=== PATIENT | female | born 1935 | race Caucasian/White ===

== ENCOUNTER 2018-04-13 14:41 | Emergency (ER) | payer OTHER ==
--- NOTE | 2018-04-13 17:15 | RAD REPORT ---
EXAM DESCRIPTION: CT - Pelvis Wo Cont - 04/13/2018 4:44 pm CLINICAL HISTORY: Right hip pain COMPARISON: March 2018 cat scan TECHNIQUE: Computed axial tomography of the pelvis was obtained with coronal and sagittal reconstruc tion All CT scans are performed using dose optimization technique as appropriate and may include automated exposure control or mA/KV adjustment according to patient size. FINDINGS: No fracture or dislocation seen Muscles do not demonstrate a significant abnormality A significant joint effusion is not seen. 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 If patient continues have symptoms to suggest an occult fracture MR I recommended Mild osteoarthritis involves the hips
[2018-04-13] MEDS ORDERED: HYDROCODONE/APAP 5/325 MG TAB ONE (18:26)
--- NOTE | 2018-04-13 20:03 | RAD REPORT ---
EXAM DESCRIPTION: MRI - Hip Right Wo Cont - 04/13/2018 7:52 pm CLINICAL HISTORY: pain wt bear problem History of fall, right hip pain COMPARISON: Pelvis Wo Cont dated 04/13/2018; Hip Right 2 View dated 04/10/2018 FINDINGS: The marrow signal of the visualized pelvis and proximal femur is normal. There is no fracture or dislocation seen. No MR evidence of avascular necrosis. No iliopsoas bursitis. No muscle strain or tear pattern. No significant joint effusion. IMPRESSION: No acute abnormality is detected.
--- NOTE | 2018-04-13 20:16 | EDPHYS ---
Physician Documentation [facility] Name: Kemi Coulter Age: 82 yrs Sex: Female : 1935 Arrival Date: 04/13/2018 Time: 14:44 Bed 25 Private MD: Karson Herndon C; Elijah Herrera ED Physician Elijah Herrera HPI: 04/13 19:50 This 82 yrs old Female presents to ER via Wheelchair with complaints of Leg gs Pain. 19:50 The patient presents with an injury, pain. The complaints affect the right hip. gs Context: The problem was sustained at home. Onset: The symptoms/episode began/occurred 3 week(s) ago. Modifying factors: the symptoms are aggravated by weight bearing. Associated signs and symptoms: Pertinent negatives calf tenderness, numbness. Severity of symptoms: At their worst the symptoms were severe, in the emergency department the symptoms are unchanged. The patient has not experienced similar symptoms in the past. Historical: - Allergies: 14:49 Levaquin; ss - Immunization history:: Adult Immunizations up to date. - Social history:: Smoking status: Patient/guardian denies using tobacco. - Ebola Screening: : Patient denies exposure to infectious person Patient denies travel to an Ebola-affected area in the 21 days before illness onset. ROS: 19:50 All other systems are negative. gs Exam: 19:50 Head/Face: Normocephalic, atraumatic. Neck: Trachea midline, no thyromegaly or masses gs palpated, and no cervical lymphadenopathy. Supple, full range of motion without nuchal rigidity, or vertebral point tenderness. No Meningismus. Cardiovascular: Regular rate and rhythm with a normal S1 and S2. No gallops, murmurs, or rubs. Normal PMI, no JVD. No pulse deficits. Respiratory: Lungs have equal breath sounds bilaterally, clear to auscultation and percussion. No rales, rhonchi or wheezes noted. No increased work of breathing, no retractions or nasal flaring. Abdomen/GI: Soft, non-tender, with normal bowel sounds. No distension or tympany. No guarding or rebound. No evidence of tenderness throughout. Back: No spinal tenderness. No costovertebral tenderness. Full range of motion. Skin: Warm, dry with normal turgor. Normal color with no rashes, no lesions, and no evidence of cellulitis. Neuro: Awake and alert, GCS 15, oriented to person, place, time, and situation. Cranial nerves II-XII grossly intact. Motor strength 5/5 in all extremities. Sensory grossly intact. Cerebellar exam normal. Normal gait. 19:50 Constitutional: The patient appears alert, awake, uncomfortable. 19:50 Musculoskeletal/extremity: Pulses: are normal with no appreciated deficits, Joints: the right hip displays painful range of motion, tenderness. Vital Signs: 14:49 BP 150 / 99; Pulse 85; Resp 16; Temp 97.6(TE); Pulse Ox 96% on R/A; Weight 77.56 kg; ss Height 5 ft. 4 in. (162.56 cm); Pain 9/10; 18:06 BP 149 / 91; Pulse 89; Resp 19; Pulse Ox 99% on R/A; aj 20:49 BP 135 / 78; Pulse 85; Resp 18; Pulse Ox 100% on R/A; Pain 0/10; mg2 14:49 Body Mass Index 29.35 (77.56 kg, 162.56 cm) ss MDM: 16:09 Patient medically screened. gs 19:50 Differential diagnosis: closed fracture, contusion, tendonitis, osteoarthritis. Data gs reviewed: vital signs, nurses notes. 04/13 16:17 Order name: CT Pelvis wo Cont; Complete Time: 17:41 gs 04/13 18:15 Order name: Hip Right Wo Cont; Complete Time: 20:14 EDMS Administered Medications: 18:20 Drug: [place] 5 mg-325 mg 1 tabs Route: PO; kr2 19:28 Follow up: Response: No adverse reaction; Marked relief of symptoms mg2 Disposition: 04/13/18 20:15 Discharged to Home. Impression: Osteoarthritis of hip. - Condition is Stable. - Discharge Instructions: Arthritis, [id number]. - Prescriptions for Tylenol- Codeine #4 300-60 mg Oral Tablet - take 1 tablet by ORAL route every 6 hours As needed; 6 tablet. - Medication Reconciliation Form, Thank You Letter, Antibiotic Education, Prescription Opioid Use form. - Follow up: Private Physician; When: 2 - 3 days; Reason: Re-evaluation by your physician. Follow up: Wood Vega MD; When: 2 - 3 days; Reason: Re-evaluation by your physician. Signatures: Dispatcher [employer] [facility] Cady Swain RN RN ss Elijah Herrera MD MD gs Alexandra Blanchard RN RN kr2 Antonio Joy RN RN mg2 Corrections: (The following items were deleted from the chart) 18:20 17:55 Hip Right Wo Con ordered. [facility] EDTX 20:50 20:15 04/13/2018 20:15 Discharged to Home. Impression: Osteoarthritis of hip. Condition mg2 is Stable. Forms are Medication Reconciliation Form, Thank You Letter, Antibiotic Education, Prescription Opioid Use. Follow up: Private Physician; When: 2 - 3 days; Reason: Re-evaluation by your physician. Follow up: Wood Vega; When: 2 - 3 days; Reason: Re-evaluation by your physician. geno
--- NOTE | 2018-04-13 20:16 | ER ---
Nurse's Notes [facility] Name: Kemi Coulter Age: 82 yrs Sex: Female : 1935 Arrival Date: 04/13/2018 Time: 14:44 Bed 25 Private MD: Karson Herndon C; Elijah Herrera Diagnosis: Osteoarthritis of hip Presentation: 04/13 14:47 Presenting complaint: Patient states: R hip pain x 1.5 months ago after falling from a ss standing position. Pt reports she had an XRAY obtained recently that was ordered by Dr. Herndon last week, but is hurting too bad and has yet to get a report. Transition of care: patient was not received from another setting of care. Onset of symptoms was February 2018. Risk Assessment: Do you want to hurt yourself or someone else? Patient reports no desire to harm self or others. Initial Sepsis Screen: Does the patient meet any 2 criteria? No. Patient's initial sepsis screen is negative. Does the patient have a suspected source of infection? No. Patient's initial sepsis screen is negative. Care prior to arrival: None. 14:47 Method Of Arrival: Wheelchair ss 14:47 Acuity: CORDELL 3 ss Historical: - Allergies: 14:49 Levaquin; ss - Immunization history:: Adult Immunizations up to date. - Social history:: Smoking status: Patient/guardian denies using tobacco. - Ebola Screening: : Patient denies exposure to infectious person Patient denies travel to an Ebola-affected area in the 21 days before illness onset. Screenin:45 Abuse screen: Denies threats or abuse. Denies injuries from another. Nutritional aj screening: No deficits noted. Tuberculosis screening: No symptoms or risk factors identified. Fall Risk None identified. Assessment: 16:45 General: Appears in no apparent distress. comfortable, Behavior is calm, cooperative, aj appropriate for age. Pain: Complains of pain in lateral aspect of right thigh. Neuro: Level of Consciousness is awake, alert, obeys commands, Oriented to person, place, time, situation, Appropriate for age. Respiratory: Airway is patent Respiratory effort is even, unlabored, Respiratory pattern is regular, symmetrical. Derm: Skin is intact, is healthy with good turgor, Skin is pink, warm \T\ dry. normal. Musculoskeletal: Circulation, motion, and sensation intact. Range of motion: intact in all extremities. 20:49 Reassessment: Patient appears in no apparent distress at this time. Patient and/or mg2 family updated on plan of care and expected duration. Pain level reassessed. Patient is alert, oriented x 3, equal unlabored respirations, skin warm/dry/pink. Vital Signs: 14:49 BP 150 / 99; Pulse 85; Resp 16; Temp 97.6(TE); Pulse Ox 96% on R/A; Weight 77.56 kg; ss Height 5 ft. 4 in. (162.56 cm); Pain 9/10; 18:06 BP 149 / 91; Pulse 89; Resp 19; Pulse Ox 99% on R/A; aj 20:49 BP 135 / 78; Pulse 85; Resp 18; Pulse Ox 100% on R/A; Pain 0/10; mg2 14:49 Body Mass Index 29.35 (77.56 kg, 162.56 cm) ED Course: 14:44 Patient arrived in ED. mr 14:45 Karson Herndon MD is Private Physician. mr 14:49 Triage completed. ss 14:49 Arm band placed on right wrist. ss 15:24 Madison Ontiveros, HAL is Primary Nurse. aj 15:24 Elijah Herrera MD is Private Physician. aj 15:37 Elijah Herrera MD is Attending Physician. gs 16:44 CT Pelvis wo Cont In Process Unspecified. EDMS 16:45 Patient has correct armband on for positive identification. aj 16:45 No provider procedures requiring assistance completed. aj 19:10 Patient moved to MRI via wheelchair. ka 19:43 Hip Right Wo Cont In Process Unspecified. EDMS 20:15 Wood Vega MD is Referral Physician. gs 20:17 MRI completed. Patient tolerated well. Patient moved back from [facility]. ka 20:50 Patient did not have IV access during this emergency room visit. mg2 Administered Medications: 18:20 Drug: [place] 5 mg-325 mg 1 tabs Route: PO; kr2 19:28 Follow up: Response: No adverse reaction; Marked relief of symptoms mg2 Outcome: 20:15 Discharge ordered by . gs 20:50 Discharged to home via wheelchair. mg2 20:50 Condition: stable 20:50 Discharge instructions given to patient, family, Instructed on discharge instructions, follow up and referral plans. medication usage, Demonstrated understanding of instructions, follow-up care, medications, Prescriptions given X 1. 20:50 Patient left the ED. mg2 Signatures: Dispatcher [employer] EDMS Madison Ontiveros RN RN aj Rivera, Mary mr Smirch, Shelby, RN RN ss Latha Chavez Gregory, MD MD gs Reaves, Karey, RN RN kr2 Antonio Joy RN RN mg2
[2018-04-13 21:22] VITALS: TEMP 97.6
[2018-04-13 21:26] VITALS: BP 135/78; O2SAT 100
== END 2018-04-13 20:50 | disposition home or self-care (01) ==
LOC: ER 14:41
DX: M16.11 Unilateral primary osteoarthritis, right hip (principal); Z88.1 Allergy status to other antibiotic agents
CPT/HCPCS: 72192; 99284

== ENCOUNTER 2018-08-29 14:25 | Emergency (ER) | payer OTHER ==
--- OUTSIDE RECORDS SUMMARY | 2018-08-29 14:27 | XMS REPORT ---
:1935 [facility] Address [address] [place] [address] Care Team Providers Name Role Phone Unavailable Unavailable Unavailable Problems This patient has no known problems. Allergies, Adverse Reactions, Alerts This patient has no known allergies or adverse reactions. Medications This patient has no known medications.
[2018-08-29] MEDS ORDERED: HYDROCODONE/APAP 5/325 MG TAB ONE (16:00)
--- NOTE | 2018-08-29 16:44 | RAD REPORT ---
EXAM DESCRIPTION: Shoulder Right 2 View - 08/29/2018 4:03 pm CLINICAL HISTORY: Right shoulder pain COMPARISON: None. TECHNIQUE: Internal and external rotation views of the right shoulder were obtained. FINDINGS: No acute fracture is present and no dislocation. Degenerative changes are present with bon y spurring and hypertrophy along the inferior margin of the glenohumeral joint space. Glenohumeral colton int space is narrowed. Acromial humeral joint space is normal. No acute AC joint finding. No spurrin g. No suspicious soft tissue calcification. No acute or suspicious findings. IMPRESSION: Degenerative changes involving the glenohumeral joint space as detailed. No fracture or dislocation identifiable.
--- NOTE | 2018-08-29 16:45 | RAD REPORT ---
EXAM DESCRIPTION: RAD - Elbow Right 3 View - 08/29/2018 4:03 pm CLINICAL HISTORY: Nontraumatic right elbow pain COMPARISON: October 2014 FINDINGS: No fracture is identified and no elevated posterior fat pad. There is no dislocation or pe riosteal reaction noted. No foreign body or other soft tissue abnormality. Elbow joint degenerative c hanges are present not substantially different from comparison. IMPRESSION: No fracture or acute finding. Degenerative change at the right elbow mass significantly different from comparison.
--- NOTE | 2018-08-29 17:07 | EDPHYS ---
Physician Documentation [facility] Name: Kemi Coulter Age: 82 yrs Sex: Female : 1935 Arrival Date: 08/29/2018 Time: 14:28 Bed 18 Private MD: Karson Herndon C ED Physician Kaleb Sanchez HPI: 08/29 17:02 This 82 yrs old Female presents to ER via Ambulatory with complaints of pm1 Shoulder Pain. 17:02 The patient or guardian complains of decreased range of motion, pain. right shoulder pm1 and right elbow. Context: The problem was sustained at home, resulted from an unknown reason, The patient reports no obvious deformity. decreased ROM due to pain. 17:02 Onset: The symptoms/episode began/occurred last night. Modifying factors: the symptoms pm1 are alleviated by remaining still, The symptoms are aggravated by rotation of arm, lifting arm and bending elbow. Associated signs and symptoms: Pertinent negatives: abdominal pain, chest pain, neck pain, Numbness in right arm shortness of breath, tingling, Weakness in right arm. Severity of symptoms: in the emergency department the symptoms are actually worse. Treatment prior to arrival includes: prescription medications, Ultram or Ultracet. The patient has not experienced similar symptoms in the past. The patient has not recently seen a physician. Historical: - Allergies: 15:05 Levaquin; aj1 - PMHx: 15:05 Arthritis; Hypertension; Depression; aj1 - Immunization history:: Flu vaccine is up to date. - Social history:: Smoking status: Patient/guardian denies using tobacco. - Ebola Screening: : Patient denies travel to an Ebola-affected area in the 21 days before illness onset. ROS: 17:02 Constitutional: Negative for fever, chills, and weight loss, Eyes: Negative for injury, pm1 pain, redness, and discharge, ENT: Negative for injury, pain, and discharge, Neck: Negative for injury, pain, and swelling, Cardiovascular: Negative for chest pain, palpitations, and edema, Respiratory: Negative for shortness of breath, cough, wheezing, and pleuritic chest pain, Abdomen/GI: Negative for abdominal pain, nausea, vomiting, diarrhea, and constipation, Back: Negative for injury and pain, : Negative for injury, bleeding, discharge, and swelling. 17:02 Skin: Negative for injury, rash, and discoloration, Neuro: Negative for headache, weakness, numbness, tingling, and seizure. 17:02 MS/extremity: Positive for decreased range of motion, pain, of the right shoulder and right elbow, Negative for deformity. Exam: 17:02 Constitutional: This is a well developed, well nourished patient who is awake, alert, pm1 and in no acute distress. Head/Face: Normocephalic, atraumatic. Eyes: Pupils equal round and reactive to light, extra-ocular motions intact. Lids and lashes normal. Conjunctiva and sclera are non-icteric and not injected. Cornea within normal limits. Periorbital areas with no swelling, redness, or edema. ENT: Nares patent. No nasal discharge, no septal abnormalities noted. Tympanic membranes are normal and external auditory canals are clear. Oropharynx with no redness, swelling, or masses, exudates, or evidence of obstruction, uvula midline. Mucous membranes moist. Neck: Trachea midline, no thyromegaly or masses palpated, and no cervical lymphadenopathy. Supple, full range of motion without nuchal rigidity, or vertebral point tenderness. No Meningismus. Chest/axilla: Normal chest wall appearance and motion. Nontender with no deformity. No lesions are appreciated. Cardiovascular: Regular rate and rhythm with a normal S1 and S2. No gallops, murmurs, or rubs. Normal PMI, no JVD. No pulse deficits. Respiratory: Lungs have equal breath sounds bilaterally, clear to auscultation and percussion. No rales, rhonchi or wheezes noted. No increased work of breathing, no retractions or nasal flaring. Abdomen/GI: Soft, non-tender, with normal bowel sounds. No distension or tympany. No guarding or rebound. No evidence of tenderness throughout. Back: No spinal tenderness. No costovertebral tenderness. Full range of motion. Skin: Warm, dry with normal turgor. Normal color with no rashes, no lesions, and no evidence of cellulitis. 17:02 Musculoskeletal/extremity: Extremities: grossly normal except: noted in the right shoulder: pain, tenderness, decreased ROM due to pain, noted in the right elbow: tenderness, decreased ROM due to pain, Circulation is intact in all extremities. the right arm Sensation intact. 17:02 Neuro: Orientation: is normal, Motor: is normal, moves all fours, Sensation: is normal, no obvious gross deficits, Gait: is steady, at a normal pace, without difficulty. Vital Signs: 15:05 BP 156 / 80; Pulse 95; Resp 18; Temp 98.2; Pulse Ox 98% on R/A; Weight 74.84 kg (R); aj1 Height 5 ft. 4 in. (162.56 cm) (R); Pain 8/10; 17:05 BP 175 / 84; Pulse 85; Resp 16; Pulse Ox 100% ; rb1 15:05 Body Mass Index 28.32 (74.84 kg, 162.56 cm) aj1 17:05 Pt. did not take her Blood pressure medications today rb1 MDM: 15:28 Patient medically screened. pm1 17:02 Data reviewed: vital signs. Data interpreted: Pulse oximetry: on room air is 98 %. pm1 Interpretation: normal. Counseling: I had a detailed discussion with the patient and/or guardian regarding: the historical points, exam findings, and any diagnostic results supporting the discharge/admit diagnosis, radiology results, the need for outpatient follow up, a orthopedic surgeon, to return to the emergency department if symptoms worsen or persist or if there are any questions or concerns that arise at home. 08/29 15:36 Order name: Shoulder Right (2 View) XRAY; Complete Time: 16:51 pm1 08/29 15:36 Order name: Elbow Right 3 View XRAY; Complete Time: 16:51 pm1 08/29 17:02 Order name: Sling; Complete Time: 17:15 pm1 Administered Medications: 15:50 Drug: HYDROcodone-acetaminophen 5 mg-325 mg 1 tabs Route: PO; rv 16:20 Follow up: Response: No adverse reaction; Pain is decreased rb1 Disposition: 17:35 Co-signature as Attending Physician, Kaleb Sanchez MD I agree with the assessment and kdr plan of care. Disposition: 08/29/18 17:06 Discharged to Home. Impression: Pain in right shoulder, Pain in right elbow. - Condition is Stable. - Discharge Instructions: Joint Pain, Arthritis, Musculoskeletal Pain, Shoulder Pain, Shoulder Range of Motion Exercises, How to Use a Sling. - Medication Reconciliation Form, Thank You Letter, Antibiotic Education, Prescription Opioid Use form. - Follow up: Emergency Department; When: As needed; Reason: Worsening of condition. Follow up: Wood Vega MD; When: 2 - 3 days; Reason: Recheck today's complaints, Continuance of care, Re-evaluation by your physician. - Problem is new. - Symptoms have improved. Signatures: Dispatcher [employer] EDMS Luz Elena Ordonez RN RN aj1 Kaleb Sanchez MD MD kdr Barber, Rebecca RN RN rb1 Derek Acevedo NP INVENTORY MANAGER pm1 Rito Mccord RN RN rv Corrections: (The following items were deleted from the chart) 17:16 17:06 08/29/2018 17:06 Discharged to Home. Impression: Pain in right shoulderPain in rb1 right elbow. Condition is Stable. Forms are Medication Reconciliation Form, Thank You Letter, Antibiotic Education, Prescription Opioid Use. Follow up: Emergency Department; When: As needed; Reason: Worsening of condition. Follow up: Wood Vega; When: 2 - 3 days; Reason: Recheck today's complaints, Continuance of care, Re-evaluation by your physician. Problem is new. Symptoms have improved. pm1
--- NOTE | 2018-08-29 17:07 | ER ---
Nurse's Notes [facility] Name: Kemi Coulter Age: 82 yrs Sex: Female : 1935 Arrival Date: 08/29/2018 Time: 14:28 Bed 18 Private MD: Karson Herndon C Diagnosis: Pain in right elbow;Pain in right shoulder Presentation: 08/29 15:03 Presenting complaint: Patient states: Right shoulder pain that started last night, aj1 reports that now she can't lift anything with her right arm. Denies injury to right shoulder. States that she took tramadol last night to try to ease the pain but she still was not able to sleep. Transition of care: patient was not received from another setting of care. Onset of symptoms was August 29, 2018. Risk Assessment: Do you want to hurt yourself or someone else? Patient reports no desire to harm self or others. Initial Sepsis Screen: Does the patient meet any 2 criteria? No. Patient's initial sepsis screen is negative. Does the patient have a suspected source of infection? No. Patient's initial sepsis screen is negative. Care prior to arrival: None. 15:03 Method Of Arrival: Ambulatory aj1 15:03 Acuity: COREDLL 4 aj1 Triage Assessment: 15:05 General: Appears in no apparent distress. uncomfortable, Behavior is calm, cooperative, aj1 appropriate for age. Pain: Complains of pain in anterior aspect of right shoulder and posterior aspect of right shoulder Pain radiates to right arm Pain currently is 8 out of 10 on a pain scale. Aggravated by repositioning. Neuro: Level of Consciousness is awake, alert, obeys commands, Oriented to person, place, time, situation. Cardiovascular: Patient's skin is warm and dry. Respiratory: Airway is patent Respiratory effort is even, unlabored, Respiratory pattern is regular, symmetrical. Historical: - Allergies: 15:05 Levaquin; aj1 - PMHx: 15:05 Arthritis; Hypertension; Depression; aj1 - Immunization history:: Flu vaccine is up to date. - Social history:: Smoking status: Patient/guardian denies using tobacco. - Ebola Screening: : Patient denies travel to an Ebola-affected area in the 21 days before illness onset. Screenin:59 Abuse screen: Denies threats or abuse. Denies injuries from another. Nutritional rv screening: No deficits noted. Tuberculosis screening: No symptoms or risk factors identified. Fall Risk None identified. Assessment: 15:58 General: Appears in no apparent distress. comfortable, Behavior is calm, cooperative. rv Pain: Complains of pain in right shoulder. Neuro: Level of Consciousness is awake, alert, obeys commands, Oriented to person, place, time, situation. Cardiovascular: Capillary refill < 3 seconds. Respiratory: Airway is patent. GI: No signs and/or symptoms were reported involving the gastrointestinal system. : No signs and/or symptoms were reported regarding the genitourinary system. EENT: No signs and/or symptoms were reported regarding the EENT system. Derm: Skin is intact. Musculoskeletal: Reports pain in right shoulder. 17:05 Reassessment: Patient appears in no apparent distress at this time. Patient and/or rb1 family updated on plan of care and expected duration. Pain level reassessed. Patient is alert, oriented x 3, equal unlabored respirations, skin warm/dry/pink. Patient states feeling better. Vital Signs: 15:05 BP 156 / 80; Pulse 95; Resp 18; Temp 98.2; Pulse Ox 98% on R/A; Weight 74.84 kg (R); aj1 Height 5 ft. 4 in. (162.56 cm) (R); Pain 8/10; 17:05 BP 175 / 84; Pulse 85; Resp 16; Pulse Ox 100% ; rb1 15:05 Body Mass Index 28.32 (74.84 kg, 162.56 cm) aj1 17:05 Pt. did not take her Blood pressure medications today rb1 ED Course: 14:28 Patient arrived in ED. mr 14:28 Karson Herndon MD is Private Physician. mr 15:04 Triage completed. aj1 15:05 Arm band placed on Patient placed in an exam room. aj1 15:25 Derek Acevedo NP is PHCP. pm1 15:25 Kaleb Sanchez MD is Attending Physician. pm1 15:46 Rito Mccord, HAL is Primary Nurse. rv 15:59 Patient has correct armband on for positive identification. Bed in low position. Call rv light in reach. Side rails up X 1. Pulse ox on. NIBP on. 16:03 Shoulder Right (2 View) XRAY In Process Unspecified. EDMS 16:03 Elbow Right 3 View XRAY In Process Unspecified. EDMS 17:05 Wood Vega MD is Referral Physician. pm1 17:15 No provider procedures requiring assistance completed. Patient did not have IV access rb1 during this emergency room visit. Administered Medications: 15:50 Drug: HYDROcodone-acetaminophen 5 mg-325 mg 1 tabs Route: PO; rv 16:20 Follow up: Response: No adverse reaction; Pain is decreased rb1 Outcome: 17:06 Discharge ordered by MD. pm1 17:15 Discharged to home via wheelchair, with family. rb1 17:15 Condition: stable 17:15 Discharge instructions given to patient, Instructed on discharge instructions, follow up and referral plans. Demonstrated understanding of instructions, follow-up care, Prescriptions given X none 17:16 Patient left the ED. rb1 Signatures: Dispatcher [employer] EDMS Luz Elena Ordonez, RN RN aj1 Margot Caballero mr VishnuSharon RN RN rb1 Derek Acevedo, NICU RN NICU RN pm1 Rito Mccord RN RN rv
[2018-08-29 17:21] VITALS: TEMP 98.2
[2018-08-29 17:22] VITALS: BP 175/84; O2SAT 100
== END 2018-08-29 17:16 | disposition home or self-care (01) ==
LOC: ER 14:25
DX: M25.511 Pain in right shoulder (principal); M25.521 Pain in right elbow; I10 Essential (primary) hypertension; F32.9 Major depressive disorder, single episode, unspecified
CPT/HCPCS: 99284

== ENCOUNTER 2019-07-10 08:20 | Emergency (ER) | payer OTHER ==
--- OUTSIDE RECORDS SUMMARY | 2019-07-10 08:22 | XMS REPORT ---
:1935 [facility] [address] [place] [address] Care Team Providers Name Role Phone Unavailable Unavailable Unavailable Problems This patient has no known problems. Allergies, Adverse Reactions, Alerts This patient has no known allergies or adverse reactions. Medications This patient has no known medications.
[2019-07-10] MEDS ORDERED: KETOROLAC 30 MG/ML INJ ONE (09:25)
[2019-07-10] MEDS ORDERED: ONDANSETRON 4 MG/2 ML VIAL ONE (09:25)
[2019-07-10] MEDS ORDERED: MORPHINE 2 MG/ML SYR ONE (09:25)
[2019-07-10] MEDS ORDERED: dexAMETHasone 4 MG/ML VIAL ONE (09:25)
[2019-07-10] MEDS ORDERED: NA CHLORIDE 0.9% 500 ML ONE (09:25)
[2019-07-10 10:05] LABS: Absolute Lymphocytes (CBC) 0.6 K/uL (0.7-4.9); Basophils % 0.2 % (0-1.3); Hematocrit 35.6 % (36.0-45.0); Lymphocytes % 9.5 % (15.3-44.8); MPV 8.6 fL (7.6-11.3); RBC Red Blood Cell Count 3.86 M/uL (3.86-4.86)
[2019-07-10 10:15] LABS: Albumin 3.7 g/dL (3.4-5.0); Bilirubin Total 0.5 mg/dL (0.2-1.0); Potassium 3.2 mmol/L (3.5-5.1); Protein, Total 7.3 g/dL (6.4-8.2); Uric Acid 1.2 mg/dL (2.6-6.0)
--- NOTE | 2019-07-10 10:28 | EDPHYS ---
Physician Documentation [facility] Name: Kemi Coulter Age: 83 yrs Sex: Female : 1935 Arrival Date: 07/10/2019 Time: 08:24 Bed 2 Private MD: Karson Herndon C ED Physician Kevyn Miranda HPI: 09:11 This 83 yrs old Female presents to ER via Ambulatory with complaints of Arm ean Pain. 09:11 The patient or guardian complains of decreased range of motion. The complaints affect ean the anterior aspect of right shoulder and posterior aspect of right shoulder. Context: The problem was sustained at home. Onset: The symptoms/episode began/occurred 1 day(s) ago. Treatment prior to arrival includes: no previous treatment. Modifying factors: The symptoms are alleviated by remaining still, the symptoms are aggravated by nothing. Associated signs and symptoms: The patient has no apparent associated signs or symptoms. The patient has not experienced similar symptoms in the past. Historical: - Allergies: 08:45 Levaquin; iw - Home Meds: 08:45 aspirin 81 mg Oral TbEC 1 tab once daily [Active]; citalopram 20 mg tab 1 tab once iw daily [Active]; Dilantin 100 mg Oral cap nightly [Active]; hydrochlorothiazide 25 mg Oral tab 1 tab once daily [Active]; Dexilant 60 mg oral CpDB 1 cap once daily [Active]; levothyroxine 88 mcg tab 1 tab once daily [Active]; losartan 50 mg oral tab 1 tab 2 times per day [Active]; Seroquel 300 mg Oral tab 1 tab once daily [Active]; trazodone 150 mg Oral tab 1 tab 2 times per day [Active]; temazepam 30 mg Oral cap 1 cap once daily [Active]; simvastatin 20 mg Oral tab 1 tab once daily [Active]; carvedilol 25 mg oral tab 2 times per day [Active]; tramadol 50 mg Oral tab [Active]; - PMHx: 08:45 Arthritis; Depression; Hypertension; IBS; CVA; iw - PSHx: 08:45 Hysterectomy; Hernia repair; colon resection; Cholecystectomy; hemorrhoids; iw - Immunization history:: Adult Immunizations not up to date. - Social history:: Smoking status: Patient denies any tobacco usage or history of. - Family history:: not pertinent. ROS: 09:11 Constitutional: Negative for fever, chills, and weight loss, Eyes: Negative for injury, ean pain, redness, and discharge, ENT: Negative for injury, pain, and discharge, Neck: Negative for injury, pain, and swelling, Cardiovascular: Negative for chest pain, palpitations, and edema, Respiratory: Negative for shortness of breath, cough, wheezing, and pleuritic chest pain, Abdomen/GI: Negative for abdominal pain, nausea, vomiting, diarrhea, and constipation, Back: Negative for injury and pain, : Negative for injury, bleeding, discharge, and swelling, Skin: Negative for injury, rash, and discoloration, Neuro: Negative for headache, weakness, numbness, tingling, and seizure, Psych: Negative for depression, anxiety, suicide ideation, homicidal ideation, and hallucinations, Allergy/Immunology: Negative for hives, rash, and allergies, Endocrine: Negative for neck swelling, polydipsia, polyuria, polyphagia, and marked weight changes. 09:11 MS/extremity: Positive for decreased range of motion, pain, swelling, of the anterior aspect of right shoulder and posterior aspect of right shoulder. Exam: 09:11 Head/Face: Normocephalic, atraumatic. Eyes: Pupils equal round and reactive to light, ean extra-ocular motions intact. Lids and lashes normal. Conjunctiva and sclera are non-icteric and not injected. Cornea within normal limits. Periorbital areas with no swelling, redness, or edema. ENT: Nares patent. No nasal discharge, no septal abnormalities noted. Tympanic membranes are normal and external auditory canals are clear. Oropharynx with no redness, swelling, or masses, exudates, or evidence of obstruction, uvula midline. Mucous membranes moist. Neck: Trachea midline, no thyromegaly or masses palpated, and no cervical lymphadenopathy. Supple, full range of motion without nuchal rigidity, or vertebral point tenderness. No Meningismus. Chest/axilla: Normal chest wall appearance and motion. Nontender with no deformity. No lesions are appreciated. Cardiovascular: Regular rate and rhythm with a normal S1 and S2. No gallops, murmurs, or rubs. Normal PMI, no JVD. No pulse deficits. Respiratory: Lungs have equal breath sounds bilaterally, clear to auscultation and percussion. No rales, rhonchi or wheezes noted. No increased work of breathing, no retractions or nasal flaring. Abdomen/GI: Soft, non-tender, with normal bowel sounds. No distension or tympany. No guarding or rebound. No evidence of tenderness throughout. Back: No spinal tenderness. No costovertebral tenderness. Full range of motion. Skin: Warm, dry with normal turgor. Normal color with no rashes, no lesions, and no evidence of cellulitis. Neuro: Awake and alert, GCS 15, oriented to person, place, time, and situation. Cranial nerves II-XII grossly intact. Motor strength 5/5 in all extremities. Sensory grossly intact. Cerebellar exam normal. Normal gait. Psych: Awake, alert, with orientation to person, place and time. Behavior, mood, and affect are within normal limits. 09:11 Constitutional: The patient appears alert, in obvious distress, mildly distressed. Vital Signs: 08:38 BP 155 / 85; Pulse 80; Resp 16; Temp 97.4; Pulse Ox 98% on R/A; Weight 68.04 kg; Height iw 5 ft. 4 in. (162.56 cm); Pain 10/10; 10:00 BP 183 / 85; Pulse 79; Resp 16; Pulse Ox 97% ; Pain 9/10; jl7 11:00 BP 180 / 80; Pulse 75; Resp 16 S; Pulse Ox 97% on R/A; jl7 08:38 Body Mass Index 25.75 (68.04 kg, 162.56 cm) iw MDM: 08:47 Patient medically screened. [facility] 09:11 Data reviewed: vital signs, nurses notes, lab test result(s), radiologic studies, plain ean films. 09:11 Order name: CBC with Diff [facility] 09:11 Order name: Comprehensive Metabolic Panel; Complete Time: 10:21 [facility] 09:11 Order name: Shoulder Right (2 View) XRAY [facility] 09:11 Order name: Uric Acid; Complete Time: 10:21 [facility] 10:42 Order name: Manual Differential EDMS 09:18 Order name: Sling; Complete Time: 11:10 [facility] 10:26 Order name: PO challenge: JUICE; Complete Time: 11:10 [facility] Administered Medications: 09:40 Drug: NS 0.9% 500 ml Route: IV; Rate: bolus; Site: left antecubital; jl7 10:30 Follow up: Response: No adverse reaction; IV Status: Completed infusion; IV Intake: jl7 500ml 09:40 Drug: Zofran (Ondansetron) 4 mg Route: IVP; Site: left antecubital; jl7 11:13 Follow up: Response: No adverse reaction jl7 09:42 Drug: morphine 2 mg Route: IVP; Site: left antecubital; jl7 10:00 Follow up: Response: No adverse reaction; Pain is decreased jl7 09:45 Drug: Decadron - Dexamethasone 10 mg Route: IVP; Site: left antecubital; jl7 10:00 Follow up: Response: No adverse reaction; Pain is decreased jl7 09:47 Drug: TORadol 30 mg Route: IVP; Site: left antecubital; jl7 10:00 Follow up: Response: No adverse reaction; Pain is decreased jl7 11:10 Drug: Encinal (7.5 mg-325 mg) 1 tabs Route: PO; jl7 11:14 Follow up: Response: No adverse reaction jl7 Disposition: 07/10/19 10:27 Discharged to Home. Impression: Effusion, right shoulder, Pain in right shoulder, Hypokalemia. - Condition is Stable. - Discharge Instructions: Joint Pain, Arthritis, Potassium Content of Foods, Musculoskeletal Pain, Shoulder Pain, Cryotherapy, Dvmk-qn-Aobv, Shoulder Pain, Nivz-oe-Pifw, Arthritis, Lcqa-oc-Vvfe, Cryotherapy, Joint Pain, Btcp-gk-Uaqi, Hypokalemia. - Prescriptions for Tylenol- Codeine #3 300-30 mg Oral Tablet - take 2 tablets by ORAL route every 6 hours As needed; 28 tablet. Medrol (Cristian) 4 mg Oral Tablets, Dose Pack - take 1 tablet by ORAL route as directed - follow package instructions; 1 packet. Motrin IB 200 mg Oral Tablet - take 2 tablet by ORAL route every 6 hours As needed as needed with food; 30 tablet. Valium 2 mg Oral Tablet - take 1 tablet by ORAL route every 8 hours As needed; 20 tablet. - Medication Reconciliation Form, Thank You Letter, Antibiotic Education, Prescription Opioid Use form. - Follow up: Karson Herndon; When: 2 - 3 days; Reason: Recheck today's complaints, Continuance of care, Re-evaluation by your physician. Follow up: Wood Vega; When: 2 - 3 days; Reason: Recheck today's complaints, Continuance of care, Re-evaluation by your physician. - Problem is new. - Symptoms have improved. Signatures: Dispatcher [employer] EDKevyn Amaral MD MD cha Williams, Irene, RN RN iw Leal, Jahala, RN RN jl7 Corrections: (The following items were deleted from the chart) 10:00 09:11 Ice pack ordered. ean jl7 10:29 10:27 07/10/2019 10:27 Discharged to Home. Impression: Effusion, right shoulder; Pain ean in right shoulder. Condition is Stable. Discharge Instructions: Joint Pain, Arthritis, Musculoskeletal Pain, Shoulder Pain, Cryotherapy, Qrip-de-Fkdc, Shoulder Pain, Wzyv-zs-Ckvo, Arthritis, Obhi-ta-Lrqd, Joint Pain, Jzyx-qt-Bfgn, Cryotherapy. Prescriptions for Tylenol-Codeine #3 300-30 mg Oral Tablet - take 2 tablets by ORAL route every 6 hours As needed; 28 tablet, Medrol (Cristian) 4 mg Oral Tablets, Dose Pack - take 1 tablet by ORAL route as directed - follow package instructions; 1 packet, Motrin IB 200 mg Oral Tablet - take 2 tablet by ORAL route every 6 hours As needed as needed with food; 30 tablet, Valium 2 mg Oral Tablet - take 1 tablet by ORAL route every 8 hours As needed; 20 tablet. and Forms are Medication Reconciliation Form, Thank You Letter, Antibiotic Education, Prescription Opioid Use. Follow up: Karson Herndon; When: 2 - 3 days; Reason: Recheck today's complaints, Continuance of care, Re-evaluation by your physician. Follow up: Wood Vega; When: 2 - 3 days; Reason: Recheck today's complaints, Continuance of care, Re-evaluation by your physician. Problem is new. Symptoms have improved. ean 11:34 10:29 07/10/2019 10:27 Discharged to Home. Impression: Effusion, right shoulder; Pain jl7 in right shoulder; Hypokalemia. Condition is Stable. Discharge Instructions: Joint Pain, Arthritis, Musculoskeletal Pain, Shoulder Pain, Cryotherapy, Xfmi-ws-Fhqi, Shoulder Pain, Tesf-aa-Ysrx, Arthritis, Mfkg-lr-Lxbx, Joint Pain, Ktlo-rk-Rfve, Cryotherapy. Prescriptions for Tylenol-Codeine #3 300-30 mg Oral Tablet - take 2 tablets by ORAL route every 6 hours As needed; 28 tablet, Medrol (Cristian) 4 mg Oral Tablets, Dose Pack - take 1 tablet by ORAL route as directed - follow package instructions; 1 packet, Motrin IB 200 mg Oral Tablet - take 2 tablet by ORAL route every 6 hours As needed as needed with food; 30 tablet, Valium 2 mg Oral Tablet - take 1 tablet by ORAL route every 8 hours As needed; 20 tablet. and Forms are Medication Reconciliation Form, Thank You Letter, Antibiotic Education, Prescription Opioid Use. Follow up: Karson Herndon; When: 2 - 3 days; Reason: Recheck today's complaints, Continuance of care, Re-evaluation by your physician. Follow up: Wood Vega; When: 2 - 3 days; Reason: Recheck today's complaints, Continuance of care, Re-evaluation by your physician. Problem is new. Symptoms have improved. ean
--- NOTE | 2019-07-10 10:28 | ER ---
Nurse's Notes [facility] Name: Kemi Coulter Age: 83 yrs Sex: Female : 1935 Arrival Date: 07/10/2019 Time: 08:24 Bed 2 Private MD: Karson Herndon C Diagnosis: Effusion, right shoulder;Pain in right shoulder;Hypokalemia Presentation: 08:38 Chief complaint: Patient states: woke up this morning with pain to left upper arm, pain iw radiates up into left shoulder, has hx of osteoarthritis but this feels a bit different, pt took a tylenol with codeine this morning. Coronavirus screen: The patient has NOT traveled to [place] in the past 14 days. Proceed with normal triage procedures. Ebola Screen: Patient negative for fever greater than or equal to 101.5 degrees Fahrenheit, and additional compatible Ebola Virus Disease symptoms Patient denies exposure to infectious person. Patient denies travel to an Ebola-affected area in the 21 days before illness onset. No symptoms or risks identified at this time. Initial Sepsis Screen: Does the patient meet any 2 criteria? No. Patient's initial sepsis screen is negative. Does the patient have a suspected source of infection? No. Patient's initial sepsis screen is negative. Risk Assessment: Do you want to hurt yourself or someone else? Patient reports no desire to harm self or others. 08:38 Method Of Arrival: Ambulatory iw 08:38 Acuity: CORDELL 4 iw 09:07 Acuity: CORDELL 3 iw Historical: - Allergies: 08:45 Levaquin; iw - Home Meds: 08:45 aspirin 81 mg Oral TbEC 1 tab once daily [Active]; citalopram 20 mg tab 1 tab once iw daily [Active]; Dilantin 100 mg Oral cap nightly [Active]; hydrochlorothiazide 25 mg Oral tab 1 tab once daily [Active]; Dexilant 60 mg oral CpDB 1 cap once daily [Active]; levothyroxine 88 mcg tab 1 tab once daily [Active]; losartan 50 mg oral tab 1 tab 2 times per day [Active]; Seroquel 300 mg Oral tab 1 tab once daily [Active]; trazodone 150 mg Oral tab 1 tab 2 times per day [Active]; temazepam 30 mg Oral cap 1 cap once daily [Active]; simvastatin 20 mg Oral tab 1 tab once daily [Active]; carvedilol 25 mg oral tab 2 times per day [Active]; tramadol 50 mg Oral tab [Active]; - PMHx: 08:45 Arthritis; Depression; Hypertension; IBS; CVA; iw - PSHx: 08:45 Hysterectomy; Hernia repair; colon resection; Cholecystectomy; hemorrhoids; iw - Immunization history:: Adult Immunizations not up to date. - Social history:: Smoking status: Patient denies any tobacco usage or history of. - Family history:: not pertinent. Screenin:00 Abuse screen: Denies threats or abuse. Denies injuries from another. Nutritional jl7 screening: No deficits noted. Tuberculosis screening: No symptoms or risk factors identified. Fall Risk IV access (20 points). Total Ramachandran Fall Scale indicates No Risk (0-24 pts). Assessment: 09:30 General: Appears in no apparent distress. uncomfortable, Behavior is cooperative. Pain: jl7 Complains of pain in anterior aspect of right shoulder and right bicep Pain currently is 10 out of 10 on a pain scale. Pain began years ago. Neuro: Level of Consciousness is awake, alert, obeys commands. Cardiovascular: Patient's skin is warm and dry. Respiratory: Airway is patent Respiratory effort is even, unlabored, Respiratory pattern is regular, symmetrical. Derm: Skin is pink, warm \T\ dry. 10:00 Reassessment: Pt reports decrease in pain, rated 9/10. Pt has her own sling, placed jl7 sling on pt and pt reports slight improvement in comfort at this time. 11:15 Reassessment: Dr. Miranda at bedside discussing results and POC. jl7 Vital Signs: 08:38 BP 155 / 85; Pulse 80; Resp 16; Temp 97.4; Pulse Ox 98% on R/A; Weight 68.04 kg; Height iw 5 ft. 4 in. (162.56 cm); Pain 10/10; 10:00 BP 183 / 85; Pulse 79; Resp 16; Pulse Ox 97% ; Pain 9/10; jl7 11:00 BP 180 / 80; Pulse 75; Resp 16 S; Pulse Ox 97% on R/A; jl7 08:38 Body Mass Index 25.75 (68.04 kg, 162.56 cm) ED Course: 08:24 Patient arrived in ED. mr 08:24 Karson Herndon MD is Private Physician. mr 08:40 Triage completed. iw 08:45 Arm band placed on. iw 08:47 Kevyn Miranda MD is Attending Physician. ean 08:48 Juan Rogers, HAL is Primary Nurse. jl7 09:35 Initial lab(s) drawn, by me, sent to lab. Inserted saline lock: 20 gauge in left jl7 antecubital area, using aseptic technique. Blood collected. 09:42 Shoulder Right (2 View) XRAY In Process Unspecified. EDMS 10:00 Patient has correct armband on for positive identification. Placed in gown. Bed in low jl7 position. Call light in reach. Side rails up X 1. Pulse ox on. NIBP on. Warm blanket given. 10:27 Karson Herndon MD is Referral Physician. ean 10:27 Wood Vega MD is Referral Physician. ean 10:55 No provider procedures requiring assistance completed. IV discontinued, intact, jl7 bleeding controlled, No redness/swelling at site. Pressure dressing applied. Administered Medications: 09:40 Drug: NS 0.9% 500 ml Route: IV; Rate: bolus; Site: left antecubital; jl7 10:30 Follow up: Response: No adverse reaction; IV Status: Completed infusion; IV Intake: jl7 500ml 09:40 Drug: Zofran (Ondansetron) 4 mg Route: IVP; Site: left antecubital; jl7 11:13 Follow up: Response: No adverse reaction jl7 09:42 Drug: morphine 2 mg Route: IVP; Site: left antecubital; jl7 10:00 Follow up: Response: No adverse reaction; Pain is decreased jl7 09:45 Drug: Decadron - Dexamethasone 10 mg Route: IVP; Site: left antecubital; jl7 10:00 Follow up: Response: No adverse reaction; Pain is decreased jl7 09:47 Drug: TORadol 30 mg Route: IVP; Site: left antecubital; jl7 10:00 Follow up: Response: No adverse reaction; Pain is decreased jl7 11:10 Drug: [place] (7.5 mg-325 mg) 1 tabs Route: PO; jl7 11:14 Follow up: Response: No adverse reaction jl7 Intake: 10:30 IV: 500ml; Total: 500ml. jl7 Outcome: 10:27 Discharge ordered by . ean 11:33 Discharged to home via wheelchair, with family. gabo 11:33 Condition: stable 11:33 Discharge instructions given to patient, family, Instructed on discharge instructions, follow up and referral plans. medication usage, Demonstrated understanding of instructions, follow-up care, medications, Prescriptions given X 4. 11:34 Patient left the ED. jl7 Signatures: Dispatcher [employer] EDKevyn Amaral MD MD cha Rivera, Mary mr Williams, Irene, RN RN Juan Boswell RN RN jlJustice
--- NOTE | 2019-07-10 10:34 | RAD REPORT ---
EXAM DESCRIPTION: RAD - Shoulder Right 2 View - 07/10/2019 9:42 am CLINICAL HISTORY: PAIN COMPARISON: Shoulder Right 2 View dated 08/29/2018 FINDINGS: Prominent osteoarthritic changes involve the glenohumeral joint. No fracture or dislocatio n is seen.
[2019-07-10 10:41] LABS: Blood Morphology Comment NOT SEEN (NOT SEEN); Platelet Estimate DECR
[2019-07-10] MEDS ORDERED: HYDROCODONE/APAP 7.5/325 MG TAB ONE (11:04)
[2019-07-10 11:41] VITALS: TEMP 97.4
[2019-07-10 11:43] VITALS: O2SAT 97
[2019-07-10 11:44] VITALS: BP 180/80
== END 2019-07-10 11:34 | disposition home or self-care (01) ==
LOC: ER 08:20
DX: M25.411 Effusion, right shoulder (principal); E87.6 Hypokalemia; Z88.1 Allergy status to other antibiotic agents; I10 Essential (primary) hypertension; Z86.73 Personal history of transient ischemic attack (TIA), and cerebral infarction without residual deficits
CPT/HCPCS: 96361; 85025; 36415; 84550; 80053; 73030; 96375; 96374; 99284; J2270; J7040; J2405

== ENCOUNTER 2019-07-20 09:53 | Observation (INO) | payer OTHER ==
--- OUTSIDE RECORDS SUMMARY | 2019-07-20 09:56 | XMS REPORT ---
:1935 [facility] [address] [place] [address] Care Team Providers Name Role Phone Unavailable Unavailable Unavailable Problems This patient has no known problems. Allergies, Adverse Reactions, Alerts This patient has no known allergies or adverse reactions. Medications This patient has no known medications.
[2019-07-20] MEDS ORDERED: METHYLPREDNISOLONE 125 MG INJ ONE (11:32)
[2019-07-20] MEDS ORDERED: NA CHLORIDE 0.9% 250 ML ONE (11:33)
[2019-07-20] MEDS ORDERED: LEVALBUTEROL 1.25 MG/3 ML NEB ONE (11:33)
[2019-07-20] MEDS ORDERED: NA CHLORIDE 0.9% 1,000 ML ONE (11:33)
[2019-07-20] MEDS ORDERED: CEFTRIAXONE/SWI 1gm 1 GM/10 ML SYR ONE (11:33)
[2019-07-20] MEDS ORDERED: AZITHROMYCIN 500 MG INJ IVPB ONE (11:33)
[2019-07-20] MEDS ORDERED: IPRATROPIUM BROM 0.5MG/2.5ML ONE (11:34)
[2019-07-20 11:44] LABS: Absolute Lymphocytes (CBC) 0.8 K/uL (0.7-4.9); Basophils % 0.3 % (0-1.3); Hematocrit 33.8 % (36.0-45.0); Lymphocytes % 14.5 % (15.3-44.8); MPV 7.2 fL (7.6-11.3); RBC Red Blood Cell Count 3.67 M/uL (3.86-4.86)
--- NOTE | 2019-07-20 11:50 | RAD REPORT ---
EXAM DESCRIPTION: Teresa Single View07/20/2019 11:27 am CLINICAL HISTORY: Cough COMPARISON: 2017 FINDINGS: Calcified lung granulomas are present. The lungs appear clear of acute infiltrate. The heart is normal size IMPRESSION: No acute abnormalities displayed
[2019-07-20 12:04] LABS: ALT/SGPT 19 U/L (12-78); AST/SGOT 19 U/L (15-37); Albumin 3.1 g/dL (3.4-5.0); Alkaline Phosphatase 63 U/L (45-117); BUN Blood Urea Nitrogen 6 mg/dL (7-18); Bicarbonate 26 mmol/L (21-32); Bilirubin Direct 0.2 mg/dL (0-0.2); Bilirubin Total 0.5 mg/dL (0.2-1.0); Glucose Level 82 mg/dL (74-106); NT PRO-BNP 551 pg/mL (<450); Phenytoin (Dilantin) Level 6.3 ug/mL (10.0-20.0); Protein, Total 7.1 g/dL (6.4-8.2); Sodium Level 140 mmol/L (136-145); Troponin (Emerg Dept Use Only) < 0.02 ng/mL (0.0-0.045)
--- NOTE | 2019-07-20 12:16 | EDPHYS ---
Physician Documentation [facility] Name: Kemi Coulter Age: 83 yrs Sex: Female : 1935 Arrival Date: 07/20/2019 Time: 09:55 Bed 18 Private MD: Karson Herndon C ED Physician Kevyn Miranda HPI: 07/19 11:09 This 83 yrs old Female presents to ER via Ambulatory with complaints of ean Cough, Congestion. 11:09 The patient or guardian reports airway noise, cough. Onset: The symptoms/episode ean began/occurred 3 day(s) ago. Severity of symptoms: At their worst the symptoms were mild, in the emergency department the symptoms are unchanged. Modifying factors: The symptoms are alleviated by nothing, the symptoms are aggravated by nothing. Associated signs and symptoms: The patient has no apparent associated signs or symptoms. The patient has experienced similar episodes in the past, a few times. Historical: - Allergies: 10:15 Levaquin; ss - Home Meds: 10:15 aspirin 81 mg Oral TbEC 1 tab once daily [Active]; carvedilol 25 mg Oral tab 2 times ss per day [Active]; citalopram 20 mg tab 1 tab once daily [Active]; Dexilant 60 mg Oral CpDB 1 cap once daily [Active]; Dilantin 100 mg Oral cap nightly [Active]; hydrochlorothiazide 25 mg Oral tab 1 tab once daily [Active]; levothyroxine 88 mcg tab 1 tab once daily [Active]; losartan 50 mg Oral tab 1 tab 2 times per day [Active]; Seroquel 300 mg Oral tab 1 tab once daily [Active]; simvastatin 20 mg Oral tab 1 tab once daily [Active]; temazepam 30 mg Oral cap 1 cap once daily [Active]; tramadol 50 mg Oral tab [Active]; trazodone 150 mg Oral tab 1 tab 2 times per day [Active]; - PMHx: 10:15 Arthritis; CVA; Depression; Hypertension; ibs; ss - PSHx: 10:15 Hysterectomy; Hernia repair; colon resection; Cholecystectomy; hemorrhoids; ss - Immunization history:: Adult Immunizations up to date. - Social history:: Smoking status: Patient denies any tobacco usage or history of. - Family history:: not pertinent. ROS: 11:09 Constitutional: Negative for fever, chills, and weight loss, Eyes: Negative for injury, ean pain, redness, and discharge, ENT: Negative for injury, pain, and discharge, Neck: Negative for injury, pain, and swelling, Cardiovascular: Negative for chest pain, palpitations, and edema, Abdomen/GI: Negative for abdominal pain, nausea, vomiting, diarrhea, and constipation, Back: Negative for injury and pain, : Negative for injury, bleeding, discharge, and swelling, MS/Extremity: Negative for injury and deformity, Skin: Negative for injury, rash, and discoloration, Neuro: Negative for headache, weakness, numbness, tingling, and seizure, Psych: Negative for depression, anxiety, suicide ideation, homicidal ideation, and hallucinations, Allergy/Immunology: Negative for hives, rash, and allergies, Endocrine: Negative for neck swelling, polydipsia, polyuria, polyphagia, and marked weight changes, Hematologic/Lymphatic: Negative for swollen nodes, abnormal bleeding, and unusual bruising. 11:09 Respiratory: Positive for cough, wheezing, expiratory. Exam: 11:09 Constitutional: This is a well developed, well nourished patient who is awake, alert, ean and in no acute distress. Head/Face: Normocephalic, atraumatic. Eyes: Pupils equal round and reactive to light, extra-ocular motions intact. Lids and lashes normal. Conjunctiva and sclera are non-icteric and not injected. Cornea within normal limits. Periorbital areas with no swelling, redness, or edema. ENT: Nares patent. No nasal discharge, no septal abnormalities noted. Tympanic membranes are normal and external auditory canals are clear. Oropharynx with no redness, swelling, or masses, exudates, or evidence of obstruction, uvula midline. Mucous membranes moist. Neck: Trachea midline, no thyromegaly or masses palpated, and no cervical lymphadenopathy. Supple, full range of motion without nuchal rigidity, or vertebral point tenderness. No Meningismus. Chest/axilla: Normal chest wall appearance and motion. Nontender with no deformity. No lesions are appreciated. Cardiovascular: Regular rate and rhythm with a normal S1 and S2. No gallops, murmurs, or rubs. Normal PMI, no JVD. No pulse deficits. Abdomen/GI: Soft, non-tender, with normal bowel sounds. No distension or tympany. No guarding or rebound. No evidence of tenderness throughout. Back: No spinal tenderness. No costovertebral tenderness. Full range of motion. Female : Normal external genitalia. Skin: Warm, dry with normal turgor. Normal color with no rashes, no lesions, and no evidence of cellulitis. MS/ Extremity: Pulses equal, no cyanosis. Neurovascular intact. Full, normal range of motion. Neuro: Awake and alert, GCS 15, oriented to person, place, time, and situation. Cranial nerves II-XII grossly intact. Motor strength 5/5 in all extremities. Sensory grossly intact. Cerebellar exam normal. Normal gait. Psych: Awake, alert, with orientation to person, place and time. Behavior, mood, and affect are within normal limits. 11:09 Respiratory: the patient does not display signs of respiratory distress, Respirations: labored breathing, that is mild, Breath sounds: bronchial sounds, that are mild, decreased breath sounds, that are mild, rhonchi, that are mild, + upper airway congestion. wheezing: expiratory Vital Signs: 10:12 BP 112 / 84; Pulse 88; Resp 18; Temp 97.8(TE); Pulse Ox 96% on R/A; Weight 68.04 kg; ss Height 5 ft. 4 in. (162.56 cm); Pain 0/10; 11:00 BP 136 / 77; Pulse 71; Resp 18; Pulse Ox 98% on R/A; wh 12:00 BP 142 / 61; Pulse 70; Resp 18; Pulse Ox 98% on R/A; wh 13:00 BP 136 / 99; Pulse 85; Resp 18; Pulse Ox 98% ; wh 14:00 BP 145 / 65; Pulse 75; Resp 18; Pulse Ox 97% on R/A; wh 15:00 BP 157 / 73; Pulse 82; Resp 18; Pulse Ox 97% on R/A; wh 10:12 Body Mass Index 25.75 (68.04 kg, 162.56 cm) MDM: 10:18 Patient medically screened. [facility] 11:11 Data reviewed: vital signs, nurses notes, lab test result(s), EKG, radiologic studies, ean plain films. 07/19 11:09 Order name: Basic Metabolic Panel; Complete Time: 12:12 [facility] 07/19 11:09 Order name: CBC with Diff [facility] 07/19 11:09 Order name: LFT's; Complete Time: 12:12 [facility] 07/19 11:09 Order name: Magnesium; Complete Time: 12:12 [facility] 07/19 11:09 Order name: NT PRO-BNP; Complete Time: 12:12 [facility] 07/19 11:09 Order name: Troponin (emerg Dept Use Only); Complete Time: 12:12 [facility] 07/19 11:09 Order name: XRAY Chest (1 view); Complete Time: 11:57 [facility] 07/19 11:09 Order name: Influenza Screen (a \T\ B); Complete Time: 12:34 [facility] 07/19 11:09 Order name: Blood Culture Adult (2) 07/19 11:09 Order name: Dilantin; Complete Time: 12:12 [facility] 07/19 12:25 Order name: CT Chest Wo Con 07/19 13:17 Order name: Manual Differential EDMS 07/19 11:09 Order name: EKG; Complete Time: 11:11 [facility] 07/19 11:09 Order name: Cardiac monitoring; Complete Time: 11:33 [facility] 07/19 11:09 Order name: EKG - Nurse/Tech; Complete Time: 11:33 [facility] 07/19 11:09 Order name: IV Saline Lock; Complete Time: 11:34 [facility] 07/19 11:09 Order name: Labs collected and sent; Complete Time: 11:33 [facility] 07/19 11:09 Order name: O2 Per Protocol; Complete Time: 11:34 [facility] 07/19 11:09 Order name: O2 Sat Monitoring; Complete Time: 11:34 [facility] Administered Medications: 11:39 Drug: Xopenex 2.5 mg Route: Inhalation; wh 14:28 Follow up: Response: No adverse reaction; Wheezing diminished wh 11:39 Drug: AtroVENT Aerosol 0.5 mg Route: Inhalation; wh 14:28 Follow up: Response: No adverse reaction; Wheezing diminished wh 11:41 Drug: SOLU-Medrol 125 mg Route: IVP; Site: left antecubital; wh 14:27 Follow up: Response: No adverse reaction wh 11:43 Drug: NS 0.9% 500 ml Route: IV; Rate: bolus; Site: left antecubital; wh 14:27 Follow up: Response: No adverse reaction; IV Status: Completed infusion wh 11:45 Drug: Rocephin 1 grams Route: IV; Rate: per protocol; Site: left antecubital; 14:28 Follow up: Response: No adverse reaction; IV Status: Completed infusion 11:47 Drug: Zithromax 500 mg Route: IVPB; Infused Over: 1 hrs; Site: left antecubital; 14:28 Follow up: Response: No adverse reaction; IV Status: Completed infusion 12:19 Drug: NS 0.9% 1000 ml Route: IV; Rate: 125 ml/hr; Site: left antecubital; 14:27 Follow up: Response: No adverse reaction; IV Status: Completed infusion Disposition: 07/20/19 12:15 Hospitalization ordered by Karson Herndon for Inpatient Admission. Preliminary diagnosis are Acute upper respiratory infection, unspecified, Dyspnea, Fever, unspecified, Weakness. - Bed requested for Telemetry/MedSurg (Inpatient). - Status is Inpatient Admission. - Condition is Stable. - Problem is new. - Symptoms have improved. Signatures: Dispatcher [employer] Lawanda Gerard RN RN dw Anderson, Corey, MD MD cha Smirch, Shelby, RN RN Ana Nair Corrections: (The following items were deleted from the chart) 15:02 12:15 Hospitalization Ordered by A Katrina RICO for Inpatient Admission. Preliminary diagnosis is Acute upper respiratory infection, unspecified; Dyspnea; Fever, unspecified; Weakness. Bed requested for Telemetry/MedSurg (Inpatient). Status is Inpatient Admission. Condition is Stable. Problem is new. Symptoms have improved. [facility] 15:32 15:02 07/20/2019 12:15 Hospitalization Ordered by A Katrina RICO for Inpatient Admission. Preliminary diagnosis is Acute upper respiratory infection, unspecified; Dyspnea; Fever, unspecified; Weakness. Bed requested for Telemetry/MedSurg (Inpatient). Status is Inpatient Admission. Condition is Stable. Problem is new. Symptoms have improved.
--- NOTE | 2019-07-20 12:16 | ER ---
Nurse's Notes [facility] Name: Kemi Coulter Age: 83 yrs Sex: Female : 1935 Arrival Date: 07/20/2019 Time: 09:55 Bed 18 Private MD: Karson Herndon C Diagnosis: Acute upper respiratory infection, unspecified;Dyspnea;Fever, unspecified;Weakness Presentation: 07/19 10:12 Chief complaint: Patient states: cough and congestion x 3 days. Fever that began last ss night. TMAX (100.5). Coronavirus screen: The patient has NOT traveled to a country currently being monitored by the [facility] within the last 14 days. Proceed with normal triage procedures. Ebola Screen: Patient denies exposure to infectious person. Patient denies travel to an Ebola-affected area in the 21 days before illness onset. Resp Distress? No respiratory distress is noted at this time. Initial Sepsis Screen: Does the patient meet any 2 criteria? No. Patient's initial sepsis screen is negative. Does the patient have a suspected source of infection? No. Patient's initial sepsis screen is negative. Risk Assessment: Do you want to hurt yourself or someone else? Patient reports no desire to harm self or others. 10:12 Method Of Arrival: Ambulatory ss 10:12 Acuity: CORDELL 3 ss 10:30 Onset of symptoms is unknown. wh Historical: - Allergies: 10:15 Levaquin; ss - Home Meds: 10:15 aspirin 81 mg Oral TbEC 1 tab once daily [Active]; carvedilol 25 mg Oral tab 2 times ss per day [Active]; citalopram 20 mg tab 1 tab once daily [Active]; Dexilant 60 mg Oral CpDB 1 cap once daily [Active]; Dilantin 100 mg Oral cap nightly [Active]; hydrochlorothiazide 25 mg Oral tab 1 tab once daily [Active]; levothyroxine 88 mcg tab 1 tab once daily [Active]; losartan 50 mg Oral tab 1 tab 2 times per day [Active]; Seroquel 300 mg Oral tab 1 tab once daily [Active]; simvastatin 20 mg Oral tab 1 tab once daily [Active]; temazepam 30 mg Oral cap 1 cap once daily [Active]; tramadol 50 mg Oral tab [Active]; trazodone 150 mg Oral tab 1 tab 2 times per day [Active]; - PMHx: 10:15 Arthritis; CVA; Depression; Hypertension; ibs; ss - PSHx: 10:15 Hysterectomy; Hernia repair; colon resection; Cholecystectomy; hemorrhoids; ss - Immunization history:: Adult Immunizations up to date. - Social history:: Smoking status: Patient denies any tobacco usage or history of. - Family history:: not pertinent. Screenin:30 Abuse screen: Denies threats or abuse. Denies injuries from another. Nutritional wh screening: No deficits noted. Tuberculosis screening: No symptoms or risk factors identified. Fall Risk None identified. Assessment: 10:30 General: Appears in no apparent distress. Behavior is calm, cooperative, appropriate wh for age. Pain: Denies pain. Neuro: Level of Consciousness is awake, alert, obeys commands, Oriented to person, place, time, situation, Appropriate for age. Cardiovascular: Heart tones S1 S2 Capillary refill < 3 seconds. Respiratory: Reports shortness of breath cough that is Airway is patent Respiratory effort is even, unlabored, Respiratory pattern is regular, symmetrical, Breath sounds with wheezes bilaterally. GI: Abdomen is flat, non-distended. : No signs and/or symptoms were reported regarding the genitourinary system. EENT: Throat is pink. Derm: Skin is intact, is healthy with good turgor, Skin is pink, warm \T\ dry. normal. Musculoskeletal: Circulation, motion, and sensation intact. 12:00 Reassessment: Patient appears in no apparent distress at this time. No changes from previously documented assessment. Patient and/or family updated on plan of care and expected duration. Pain level reassessed. Patient is alert, oriented x 3, equal unlabored respirations, skin warm/dry/pink. 13:05 Reassessment: Patient appears in no apparent distress at this time. No changes from previously documented assessment. Patient and/or family updated on plan of care and expected duration. Pain level reassessed. Patient is alert, oriented x 3, equal unlabored respirations, skin warm/dry/pink. Explained POC need for admit. 14:22 Reassessment: Patient appears in no apparent distress at this time. No changes from previously documented assessment. Patient and/or family updated on plan of care and expected duration. Pain level reassessed. Patient is alert, oriented x 3, equal unlabored respirations, skin warm/dry/pink. notified we are only waiting for assignment and that we will be transferring Pt upstairs as soon as we get a room. 15:13 Reassessment: Patient appears in no apparent distress at this time. No changes from previously documented assessment. Patient and/or family updated on plan of care and expected duration. Pain level reassessed. Patient is alert, oriented x 3, equal unlabored respirations, skin warm/dry/pink. Vital Signs: 10:12 BP 112 / 84; Pulse 88; Resp 18; Temp 97.8(TE); Pulse Ox 96% on R/A; Weight 68.04 kg; ss Height 5 ft. 4 in. (162.56 cm); Pain 0/10; 11:00 BP 136 / 77; Pulse 71; Resp 18; Pulse Ox 98% on R/A; wh 12:00 BP 142 / 61; Pulse 70; Resp 18; Pulse Ox 98% on R/A; 13:00 BP 136 / 99; Pulse 85; Resp 18; Pulse Ox 98% ; 14:00 BP 145 / 65; Pulse 75; Resp 18; Pulse Ox 97% on R/A; wh 15:00 BP 157 / 73; Pulse 82; Resp 18; Pulse Ox 97% on R/A; wh 10:12 Body Mass Index 25.75 (68.04 kg, 162.56 cm) ED Course: 09:55 Patient arrived in ED. rg4 09:56 Karson Herndon MD is Private Physician. rg4 10:14 Triage completed. 10:15 Arm band placed on right wrist. 10:18 Kevyn Miranda MD is Attending Physician. [facility] 10:38 Ana Nair is Primary Nurse. 11:15 Inserted saline lock: 20 gauge in left antecubital area, using aseptic technique. Blood wh collected. By Basilio Blevins. 11:29 XRAY Chest (1 view) In Process Unspecified. EDMS 11:45 Placed in gown. Bed in low position. Call light in reach. Warm blanket given. Pillow jp3 given. Verbal reassurance given. planishing hammer operator on. Pulse ox on. NIBP on. 11:45 EKG done, by ED staff, reviewed by Kevyn Miranda MD. Patient maintains SpO2 saturation jp3 greater than 95% on room air. 12:14 Karson Herndon MD is Hospitalizing Provider. [facility] 12:40 CT Chest Wo Con In Process Unspecified. EDCO 15:12 No provider procedures requiring assistance completed. Patient admitted, IV remains in place. Administered Medications: 11:39 Drug: Xopenex 2.5 mg Route: Inhalation; 14:28 Follow up: Response: No adverse reaction; Wheezing diminished 11:39 Drug: AtroVENT Aerosol 0.5 mg Route: Inhalation; 14:28 Follow up: Response: No adverse reaction; Wheezing diminished 11:41 Drug: SOLU-Medrol 125 mg Route: IVP; Site: left antecubital; 14:27 Follow up: Response: No adverse reaction 11:43 Drug: NS 0.9% 500 ml Route: IV; Rate: bolus; Site: left antecubital; 14:27 Follow up: Response: No adverse reaction; IV Status: Completed infusion 11:45 Drug: Rocephin 1 grams Route: IV; Rate: per protocol; Site: left antecubital; 14:28 Follow up: Response: No adverse reaction; IV Status: Completed infusion 11:47 Drug: Zithromax 500 mg Route: IVPB; Infused Over: 1 hrs; Site: left antecubital; 14:28 Follow up: Response: No adverse reaction; IV Status: Completed infusion 12:19 Drug: NS 0.9% 1000 ml Route: IV; Rate: 125 ml/hr; Site: left antecubital; 14:27 Follow up: Response: No adverse reaction; IV Status: Completed infusion Outcome: 12:15 Decision to Hospitalize by Provider. [facility] 15:14 Admitted to Med/surg accompanied by tech, family with patient, via wheelchair, room wh 205, with chart, Report called to Lisa HONG 15:14 Condition: stable 15:14 Instructed on the need for admit. 15:32 Patient left the ED. Signatures: Dispatcher [employer] Kevyn Maradiaga MD MD cha Smirch, Shelby, RN RN Gabrielle Peralta rg4 Ana Nair Steven Chase jp3
--- NOTE | 2019-07-20 12:54 | RAD REPORT ---
EXAM DESCRIPTION: CT - Thorax Wo Con CLINICAL HISTORY: Chest pain pna;Pain COMPARISON: Thorax Wo Con dated 08/28/2016 FINDINGS: Mild diffuse COPD is seen. Calcified granulomata are present bilaterally compatible prior granulomatous infection. Small focal seen typical of pneumonia. No pleural thickening or pleural effu leslie. No pneumothorax. No axillary, mediastinal or hilar adenopathy. No concerning bony finding. Pneumobilia. All CT scans are performed using dose optimization technique as appropriate and may include automated exposure control or mA/KV adjustment according to patient size. IMPRESSION: No acute intrathoracic abnormality detected.
[2019-07-20 13:16] LABS: Platelet Estimate ADEQ
[2019-07-20 13:17] LABS: Blood Morphology Comment NOT SEEN (NOT SEEN)
[2019-07-20] MEDS ORDERED: ONDANSETRON 4 MG/2 ML VIAL IV PRN (15:20)
[2019-07-20] MEDS ORDERED: ACETAMINOPHEN 500 MG TAB PO PRN (15:20)
--- NOTE | 2019-07-20 15:30 | EKG ---
Test Date: 2019-07-20 Test Time: 11:32:01 Executive Receptionist: BENNY MEASUREMENT RESULTS: Intervals: Rate: 76 NE: 196 QRSD: 108 QT: 398 QTc: 447 Walker: P: 45 NE: 196 QRS: -34 T: 3 INTERPRETIVE STATEMENTS: Normal sinus rhythm with sinus arrhythmia Left axis deviation Voltage criteria for left ventricular hypertrophy Nonspecific ST abnormality Abnormal ECG Compared to ECG 10/07/2012 17:47:47 ST (T wave) deviation now present Prolonged QT interval no longer present Electronically Signed On 07-20-19 15:28:54 CDT by Vinny Lagunas
[2019-07-20 15:57] VITALS: BMI 25.7
[2019-07-20] MEDS: NA CHLORIDE 0.9% 1,000 ML IV SCH (16:19)
[2019-07-20] MEDS: IPRATROPIUM BROM 0.5MG/2.5ML NEB PRN ×2 (16:20→22:00)
[2019-07-20] MEDS: ALBUTEROL 2.5 MG/3 ML NEB SOL NEB PRN ×2 (16:20→22:00)
[2019-07-20] MEDS: CEFTRIAXONE/SWI 1gm 1 GM/10 ML SYR IVP SCH (20:39)
[2019-07-20] MEDS ORDERED: HOME MED 1 EA UNK (Quetiapine Fumarate [Seroquel] 600 MG) PO SCH (21:00)
[2019-07-20] MEDS ORDERED: LOSARTAN POTASSIUM 50 MG PO SCH (21:00)
[2019-07-20] MEDS ORDERED: HOME MED 1 EA UNK (Citalopram Hydrobromide [Citalopram Hbr] 20 MG) PO SCH (21:00)
[2019-07-20] MEDS: carvediloL 25 MG TAB PO SCH (21:00)
[2019-07-20] MEDS ORDERED: PHENYTOIN ER 100 MG CAP PO SCH (21:00)
[2019-07-20] MEDS ORDERED: TRAMADOL HCL 50 MG PO SCH (21:00)
[2019-07-20] MEDS ORDERED: TRAZODONE 150 MG TAB PO SCH (21:00)
[2019-07-20] MEDS: METHYLPREDNISOLONE 40 MG INJ IV SCH (22:24)
--- NOTE | 2019-07-21 01:38 | HP ---
Date of Admission: 07/20/2019 Chief Complaint: Cough, congestion, shortness of breath. History Of Present Illness: This is an 83-year-old female patient with history of asthma, was doing fine in her usual state of health until about 4 days ago. She started to get sick with cough, chest congestion, not able to cough up any mucus and has some pain in her chest on the right posterior thor acic cavity with coughing and breathing. She also has some sore throat. No vomiting. No diarrhea. She noted some shortness of breath and wheezing with this and she was advised to come to emergency r oom today for further evaluation and management of this problem and after she was evaluated she was a dmitted to the hospital. Her chest x-ray has not shown any pneumonia, but clinically, I am concerned about possibility of pneumonia along with acute exacerbation of asthma. When I saw her this evening , she was feeling better compared to earlier today. Allergies: TO LEVAQUIN. Medications: List reviewed. Review of Systems: Respiratory: As mentioned above. All other systems reviewed and negative. Social History: Negative for smoking or alcohol use. Family History: Mother had Alzheimer disease. Father had stroke and heart disease. Sister had myoc ardial infarction. Past Surgical History: Arthroscopic knee surgery, hernia repair, cholecystectomy, appendectomy. Past Medical History: Hypertension, hyperlipidemia, osteoporosis, asthma, diverticulosis, allergic r hinitis, gastroesophageal reflux disease, depression, hypothyroidism, pancytopenia, and fatigue and o steoarthritis at multiple sites. Physical Examination: Vital Signs: Temperature 97.8, pulse 88, respiratory rate 18, blood pressure 112/84, oxygen saturati on 96% when she first came into emergency room. Last blood pressure 158/87. General: Awake, alert, oriented, not in distress. HEENT: Head atraumatic, normocephalic. Conjunctivae nonerythematous. Sclerae white. Mouth, no thr ush or edema noted. Ears/Nose, no mass, lesion, discharge noted. Neck: Supple. No JVD, lymph nodes, bruit, thyromegaly noted. Lungs: Bilateral scattered wheezing present, more so on right side with presence of rales, rhonchi. No wheezing. Patient not using any accessory muscles of respiration. Heart: Normal heart sounds, no murmur or gallop. Abdomen: Soft, bowel sounds normal. No guarding, rigidity, tenderness, mass, hepatosplenomegaly, dis tention, or bruit noted. Extremities: No leg edema. No calf tenderness. Skin: No rash, ulcer, cellulitis. Lymphatics: No lymph node enlargement in neck, supraclavicular, infraclavicular region. Neuro: No focal neurological deficit. Chest: Unremarkable. External Genitalia: Deferred. Rectal: Deferred. Laboratory Data: White count 5.2, hemoglobin 11.4, platelets 146. Sodium 140, potassium 5, chloride 104, bicarb 26, BUN 6, creatinine 0.76, glucose 82. Liver function tests unremarkable. Troponin le ss than 0.02 x 3. Dilantin level 6.3. Influenza A and B test negative. Chest x-ray, no acute cardi opulmonary chest. CAT scan of chest was reported as no acute intrathoracic changes. Impression: 1.Rule out pneumonia. 2.Acute exacerbation of mild intermittent asthma. 3.Hypertension. 4.Hyperlipidemia. 5.Hypothyroidism. 6.Diverticulosis. 7.Allergic rhinitis. 8.Gastroesophageal reflux disease. 9.Anemia, unspecified. Plan: Admit the patient to hospital for further evaluation and management of this problem. Patient is appropriate for inpatient and is expected to spend 2 midnights in hospital. Home medications will be continued per order. We will go ahead and give nebulizer treatment, IV antibiotics per order. Rober mota will also start her on IV steroid and ambulation was encouraged using her walker starting tomorrow. I will see her tomorrow for followup. Details and plan of treatment discussed with her. ANNA/CORA Voice ID: [id number]
[2019-07-21] MEDS: NA CHLORIDE 0.9% 1,000 ML IV SCH (02:49)
[2019-07-21 05:53] LABS: Absolute Lymphocytes (CBC) 0.7 K/uL (0.7-4.9); Basophils % 0.2 % (0-1.3); Hematocrit 30.2 % (36.0-45.0); Lymphocytes % 19.6 % (15.3-44.8); MPV 7.2 fL (7.6-11.3); RBC Red Blood Cell Count 3.32 M/uL (3.86-4.86)
[2019-07-21 06:06] LABS: Potassium 3.9 mmol/L (3.5-5.1)
[2019-07-21 07:32] LABS: Blood Morphology Comment NOT SEEN (NOT SEEN); Platelet Estimate DECR
[2019-07-21] MEDS: IPRATROPIUM BROM 0.5MG/2.5ML NEB PRN (07:41)
[2019-07-21] MEDS: ALBUTEROL 2.5 MG/3 ML NEB SOL NEB PRN (07:41)
--- NOTE | 2019-07-21 08:33 | RAD REPORT ---
EXAM DESCRIPTION: RAD - Chest Single View - 07/21/2019 7:04 am CLINICAL HISTORY: Chest Pain Chest pain. COMPARISON: Chest Single View dated 07/20/2019; Chest Pa And Lat (2 Views) dated 07/11/2016; CHEST SING LE VIEW dated 10/18/2012; CHEST SINGLE VIEW dated 10/13/2012; Thorax Wo Con dated 07/20/2019 FINDINGS: Portable technique limits examination quality. The lungs are grossly clear. The heart is upper limit normal in size. No displaced fractures. IMPRESSION: No acute intrathoracic process suspected.
[2019-07-21] MEDS ORDERED: LEVOTHYROXINE SOD 0.088 MG TAB PO SCH (09:00)
[2019-07-21] MEDS: carvediloL 25 MG TAB PO SCH (09:00)
[2019-07-21] MEDS ORDERED: AZITHROMYCIN IV 500 MG in NA CHLORIDE 0.9% 250 ML IVPB SCH (09:00)
[2019-07-21] MEDS ORDERED: TRAMADOL HCL 50 MG TAB PO SCH (09:00)
[2019-07-21] MEDS ORDERED: LOSARTAN POTASSIUM 50 MG TABLET PO SCH (09:00)
[2019-07-21] MEDS ORDERED: hydroCHLOROthiazide 25 MG TAB PO SCH (09:00)
[2019-07-21] MEDS ORDERED: ASPIRIN EC 81 MG TAB PO SCH (09:00)
[2019-07-21] MEDS: METHYLPREDNISOLONE 40 MG INJ IV SCH (09:00)
[2019-07-21] MEDS: CEFTRIAXONE/SWI 1gm 1 GM/10 ML SYR IVP SCH (09:00)
[2019-07-21 09:22] VITALS: O2SAT 95
[2019-07-21 09:33] VITALS: BP 138/81; TEMP 97.4
[2019-07-21] MEDS ORDERED: CITALOPRAM 10 MG TABLET PO SCH (21:00)
[2019-07-21] MEDS ORDERED: QUETIAPINE 100MG TAB PO SCH (21:00)
[2019-07-21] MEDS ORDERED: ATORVASTATIN 10 MG TAB PO SCH (21:00)
--- NOTE | 2019-07-22 04:33 | DS ---
Date of Discharge: 07/21/2019 Patient was seen this morning for followup, she was feeling much better compared to yesterday Physical Examination: Vital Signs: Reviewed. HEENT: Unremarkable. Lungs: Clear to auscultation. Heart: Heart sounds normal. Abdomen: Soft, bowel sounds normal. No guarding, rigidity, tenderness, or distention. Extremities: No leg edema. Final Diagnoses: 1.Acute exacerbation of mild intermittent asthma. 2.Acute bronchitis. 3.Hypertension. 4.Hyperlipidemia. 5.Hypothyroidism. 6.Diverticulosis. 7.Allergic rhinitis. 8.Gastroesophageal reflux disease. 9.Pancytopenia. Hospital Course: 83-year-old female patient admitted to the hospital with cough, congestion, shortne ss of breath. Please see dictated H and P for more information. After patient was evaluated in the ER, she was admitted to the hospital and she was treated for acute exacerbation of mild intermittent asthma. She was started on IV antibiotic. IV steroid was started last night. Nebulizer treatment w as given. Overall, her condition improved significantly. This morning when I saw her, she was much better. Her lungs were clear to auscultation. She was not in respiratory distress and she was disch arged to go home in stable and improved condition. Laboratory Data: White count today 3.7, hemoglobin 10.2, platelets 125. Sodium 143, potassium 3.9, chloride 112, bicarb 26, BUN 7, creatinine 0.66, glucose 115. Discharge Medications And Instructions: 1.Continue all prior home medications. 2.Take new medication as prescribed. a.Cefuroxime 250 mg p.o. 2 times a day for 1 week. b.Prednisone 10 mg, patient to take 2 tab by mouth daily for 4 days, then 1 tablet by mouth daily fo r 4 days, then 1/2 tablet by mouth daily for 4 days, then stop. c.Albuterol 2 puffs by mouth 4 times a day as needed for shortness of breath. 3.Follow up at my office next week. ANNA/MODL Voice ID: [id number] Report ID: [id number]
[2019-07-22] MEDS ORDERED: PANTOPRAZOLE 40MG TABLET PO SCH (06:30)
== END 2019-07-21 09:53 | disposition home or self-care (01) ==
LOC: ER 09:53 → ERHOLD 12:28 → INTOOBSV 12:28 → 2ND 15:15
PROVIDERS: ADMIT Internal Medicine; ATTEND Internal Medicine
DX: J45.21 Mild intermittent asthma with (acute) exacerbation (principal); J20.9 Acute bronchitis, unspecified; I10 Essential (primary) hypertension; E78.5 Hyperlipidemia, unspecified; E03.9 Hypothyroidism, unspecified; K57.30 Diverticulosis of large intestine without perforation or abscess without bleeding; K21.9 Gastro-esophageal reflux disease without esophagitis; D61.818 Other pancytopenia; F32.9 Major depressive disorder, single episode, unspecified; M81.0 Age-related osteoporosis without current pathological fracture; M89.49 Other hypertrophic osteoarthropathy, multiple sites; Z79.82 Long term (current) use of aspirin; Z79.899 Other long term (current) drug therapy; R94.31 Abnormal electrocardiogram [ECG] [EKG]
CPT/HCPCS: 96365; 93005; 87040 ×2; 85025 ×2; 80048 ×2; 36415; 83735; 80076; 80185; 84484 ×3; 83880 ×2; 87804 ×2; 71250; 71045 ×2; 94640; 94760 ×3; 96375; 99285; 96366; J0456; J0696 ×2; J7030 ×4; J2930; J2920; G0378 ×3

== ENCOUNTER 2019-08-08 14:20 | Emergency (ER) | payer OTHER ==
--- OUTSIDE RECORDS SUMMARY | 2019-08-08 14:21 | XMS REPORT ---
:1935 [facility] Address [address] [place] [address] Care Team Providers Name Role Phone Unavailable Unavailable Unavailable Problems This patient has no known problems. Allergies, Adverse Reactions, Alerts This patient has no known allergies or adverse reactions. Medications This patient has no known medications.
[2019-08-08] MEDS ORDERED: ACETAMINOPHEN 325 MG TABLET ONE (15:18)
[2019-08-08] MEDS ORDERED: LEVALBUTEROL 1.25 MG/3 ML NEB ONE (15:18)
[2019-08-08] MEDS ORDERED: IPRATROPIUM BROM 0.5MG/2.5ML ONE (15:18)
[2019-08-08] MEDS ORDERED: NA CHLORIDE 0.9% 250 ML ONE (15:19)
[2019-08-08] MEDS ORDERED: AZITHROMYCIN 500 MG INJ IVPB ONE (15:19)
[2019-08-08] MEDS ORDERED: NA CHLORIDE 0.9% 1,000 ML ONE (15:19)
[2019-08-08] MEDS ORDERED: PIPER/TAZO/NS 3.375gm 3.375 GM/100 ML BAG ONE (15:19)
[2019-08-08 16:07] LABS: Absolute Lymphocytes (CBC) 0.6 K/uL (0.7-4.9); Basophils % 0.3 % (0-1.3); Lymphocytes % 10.8 % (15.3-44.8); MPV 8.6 fL (7.6-11.3); RBC Red Blood Cell Count 3.82 M/uL (3.86-4.86)
[2019-08-08 16:22] LABS: Protime INR 1.33
[2019-08-08 16:27] LABS: ALT/SGPT 14 U/L (12-78); AST/SGOT 18 U/L (15-37); Albumin 3.3 g/dL (3.4-5.0); Alkaline Phosphatase 73 U/L (45-117); BUN Blood Urea Nitrogen 10 mg/dL (7-18); Bicarbonate 25 mmol/L (21-32); Bilirubin Direct 0.2 mg/dL (0-0.2); Bilirubin Total 0.5 mg/dL (0.2-1.0); Glucose Level 105 mg/dL (74-106); Magnesium 1.8 mg/dL (1.8-2.4); NT PRO-BNP 1118 pg/mL (<450); Potassium 3.4 mmol/L (3.5-5.1); Protein, Total 7.5 g/dL (6.4-8.2); Sodium Level 136 mmol/L (136-145); Troponin (Emerg Dept Use Only) < 0.02 ng/mL (0.0-0.045)
[2019-08-08 16:47] LABS: Blood Morphology Comment NOT SEEN (NOT SEEN); Platelet Estimate DECR
--- NOTE | 2019-08-08 17:23 | RAD REPORT ---
EXAM DESCRIPTION: CT - Chest Abdomen Pelvis W Cont - 08/08/2019 5:01 pm CLINICAL HISTORY: Cough/abdominal pain COMPARISON: CT chest July 20, 2019 and 2017 TECHNIQUE: Computed axial tomography of the chest, abdomen and pelvis was obtained. 100 cc Isovue-30 0 was administered intravenously. Oral contrast was not requested. This limits evaluation of bowel. All CT scans are performed using dose optimization technique as appropriate and may include automated exposure control or mA/KV adjustment according to patient size. FINDINGS: Mild ground-glass opacities within the right upper lobe present on the prior exam have res olved. Mild chronic appearing lung opacities are present. Small bilateral pulmonary nodules some of which ar e calcified are unchanged likely benign. Calcified mediastinal and calcified hilar lymph nodes are present. No pleural effusion. No pericardial effusion Cholecystectomy. Chronic pneumobilia. The spleen, pancreas and adrenals unremarkable. Renal cysts unchanged There is no evidence of diverticulitis. Sigmoidectomy. Hysterectomy Duodenal diverticulum . Ventral hernia repair Spondylosis involves the lumbar spine resulting in spinal stenosis IMPRESSION: No acute abnormality involving the chest/abdomen/pelvis noted
--- NOTE | 2019-08-08 17:24 | RAD REPORT ---
EXAM DESCRIPTION: Teresa Single View08/08/2019 3:47 pm CLINICAL HISTORY: Cough COMPARISON: July 20, 2019 FINDINGS: The lungs appear clear of acute infiltrate. Small calcified granulomas are present. Calcified hilar and calcified mediastinal lymph nodes are noted. The heart is normal size IMPRESSION: No acute abnormalities displayed
[2019-08-08 17:47] LABS: Urine Blood 2+ (NEG); Urine Glucose NEGATIVE (NEG); Urine Protein TRACE (NEG)
[2019-08-08] MEDS ORDERED: NS KCL 20MEQ 1,000 ML IV ONE (17:47)
--- NOTE | 2019-08-08 17:55 | EDPHYS ---
Physician Documentation [facility] Name: Kemi Coulter Age: 83 yrs Sex: Female : 1935 Arrival Date: 08/08/2019 Time: 14:23 Bed 19 Private MD: Karson Herndon C ED Physician Kevyn Miranda HPI: 08/07 15:09 This 83 yrs old Female presents to ER via Ambulatory with complaints of Back ean Pain, Fever. 15:09 The patient presents with pain that is acute. The symptoms are located in the right mid ean back. Onset: The symptoms/episode began/occurred 3 day(s) ago. The pain does not radiate. Historical: - Allergies: 14:31 Levaquin; ss - PMHx: 14:31 Arthritis; CVA; Depression; Hypertension; ibs; ss - PSHx: 14:31 hemorrhoids; Hysterectomy; Hernia repair; colon resection; Cholecystectomy; ss - Immunization history:: Flu vaccine is not up to date. - Social history:: Patient/guardian denies using alcohol, street drugs, tobacco products, Smoking status: Patient denies any tobacco usage or history of. ROS: 15:10 Constitutional: Negative for fever, chills, and weight loss, Eyes: Negative for injury, ean pain, redness, and discharge, ENT: Negative for injury, pain, and discharge, Neck: Negative for injury, pain, and swelling, Cardiovascular: Negative for chest pain, palpitations, and edema, Abdomen/GI: Negative for abdominal pain, nausea, vomiting, diarrhea, and constipation, : Negative for injury, bleeding, discharge, and swelling, MS/Extremity: Negative for injury and deformity, Skin: Negative for injury, rash, and discoloration, Neuro: Negative for headache, weakness, numbness, tingling, and seizure, Psych: Negative for depression, anxiety, suicide ideation, homicidal ideation, and hallucinations, Allergy/Immunology: Negative for hives, rash, and allergies, Endocrine: Negative for neck swelling, polydipsia, polyuria, polyphagia, and marked weight changes, Hematologic/Lymphatic: Negative for swollen nodes, abnormal bleeding, and unusual bruising. 15:10 Respiratory: Positive for cough, with no reported sputum. 15:10 Back: Positive for decreased range of motion, pain at rest, flank pain, on the right. Exam: 15:11 Head/Face: Normocephalic, atraumatic. Eyes: Pupils equal round and reactive to light, ean extra-ocular motions intact. Lids and lashes normal. Conjunctiva and sclera are non-icteric and not injected. Cornea within normal limits. Periorbital areas with no swelling, redness, or edema. ENT: Nares patent. No nasal discharge, no septal abnormalities noted. Tympanic membranes are normal and external auditory canals are clear. Oropharynx with no redness, swelling, or masses, exudates, or evidence of obstruction, uvula midline. Mucous membranes moist. Neck: Trachea midline, no thyromegaly or masses palpated, and no cervical lymphadenopathy. Supple, full range of motion without nuchal rigidity, or vertebral point tenderness. No Meningismus. Chest/axilla: Normal chest wall appearance and motion. Nontender with no deformity. No lesions are appreciated. Cardiovascular: Regular rate and rhythm with a normal S1 and S2. No gallops, murmurs, or rubs. Normal PMI, no JVD. No pulse deficits. Abdomen/GI: Soft, non-tender, with normal bowel sounds. No distension or tympany. No guarding or rebound. No evidence of tenderness throughout. Female : Normal external genitalia. Skin: Warm, dry with normal turgor. Normal color with no rashes, no lesions, and no evidence of cellulitis. MS/ Extremity: Pulses equal, no cyanosis. Neurovascular intact. Full, normal range of motion. Neuro: Awake and alert, GCS 15, oriented to person, place, time, and situation. Cranial nerves II-XII grossly intact. Motor strength 5/5 in all extremities. Sensory grossly intact. Cerebellar exam normal. Normal gait. Psych: Awake, alert, with orientation to person, place and time. Behavior, mood, and affect are within normal limits. 15:11 Constitutional: The patient appears febrile. 15:11 Respiratory: the patient does not display signs of respiratory distress, Respirations: normal. 15:11 Abdomen/GI: Inspection: abdomen appears normal, Bowel sounds: normal, Palpation: abdomen is soft and non-tender, in the right upper quadrant. 17:47 Musculoskeletal/extremity: DVT Exam: No signs of deep vein thrombosis. no pain, no ean swelling, no tenderness, negative Homans' sign noted on exam, no appreciated bluish discoloration, no erythema, no increased warmth. Vital Signs: 14:28 BP 140 / 83; Pulse 88; Resp 20; Temp 99.2; Pulse Ox 97% ; Weight 67.59 kg; Height 5 ft. ss 4 in. (162.56 cm); Pain 7/10; 16:00 BP 142 / 82; Pulse 88; Resp 19; Pulse Ox 98% on R/A; hb 17:30 BP 148 / 78; Pulse 82; Resp 17; Temp 98.4; Pulse Ox 95% ; hb 18:00 BP 134 / 84; Pulse 80; Resp 18; Pulse Ox 96% on R/A; hb 14:28 Body Mass Index 25.58 (67.59 kg, 162.56 cm) ss MDM: 14:45 Patient medically screened. [facility] 15:11 Data reviewed: vital signs, nurses notes, lab test result(s), EKG, radiologic studies, ean plain films. 08/07 15:09 Order name: Basic Metabolic Panel; Complete Time: 17:18 [facility] 08/07 15:09 Order name: CBC with Diff; Complete Time: 17:18 [facility] 08/07 15:09 Order name: LFT's; Complete Time: 17:18 [facility] 08/07 15:09 Order name: Magnesium; Complete Time: 17:18 [facility] 08/07 15:09 Order name: NT PRO-BNP; Complete Time: 17:18 [facility] 08/07 15:09 Order name: PT-INR; Complete Time: 17:18 [facility] 08/07 15:09 Order name: Troponin (emerg Dept Use Only); Complete Time: 17:18 [facility] 08/07 15:09 Order name: Lactate; Complete Time: 17:18 [facility] 08/07 15:09 Order name: Blood Culture Adult (2) [facility] 08/07 15:09 Order name: Influenza Screen (a \T\ B); Complete Time: 17:18 [facility] 08/07 15:23 Order name: Misc. Lab Test [facility] 08/07 16:47 Order name: Manual Differential; Complete Time: 17:18 EDMS 08/07 17:41 Order name: Urine Dipstick--Ancillary (enter results); Complete Time: 17:48 ms 08/07 15:09 Order name: XRAY Chest (1 view); Complete Time: 17:42 [facility] 08/07 15:09 Order name: EKG; Complete Time: 15:17 [facility] 08/07 15:09 Order name: Cardiac monitoring; Complete Time: 16:15 [facility] 08/07 15:09 Order name: EKG - Nurse/Tech; Complete Time: 16:15 [facility] 08/07 15:13 Order name: CT Chest, Abdomen, Pelvis - W/Contrast; Complete Time: 17:42 [facility] 08/07 15:09 Order name: IV Saline Lock; Complete Time: 16:15 [facility] 08/07 15:09 Order name: Labs collected and sent; Complete Time: 16:15 [facility] 08/07 15:09 Order name: O2 Per Protocol; Complete Time: 16:15 [facility] 08/07 15:09 Order name: O2 Sat Monitoring; Complete Time: 16:15 [facility] 08/07 15:23 Order name: consult Order-[facility] Administered Medications: Discontinued: NS 0.9% 1000 ml IV at 125 ml/hr continuous 15:50 Drug: Tylenol 650 mg Route: PO; hb 16:30 Follow up: Response: No adverse reaction hb 15:55 Drug: Zosyn 3.375 grams Route: IVPB; Infused Over: 60 mins; Site: right forearm; hb 16:33 Follow up: Response: No adverse reaction; IV Status: Completed infusion; IV Intake: hb 100ml 15:55 Drug: Zithromax 500 mg Route: IVPB; Infused Over: 1 hrs; Site: right forearm; hb 17:15 Follow up: Response: No adverse reaction; IV Status: Completed infusion; IV Intake: hb 250ml 15:55 Drug: NS 0.9% 500 ml Route: IV; Rate: bolus; Site: right forearm; hb 16:25 Follow up: Response: No adverse reaction; IV Status: Completed infusion; IV Intake: hb 500ml 15:55 Drug: NS 0.9% 1000 ml Route: IV; Rate: 125 ml/hr; Site: right forearm; hb 18:06 Follow up: Response: No adverse reaction; IV Status: Order to discontinue infusion; IV hb Intake: 225ml 18:03 Drug: NS 0.9% with KCl 20 mEq/L 1000 ml Route: IV; Rate: 125 ml/hr; Site: right hb antecubital; 19:38 Not Given (Physician Discretion): Xopenex 1.25 mg Inhalation once mg2 19:38 Not Given (Physician Discretion): AtroVENT Aerosol 0.5 mg Inhalation once mg2 19:57 Drug: Albuterol HFA Inhaler 2 puffs Route: Inhalation; mg2 19:58 Drug: Rocephin 1 grams Route: IV; Rate: per protocol; Site: right antecubital; mg2 20:00 Drug: predniSONE 20 mg Route: PO; mg2 Disposition: 08/08/19 17:54 Discharged to Home. Impression: Pneumonia due to other specified bacteria, Urinary tract infection, site not specified, Fever, unspecified. - Condition is Stable. - Discharge Instructions: Fever, Adult, Community-Acquired Pneumonia, Adult, Urinary Tract Infection, Adult, Urinary Tract Infection, Adult, [id number], Community-Acquired Pneumonia, Adult, Rdze-es-[id number], Fever, Adult, Bmia-zm-[id number]. - Prescriptions for Ceftin 500 mg Oral Tablet - take 1 tablet by ORAL route every 12 hours for 7 days; 14 tablet. Prednisone 20 mg Oral Tablet - take 1 tablet by ORAL route once daily for 4 days; 4 tablet. Albuterol Sulfate 90 mcg/actuation - inhale 1-2 puff by INHALATION route every 4-6 hours; 1 Inhaler. Zithromax 500 mg Oral Tablet - take 1 tablet by ORAL route once daily for 4 days; 4 tablet. - Medication Reconciliation Form, Thank You Letter, Antibiotic Education, Prescription Opioid Use form. - Follow up: Karson Herndon MD; When: 2 - 3 days; Reason: Recheck today's complaints, Continuance of care, Re-evaluation by your physician. - Problem is new. - Symptoms have improved. Signatures: Dispatcher [employer] [facility] Kevyn Miranda MD MD cha Smirch, Shelby, RN RN Yoly Pineda RN RN Antonio Joy RN RN mg2 Corrections: (The following items were deleted from the chart) 16:47 16:44 CBC Smear Scan ordered. [facility] 17:57 17:54 08/08/2019 17:54 Discharged to Home. Impression: Pneumonia due to other specified ean bacteria; Urinary tract infection, site not specified. Condition is Stable. Forms are Medication Reconciliation Form, Thank You Letter, Antibiotic Education, Prescription Opioid Use. Follow up: Karson Herndon; When: 2 - 3 days; Reason: Recheck today's complaints, Continuance of care, Re-evaluation by your physician. Problem is new. Symptoms have improved. ean 20:01 17:57 08/08/2019 17:54 Discharged to Home. Impression: Pneumonia due to other specified mg2 bacteria; Urinary tract infection, site not specified; Fever, unspecified. Condition is Stable. Discharge Instructions: Fever, Adult, Community-Acquired Pneumonia, Adult, Urinary Tract Infection, Adult, Urinary Tract Infection, Adult, Bard-zj-[id number], Community-Acquired Pneumonia, Adult, Mqqi-au-Cqde, Fever, Adult, Poda-az-Lcox. Prescriptions for Ceftin 500 mg Oral Tablet - take 1 tablet by ORAL route every 12 hours for 7 days; 14 tablet, Prednisone 20 mg Oral Tablet - take 1 tablet by ORAL route once daily for 4 days; 4 tablet, Albuterol Sulfate 90 mcg/actuation - inhale 1-2 puff by INHALATION route every 4-6 hours; 1 Inhaler, Zithromax 500 mg Oral Tablet - take 1 tablet by ORAL route once daily for 4 days; 4 tablet. and Forms are Medication Reconciliation Form, Thank You Letter, Antibiotic Education, Prescription Opioid Use. Follow up: Karson Herndon; When: 2 - 3 days; Reason: Recheck today's complaints, Continuance of care, Re-evaluation by your physician. Problem is new. Symptoms have improved. [facility]
--- NOTE | 2019-08-08 17:55 | ER ---
Nurse's Notes [facility] Name: Kemi Coulter Age: 83 yrs Sex: Female : 1935 Arrival Date: 08/08/2019 Time: 14:23 Bed 19 Private MD: Karson Herndon C Diagnosis: Pneumonia due to other specified bacteria;Urinary tract infection, site not specified;Fever, unspecified Presentation: 08/07 14:28 Chief complaint: Patient states: Right sided trunk pain and fever for 2 days. + cough. ss 3rd visit in one month for bronchitis. 2 round of antibiotics and two rounds of steroids. Fever 101.6 at home. Coronavirus screen: Patient reports a cough. Patient reports shortness of breath or difficulty breathing. Patient reports a measured and/or subjective temperature greater than 100.4F. Patient denies travel on a cruise ship or to a country the [facility] currently lists as an affected area. Patient denies contact with known and/or suspected case of COVID-19. Ebola Screen: Patient denies travel to an Ebola-affected area in the 21 days before illness onset. Initial Sepsis Screen: Does the patient meet any 2 criteria? Does the patient have a suspected source of infection? Yes: Productive cough/pneumonia. Risk Assessment: Do you want to hurt yourself or someone else? Patient reports no desire to harm self or others. 14:28 Method Of Arrival: Ambulatory 14:28 Acuity: CORDELL 3 ss Historical: - Allergies: 14:31 Levaquin; ss - PMHx: 14:31 Arthritis; CVA; Depression; Hypertension; ibs; ss - PSHx: 14:31 hemorrhoids; Hysterectomy; Hernia repair; colon resection; Cholecystectomy; ss - Immunization history:: Flu vaccine is not up to date. - Social history:: Patient/guardian denies using alcohol, street drugs, tobacco products, Smoking status: Patient denies any tobacco usage or history of. Screenin:30 Abuse screen: Denies threats or abuse. Denies injuries from another. Nutritional hb screening: No deficits noted. Tuberculosis screening: No symptoms or risk factors identified. Fall Risk None identified. Assessment: 14:45 Reassessment: Pt placed on droplet isolation per protocol, Dr. Miranda aware. hb 15:00 General: Appears in no apparent distress. Pain: Pain currently is 7 out of 10 on a pain hb scale. Neuro: Level of Consciousness is awake, alert, obeys commands, Oriented to person, place, time, situation. Cardiovascular: Capillary refill < 3 seconds Patient's skin is warm and dry. Respiratory: Reports shortness of breath at rest on exertion cough that is productive, persistent pain with cough Airway is patent Respiratory effort is even, labored, Respiratory pattern is regular, symmetrical. GI: No signs and/or symptoms were reported involving the gastrointestinal system. : No signs and/or symptoms were reported regarding the genitourinary system. EENT: No signs and/or symptoms were reported regarding the EENT system. Derm: Skin is pink, warm \T\ dry. Musculoskeletal: No signs and/or symptoms reported regarding the musculoskeletal system. 16:00 Reassessment: Patient appears in no apparent distress at this time. No changes from hb previously documented assessment. Patient and/or family updated on plan of care and expected duration. Pain level reassessed. 17:00 Reassessment: Patient appears in no apparent distress at this time. No changes from hb previously documented assessment. Patient and/or family updated on plan of care and expected duration. Pain level reassessed. 18:30 Reassessment: Patient appears in no apparent distress at this time. No changes from hb previously documented assessment. Patient and/or family updated on plan of care and expected duration. Pain level reassessed. Vital Signs: 14:28 BP 140 / 83; Pulse 88; Resp 20; Temp 99.2; Pulse Ox 97% ; Weight 67.59 kg; Height 5 ft. ss 4 in. (162.56 cm); Pain 7/10; 16:00 BP 142 / 82; Pulse 88; Resp 19; Pulse Ox 98% on R/A; hb 17:30 BP 148 / 78; Pulse 82; Resp 17; Temp 98.4; Pulse Ox 95% ; hb 18:00 BP 134 / 84; Pulse 80; Resp 18; Pulse Ox 96% on R/A; hb 14:28 Body Mass Index 25.58 (67.59 kg, 162.56 cm) ED Course: 14:23 Patient arrived in ED. mr 14:23 Karson Herndon MD is Private Physician. mr 14:30 Triage completed. ss 14:32 Arm band placed on. ss 14:45 Kevyn Miranda MD is Attending Physician. ean 14:59 Patient has correct armband on for positive identification. Placed in gown. Bed in low hb position. Call light in reach. Side rails up X 1. 15:26 Radiology exam delayed due to lab results not completed at this time. (BUN/Creatinine). bq 15:35 Inserted saline lock: 22 gauge in right forearm, using aseptic technique. Blood hb collected. 15:35 Initial lab(s) drawn, by me, sent to lab. First set of blood cultures drawn by me. hb 15:49 XRAY Chest (1 view) In Process Unspecified. EDMS 15:50 Second set of blood cultures drawn. hb 16:08 Yoly Pineda, RN is Primary Nurse. hb 17:02 CT Chest, Abdomen, Pelvis - W/Contrast In Process Unspecified. EDMS 17:02 CT completed. Patient tolerated procedure well. Patient moved back from CT. mw3 17:52 Karson Herndon MD is Referral Physician. ean 19:07 Patient [address] back from [address]. bq 20:01 No provider procedures requiring assistance completed. IV discontinued, intact, mg2 bleeding controlled, No redness/swelling at site. Pressure dressing applied. Administered Medications: Discontinued: NS 0.9% 1000 ml IV at 125 ml/hr continuous 15:50 Drug: Tylenol 650 mg Route: PO; hb 16:30 Follow up: Response: No adverse reaction hb 15:55 Drug: Zosyn 3.375 grams Route: IVPB; Infused Over: 60 mins; Site: right forearm; hb 16:33 Follow up: Response: No adverse reaction; IV Status: Completed infusion; IV Intake: hb 100ml 15:55 Drug: Zithromax 500 mg Route: IVPB; Infused Over: 1 hrs; Site: right forearm; hb 17:15 Follow up: Response: No adverse reaction; IV Status: Completed infusion; IV Intake: hb 250ml 15:55 Drug: NS 0.9% 500 ml Route: IV; Rate: bolus; Site: right forearm; hb 16:25 Follow up: Response: No adverse reaction; IV Status: Completed infusion; IV Intake: hb 500ml 15:55 Drug: NS 0.9% 1000 ml Route: IV; Rate: 125 ml/hr; Site: right forearm; hb 18:06 Follow up: Response: No adverse reaction; IV Status: Order to discontinue infusion; IV hb Intake: 225ml 18:03 Drug: NS 0.9% with KCl 20 mEq/L 1000 ml Route: IV; Rate: 125 ml/hr; Site: right hb antecubital; 19:38 Not Given (Physician Discretion): Xopenex 1.25 mg Inhalation once mg2 19:38 Not Given (Physician Discretion): AtroVENT Aerosol 0.5 mg Inhalation once mg2 19:57 Drug: Albuterol HFA Inhaler 2 puffs Route: Inhalation; mg2 19:58 Drug: Rocephin 1 grams Route: IV; Rate: per protocol; Site: right antecubital; mg2 20:00 Drug: predniSONE 20 mg Route: PO; mg2 Intake: 16:25 IV: 500ml; Total: 500ml. hb 16:33 IV: 100ml; Total: 600ml. hb 17:15 IV: 250ml; Total: 850ml. hb 18:06 IV: 225ml; Total: 1075ml. hb Outcome: 17:54 Discharge ordered by . ean 20:01 Discharged to home ambulatory. mg2 20:01 Condition: stable 20:01 Discharge instructions given to patient, Instructed on discharge instructions, follow up and referral plans. medication usage, Demonstrated understanding of instructions, follow-up care, medications, Prescriptions given X 4. 20:01 Patient left the ED. mg2 Addendum: 08/11/2019 09:31 Addendum: Other pt notified of negative COVID-19 swab results. Pt advised to continue d m5 to monitor symptoms and to return to the ER if they worsen. Pt advised to remain in isolation until fever free for 72 hours. Signatures: Dispatcher [employer] Mireya Lewis, RN RN [id number] Kevyn Miranda MD MD cha Rivera, Mary mr MaravelinaCollette Cady Swain RN RN Yoly Pineda RN RN Antonio Joy RN RN [facility] Keisha Oro mw3 Corrections: (The following items were deleted from the chart) 08/07 16:12 15:20 Reassessment: Pt placed on droplet isolation per protocol, Dr. Miranda aware. hb hb
[2019-08-08] MEDS ORDERED: predniSONE 20 MG TAB ONE (19:16)
[2019-08-08] MEDS ORDERED: CEFTRIAXONE/SWI 1gm 1 GM/10 ML SYR ONE (19:17)
[2019-08-08] MEDS ORDERED: ALBUTEROL INHALER 60 PUFF/8 GM IH ONE (19:41)
[2019-08-08 20:26] VITALS: TEMP 98.4
[2019-08-08 20:28] VITALS: BP 134/84; O2SAT 96
--- NOTE | 2019-08-10 05:28 | EKG ---
Test Date: 2019-08-08 Test Time: 15:49:35 [employer]: GODWIN MEASUREMENT RESULTS: Intervals: Rate: 91 LA: 196 QRSD: 106 QT: 372 QTc: 457 [place]: P: 30 LA: 196 QRS: -24 T: 64 INTERPRETIVE STATEMENTS: Normal sinus rhythm Incomplete left bundle branch block Voltage criteria for left ventricular hypertrophy Abnormal ECG Compared to ECG 07/20/2019 11:32:01 Left bundle-branch block now present Sinus arrhythmia no longer present Left-axis deviation no longer present ST (T wave) deviation no longer present Electronically Signed On 08-10-19 05:25:33 CDT by Vinny Lagunas
== END 2019-08-08 20:01 | disposition home or self-care (01) ==
LOC: ER 14:20
DX: N39.0 Urinary tract infection, site not specified (principal); J15.8 Pneumonia due to other specified bacteria; R50.9 Fever, unspecified; I10 Essential (primary) hypertension; Z03.818 Encounter for observation for suspected exposure to other biological agents ruled out; Z88.1 Allergy status to other antibiotic agents
CPT/HCPCS: 96365; 96361; 96368; 93005; 87040 ×2; 85025; 80048; 36415; 83735; 85610; 80076; 83605; 81003; 84484; 83880; 87804 ×2; 71260; 74177; 71045; 96375; 99285; U0001; Q9967; J0456; J2543; J0696; J7030 ×2; J7512

== ENCOUNTER 2019-09-19 12:04 | Inpatient (IN) | payer OTHER ==
--- OUTSIDE RECORDS SUMMARY | 2019-09-19 12:07 | XMS REPORT ---
:1935 Author Organization [facility] t Address [address] [place] [id number] Care Team Providers Name Role Phone Unavailable Unavailable Unavailable Problems This patient has no known problems. Allergies, Adverse Reactions, Alerts This patient has no known allergies or adverse reactions. Medications This patient has no known medications.
[2019-09-19 12:44] LABS: Absolute Lymphocytes (CBC) 1.2 K/uL (0.7-4.9); Basophils % 0.3 % (0-1.3); Lymphocytes % 21.1 % (15.3-44.8); RBC Red Blood Cell Count 4.07 M/uL (3.86-4.86)
[2019-09-19 12:45] LABS: Protime INR 1.21
[2019-09-19] MEDS ORDERED: MORPHINE 2 MG/ML SYR ONE (12:50)
[2019-09-19] MEDS ORDERED: CEFTRIAXONE/SWI 1gm 1 GM/10 ML SYR ONE (12:50)
[2019-09-19] MEDS ORDERED: ONDANSETRON 4 MG/2 ML VIAL ONE (12:50)
[2019-09-19] MEDS ORDERED: METRONIDAZOLE 500mg IVPB 500 MG/100 ML BAG IV ONE (12:50)
[2019-09-19] MEDS ORDERED: NA CHLORIDE 0.9% 1,000 ML ONE (12:51)
[2019-09-19 13:03] LABS: ALT/SGPT 16 U/L (12-78); AST/SGOT 21 U/L (15-37); Albumin 3.4 g/dL (3.4-5.0); Alkaline Phosphatase 76 U/L (45-117); BUN Blood Urea Nitrogen 15 mg/dL (7-18); Bicarbonate 27 mmol/L (21-32); Bilirubin Direct 0.2 mg/dL (0-0.2); Bilirubin Total 0.5 mg/dL (0.2-1.0); Glucose Level 108 mg/dL (74-106); Lipase 144 U/L (73-393); Magnesium 1.9 mg/dL (1.8-2.4); NT PRO-BNP 654 pg/mL (<450); Potassium 3.3 mmol/L (3.5-5.1); Protein, Total 7.1 g/dL (6.4-8.2); Sodium Level 135 mmol/L (136-145); Troponin (Emerg Dept Use Only) < 0.02 ng/mL (0.0-0.045)
[2019-09-19 13:21] LABS: Blood Morphology Comment NOT SEEN (NOT SEEN); Platelet Estimate ADEQ
--- NOTE | 2019-09-19 13:30 | RAD REPORT ---
EXAM DESCRIPTION: RAD - Chest Single View - 09/19/2019 12:41 pm CLINICAL HISTORY: ABDOMINAL DISTENTION Chest pain. COMPARISON: Chest Single View dated 08/08/2019; Chest Single View dated 07/21/2019; Chest Single View dated 07/20/2019; Chest Pa And Lat (2 Views) dated 07/11/2016 FINDINGS: Portable technique limits examination quality. The lungs are grossly clear. The heart is normal in size. No displaced fractures. IMPRESSION: No acute intrathoracic process suspected.
--- NOTE | 2019-09-19 13:46 | RAD REPORT ---
EXAM DESCRIPTION: CTAbdomen Pelvis W Contrast - 09/19/2019 1:34 pm CLINICAL HISTORY: Abdominal pain. ABD PAIN COMPARISON: Abdomen Pelvis W Contrast dated 07/11/2016; CT ABD PELVIS W CONTRAST dated 05/17/2014 TECHNIQUE: Biphasic CT imaging of the abdomen and pelvis was performed with 100 ml non-ionic IV cont rast. All CT scans are performed using dose optimization technique as appropriate and may include automated exposure control or mA/KV adjustment according to patient size. FINDINGS: The lung bases are clear.Cholecystectomy with moderate pneumobilia. No liver masses seen. Liver size is within normal limits. The spleen, right adrenal gland are normal. Left adrenal nodule is present measuring 11 mm. Bilateral renal cysts are present. No bowel obstruction, free air, free fluid or abscess. Several small bowel diverticula noted. Postsur gical changes are present about the sigmoid colon. Small bowel loops appear mildly dilated in the lef t aspect of the abdomen. No evidence of significant lymphadenopathy. The appendix is not identified a s a discrete structure, however, no secondary findings of appendicitis are identified. Moderate lumbar degenerative changes. IMPRESSION: Fluid-filled and upper limit of normal small bowel loops are present in the left abdomen . A mild partial mechanical obstruction is a possibility.
--- NOTE | 2019-09-19 14:04 | EDPHYS ---
Physician Documentation [facility] Name: Kemi Coulter Age: 83 yrs Sex: Female : 1935 Arrival Date: 09/19/2019 Time: 12:08 Bed 17 Private MD: Karson Johnson C ED Physician Kevyn Miranda HPI: 09/18 12:28 This 83 yrs old Female presents to ER via Ambulatory with complaints of ean Abdominal Pain, Vomiting. 12:28 The patient presents to the emergency department with nausea, abdominal pain, of the ean right upper quadrant, left upper quadrant and left lower quadrant. Onset: The symptoms/episode began/occurred 1 day(s) ago. Possible causes: unknown. The symptoms are aggravated by nothing. The symptoms are alleviated by nothing. Associated signs and symptoms: Pertinent positives: nausea, vomiting. Severity of symptoms: At their worst the symptoms were moderate in the emergency department the symptoms are unchanged. The patient has experienced similar episodes in the past, a few times. Historical: - Allergies: 12:20 Levaquin; ll1 - PMHx: 12:20 Hypertension; Depression; CVA; Arthritis; ibs; ll1 - PSHx: 12:20 hemorrhoids; Hysterectomy; Hernia repair; colon resection; Cholecystectomy; ll1 - Social history:: Patient/guardian denies using alcohol, street drugs, tobacco products, Smoking status: Patient denies any tobacco usage or history of. ROS: 12:30 Constitutional: Negative for fever, chills, and weight loss, Eyes: Negative for injury, ean pain, redness, and discharge, ENT: Negative for injury, pain, and discharge, Neck: Negative for injury, pain, and swelling, Cardiovascular: Negative for chest pain, palpitations, and edema, Respiratory: Negative for shortness of breath, cough, wheezing, and pleuritic chest pain, Back: Negative for injury and pain, : Negative for injury, bleeding, discharge, and swelling, MS/Extremity: Negative for injury and deformity, Skin: Negative for injury, rash, and discoloration, Neuro: Negative for headache, weakness, numbness, tingling, and seizure, Psych: Negative for depression, anxiety, suicide ideation, homicidal ideation, and hallucinations, Allergy/Immunology: Negative for hives, rash, and allergies, Endocrine: Negative for neck swelling, polydipsia, polyuria, polyphagia, and marked weight changes, Hematologic/Lymphatic: Negative for swollen nodes, abnormal bleeding, and unusual bruising. 12:30 Abdomen/GI: Positive for abdominal pain, of the right upper quadrant, left upper quadrant and left lower quadrant. Exam: 12:30 Constitutional: This is a well developed, well nourished patient who is awake, alert, ean and in no acute distress. Head/Face: Normocephalic, atraumatic. Eyes: Pupils equal round and reactive to light, extra-ocular motions intact. Lids and lashes normal. Conjunctiva and sclera are non-icteric and not injected. Cornea within normal limits. Periorbital areas with no swelling, redness, or edema. ENT: Nares patent. No nasal discharge, no septal abnormalities noted. Tympanic membranes are normal and external auditory canals are clear. Oropharynx with no redness, swelling, or masses, exudates, or evidence of obstruction, uvula midline. Mucous membranes moist. Neck: Trachea midline, no thyromegaly or masses palpated, and no cervical lymphadenopathy. Supple, full range of motion without nuchal rigidity, or vertebral point tenderness. No Meningismus. Chest/axilla: Normal chest wall appearance and motion. Nontender with no deformity. No lesions are appreciated. Cardiovascular: Regular rate and rhythm with a normal S1 and S2. No gallops, murmurs, or rubs. Normal PMI, no JVD. No pulse deficits. Respiratory: Lungs have equal breath sounds bilaterally, clear to auscultation and percussion. No rales, rhonchi or wheezes noted. No increased work of breathing, no retractions or nasal flaring. Back: No spinal tenderness. No costovertebral tenderness. Full range of motion. Female : Normal external genitalia. Skin: Warm, dry with normal turgor. Normal color with no rashes, no lesions, and no evidence of cellulitis. MS/ Extremity: Pulses equal, no cyanosis. Neurovascular intact. Full, normal range of motion. Neuro: Awake and alert, GCS 15, oriented to person, place, time, and situation. Cranial nerves II-XII grossly intact. Motor strength 5/5 in all extremities. Sensory grossly intact. Cerebellar exam normal. Normal gait. Psych: Awake, alert, with orientation to person, place and time. Behavior, mood, and affect are within normal limits. 12:30 Abdomen/GI: Inspection: abdomen appears normal, Bowel sounds: normal, Palpation: moderate abdominal tenderness, in the right upper quadrant, left upper quadrant and left lower quadrant, Liver: no appreciated palpable abnormalities, Hernia: not appreciated. 13:37 ECG was reviewed by the Attending Physician. [facility] Vital Signs: 12:15 BP 164 / 90; Pulse 88; Resp 16; Pulse Ox 100% ; ah 12:17 BP 172 / 89; Pulse 81; Resp 18; Temp 98.2; Pulse Ox 100% ; Pain 9/10; ll1 13:15 BP 160 / 92; Pulse 78; Resp 17; Pulse Ox 100% ; ah 14:15 BP 155 / 97; Pulse 77; Resp 16; Pulse Ox 100% ; ah 15:30 BP 145 / 94; Pulse 78; Resp 11; Pulse Ox 100% ; ah MDM: 12:10 Patient medically screened. [facility] 12:31 Data reviewed: vital signs, nurses notes, lab test result(s), EKG, radiologic studies, ean CT scan, plain films. 12:31 Differential diagnosis: Nonspecific abd pain, gastritis, diverticulitis, viral ean gastroenteritis, gastroenteritis. Data interpreted: electronic device monitor: rhythm is normal sinus rhythm, regular, Pulse oximetry: on room air is 100 %. Test interpretation: by ED physician or midlevel provider: ECG, plain radiologic studies. Counseling: I had a detailed discussion with the patient and/or guardian regarding: the historical points, exam findings, and any diagnostic results supporting the discharge/admit diagnosis, lab results, radiology results, the need for further work-up and treatment in the hospital. 14:29 Medication response: Zofran markedly relieved the patient's nausea. Physician [facility] consultation: Marc Spann MD and will see patient in the hospital. agrees with the plan. ED course: labs, ct scan explained to the patient, dr johnson and tiara involved and agree with the plan. 09/18 12:28 Order name: Basic Metabolic Panel; Complete Time: 13:07 [facility] 09/18 12:28 Order name: CBC with Diff; Complete Time: 13:33 [facility] 09/18 12:28 Order name: LFT's; Complete Time: 13: [facility] 09/18 12:28 Order name: Magnesium; Complete Time: 13: [facility] 09/18 12:28 Order name: NT PRO-BNP; Complete Time: 13:07 [facility] 09/18 12:28 Order name: PT-INR; Complete Time: 13:07 [facility] 09/18 12:28 Order name: Troponin (emerg Dept Use Only); Complete Time: 13:07 [facility] 09/18 12:28 Order name: Lipase; Complete Time: 13:07 [facility] 09/18 12:48 Order name: Manual Differential; Complete Time: 13:33 [facility] 09/18 14:03 Order name: Urine Dipstick--Ancillary (enter results) tt3 09/18 14:17 Order name: Basic Metabolic Panel [facility] 09/18 14:17 Order name: Basic Metabolic Panel [facility] 09/18 14:17 Order name: CBC with Automated Diff [facility] 09/18 14:17 Order name: CBC with Automated Diff [facility] 09/18 12:28 Order name: XRAY Chest (1 view); Complete Time: 13:33 [facility] 09/18 12:28 Order name: EKG; Complete Time: 12:30 [facility] 09/18 12:28 Order name: CT Abd/Pelvis - IV Contrast Only; Complete Time: 13:59 [facility] 09/18 14:11 Order name: CONS Physician Consult [facility] 09/18 14:17 Order name: NPO [facility] 09/18 14:17 Order name: Lipase [facility] 09/18 14:17 Order name: Lipase [facility] 09/18 14:17 Order name: Liver (Hepatic) Function [facility] 09/18 14:17 Order name: Liver (Hepatic) Function [facility] 09/18 14:17 Order name: Abdomen W Oblique [facility] 09/18 12:28 Order name: Cardiac monitoring; Complete Time: 13:03 [facility] 09/18 12:28 Order name: EKG - Nurse/Tech; Complete Time: 13:24 [facility] 09/18 12:28 Order name: IV Saline Lock; Complete Time: 13:03 [facility] 09/18 12:28 Order name: Labs collected and sent; Complete Time: 13:03 [facility] 09/18 12:28 Order name: O2 Per Protocol; Complete Time: 13:00 [facility] 09/18 12:28 Order name: O2 Sat Monitoring; Complete Time: 13:24 [facility] 09/18 12:28 Order name: Urine Dipstick-Ancillary (obtain specimen); Complete Time: 15:55 [facility] EC:37 Rate is 80 beats/min. Rhythm is regular. [place] interval is normal. QRS interval is normal. ean QT interval is normal. No Q waves. T waves are Normal. No ST changes noted. Clinical impression: NSR w/ Non-specific ST/T Changes, 1st degree heart block, and No evidence of ischemia. Interpreted by me. Reviewed by me. Administered Medications: Discontinued: NS 0.9% 1000 ml IV at 125 ml/hr continuous 12:45 Drug: NS 0.9% 1000 ml Route: IV; Rate: 125 ml/hr; Site: left antecubital; 12:45 Drug: Rocephin - (cefTRIAXone) 1 grams Route: IVPB; Infused Over: 30 mins; Site: left antecubital; 12:45 Drug: Flagyl 500 mg Volume: 100 ml; Route: IVPB; Rate: 200 ml/hr; Infused Over: 30 ah mins; Site: left antecubital; 12:45 Drug: morphine 2 mg Route: IVP; Site: left antecubital; 17:10 Follow up: Response: No adverse reaction 12:45 Drug: Zofran (Ondansetron) 4 mg Route: IVP; Site: left antecubital; 17:10 Follow up: Response: No adverse reaction 14:36 Drug: NS 0.9% with KCl 20 mEq/L 1000 ml Route: IV; Rate: 125 ml/hr; Site: left antecubital; 17:10 Follow up: Response: No adverse reaction Disposition: 09/19/19 14:04 Hospitalization ordered by Karson Johnson for Inpatient Admission. Preliminary diagnosis are Abdominal tenderness, Other intestinal obstruction - MILD PARTIAL MECHANICAL OBSTRUCTION, Hypokalemia. - Bed requested for Telemetry/MedSurg (Inpatient). - Status is Inpatient Admission. vc - Condition is Stable. - Problem is new. - Symptoms have improved. Signatures: Dispatcher [employer] EDMS Kevyn Miranda MD MD cha Botello, Elizabeth eb Calcote, Vanessa, RN RN Anitha Clinton RN RN ah Lewis, Lynsay, RN RN ll1 Corrections: (The following items were deleted from the chart) 15:26 14:04 Hospitalization Ordered by A Katrina RICO for Inpatient Admission. Preliminary eb diagnosis is Abdominal tenderness; Other intestinal obstruction - MILD PARTIAL MECHANICAL OBSTRUCTION; Hypokalemia. Bed requested for Telemetry/MedSurg (Inpatient). Status is Inpatient Admission. Condition is Stable. Problem is new. Symptoms have improved. ean 17:04 15:26 09/19/2019 14:04 Hospitalization Ordered by A Katrina RICO for Inpatient Admission. vc Preliminary diagnosis is Abdominal tenderness; Other intestinal obstruction - MILD PARTIAL MECHANICAL OBSTRUCTION; Hypokalemia. Bed requested for Telemetry/MedSurg (Inpatient). Status is Inpatient Admission. Condition is Stable. Problem is new. Symptoms have improved. eb
--- NOTE | 2019-09-19 14:04 | ER ---
Nurse's Notes [facility] Name: Kemi Coulter Age: 83 yrs Sex: Female : 1935 Arrival Date: 09/19/2019 Time: 12:08 Bed 17 Private MD: Karson Herndon C Diagnosis: Abdominal tenderness;Other intestinal obstruction-MILD PARTIAL MECHANICAL OBSTRUCTION;Hypokalemia Presentation: 09/18 12:17 Chief complaint: Patient states: Lower abd pain with N/V for 2 days. No fever. ll1 Coronavirus screen: Proceed with normal triage. Patient denies a cough. Patient denies shortness of breath or difficulty breathing. Patient denies measured and/or subjective temperature greater than 100.4F prior to today's visit. Patient denies travel on a cruise ship or to a country the [facility] currently lists as an affected area. Patient denies contact with known and/or suspected case of COVID-19. Ebola Screen: Patient denies travel to an Ebola-affected area in the 21 days before illness onset. Initial Sepsis Screen: Does the patient meet any 2 criteria? No. Patient's initial sepsis screen is negative. Does the patient have a suspected source of infection? No. Patient's initial sepsis screen is negative. Risk Assessment: Do you want to hurt yourself or someone else? Patient reports no desire to harm self or others. Onset of symptoms was September 18, 2019. 12:17 Method Of Arrival: Ambulatory [facility] 12:17 Acuity: CORDELL 3 ll1 Historical: - Allergies: 12:20 Levaquin; ll1 - PMHx: 12:20 Hypertension; Depression; CVA; Arthritis; ibs; ll1 - PSHx: 12:20 hemorrhoids; Hysterectomy; Hernia repair; colon resection; Cholecystectomy; ll1 - Social history:: Patient/guardian denies using alcohol, street drugs, tobacco products, Smoking status: Patient denies any tobacco usage or history of. Screenin:24 Abuse screen: Denies threats or abuse. Nutritional screening: No deficits noted. Tuberculosis screening: No symptoms or risk factors identified. Fall Risk None identified. Assessment: 12:45 General: Appears uncomfortable, Behavior is calm, cooperative, appropriate for age. Pain: Complains of pain in right lower quadrant and left lower quadrant Pain began 1 day ago. Neuro: Level of Consciousness is awake, alert, Oriented to person, place, time. Cardiovascular: Heart tones S1 S2 present. Respiratory: Airway is patent Respiratory effort is even, unlabored, Respiratory pattern is regular, symmetrical. GI: Abdomen is distended, Bowel sounds present X 4 quads. Abdomen is tender to palpation in right lower quadrant and left lower quadrant Reports vomiting, since last night. : No signs and/or symptoms were reported regarding the genitourinary system. EENT: No signs and/or symptoms were reported regarding the EENT system. Derm: No signs and/or symptoms reported regarding the dermatologic system. Musculoskeletal: No signs and/or symptoms reported regarding the musculoskeletal system. 13:23 Reassessment: Pt going to CT scan via stretcher at this time. 14:30 Reassessment: Patient and/or family updated on plan of care and expected duration. Pain ah level reassessed. No needs voiced at this time. 16:08 Reassessment: Pt up to BSC with assist x1. 16:11 Reassessment: Report called to HAL Rodney on second floor. 16:35 Reassessment: Per Dr. Miranda, Pt is NPO except for medications. Pt to continue home ah meds. Called HAL Rodney on 2nd floor and informed. Vital Signs: 12:15 BP 164 / 90; Pulse 88; Resp 16; Pulse Ox 100% ; ah 12:17 BP 172 / 89; Pulse 81; Resp 18; Temp 98.2; Pulse Ox 100% ; Pain 9/10; ll1 13:15 BP 160 / 92; Pulse 78; Resp 17; Pulse Ox 100% ; ah 14:15 BP 155 / 97; Pulse 77; Resp 16; Pulse Ox 100% ; ah 15:30 BP 145 / 94; Pulse 78; Resp 11; Pulse Ox 100% ; ah ED Course: 12:08 Patient arrived in ED. mr 12:08 Karson Herndon MD is Private Physician. mr 12:09 Kevyn Miranda MD is Attending Physician. [facility] 12:18 Triage completed. ll1 12:20 Arm band placed on Patient placed in an exam room, on a stretcher. ll1 12:41 XRAY Chest (1 view) In Process Unspecified. EDMS 12:41 Anitha Mason, RN is Primary Nurse. ah 12:47 Radiology exam delayed due to lab results not completed at this time. (BUN/Creatinine). bq 13:24 Patient has correct armband on for positive identification. Placed in gown. Bed in low ah position. Call light in reach. Side rails up X2. 13:24 EKG done, by ED staff, reviewed by Kevyn Miranda MD. jp3 13:34 CT Abd/Pelvis - IV Contrast Only In Process Unspecified. EDMS 13:34 CT completed. Patient tolerated procedure well. Patient moved back from CT. mw3 14:02 Karson Herndon MD is Hospitalizing Provider. [facility] 16:45 No provider procedures requiring assistance completed. IV discontinued, intact, ah bleeding controlled, No redness/swelling at site. Pressure dressing applied. Administered Medications: Discontinued: NS 0.9% 1000 ml IV at 125 ml/hr continuous 12:45 Drug: NS 0.9% 1000 ml Route: IV; Rate: 125 ml/hr; Site: left antecubital; 12:45 Drug: Rocephin - (cefTRIAXone) 1 grams Route: IVPB; Infused Over: 30 mins; Site: left ah antecubital; 12:45 Drug: Flagyl 500 mg Volume: 100 ml; Route: IVPB; Rate: 200 ml/hr; Infused Over: 30 ah mins; Site: left antecubital; 12:45 Drug: morphine 2 mg Route: IVP; Site: left antecubital; 17:10 Follow up: Response: No adverse reaction 12:45 Drug: Zofran (Ondansetron) 4 mg Route: IVP; Site: left antecubital; 17:10 Follow up: Response: No adverse reaction 14:36 Drug: NS 0.9% with KCl 20 mEq/L 1000 ml Route: IV; Rate: 125 ml/hr; Site: left ah antecubital; 17:10 Follow up: Response: No adverse reaction Outcome: 14:04 Decision to Hospitalize by Provider. ean 16:12 Admitted to Tele accompanied by tech, via wheelchair, room 224, with chart, Report ah called to Ronel 16:12 Condition: stable 16:12 Instructed on the need for admit, Demonstrated understanding of instructions. 17:04 Patient left the ED. vc Signatures: Dispatcher [employer] Kevyn Maradiaga MD MD cha Rivera, Collette Tamez Michelle mw3 Steven Chase jp3 Maggie Winters, RN RN vc Anitha Mason RN RN Susie Winter RN RN ll1
[2019-09-19 14:11] LABS: Urine Blood TRACE (NEG); Urine Glucose NEGATIVE (NEG); Urine Protein NEGATIVE (NEG); Urine Specific Gravity 1.015 (1.005-1.030)
[2019-09-19] MEDS ORDERED: MORPHINE 4 MG/ML SYR IV PRN (14:11)
[2019-09-19] MEDS ORDERED: ONDANSETRON 4 MG/2 ML VIAL IV PRN (14:11)
[2019-09-19] MEDS ORDERED: ACETAMINOPHEN 325 MG TABLET PO PRN ×2 (14:52→17:26)
[2019-09-19] MEDS ORDERED: NS KCL 20MEQ 20 MEQ/1,000 ML BAG IV SCH (15:00)
[2019-09-19] MEDS: METRONIDAZOLE 500mg IVPB 500 MG/100 ML BAG IV SCH (17:51)
[2019-09-19] MEDS: NS KCL 20MEQ 20 MEQ/1,000 ML BAG IV SCH (17:51)
[2019-09-19] MEDS ORDERED: METRONIDAZOLE 500mg IVPB 500 MG/100 ML BAG IV SCH (18:00)
[2019-09-19 18:20] VITALS: BMI 25.5
[2019-09-19] MEDS ORDERED: TRAMADOL HCL 50 MG PO PRN (19:49)
[2019-09-19] MEDS: MORPHINE 2 MG/ML SYR IV PRN (20:24)
[2019-09-19] MEDS: FAMOTIDINE 20 MG/2 ML VIAL IV SCH (20:26)
[2019-09-19] MEDS: ONDANSETRON 4 MG/2 ML VIAL IV PRN (20:33)
[2019-09-19] MEDS: QUETIAPINE FUMARATE 300 MG PO SCH (21:00)
[2019-09-19] MEDS: PHENYTOIN SODIUM 200 MG PO SCH (21:00)
[2019-09-19] MEDS ORDERED: FAMOTIDINE 20 MG/2 ML VIAL IV SCH (21:00)
[2019-09-19] MEDS: HOME MED 1 EA UNK (Trazodone [Desyrel*] 150 MG) PO SCH (21:00)
--- NOTE | 2019-09-19 21:38 | CON ---
Date of Consultation: 09/19/2019 Brief History Of Present Illness: Patient is an 83-year-old female who presents to the [facility] with approximately 1-day history of epigastric and left lower quadrant abdominal pain associate d with persistent nausea, vomiting. She had her last bowel movement yesterday and has not passed gas since then, but she had 2 normal bowel movements yesterday per her description. She states that she felt bloated, nauseous, and had some significant emesis associated with this radiating left lower qu adrant abdominal pain. She has had similar episodes before in the past when she has had a bowel obst ruction many years ago which resolved with nonoperative management, but this type of pain she felt wa s more significant than on previous episodes and as such she [facility]. She was seen in the emergency room, managed, given pain medication. Now her pa in is significantly improved. She has not had resolution of her pain completely at this point, but h er nausea has resolved. She had pneumonia approximately a month ago and was tested for COVID by her report, which was negative by her report. She has had no sick contacts. No recent travel. No new f ood exposures. Past Medical History: Significant for hypertension, depression, CVA, arthritis, irritable bowel synd jesus, diverticulitis. Past Surgical History: Includes hemorrhoidectomy; total abdominal hysterectomy; 3 hernia repairs; bi lateral inguinal and right lower abdominal hernia repair; partial colectomy, she is unsure what side; appendectomy; cholecystectomy. Social History: She denies smoking, alcohol, or recreational drug use. Allergies: SHE IS ALLERGIC TO LEVAQUIN. Review of Systems: 10-point review of systems other than HPI, she currently denies. Physical Examination: Vital Signs: At the time of my examination, her vital signs were a temperature of 98.2, heart rate w as 78, blood pressure 145/94, respiratory rate 11. General: She is awake, alert, and oriented. Psychiatric: She is appropriate and conversive. HEENT: She is normocephalic. Sclerae are anicteric. Mucous membranes are moist. Oropharynx clear. Neck: Supple. No JVD. Chest: Normal expansion excursion. Cardiovascular: Regular rate and rhythm. Pulmonary: Clear to auscultation bilaterally. Abdomen: Soft with positive left lower quadrant tenderness to palpation. No rebound. No guarding. No focal peritonitis. She has some slight tympany over the left lower quadrant. She has a well-hea led surgical scar in the midline with palpable abdominal wall. Extremities: No clubbing, cyanosis, or edema. Skin: Warm and dry. Laboratory Data: Reveals a white blood cell count of 5.6, hemoglobin 12.2, hematocrit of 37.0, plate let count is 130, neutrophils are 52% which is normal. PT is 14.2, INR 1.21. Sodium 135, potassium 2.3, chloride 102, carbon dioxide 27, BUN 15, creatinine 0.8, glucose is 108, calcium 9.4, magnesium 1.9, total bilirubin 0.5, direct bilirubin 0.2, AST 20, ALT 16, alkaline phosphatase 76. ProBNP is 6 54, lipase is 144. UA showed trace blood, otherwise negative. Home Medications: Include aspirin, Coreg, citalopram, Dexilant, Synthroid, Cozaar, Dilantin, Seroque l, simvastatin, Restoril, tramadol, trazodone, and hydrochlorothiazide. Diagnostic Studies: She had imaging performed which included a CT scan performed of the abdomen and pelvis officially read as fluid-filled and upper limit of normal caliber. Small loops were present i n the left abdomen. A mild partial mechanical obstruction is a possibility. Assessment And Plan: This is an 83-year-old female who comes in with signs and symptoms of a partial small-bowel obstruction. 1.IV fluid hydration. 2.N.p.o. status. 3.Serial abdominal exams. 4.Will await bowel function. Patient does not currently require an NG tube for decompression as she is currently has no nausea or emesis. However, she develops emesis. I recommend NG tube placement with low intermittent wall suction and continue serial abdominal exams. I have explained the risks, benefits, and alternatives of the above stated plan. Patient agrees to proceed as indicated. JERRY/CORA Voice ID: [id number] Report ID: [id number]
[2019-09-19] MEDS: KCL 20 MEQ/100 mL IVPB 20 MEQ/100 ML BAG IV SCH (21:51)
[2019-09-20] MEDS: METRONIDAZOLE 500mg IVPB 500 MG/100 ML BAG IV SCH ×4 (00:38→17:33)
[2019-09-20] MEDS: KCL 20 MEQ/100 mL IVPB 20 MEQ/100 ML BAG IV SCH (00:42)
[2019-09-20] MEDS: NS KCL 20MEQ 20 MEQ/1,000 ML BAG IV SCH ×4 (05:36→17:41)
[2019-09-20 05:46] LABS: Absolute Lymphocytes (CBC) 0.9 K/uL (0.7-4.9); Basophils % 0.3 % (0-1.3); Hematocrit 35.2 % (36.0-45.0); MPV 8.1 fL (7.6-11.3); RBC Red Blood Cell Count 3.85 M/uL (3.86-4.86)
[2019-09-20 05:57] LABS: ALT/SGPT 15 U/L (12-78); AST/SGOT 20 U/L (15-37); Alkaline Phosphatase 62 U/L (45-117); BUN Blood Urea Nitrogen 12 mg/dL (7-18); Bicarbonate 24 mmol/L (21-32); Bilirubin Direct 0.2 mg/dL (0-0.2); Bilirubin Total 0.6 mg/dL (0.2-1.0); Glucose Level 94 mg/dL (74-106); Lipase 173 U/L (73-393); Magnesium 1.9 mg/dL (1.8-2.4); Potassium 4.5 mmol/L (3.5-5.1); Protein, Total 6.6 g/dL (6.4-8.2); Sodium Level 138 mmol/L (136-145)
[2019-09-20] MEDS ORDERED: LEVOTHYROXINE 88 MCG PO SCH (06:00)
[2019-09-20] MEDS: ONDANSETRON 4 MG/2 ML VIAL IV PRN (06:41)
[2019-09-20] MEDS: MORPHINE 2 MG/ML SYR IV PRN (08:18)
[2019-09-20] MEDS: CEFTRIAXONE/SWI 1gm 1 GM/10 ML SYR IVP SCH (08:18)
[2019-09-20] MEDS: FAMOTIDINE 20 MG/2 ML VIAL IV SCH ×2 (08:19→22:10)
--- NOTE | 2019-09-20 08:40 | RAD REPORT ---
EXAM DESCRIPTION: RAD - Abdomen Single View - 09/20/2019 8:35 am CLINICAL HISTORY: sbo Pain COMPARISON: Abdomen Pelvis W Contrast dated 09/19/2019 FINDINGS: Dilated small bowel loops in the left abdomen inferiorly show moderate worsening since com parative CT study. No pneumoperitoneum seen. Cholecystectomy clips present. Extensive postsurgical changes are present lower abdomen. IMPRESSION: Moderate worsening in small bowel obstruction pattern since comparative CT.
[2019-09-20] MEDS ORDERED: CEFTRIAXONE/SWI 1gm 1 GM/10 ML SYR IVP SCH (09:00)
[2019-09-20] MEDS: HOME MED 1 EA UNK (Citalopram Hydrobromide [Citalopram Hbr] 20 MG) PO SCH ×2 (09:00→11:15)
[2019-09-20] MEDS: CARVEDILOL 25 MG PO SCH ×2 (11:16→16:01)
--- NOTE | 2019-09-20 12:09 | P.PN ---
Subjective Date of Service: 09/20/19 Patient has less pain today but no BM, no gas, no emesis, intemittent nausea but she states less often compared with yesterday Physical Examination - Vital Signs Temperature: 97.2 F Blood Pressure: 142/75 Pulse: 80 Respirations: 19 Pulse Ox (%): 94 - Physical Exam General: Alert, In no apparent distress, Cooperative Neck: Supple Respiratory: Clear to auscultation bilaterally Cardiovascular: Regular rate/rhythm Gastrointestinal: Other (soft, mild LLQ TTP, mild distention, no peritoneal signs, similar to prior exam. ) - Studies Laboratory Data (last 24 hrs) 09/19/19 12:25: PT 14.2 H, INR 1.21 09/19/19 12:25: WBC 5.6, Hgb 12.2, Hct 37.0, Plt Count 130 L 09/19/19 12:25: Sodium 135 L, Potassium 3.3 L, BUN 15, Creatinine 0.87, Glucose 108 H, Magnesium 1.9, Total Bilirubin 0.5, AST 21, ALT 16, Alkaline Phosphatase 76, Lipase 144 Assessment And Plan - Current Problems (Diagnosis) (1) Small bowel obstruction due to adhesions Current Visit: Yes Status: Acute Plan: - will place NG tube to LIWS today - repeat KUB in AM - serial exams - continue NPO and medical management - if patient does not show some improvement will consider operative intervention, patient does not want surgery at this time, I have explained the risks, benefits, and alteranatives to surgery vs non-op management
--- NOTE | 2019-09-20 14:33 | RAD REPORT ---
EXAM DESCRIPTION: RAD - Chest Single View - 09/20/2019 2:18 pm CLINICAL HISTORY: Abdominal pain FINDINGS: A nasogastric tube is coiled within the gastric fundus. The tip lies 3.6 centimeters from the GE junction Dilated small bowel probably indicates an obstruction
--- NOTE | 2019-09-20 18:47 | EKG ---
Test Date: 2019-09-19 Test Time: 13:14:14 [employer]: BENNY MEASUREMENT RESULTS: Intervals: Rate: 80 [place]: 218 QRSD: 104 QT: 388 QTc: 447 [place]: P: 75 [place]: 218 QRS: -31 T: -1 INTERPRETIVE STATEMENTS: Sinus rhythm with 1st degree AV block Left axis deviation Left ventricular hypertrophy with repolarization abnormality Abnormal ECG Compared to ECG 08/08/2019 15:49:35 First degree AV block now present Left-axis deviation now present Early repolarization now present Left bundle-branch block no longer present Electronically Signed On 09-20-19 18:44:35 CDT by Vinny Lagunas
[2019-09-20] MEDS: HOME MED 1 EA UNK (Trazodone [Desyrel*] 150 MG) PO SCH (21:00)
[2019-09-20] MEDS: PHENYTOIN SODIUM 200 MG PO SCH (21:00)
[2019-09-20] MEDS ORDERED: TEMAZEPAM 30 MG PO SCH (21:00)
[2019-09-20] MEDS: QUETIAPINE FUMARATE 300 MG PO SCH (21:00)
[2019-09-20] MEDS ORDERED: WATER FOR INJ,STERILE 10 ML IM PRN (21:25)
[2019-09-20] MEDS ORDERED: LORazepam 2 MG/ML VIAL IV PRN (21:26)
[2019-09-20] MEDS ORDERED: ONDANSETRON 4 MG/2 ML VIAL IV PRN (21:32)
[2019-09-20] MEDS ORDERED: ACETAMINOPHEN 650MG/RECT SUPP PR PRN (21:33)
[2019-09-20] MEDS ORDERED: ZIPRASIDONE MESYLA 20 MG/VIAL IM SCH (22:00)
[2019-09-20] MEDS: D5 0.9 NS 1,000 ML IV SCH (22:06)
[2019-09-20] MEDS: METOPROLOL TARTRATE 5 MG/5 ML INJ IV PRN (22:10)
[2019-09-20] MEDS: PHENYTOIN NA 100 MG/2 ML IV SCH (22:46)
[2019-09-20] MEDS: NITROGLYCERIN 1 GM PKT TD SCH (22:46)
[2019-09-21] MEDS: METRONIDAZOLE 500mg IVPB 500 MG/100 ML BAG IV SCH ×4 (00:11→18:25)
--- NOTE | 2019-09-21 03:40 | HP ---
Date of Admission: 09/19/2019 Chief Complaint: Abdominal pain, nausea, vomiting. History Of Present Illness: This is an 83-year-old female patient who started to have abdominal pain on Friday associated with nausea, vomiting, feels little bloated. Her last bowel movement was on Friday. She came into the emergency room yesterday and after she was evaluated she was diagnosed a s having small bowel obstruction and was admitted to the hospital. This morning when I saw her, she reported that her pain was slightly better. No bowel movement or any vomiting since her admission to the hospital. Denies any fever, chills. Allergies: TO LEVOFLOXACIN. Medications: List reviewed. Review of Systems: GI: As mentioned above. All other systems reviewed and negative. Social History: Negative for smoking, alcohol use. Family History: Mother had Alzheimer's. Father had stroke and heart disease. Sister had myocardial infraction. Past Surgical History: Arthroscopic knee surgery, hernia repair, cholecystectomy, appendectomy. Past Medical History: Hypertension, hyperlipidemia, osteoporosis, asthma, diverticulosis, allergic r hinitis, gastroesophageal reflux disease, depression, hypothyroidism, pancytopenia, fatigue, and oste oarthritis at multiple sites. Physical Examination: Vital Signs: This morning when I saw her last, temperature 97.2, pulse 80, respiratory rate 16, bloo d pressure 142/75, oxygen saturation 95%, height 5 feet 4 inches, weight 149 pounds. General: Awake, alert, oriented, not in distress. HEENT: Head atraumatic, normocephalic. Conjunctivae nonerythematous. Sclerae white. Mouth, no thr ush or edema noted. Ears/Nose, no mass, lesion, discharge noted. Neck: Supple. No JVD, lymph nodes, bruit, thyromegaly noted. Lungs: Bilateral good equal air entry. Clear to auscultation. No rhonchi. No rales. Heart: Normal heart sounds, no murmur or gallop. Abdomen: Soft, minimally distended. Bowel sounds normoactive. Presence of tenderness in left side of her abdomen. No rebound tenderness. No hepatosplenomegaly. No bruit. Extremities: No leg edema. No calf tenderness. Skin: No rash, ulcer, cellulitis. Lymphatics: No lymph node enlargement in neck, supraclavicular, infraclavicular region. Neuro: No focal neurological deficit. Chest: Unremarkable. External Genitalia: Deferred. Rectal: Deferred. Laboratory Data: Yesterday, white count 5.6, hemoglobin 12.2, platelets 130. Today, white count 4.8 , hemoglobin 11.7, platelets . Yesterday, sodium 135, potassium 3.5, chloride 102, bicarb 27, BUN 15, creatinine 0.87, glucose 108. Liver function tests unremarkable. Lipase 144. Today, li pase 173. BUN 12, creatinine 0.63. Sodium 138, potassium 4.5, chloride 108, bicarb 24. Liver funct ion tests unremarkable. Magnesium 1.9. Urinalysis trace blood, otherwise negative. CAT scan of abd omen and pelvis with contrast done yesterday in the emergency room shows fluid filled and upper limit of normal small bowel are present. In left abdomen, there is presence of left adrenal adenoma of 11 mm in size and this has remained unchanged since prior CAT scan and it was reported also same size i n 2012, on CAT scan report that I have reviewed. Chest x-ray, no acute cardiopulmonary changes. Impression: 1.Small bowel obstruction. 2.Pancytopenia. 3.Hypertension. 4.Hyperlipidemia. 5.Depression. 6.Mild intermittent asthma. 7.Gastroesophageal reflux disease. 8.Depression. 9.Hypothyroidism. Plan: Admit the patient to hospital for further evaluation and management of this problem. Patient is appropriate for inpatient and is expected to spend 2 midnights in the hospital. We will go ahead and continue home medications per order. Dr. Spann was consulted from [facility]. We will ke ep her n.p.o. except medications. IV fluid, IV antibiotics will be given. SCD was ordered for DVT p rophylaxis. Consult Physical therapy to help ambulate the patient and details and plan of treatment discussed with her. ANNA/MODL Voice ID: [id number]
[2019-09-21 04:17] LABS: Absolute Lymphocytes (CBC) 1.2 K/uL (0.7-4.9); Basophils % 0.5 % (0-1.3); Hematocrit 34.3 % (36.0-45.0); Lymphocytes % 19.9 % (15.3-44.8); MPV 8.1 fL (7.6-11.3); RBC Red Blood Cell Count 3.78 M/uL (3.86-4.86)
[2019-09-21 04:32] LABS: Magnesium 1.7 mg/dL (1.8-2.4); Phenytoin (Dilantin) Level 7.6 ug/mL (10.0-20.0); Potassium 3.3 mmol/L (3.5-5.1)
[2019-09-21] MEDS: NITROGLYCERIN 1 GM PKT TD SCH ×4 (05:19→18:25)
[2019-09-21] MEDS ORDERED: MAGNESIUM SULFATE 1 gm IVPB 1 GM/100 ML BAG IV ONE (07:00)
[2019-09-21] MEDS: D5 0.9 NS 1,000 ML IV SCH ×3 (08:00→18:00)
[2019-09-21] MEDS: CEFTRIAXONE/SWI 1gm 1 GM/10 ML SYR IVP SCH (09:00)
[2019-09-21] MEDS: KCL 20 MEQ/100 mL IVPB 20 MEQ/100 ML BAG IV SCH ×2 (09:11→10:42)
[2019-09-21] MEDS: FAMOTIDINE 20 MG/2 ML VIAL IV SCH ×2 (09:12→20:34)
[2019-09-21] MEDS: PHENYTOIN NA 100 MG/2 ML IV SCH (09:13)
--- NOTE | 2019-09-21 10:35 | RAD REPORT ---
EXAM DESCRIPTION: RAD - Abdomen 1 View (KUB) - 09/21/2019 5:26 am CLINICAL HISTORY: sbo Pain COMPARISON: Abdomen Single View dated 09/20/2019 FINDINGS: The bowel gas pattern is non-obstructive. No evidence of free air or pneumatosis. Enteric tube is coiled in the stomach.
[2019-09-21] MEDS: METOPROLOL TARTRATE 5 MG/5 ML INJ IV PRN (11:29)
[2019-09-21] MEDS: ENOXAPARIN 30 MG/0.3 ML SQ SCH (17:00)
[2019-09-21] MEDS: TEMAZEPAM 15 MG CAP PO SCH (20:33)
[2019-09-21] MEDS: PHENYTOIN ER 100 MG CAP PO SCH (20:33)
[2019-09-21] MEDS: carvediloL 25 MG TAB PO SCH (20:33)
[2019-09-21] MEDS: QUETIAPINE 100MG TAB PO SCH (20:33)
[2019-09-21] MEDS: TRAZODONE 150 MG TAB PO SCH (20:37)
[2019-09-21] MEDS ORDERED: ZIPRASIDONE MESYLA 20 MG/VIAL IM SCH (21:00)
--- NOTE | 2019-09-21 23:25 | PN ---
Date of Progress Note: 09/21/2019 Subjective: Patient was seen this morning for followup. No new complaints or problems reported by yoni santos. Her abdominal pain was better today than yesterday. NG tube in place draining green colored liquid. No other new complaints or problems reported. Objective: Vital Signs: Reviewed. HEENT: Unremarkable. Lungs: Clear to auscultation. Heart: Sounds normal. Abdomen: Soft. Bowel sounds normal. No guarding, rigidity, distention. Tenderness from left side of her abdomen is better today than yesterday. Extremities: No leg edema. Laboratory Data: White count 5.8, hemoglobin 11.6, platelets . Sodium 138, potassium 3.3, chloride 109, bicarb 24, BUN 7, creatinine 0.69, glucose 111, magnesium 1.7. Impression: 1.Small bowel obstruction. 2.Hypokalemia. 3.Hypomagnesemia. 4.Pancytopenia. Plan: Yesterday evening, her oral medications were discontinued as patient was kept n.p.o. and had N G tube to suction and Dr. Spann did not want her to take any oral medications. Her oral medication s were stopped and nitroglycerin paste, IV metoprolol, IV Dilantin, and Geodon intramuscular injectio n was ordered and IV Ativan was ordered. This morning those medications did help her to stay comfort able, and as of this afternoon, nurse contacted and informed me that patient started to have a bowel movement and overall her condition had improved and patient accidentally pulled her NG tube out while Dr. Spann was there in the room and he has suggested no need for any further NG tube at this time. So, her oral medications will be restarted and I will see her tomorrow for followup. Replace electrolyte per protocol. ANNA/MODL Voice ID: [id number] Report ID: [id number]
[2019-09-22] MEDS: NITROGLYCERIN 1 GM PKT TD SCH ×2 (00:34→05:39)
[2019-09-22] MEDS: METRONIDAZOLE 500mg IVPB 500 MG/100 ML BAG IV SCH ×4 (00:37→17:07)
[2019-09-22 05:29] LABS: Absolute Lymphocytes (CBC) 1.2 K/uL (0.7-4.9); Basophils % 0.2 % (0-1.3); Hematocrit 33.2 % (36.0-45.0); Lymphocytes % 16.5 % (15.3-44.8); MPV 7.9 fL (7.6-11.3); RBC Red Blood Cell Count 3.62 M/uL (3.86-4.86)
[2019-09-22] MEDS: TRAMADOL HCL 50 MG TAB PO PRN ×2 (05:35→15:40)
[2019-09-22] MEDS: LEVOTHYROXINE SOD 0.088 MG TAB PO SCH (05:39)
[2019-09-22] MEDS: D5 0.9 NS 1,000 ML IV SCH ×2 (05:40→06:01)
[2019-09-22 05:46] LABS: Magnesium 1.9 mg/dL (1.8-2.4); Potassium 3.4 mmol/L (3.5-5.1)
[2019-09-22] MEDS: MORPHINE 2 MG/ML SYR IV PRN ×2 (06:39→11:24)
--- NOTE | 2019-09-22 07:47 | RAD REPORT ---
EXAM DESCRIPTION: RAD - Abdomen 1 View (KUB) - 09/22/2019 5:36 am CLINICAL HISTORY: Abdomen pain. FINDINGS: Mild dilatation of a loop of small bowel within the left upper quadrant. The remainder of the small bowel caliber appears normal. The air within the colon is diminished. Postsurgical changes involve the abdomen
[2019-09-22] MEDS ORDERED: POTASSIUM CL SA 10 MEQ TAB PO ONE (09:00)
[2019-09-22] MEDS: CEFTRIAXONE/SWI 1gm 1 GM/10 ML SYR IVP SCH (09:44)
[2019-09-22] MEDS: carvediloL 25 MG TAB PO SCH ×2 (09:44→17:07)
[2019-09-22] MEDS: FAMOTIDINE 20 MG/2 ML VIAL IV SCH ×2 (09:45→20:45)
[2019-09-22] MEDS: CITALOPRAM 10 MG TABLET PO SCH (09:45)
--- NOTE | 2019-09-22 13:09 | P.PN ---
Subjective Date of Service: 09/22/19 Patient was confused yesterday, but is lucid during my exam, and she is oriented, and appropriate - she had several large bowel movements yesterday, and is now pain free, she has no more belching, she is passing gas and removed her NG, but has tolerated clears well. Physical Examination - Vital Signs Temperature: 97.3 F Blood Pressure: 163/90 Pulse: 89 Respirations: 19 Pulse Ox (%): 99 - Physical Exam General: Alert, In no apparent distress, Oriented x3, Cooperative Gastrointestinal: Soft and benign, Non-distended, No tenderness, No masses, No rebound, No guarding Assessment And Plan - Current Problems (Diagnosis) (1) Small bowel obstruction due to adhesions Current Visit: Yes Status: Acute Plan: - advance diet to soft, if tolerated will likely recommend DC home in AM on Low residue diet - serial exams - continue medical management per Dr. Herndon - kristin to transition to PO meds - ambulate with assist - incentive spirometry
[2019-09-22] MEDS: ENOXAPARIN 30 MG/0.3 ML SQ SCH (16:56)
[2019-09-22] MEDS: PHENYTOIN ER 100 MG CAP PO SCH (20:45)
[2019-09-22] MEDS: QUETIAPINE 100MG TAB PO SCH (20:46)
[2019-09-22] MEDS: TEMAZEPAM 15 MG CAP PO SCH (20:46)
[2019-09-22] MEDS: TRAZODONE 150 MG TAB PO SCH (20:49)
[2019-09-22 23:47] VITALS: O2SAT 98
[2019-09-23] MEDS: METRONIDAZOLE 500mg IVPB 500 MG/100 ML BAG IV SCH ×2 (00:30→05:42)
--- NOTE | 2019-09-23 02:00 | PN ---
Date of Progress Note: 09/22/2019 Subjective: Patient was seen this morning for followup. No new complaints or problems were reported by her. She had a good bowel movement yesterday. After that, her abdominal pain and bloating sensa tion had subsided. She is tolerating clear liquid diet very well. No nausea, no vomiting. This mor kinjal when I saw her, she denied any complaints. She slept well last night. Objective: Vital Signs: Reviewed. HEENT: Unremarkable. Lungs: Clear to auscultation. Heart: Sounds normal. Abdomen: Soft. Bowel sounds normal. No guarding, rigidity, tenderness, or distention. Extremities: No leg edema. Impression: 1.Small bowel obstruction. 2.Hypertension. 3.Pancytopenia. Plan: We will go ahead and continue current medications. Continue her oral medication and antibioti c. Ambulation was encouraged. I will see her tomorrow for followup. We will advance diet as tolera onelia. Her white count this morning was 7.3, hemoglobin 11.2, platelets 98. Sodium 134, potassium 3.4 , chloride 114, bicarb 22, BUN 6, creatinine 0.71, glucose 103, magnesium 1.9. Potassium will be rep laced for hypokalemia per protocol. I will see her tomorrow for followup, possible discharge to [facility] tomorrow. ANNA/MODL Voice ID: [id number] Report ID: [id number]
[2019-09-23] MEDS: D5 0.9 NS 1,000 ML IV SCH (02:01)
[2019-09-23] MEDS: LEVOTHYROXINE SOD 0.088 MG TAB PO SCH (05:42)
[2019-09-23] MEDS: MORPHINE 2 MG/ML SYR IV PRN (05:48)
[2019-09-23 05:59] LABS: BUN Blood Urea Nitrogen 5 mg/dL (7-18); Bicarbonate 22 mmol/L (21-32); Glucose Level 119 mg/dL (74-106); Potassium 3.5 mmol/L (3.5-5.1); Sodium Level 136 mmol/L (136-145)
[2019-09-23] MEDS: CEFTRIAXONE/SWI 1gm 1 GM/10 ML SYR IVP SCH (07:39)
[2019-09-23] MEDS: FAMOTIDINE 20 MG/2 ML VIAL IV SCH (07:39)
[2019-09-23] MEDS: CITALOPRAM 10 MG TABLET PO SCH (07:39)
[2019-09-23] MEDS: carvediloL 25 MG TAB PO SCH (07:39)
[2019-09-23] MEDS ORDERED: POTASSIUM CL SA 10 MEQ TAB PO ONE (07:40)
[2019-09-23 10:44] VITALS: BP 160/96; TEMP 98.2
--- NOTE | 2019-09-24 03:30 | DS ---
Date of Discharge: 09/23/2019 Disposition: Discharged to go home. Physical Examination: HEENT: Unremarkable. Lungs: Clear to auscultation. Heart: Sounds normal. Abdomen: Soft. Bowel sounds normal. No guarding, rigidity, tenderness, distention. Extremities: No leg edema. Laboratory Data: Initial white count when she was admitted to the hospital on 09/19/2019, white coun t 5.6, hemoglobin 12.2, platelets 130. Yesterday, white count 7.3, hemoglobin 11.2, platelets 98. L ast chemistry today, sodium 136, potassium 3.5, chloride 107, bicarb 22, BUN 5, creatinine 0.61, gluc ose 111. Her potassium was low when she first came into the hospital 3.3. Magnesium was low on 09/09, which was 1.7. Both electrolytes were corrected. Lipase was normal. Hospital Course: 83-year-old female patient admitted to the hospital with abdominal pain, nausea, vo miting. Please see dictated H and P for more information. Patient was evaluated in emergency room, admitted to the hospital with small bowel obstruction. Dr[facility] Patient actually was kept n.p.o. IV fluid, IV antibiotics started. Her condition did not improve . NG tube was placed. Home medications were continued. Patient was also given pain medication per order. After she had a bowel movement, her condition started improving significantly. Abdominal melissa n resolved and her abdominal bloating and distention problem resolved. She was started on clear liqu id diet which was advanced as she tolerated and she is doing much better. Physical Therapy consulted to help with ambulation. Dr. Spann has cleared her to go home. Her condition was stable for [facility] today. Final Diagnoses: 1.Small bowel obstruction. 2.Pancytopenia. 3.Hypertension. 4.Hyperlipidemia. 5.Hypokalemia. 6.Hypomagnesemia. 7.Depression. 8.Mild intermittent asthma. 9.Gastroesophageal reflux disease. 10.Depression. 11.Hypothyroidism. Discharge Medications And Instructions: 1.Continue all prior home medication. 2.Take [id number] Senokot-S 2 tablets by mouth 2 times a day for constipation. 3.Follow up at my office in 1 week and the patient to follow up with her orthopedic surgeon, Dr. Jus xavier for her right shoulder and right arm pain. ANNA/MODL Voice ID: [id number] Report ID: [id number]
== END 2019-09-23 10:42 | disposition home or self-care (01) | DRG 389 ==
LOC: ER 12:04 → ERHOLD 14:06 → 2ND 16:14
PROVIDERS: ADMIT Internal Medicine; ATTEND Internal Medicine
DX: K56.51 Intestinal adhesions [bands], with partial obstruction (principal); D61.818 Other pancytopenia; I10 Essential (primary) hypertension; E83.42 Hypomagnesemia; E87.6 Hypokalemia; E78.5 Hyperlipidemia, unspecified; K21.9 Gastro-esophageal reflux disease without esophagitis; F32.9 Major depressive disorder, single episode, unspecified; J45.20 Mild intermittent asthma, uncomplicated; E03.9 Hypothyroidism, unspecified; Z86.73 Personal history of transient ischemic attack (TIA), and cerebral infarction without residual deficits; Z90.710 Acquired absence of both cervix and uterus; Z90.49 Acquired absence of other specified parts of digestive tract; Z88.1 Allergy status to other antibiotic agents
CPT/HCPCS: 36415; 71045; 74018; 74177; 80048; 80076; 80185; 81003; 83690; 83735; 83880; 84132; 84484; 85025; 85610; 93005; 96374; 96375; 97116; 97161; 97530; 99285; J0696; J1165; J1650; J2270; J2405; J3475; J3486; J7030; J7042; Q9967

== ENCOUNTER 2020-04-26 10:22 | Inpatient (IN) | payer OTHER, SELFPAY ==
--- OUTSIDE RECORDS SUMMARY | 2020-04-26 10:29 | XMS REPORT | Continuity of Care Document ---
:1935 Author Organization [facility] t Address [address] [place] [address] Care Team Providers Name Role Phone Logan HONG Attending Clinician Unavailable Yaw RICO Attending Clinician Marin RICO Attending Clinician Mirtha RICO Admitting Clinician Problems This patient has no known problems. Allergies, Adverse Reactions, Alerts This patient has no known allergies or adverse reactions. Medications This patient has no known medications. Procedures This patient has no known procedures. Encounters Start End Encounter Admission Attending Care Care Encounter Source Date/Time Date/Time Type Type Clinicians Facility Department ID 2020-04-24 2020-04-24 Transition Claudia Ford [id number] 00:00:00 00:00:00 of Care Nadia Hernandez [id number] [place] [id number] 2020-04-19 2020-04-21 [facility] Tomy Tidwell [id number] 21:41:00 18:47:00 Encounter Collin Funes [id number] [facility] [id number] Results This patient has no known results.
--- OUTSIDE RECORDS SUMMARY | 2020-04-26 10:30 | XMS REPORT | Summary of Care ---
:1935 Author Organization [facility] Address [address] [place] [id number] Care Team Providers Name Role Phone Iván Mukherjee Primary Care Provider Reason for Referral (Routine) Status Reason Specialty Diagnoses / Referred By Referred To Procedures Contact Contact New Request IM-CLINICAL CARDIAC Diagnoses PSVT (paroxysmal supraventricular tachycardia) Ahmad, ELECTROPHYSIOLOGY Procedures Discharge Follow-Up: Specialty Service IM-CLINICAL CARDIAC ELECTROPHYSIOLOGY; 1 Month Discharge Follow-Up: Specialty Service IM-CLINICAL CARDIAC ELECTROPHYSIOLOGY; 4- 6 Weeks MD Collin [address] [facility] [id number] [place] [id number] Other (Routine) Status Reason Specialty Diagnoses / Procedures Referred By Leann castellanos To Contact Contact New Request Diagnoses PSVT (paroxysmal supraventricular tachycardia) Collin Funes Prasad, Sendil Procedures Discharge Follow-up: Specialty Provider HILARIO CALL K.HRoslyn; 4-6 Weeks MD Lai MD [address] [facility] [id number] [place], [place], [place] [phone] Phone: Fax: (Routine) Status Reason Specialty Diagnoses / Procedures Referred By Leann castellanos To Contact Contact New Request Diagnoses PSVT (paroxysmal supraventricular tachycardia) Collin Funes Amin, A lkesh C Procedures Discharge Follow-up: PCP IVÁN MUKHERJEE; 3-5 Days MD Jag Mayfield [address] [facility] [id number] [place] [phone] Phone: Fax: MRI/CAT Scan (STAT) Status Reason Specialty Diagnoses / Referred By Referred To Procedures Contact Contact New Request Diagnostic Diagnoses Weakness Collin Funes, Radiology Procedures CT ABDOMEN PELVIS W CONTRAST [address] [facility] [id number] [place] [phone] (Routine) Status Reason Specialty Diagnoses / Referred By Referred To Procedures Contact Contact New Request Cardiology Diagnoses Weakness Collin Funes MD Procedures ECHO ROUTINE W/DOPPLER COLOR [address] [place] [address] Radiology Services (MELISSA) Status Reason Specialty Diagnoses / Referred By Referred To Procedures Contact Contact New Request Diagnostic Diagnoses Liana Shannon, Radiology Procedures US ABDOMEN LIMITED MD Jyoti [address] [place] [address] Radiology Services (STAT) Status Reason Specialty Diagnoses / Referred By Referred To Procedures Contact Contact New Request Diagnostic Diagnoses Tomy Willson, Radiology Procedures XR CHEST [address] [place] [address] [place] [address] Reason for Visit Reason Comments Fall Auth/Cert Status Reason Specialty Diagnoses / Referred By Referred To Procedures Contact Contact Emergency Medicine [facility]ency Dept [address] [place] [address] Fax: Encounter Details Date Type Department Care Team Description 04/19/2020 - Hospital Encounter CT/ Vascular (Bud Antony MD [address] [place] [address] [place] [phone] A-fib 04/21/2020 9A) Collin Funes MD [address] [facility] [id number] [place], [place] [id number] [facility] Jyoti Shannon MD [address] [place], [place] [address] [place], [place] [phone] Allergies Active Allergy Reactions Severity Noted Date Comments Levofloxacin Rash 04/19/2020 documented as of this encounter (statuses as of 04/21/2020) Medications Medication Sig Dispensed Refills Start End Date Status Date aspirin 81 mg chewable Take 81 mg 0 Active tablet by mouth daily. citalopram 20 mg tablet Take 20 mg 0 Active by mouth daily. phenytoin Extended Take 200 mg 0 Active (DILANTIN EXTENDED) 100 by mouth 3 mg capsule (three) times daily. levothyroxine 100 mcg Take 88 mcg 0 Active tablet by mouth. QUEtiapine (SEROQUEL) Take 600 mg 0 Active 300 mg tablet by mouth at bedtime. temazepam 30 mg capsule Take 30 mg 0 Active by mouth at bedtime as needed. simvastatin 10 mg tablet Take 20 mg 0 Active by mouth at bedtime. metoprolol tartrate 25 Take 1 180 tablet 3 Active mg tabletIndications: tablet by 0 21 PSVT (paroxysmal mouth every supraventricular 12 (twelve) tachycardia) hours for 360 days. Polyethylene Glycol 3350 Take 1 90 Packet 3 04/16 Active 17 gram Packet by 0 21 powderIndications: PSVT mouth daily (paroxysmal for 360 supraventricular days. tachycardia) hydroCHLOROthiazide 12.5 Take 25 mg 0 04/11 05/31 Discontinued mg capsule by mouth 20 daily. losartan 50 mg tablet Take 100 mg 0 Discontinued by mouth 20 daily. traZODone 150 mg tablet Take 300 mg 0 04/11 05/31 Discontinued by mouth at 20 bedtime. carvediloL 25 mg tablet Take 25 mg 0 04/21 Discontinued by mouth 2 20 (two) times daily with meals. traMADoL 50 mg tablet Take 50 mg 0 0 Discontinued by mouth 2 20 (two) times daily as needed. documented as of this encounter (statuses as of 04/21/2020) Active Problems Problem Noted Date A-fib 04/20/2020 Paroxysmal SVT (supraventricular tachycardia) 04/20/20 20 PSVT (paroxysmal supraventricular tachycardia) 020 documented as of this encounter (statuses as of 04/21/2020) Social History Tobacco Use Types Packs/Day Years Used Date Never Assessed Sex Assigned at Date Recorded Not on file COVID-19 Exposure Response Date Recorded In the last month, have you been in contact with No / Unsure 04/19/2020 9:42 PM ON SITE PROPERTY MANAGER someone who was confirmed or suspected to have Coronavirus / COVID-19? documented as of this encounter Last Filed Vital Signs Vital Sign Reading Time Taken Comments Blood Pressure 133/86 04/21/2020 3:36 standing Simult aneous PM ON SITE PROPERTY MANAGER filing. User may not have seen previo us data. Pulse 99 04/21/2020 3:36 PM ON SITE PROPERTY MANAGER Temperature 35.8 C (96.4 F) 04/21/2020 10:57 AM ON SITE PROPERTY MANAGER Respiratory Rate 16 04/21/2020 10:57 AM ON SITE PROPERTY MANAGER Oxygen Saturation 98% 04/21/2020 10:57 AM ON SITE PROPERTY MANAGER Inhaled Oxygen - - Concentration Weight 67.6 kg (149 lb) 04/20/2020 7:58 PM ON SITE PROPERTY MANAGER Height 162.6 cm (5' 4") 04/20/2020 3:05 AM ON SITE PROPERTY MANAGER Body Mass Index 25.58 04/20/2020 3:05 AM ON SITE PROPERTY MANAGER documented in this encounter Discharge Summaries Marcela Bal MD - 04/21/2020 12:17 PM CST [facility] Team Discharge Summary Date of Service: 04/21/20 ADMIT DATE: 04/19/2020 DISCHARGE DATE: 04/21/20 ATTENDING MD: Collin Funes RESIDENT MD: Marcela Bal PCP: Iván Mukherjee REASON FOR ADMISSION Chest pain, dizziness FINAL DIAGNOSIS: (the reason, after study, for admitting the patient to the hospital) pSVT and orthostatic hypotension SECONDARY DIAGNOSIS: (any diagnosis that, on this admission, required clinical evaluation, therapeutic treatment, diagnostic procedures, extended hospital stay, or additional nursing care/monitoring) Atypical Chest Pain Hypothyroidism HTN Pneumobilia seen on CT, stable and chronic Active Problems: A-fib (04/20/2020) POA: Yes Paroxysmal SVT (supraventricular tachycardia) (04/20/2020) POA: Yes PSVT (paroxysmal supraventricular tachycardia) (04/20/2020) POA: Yes Resolved Problems: * No resolved hospital problems. * Orders Placed This Encounter Consult Cardiac Electrophysiology CONSULT GENERAL SURGERY Consult Adult Physical Therapy Consult Adult Occupational Therapy CONSULT GASTROENTEROLOGY Discharge Follow-up: PCP IVÁN MUKHERJEE; 3-5 Days No orders of the defined types were placed in this encounter. SIGNIFICANT LAB/X-RAYS: Lab results: CBC BMP PT/INR WBC (10*3/L) Date Value 04/21/2020 4.30 NA (mmol/L) Date Value 04/21/2020 136 No results found for: PT RBC (10*6/L) Date Value 04/21/2020 3.48 (L) K (mmol/L) Date Value 04/21/2020 4.3 INR (no units) Date Value 04/19/2020 1.3 PLT (10*3/L) Date Value 04/21/2020 87 (L) CALCIUM (mg/dL) Date Value 04/21/2020 8.3 (L) HGB (g/dL) Date Value 04/21/2020 10.7 (L) CL (mmol/L) Date Value 04/21/2020 108 aPTT HCT (%) Date Value 04/21/2020 32.4 (L) BUN (mg/dL) Date Value 04/21/2020 10 APTT Patient (Seconds) Date Value 04/19/2020 31 CREATININE (mg/dL) Date Value 04/21/2020 0.66 GLUCOSE (mg/dL) Date Value 04/21/2020 84 CO2 TOTAL (mmol/L) Date Value 04/21/2020 23 Other lab results: X-ray results: Xr Chest 1 Vw Result Date: 04/20/2020 No acute cardiopulmonary abnormality. Preliminary Report Dictated by Resident: Charito Garcia MD., have reviewed this study and agree with the above report. Ct Abdomen Pelvis W Contrast Result Date: 04/20/2020 1. A large amount of stool and gas in the colon suggest constipation. 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 2. Pneumobilia, may be due to prior instrumentation/surgery. This could be chronicif there is no recent instrumentation or surgery. Cholecystectomy. Levoscoliosis. Demarco Castro MD., have reviewed this study and agree with the above report. Us Abdomen Limited Result Date: 04/20/2020 Hyperechoic branches extending from the hepatic hilum to the right hepatic lobe may represent air in the biliary system. This may also represent surgical material. Correlate clinically and consider further evaluation with CT. Coarsened hepatic echotexture suggestive of chronic hepatocellular disease.Right renal cyst. Preliminary Report Dictated by Resident: Demarco Weathers MD., have reviewed this study and agree with the above report. Radiology study indicated for follow-up? No HOSPITAL COURSE: Kemi Coulter is a 84 year old female with PMHHTN,OA, diverticulitis s/p colectomy, CVA,manic depression, venous insufficiency who presented to [facility] for dizziness, weakness, and recent fall. Patient orthostatic positive and given a fluid bolus. Patient also with pSVT and EP consulted; amiodarone gtt was stopped after termination of pSVT. ECHO was also completed showing EF 40-45%, DD, moderateglobal hypokinesis of LV. Orthostatic vitals continue to be positive after 2 fluid boluses but patient is stable and symptomatically improved. Suspect autonomic dysfunction; she should follow up outpatient for blood pressure medication titration and further evaluation. Patient also had RUQ pain, RUQUSwhich showed possible air in biliary system; further evaluation with CTAP confirmed air in the biliary system which may have been due to prior instrumentation or chronic process. Duodenal diverticulum was also seen near the ampulla which could be causing findings. Surgery consulted, they recommended no emergent operation and treatment with IV fluids, antiemetics, PPI, and GI consult. GI recommended no acute intervention and follow up as an outpatient with GI in [place]. Patient is deemed stablefor discharge with close follow up and orthostatic hypotension precautions like safe and slow transfers. ITEMS FOR FOLLOW UP PROVIDER: (including pending labs/cultures/studies, anticipated problems, etc.) Follow up changes to blood pressure medications, patient was taken off many home meds due to continued orthostatic hypotension and dizziness. Patient reports good PO intake at home, she responded well to fluids during this admission. Compression stockings were also recommended to the patient. Recommended that patient increase dose of miralax up to three times daily in order to achieve daily bowel movement. Please ensure follow up with EP in 4 weeks. Please ensure follow up with cardiology in 4 weeks. FUNCTIONAL STATUS: fully ambulatory DISCHARGE CONDITION: good COGNITIVE STATUS: cognitively intact DIET: cardiac ACTIVITY: as tolerated DISCHARGE MEDICATIONS: Current Discharge Medication List START taking these medications Details metoprolol tartrate (LOPRESSOR) 25 mg Take 25 mg by mouth every 12 (twelve) hours. Qty: 180 tablet, Refills: 3 Start date: 04/21/2020, End date: 04/16/2021 Associated Diagnoses: PSVT (paroxysmal supraventricular tachycardia) Polyethylene Glycol 3350 (MIRALAX) 17 g Take 17 g by mouth daily. Qty: 90 Packet, Refills: 3 Start date: 04/21/2020, End date: 04/16/2021 Associated Diagnoses: PSVT (paroxysmal supraventricular tachycardia) CONTINUE these medications which have NOT CHANGED Details aspirin 81 mg Take 81 mg by mouth daily. citalopram (CELEXA) 20 mg Take 20 mg by mouth daily. levothyroxine (SYNTHROID) 88 mcg Take 88 mcg by mouth. phenytoin Extended (DILANTIN KAPSEAL) 200 mg Take 200 mg by mouth 3 (three) times daily. QUEtiapine (SEROQUEL) 600 mg Take 600 mg by mouth at bedtime. simvastatin (ZOCOR) 20 mg Take 20 mg by mouth at bedtime. temazepam (RESTORIL) 30 mg Take 30 mg by mouth at bedtime as needed. STOP taking these medications carvediloL (COREG) 25 mg Comments: Reason for Stopping: hydroCHLOROthiazide (ESIDRIX) 25 mg Comments: Reason for Stopping: losartan (COZAAR) 100 mg Comments: Reason for Stopping: traMADoL (ULTRAM) 50 mg Comments: Reason for Stopping: traZODone (DESYREL) 300 mg Comments: Reason for Stopping: WOUND CARE: none CODE STATUS: full code DISCHARGE: home self care FOLLOW-UP APPOINTMENT: Discharge Orders Discharge Follow-up: PCP IVÁN MUKHERJEE; 3-5 Days To PCP: IVÁN MUKHERJEE [[id number]] Patient's Preferred Location: [place] Discharge Disposition: Home, (AHR) When (Patients with risk for unplanned readmission score over 16 or those noted as Hospital Dependent should follow up within 7 days with PCP or primary DX specialist): 3-5 Days Risk of Unplanned Readmission:( Score greater than 16 indicates high risk) 16 Cardiac (2 gm Sodium, Low Fat, Low Cholesterol) Diet; Texture: Regular. Texture Regular. Diabetic: No Discharge Condition - Discharge Condition: FAIR Discharge Activity Discharge Activity: As Tolerated VTE Propylaxis- Was ordered during hospitalization Discharge Follow-up: Specialty Provider HILARIO CALL; 4-6 Weeks To Provider: HILARIO CALL [[id number]] Patient's Preferred Location: [place] Discharge Disposition: Home, (AHR) When (Patients with risk for unplanned readmission score over 16 or those noted as Hospital Dependent should follow up within 7 days with PCP or primary DX specialist): 4-6 Weeks Risk of Unplanned Readmission:( Score greater than 16 indicates high risk) 16 Discharge Follow-Up: Specialty Service IM-CLINICAL CARDIAC ELECTROPHYSIOLOGY; 1 Month Specialty: IM-CLINICAL CARDIAC ELECTROPHYSIOLOGY [133] Patient's Preferred Location: Unknown Discharge Disposition: Home, (AHR) When (Patients with risk for unplanned readmission score over 16 or those noted as Hospital Dependent should follow up within 7 days with PCP or primary DX specialist): 1 Month Risk of Unplanned Readmission:( Score greater than 16 indicates high risk) 16 Discharge Instructions Order Comments: YOUR MEDICATIONS HAVE CHANGED, PLEASE TAKE THE MEDICATIONS PRESCRIBED UNTIL OTHERWISE INSTRUCTED BY YOUR DOCTORS. -Please ensure good intake of fluids, your blood pressure can sometimes become low upon standing. -Please remember to transfer positions from laying down/sitting/standing slowly so that you do not get dizzy. -You can take miralax up to three times daily as needed in order to have a daily bowel movement. -Please follow up with PCP in 3-5 days. Please have labs done by this time, if needed. -Ask your doctor about taking trazodone and temazepam as these medications can affect your heart andmake you dizzy. -Please follow up with electrophysiology in 4 weeks. -Please return to clinic or ED for no improvement or worsening of symptoms. -If you experience severe chest pain, lightheadedness, dizziness, or shortness of breath please cometo the ED immediately. PLAN FOR READMISSION: No Please call paging services at [phone] to contact Marcela Bal MD with any questions. SITE PROPERTY MANAGER Associated attestation - Collin Funes MD - 04/21/2020 4:50 PM CSTI personally examined the patient on 04/21/[address] Bal's resident note as written . I actively participated in the decision-making process. Please see the resident's note for additional details. documented in this encounter Progress Notes Ronel Mena MD - 04/21/2020 11:27 AM CST [facility] Surgery - Progress Note Date of Service: 04/21/2020 Hospital Day: 3 Events overnight: Acute events overnight: no Nausea/vomiting: no Pain control: adequate MEDICATIONS - Reviewed 04/20 0700 - 04/21 0659 In: 820 [Oral:250; I.V.:570] Out: 1225 [Urine:1225] PHYSICAL EXAM BP: (89-156)/(62-86) Temp: [35.8 C (96.4 F)-36.4 C (97.5 F)] Temp source: Oral (04/21 1057) Pulse: [77-87] Resp: [16-20] SpO2: [94 %-98 %] Height: -- Weight: [67.6 kg (149 lb)] BMI (calculated): [25.58] General: No acute distress, AOx3 Cardio: Regular rate and rhythm, extremities well perfused Respiratory: Equal chest rise bilaterally Abdomen: soft, NT, ND AZUL: No appreciable extremity edema Neuro: No focal deficits LABORATORY Hemogram Recent Labs 04/19/20215804/21/20 0524 WBC 7.56 4.30 HGB 11.1* 10.7* HCT 32.6* 32.4* PLT 90* 87* Chemistry Recent Labs 04/19/20215804/20/20 0505 04/21/20 0524 NA 136 -- 136 K 3.5 -- 4.3 CL 104 -- 108 TCO2 23 -- 23 BUN 11 -- 10 CREAT 0.78 -- 0.66 GLU 107 -- 84 MG -- 1.9 2.4 CA 9.2 -- 8.3* RADIOLOGY Xr Chest 1 Vw Result Date: 04/20/2020 No acute cardiopulmonary abnormality. Preliminary Report Dictated by Resident: Charito Garcia MD., have reviewed this study and agree with the above report. Ct Abdomen Pelvis W Contrast Result Date: 04/20/2020 1. A large amount of stool and gas in the colon suggest constipation. 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 2. Pneumobilia, may be due to prior instrumentation/surgery. This could be chronicif there is no recent instrumentation or surgery. Cholecystectomy. Levoscoliosis. IDemarco MD., have reviewed this study and agree with the above report. Us Abdomen Limited Result Date: 04/20/2020 Hyperechoic branches extending from the hepatic hilum to the right hepatic lobe may represent air in the biliary system. This may also represent surgical material. Correlate clinically and consider further evaluation with CT. Coarsened hepatic echotexture suggestive of chronic hepatocellular disease.Right renal cyst. Preliminary Report Dictated by Resident: Demarco Weathers MD., have reviewed this study and agree with the above report. ASSESSMENT/PLAN Kemi Coulter is a 84 year old female on which we were consulted on for evaluation of pneumobilia. Patient is doing well, no abdominal pain or nausea or vomiting. She has the same right lower chest pain that believes is the same from when she had pneumonia back in July. She has a remote history of cholecystectomy but without any ostomy or tube placement. Plan: -No intervention needed -We recommend consulting GI/Hepatobiliary service -Surgery will only follow up in the future if needed, please contact us with any changes Thank you for the consult Ronel Mena MD PGY1 - General Surgery SITE PROPERTY MANAGER Associated attestation - Marshall Amin MD - 04/21/2020 12:12 PM CSTI reviewed the patient's chart on 04/21/[address] Mena's note as written. I actively participated in the decision-making process. Please see the resident's note for additional details. No surgical intervention. Incidentally found asymptomatic pneumobilia. Consider GI consult Aggressive bowel regimen for constipation MD Mally Zavala Preethi, MD - 04/21/2020 6:12 AM CST [facility] White Team Progress Note Patient Name: Keim Coulter : 1935 Admit Date: 04/19/2020 Primary Care Physician: Iván MARTINEZ Chest Pain, Dizziness 24 HOUR EVENTS NAEO SUBJECTIVE Is doing better today, denies CP, dizziness, light headedness. PHYSICAL EXAM Vitals Temp: [36.1 C (97 F)-36.4 C (97.5 F)] Heart Rate (monitor): [75-77] Pulse: [72-87] Resp: [16-20] BP: (89-169)/(62-106) MAP (mmHg): [72-119] Vitals: 04/21/20 0412 04/21/20 0704 04/21/20 0706 04/21/20 0710 BP: 122/78 137/80 134/85 (!) 89/62 BP Location: Left arm Left arm Patient Position: Supine Supine Pulse: 84 87 87 84 Resp: 18 20 Temp: 36.1 C (97 F) 36.1 C (97 F) TempSrc: Skin Skin SpO2: 94% 96% Weight: Height: Intake/Output Summary (Last 24 hours) at 04/21/2020 0825 Last data filed at 04/21/2020 0704 Gross per 24 hour Intake 820 ml Output 1350 ml Net -530 ml Constitutional: Laying in bed comfortably, in NAD Cardiovascular: RRR Respiratory: CTAB, good inspiratory effort Gastrointestinal: +BS, nontender to palpation Musculoskeletal/Integumentary/Ext: No lower extremity edema Neurological: Coherent to Conversation LABS Reviewed ASSESSMENT/PLAN Kemi Coulter is a 84 year old female who presented with: pSVT Hyperechoic branches extending from hepatic hilum to the right hepatic lobe possibly representing air in biliary system Orthostatic Hypotension + Atypical Chest Pain Hypothyroidism HTN Amiodarone gtt terminated pSVT, will now stop gtt per EP recommendation. Patient also with right sided pain from RUQ to right chest. US RUQ showed possible air in biliary system, further evaluation with CTAP confirmed air in the biliary system which may have been due to prior instrumentation or chronic process. Surgery consulted, they recommended no emergent operation and treatment with IV fluids, antiemetics, and PPI. Zosyn was discontinued. ECHO completed showing EF 40-45%, DD, moderate global hypokinesis of LV. Plan - Repeat orthostatic vitals were positive, will give more fluids and hold losartan. - Consult PT/OT - ASA 81mg PO daily - Discontinue Losartan 25mg PO daily - Lopressor 25mg PO Q12H - Simvastatin 20mg PO daily - Protonix 40mg IV Q24H - Citalopram 20mg PO daily - Synthroid 88mcg PO QAM - Dilantin 200mg PO QHS - Quetiapine 600mg PO QHS F: As above E: Replete prn Prophylaxis: heparin Code: DNR/DNI Marcela Bal MD Dept of Anesthesiology PGY-1, [facility] Team [facility] Pager: [phone] END OF DAILY PROGRESS NOTE HOSPITAL COURSE Kemi Coulter is a 84 year old female with PMH HTN, OA, diverticulitis s/p colectomy, CVA, manic depression, venous insufficiency who presented to [facility] for dizziness, weakness, and recent fall. Patient orthostatic positive and given a fluid bolus. Patient also with pSVT and EP consulted; amiodarone gtt was stopped after termination of pSVT. RUQ pain prompted US RUQ which showed possible air in biliary system, further evaluation with CTAP confirmed air in the biliary system which may have been due to prior instrumentation or chronic process. Surgery consulted, they recommended no emergent operation and treatment with IV fluids, antiemetics, and PPI. Zosyn was discontinued. ECHO completed showing EF 40-45%, DD, moderate global hypokinesis of LV. Orthostatic vitals continue to be positive, will give fluids and titrate blood pressure medications accordingly. Will have patient use compression stockings. SITE PROPERTY MANAGER Associated attestation - Collin Funes MD - 04/21/2020 1:40 PM CSTI personally examined the patient on 04/21/[address] Bal's resident note as written . I actively participated in the decision-making process. Please see the resident's note for additional details. Jessica Boyce [facility] [place] 04/20/2020 11:07 AM CSTCare Management Social Functional Assessment Patient Name: Kemi Coulter Age: [age] year old Sex: female Previous admit date: N/A Current diagnosis and co-morbidities: afib and chest pain Readmission Questions: Was patient discharged from any acute care hospital within the last 30 days: No Social Functional Assessment: Primary language spoken/preferred: Italian Mental Status: Alert & Oriented to Person,Place & Time Information given by: Self Patient's support system: Child Name and number of support system: Susan Coulter, daughter and Basilio Coulter, son Primary Program Director Scouting: Self MPOA: No Living Arrangement: Apartment: Downstairs Address of living arrangement : [facility] [employer] [address], [place] [address] Persons living in home: Same as support system Barriers to returning home: Declining function Baseline functional status- ambulation: Requires minimal to moderate assistance Functional status-baseline personal care: Independent Baseline functional status- driving: Dependent Baseline functional status- grocery shopping: Requires minimal to moderate assistance Functional status-baseline housekeeping: Requires minimal to moderate assistance Functional status-baseline meal prep: Independent Current functional status same as prior: Yes Do you have a PCP?: Yes Name of PCP: Dr. Katrina Smith Home [facility] Care Agency: No Provider Services: No DME Company: No Equipment: Walker Hemodialysis: No Community resources utilized: SSA/SSI/Medicaid Funding Resources: Medicare Replacement Medicare Replacement name and information: [employer] Prescription coverage plan: Medicare Part D Anticipated services prior to disharge: Continue Medical Eval Expected mode of discharge transportation: Same as support system Additional info required for discharge planning: Pending medical evaluation Recommended discharge plan: Home Any issues or concerns with obtaining/affording your medications at home: no. Patient uses [facility] in [place] Are you or your support system able to pharmacy picking technician medications at discharge: yes. Describe: Patient's son, at bedside, able to assist with picking up medications. Patient resides with her daughter and family who are supportive of her and able to assist with care needs at home. Patient is independent with IADL's/ADL's. No barriers to discharge identified. SFA Complete: Social Functional Assessment complete: Yes Alcohol Use Screening (AUDIT-C) How often do you have a drink containing alcohol?: Never SCORE: 0 Role of Care Management explained. Jessica Boyce LMSW Care Management - Powerhouse Attendant Office: [email or web address] Navarro MD - 04/20/2020 6:40 AM CST [facility] White Team Progress Note Patient Name: Kemi Coulter : 1935 Admit Date: 04/19/2020 Primary Care Physician: Iván MARTINEZ Chest Pain, Dizziness 24 HOUR EVENTS Admitted to [facility] SUBJECTIVE Patient reports right sided pain from the right upper quadrant to the right upper chest. PHYSICAL EXAM Vitals Temp: [36.2 C (97.2 F)-37 C (98.6 F)] Heart Rate (monitor): [74-155] Pulse: [75-146] Resp: [15-43] BP: (109-160)/(71-102) MAP (mmHg): [81-111] Vitals: 04/20/20 0102 04/20/20 0120 04/20/20 0305 04/20/20 0625 BP: (!) 131/94 109/71 133/76 Pulse: 75 75 82 75 Resp: 18 18 Temp: 36.4 C (97.5 F) 36.2 C (97.2 F) TempSrc: Oral Oral SpO2: 95% 97% 99% 95% Weight: 68.5 kg (151 lb) Height: 1.626 m (5' 4") Intake/Output Summary (Last 24 hours) at 04/20/2020 0641 Last data filed at 04/20/2020 0630 Gross per 24 hour Intake 203.5 ml Output Net 203.5 ml Constitutional: Appears in no acute distress Cardiovascular: RRR Respiratory: CTA b/l Gastrointestinal: +BS, nontender to palpation Musculoskeletal/Integumentary/Ext: No lower extremity edema Neurological: Coherent to Conversation LABS Reviewed ASSESSMENT/PLAN Kemi Coulter is a 84 year old female who presented with: pSVT Hyperechoic branches extending from hepatic hilum to the right hepatic lobe possibly representing air in biliary system Orthostatic Hypotension + Atypical Chest Pain Hypothyroidism HTN Consulted EP for evaluation of pSVT, currently on amiodarone gtt from OSH. Patient also with right sided pain from RUQ to right chest. US RUQ showed possible air in biliary system, discussed with radiology, given no recent surgery or endoscopic procedure will obtain CT AP for further evaluation. ECHO c ompleted showing EF 40-45%, DD, moderate global hypokinesis of LV. Plan - CT AP - Zosyn until CT AP read - F/u Lactic Acid - Follow up EP recs - Patient orthostatic positive, dry on exam, plan for 500 cc NS at 75 cc/hr F: As above E: Replete prn Prophylaxis: Hold heparin sq at this time, until CT AP read is complete Code: DNR/DNI The care, plan, and management of this patient was discussed with Dr. Funes, a Faculty Attending Jason Navarro MD [facility] Internal Medicine Resident END OF DAILY PROGRESS NOTE HOSPITAL COURSE Kemi Coulter is a 84 year old female with PMH HTN, OA, diverticulitis s/p colectomy, CVA, manic depression, venous insufficiency who presented to [facility] for dizziness, weakness, and recent fall. Patient orthostatic positive and started on fluids. Patient also with pSVT and EP consulted for further rec ommendations. US RUQ showing possible air in biliary system, discussed with radiology, plan for CT AP for further evaluation. SITE PROPERTY MANAGER Associated attestation - Collin Funes MD - 04/20/2020 11:43 AM CSTI personally examined the patient on 04/20/[address] Navarro's resident note as written . I actively participated in the decision-making process. Please see the resident's note for additional details. documented in this encounter H&P Notes Jonathon Enriquez MD - 04/20/2020 3:29 AM CST [employer] H&P PCP: Iván Mukherjee Date of Service: 04/20/2020 CHIEF COMPLAINT: Chest pain; dizziness HISTORY OF PRESENT ILLNESS Kemi Coulter is a 84 year old female with PMH HTN, OA, diverticulitis s/p colectomy, CVA, manic depression, venous insufficiency who presented to [facility] for dizziness, weakness, and recent fall. Patient was at home when she stood up from her recliner with subsequent dizziness, light-headedness then fell on her buttocks so was brought in for further evaluation. Describes orthostatic dizziness persistently for the past year. Didn't lose consciousness during this episode. Also c/o intermittent chest pain since PNA back in 07/2019 which has worsened the past 2 days. Pain is sharp, R sided, worse with deep inspiration and position changes, and radiates from her R upper back to her chest. Usually will last ~1 hour and is improved with rest. Has some associated SOB as well during these episodes. Has no known previous PR, CAD, HF, valvular disease, arrhythmia; also denies any f/c, SOB at rest, DOSHI, n/v, abdominal pain, h/o liver dysfunction. Had unknown "colon infection" for which she took abx for 2 month which she recently finished. [facility] [place] Is on dilantin chronically but denies any h/o seizures; says when she doesn't take it she "can't turn her keys" or move her R arm well. Per nursing notes, patient with EKG showing ST rate 151 with repeat EKG showing rate of 73 however no EKGs sent over in chart to review. Was given metoprolol 5 mg x 2 and then started on amiodarone drip. Spoke with Dr. Tidwell and nursing at [facility] for clarification. Per them, she was frequently havingruns of sinus tach and SVT every few minutes which didn't improve with metoprolol so was load with amio. Initial trop was negative and CXR was unremarkable. Was also given seroquel and dilantin and then transferred to [facility] for further care. PMH: OA, diverticulitis, CVA, manic depression , venous insufficiency PSH: cholecystectomy, colectomy, hemorrhoidectomy, hysterectomy, toe surgery, SocHx: Never smoker, no alcohol, no illicit drug use FMH: Father- PR in 70's; mother- alzheimer's, sister- PR at unknown age ALLERGIES Allergies Allergen Reactions Levaquin [Levofloxacin] Rash MEDICATIONS Current Facility-Administered Medications Medication Dose Route Frequency Last Rate Last Admin amiodarone (CORDARONE) 900 mg in D5W 500 mL infusion 0.5 mg/min IV Infusion CONTINUOUS 16.67 mL/hr at 04/20/20 0052 0.5 mg/min at 04/20/20 0052 traZODone (DESYREL) tablet 300 mg 300 mg Oral QHS 300 mg at 04/20/20 0040 sodium chloride (NS) injection 5 mL 5 mL Intravenous PRN REVIEW OF SYSTEMS General: (-) fever, (-) chills, (-) weight loss Skin: (-) rash, (-) lesion HEENT: (-) headache, (-) change in hearing, (-) change in vision Neck: (-) pain, (-) difficulty swallowing Heme: (-) bleeding disorder Resp: (+) dyspnea on exertion, (-) cough, (-) shortness of breath Cardio: (+) chest pain, (-) palpitations, (-) syncope GI: (-) abdominal pain, (-) nausea, (-) vomiting : (-) dysuria, (-) hematuria, (-) increased frequency Endo: (-) heat intolerance, (-) diabetes, (-) cold intolerance Neuro: (-) numbness, (-) tingling Back: (+) pain, (-)spasms MS: (-) muscle pain, (-) joint pain Psych: (+) psychiatric disorder PHYSICAL EXAMINATION Vitals: 04/20/20 0001 04/20/20 0102 04/20/20 0120 04/20/20 0305 BP: (!) 124/102 (!) 131/94 109/71 Pulse: 95 75 75 82 Resp: 16 18 Temp: 36.4 C (97.5 F) TempSrc: Oral SpO2: 95% 95% 97% 99% Weight: 68.5 kg (151 lb) Height: 1.626 m (5' 4") Constitutional: Patient alert & oriented x 3 (person, place, time) and in no acute distress HEENT EMOI, PERRL, anicteric sclera, oropharynx clear, MMM Resp: Clear to auscultation bilaterally, no wheezes or crackles. Not in respiratory distress CV: Regular rate and rhythm, normal S1 S2, no murmurs, rubs or gallops; R side of chest is tender topalpation GI: Abdomen is soft, non-tender, non-distended, with normoactive bowel sounds : Deferred Skin: No rash, lesions, or erythema MSK: 5/5 strength in all extremities. TTP in R upper back; Full ROM in extremities Extremities: No clubbing, cyanosis; trace nonpitting edema Neuro: Cranial Nerves II-XII grossly intact, sensory exam normal Vascular: 2+ peripheral pulses, cap refill 2 seconds Endocrine/Lymph: No cervical LAD Psych: normal affect LABS/IMAGING - reviewed Hgb 11.1 PLT 90 Band increased [place] 2.75 K 3.5 Cr 0.78 INR 1.3 ALK 65/ALT 17/AST 27 UA: 9 RBC, few bacteremia Bcx Ucx in process CXR no acute abnormality EKG: Pending CHART REVIEW: pertinent information as below: As above ASSESSMENT/PLAN Kemi Coulter is a 84 year old female who presents to the hospital with the following medical problems: pSVT? Orthostatic dizziness; c/b fall Atypical chest pain Hypothyroidism HTN Patient presenting with possible pSVT and atypical chest pain; don't have EKGs done at [facility] currentlyhowever tele strip in chart with normal sinus rhythm. Was having frequent runs of tachycardia up to 150's with associated dizziness per nursing notes. Was given 10 mg IV metoprolol there as loaded withamio with drip after. Will repeat EKG and place on tele. Chest pain is atypical in nature and likelymusculoskeletal. Will repeat trop and get echo given reported arrhythmias. Describes orthostatic hypotension possibly related to polypharmacy with losartan, HCTZ, coreg use for BP control. Will check orthostatics and hold coreg as on amiodarone for now. TSH/free t4 was normal. -Admit to white team -CBC, BMP, LFTs, trend trops, EKG, Lipid panel, A1c, TTE -Tele -F/u on EKGs from [facility] -K >4, Mg > 2 -C/w levothyroxine -C/w asa -C/w HCTZ, losartan for now pending orthostatics -Hold coreg as now on amiodarone drip Elevated INR Thrombocytopenia Patient with no know h/o liver dysfunction however with slightly elevated INR/thrombocytopenia whichis chronic. Liver enzymes/ablumin normal however. -RUQ US H/o CVA Manic depression Is on multiple QTc prolonging medications chronically. Will stop trazodone for now given arrhythmia but c/w seroquel QHS and celexa if QTc normal. On dilantin chronically however denies any h/o seizure; would consider obtaining records from PCP if need and f/u with her family in AM. -F/u QTC on EKG; c/w seroquel/celexa if normal -Hold trazodone for now -C/w phenytoin; already received a dose at [facility] before arriving. Hospital Care Issues Pain: Tramadol Prophylaxis: DVT- enoxaparin Code Status: DNI/DNR Jonathon Enriquez PGY-3 Internal Medicine SITE PROPERTY MANAGER Associated attestation - Collin Funes MD - 04/20/2020 11:44 AM CSTI personally examined the patient on 04/20/[address] Enriquez's resident note as written . I actively participated in the decision-making process. Please see the resident's note for additional details. documented in this encounter Consult Notes Micaela Huerta MD - 04/21/2020 12:30 PM CSTAssociated Order(s): CONSULT GASTROENTEROLOGY Department of Gastroenterology & Hepatology Consult Note Requesting Physician: Jyoti Shannon,* Service: Cardiology Reason for Consultation: Kemi Coulter is a 84 year old female with PMH HTN, OA, diverticulitis s/p colectomy, CVA, manic depression, venous insufficiency who presented to [facility] for dizziness, weakness, and recent fall. Patient orthostatic positive and given a fluid bolus. Patient also with pSVT and EP consulted; amiodarone gtt was stopped after termination of pSVT. 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 Surgery consulted, they recommended no emergent operation and treatment with IV fluids, antiemetics, PPI and GI consult. Zosyn was discontinued. Please give recommendation on management of pneumobilia/duodenal diverticulum. Date of Service: 04/21/2020 CHIEF COMPLAINT: Abnormal imaging History of Present Illness Kemi Coulter is a 84 year old /White female with PMH of diverticulitis s/p colectomy, depression, OA, depression, HTN, HLD and venous insufficiency, presented with dizziness and right sided chest wall pain which she reports has been having since her PNA back in july. Patient was found to be orthostatic and tachycardic which was thought to be SVT and was previously on amiodarone. Patient had US done which showed some air in the biliary tree and CT was eventually obtain which showed pneumobilia. We have been consulted for further evaluation. Patient denies any nausea, vomiting, abdominal pian, fever, chills but reports chronic constipation along with overflow diarrhea but since she has beenhere she had a normal bowel movement yesterday. She is tolerating PO intake and has no complaints. Reported she has chronic GI issues like GERD, Constipation and bloating that she see a director enterprise systems for in [place] and would like to continues to follow up with him. PAST MEDICAL HISTORY OA, Diverticulitis, manic depression, venous insufficiency PAST SURGICAL HISTORY Cholecystectomy, colectomy, hemorrhoidectomy, hysterectomy. FAMILY HISTORY Non-contributory ALLERGIES Allergies Allergen Reactions Levaquin [Levofloxacin] Rash MEDICATIONS Reviewed SOCIAL HISTORY Social History Socioeconomic History Marital status: Spouse name: Not on file Number of children: Not on file Years of education: Not on file Highest education level: Not on file Occupational History Not on file Social Needs Financial resource strain: Not on file Food insecurity Worry: Not on file Inability: Not on file Transportation needs Medical: Not on file Non-medical: Not on file Tobacco Use Smoking status: Not on file Substance and Sexual Activity Alcohol use: Not on file Drug use: Not on file Sexual activity: Not on file Lifestyle Physical activity Days per week: Not on file Minutes per session: Not on file Stress: Not on file Relationships Social connections Talks on phone: Not on file Gets together: Not on file Attends hindu service: Not on file Active member of club or organization: Not on file Attends meetings of clubs or organizations: Not on file Relationship status: Not on file Intimate partner violence Fear of current or ex partner: Not on file Emotionally abused: Not on file Physically abused: Not on file Forced sexual activity: Not on file Other Topics Concern Not on file Social History Narrative Not on file ROS: Constitutional: (-) fever, (-) chills, (-) weight change EENT: (-) headache, (-) vision changes (-) sore throat Resp: (-) cough, (-) shortness of breath Cardio: (-) chest pain, (-) palpitations GI: per HPI : (-) dysuria, (-) increased urinary frequency Neuro: (-) numbness, (-) weakness AZUL: (-) muscle pain, (-) joint pain Skin: (-) rash, (-) lesion Heme: (-) bleeding disorder Psych: (-) anxiety , (-) depression PHYSICAL EXAM: BP (!) 156/86 | Pulse 86 | Temp 35.8 C (96.4 F) (Oral) | Resp 16 | Ht 5' 4" (1.626 m) | Wt 149 lb (67.6 kg) | SpO2 98% | BMI 25.58 kg/m Constitutional: comfortable and in no acute distress EENT: no scleral icterus, no conjunctival pallor Cardiovascular: RRR Respiratory: non-labored Gastrointestinal: Soft, non-tender, non-distended, no organomegaly. MSK: MAEW Skin: no rash Neurologic: grossly non-focal Psychiatric: normal affect LABORATORY HGB (g/dL) Date Value 04/21/2020 10.7 (L) 04/19/2020 11.1 (L) 07/23/2018 12.2 PLT (10*3/L) Date Value 04/21/2020 87 (L) 04/19/2020 90 (L) 07/23/2018 119 (L) INR (no units) Date Value 04/19/2020 1.3 06/02/2018 1.1 Hepatic Function Panel ALBUMIN (g/dL) Date Value 04/19/2020 3.9 T PROTEIN (g/dL) Date Value 04/19/2020 7.1 TOTAL BILI (mg/dL) Date Value 04/19/2020 0.6 No results found for: BILIUNCON No results found for: BILICONJ ALTv (U/L) Date Value 04/19/2020 16 AST(SGOT) (U/L) Date Value 04/19/2020 27 ALK PHOS (U/L) Date Value 04/19/2020 65 BMP NA (mmol/L) Date Value 04/21/2020 136 K (mmol/L) Date Value 04/21/2020 4.3 CALCIUM (mg/dL) Date Value 04/21/2020 8.3 (L) CL (mmol/L) Date Value 04/21/2020 108 BUN (mg/dL) Date Value 04/21/2020 10 CREATININE (mg/dL) Date Value 04/21/2020 0.66 GLUCOSE (mg/dL) Date Value 04/21/2020 84 CO2 TOTAL (mmol/L) Date Value 04/21/2020 23 RADIOLOGY: Ct Abdomen Pelvis W Contrast 04/20/2020 1. A large amount of stool and gas in the colon suggest constipation. 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 2. Pneumobilia, may be due to prior instrumentation/surgery. This could be chronicif there is no recent instrumentation or surgery. Cholecystectomy. Levoscoliosis. Us Abdomen Limited 04/20/2020 Hyperechoic branches extending from the hepatic hilum to the right hepatic lobe may represent air in the biliary system. This may also represent surgical material. Correlate clinically and consider further evaluation with CT. Coarsened hepatic echotexture suggestive of chronic hepatocellular disease.Right renal cyst. PREVIOUS ENDOSCOPY: None on file ASSESSMENT and PLAN Kemi Coulter is a 84 year old female with PMH as listed above, GI consulted for: Pneumobilia Recommendations: - No indication for any intervention at this time, it is likely chronic and patient has no recent instrumentation and has no signs of infection, ding well and tolerating PO intake with no pain, nausea,fever or vomiting. Etiology is unclear but this could be related to biliary enteric fistula that is not evident on imaging. Recommend follow up in clinic but she prefer to follow up with her own director enterprise systems as an outpatient. Constipation Comment: chronic and resulting in intermittent overflow diarrhea. Recommendations: - Miralax which can be titrated up to TID to achieve daily bowel movement. Patient was seen and discussed with Dr. Felix. GI will sign off at this time. Please call with any questions. Micaela Huerta MD PGY-5 Gastroenterology and hepatology Contact information available through [facility] SITE PROPERTY MANAGER Associated attestation - Tiago Felix MD - 04/21/2020 4:52 PM CSTI have examined the patient and discussed the findings and management plan with Dr Renetta Florentino. I agreewith the GI Consult note as above.Josefina Soriano, PT - 04/21/2020 11:32 AM CSTAssociated Order(s): CONSULT ADULT PHYSICAL THERAPY Patient agreeable to working with physical therapy. Patient met Semi reclined in bed. PHYSICAL THERAPY EVALUATION Consult received, chart reviewed and evaluation complete this date. Patient is referred to PT for evaluation and treatment. Patient is a 84 year old female who presents to hospital for afib and chest pain. Discharge Recommendations: Therapy Needs and Potential: Patient would benefit from continued physical therapy services to address: decline in bed mobility decline in transfers decline in gait and/or balance decreased strength decreased endurance Patient demonstrates good potential to improve and meet therapy goals with further physical therapy services. Patient appears motivated to improve their functional mobility and return to their previous levelof function. Patient demonstrates ability to tolerate atleast 30-60 minutes of physical therapy with active participation. Challenges to Home Transition: increased risk of falls Equipment recommendations: No new device. Pt with 4WW at home. Current Functional Status and/or Treatment:Functional mobility training, Transfer training and Patient/Family/Caregiver education. Patient met semi reclined in bed and education was provided on purposeof PT consult and importance of mobilization while in the hospital. No complaint of dizziness throughout session. Educated pt on the importance of time out of chair and mobilizing with assistance to prevent further decline in function and fatigue. Discussed impact of any sort of illness on previous neurological impairments. Patient was educated to perform the following exercises while lying in bed or sitting in reclining chair to maintain strength and increase blood circulation: seated marches, SLR,heel slides, ankle pumps, ankle circles, LAQ. Discussed with patient to not get up on her own without nursing assistance for patient safety and to reduce risk of falls. Discussed continuation of PT treatment during remainder of hospital stay to improve mobilization for safe discharge home. Patient verbalized understanding. Bed Mobility: Supine to sit: Modified independent. HOB elevated and patient utilized bed rail to sit EOB. Patient required verbal cuing to square hips to EOB for foot placement on floor. Transfers: Sit to stand: CGA using Rolling Walker Stand to sit: CGA using Rolling Walker Patient able to perform sit > stand transfer as she would with her rollator walker at home without difficulty. CGA was used due to patient complaining of dizziness upon admission, and reporting weakness in her R LE due to chronic sciatic nerve impingement. Patient performed stand > sit transfer with verbal and tactile cuing given for UE and LE placement to sit into reclining chair. Ambulation: Assisted patient with ambulation as follows: 80 feet using Rolling Walker and CGA. CGA used for patient safety and to reduce risk of falls. Patient presenting with step-through gait pattern and reduced gait speed. Patient able to walk into hallway and was observed to walk with her R great and second toes extended/contorted due to breaking toes "years ago". Pt reports SOB after ambulating short distance. Therapeutic exercise: patient educated in Fall prevention, General strengthening and Safety awareness. After session, patient Up in chair. Call button provided, food tray placed in front of her, and nurse informed. PLAN OF CARE: At least 2 times per week, once or twice a day (while in hospital) per patient's tolerance and medical needs. See below for complete details. Admit Date: 04/19/2020 Hospital Diagnosis:afib and chest pain PT Diagnosis: Difficulty walking, Weakness and Dyspnea Weight Bearing Precaution: NA General Precautions: PPE used:Gloves and Surgical mask, General, Fall,PIV Bracing/Cast present or required:N/A PMH: No past medical history on file. PSH: No past surgical history on file. Prior Living Situation: Lives in a single story apartment with no steps to get into home. Patient states her daughter has moved in with her and is available to assist DME: Four wheeled walker with seat Prior level of Mobility: ambulates with Four wheeled walker with seat Subjective: Patient reported having 2 strokes 20+ years ago, and has chronic sciatic nerve pain causing weakness in her R LE. Patient/Family Goals: Return home Patient/Family verbalizes understanding of condition: Yes PAIN: denies pain COMMUNICATION Primary Language: Italian Able to Verbalize needs: Yes Vision:good; no issues reported Hearing:good; no issues reported ORIENTATION/COGNITION: Oriented to: person, place, date/time and situation Awake: Yes Alert: Yes Dizzy: No Follows Commands: Yes 1-Step Yes Multi-Step Yes Inconsistent: No NEUROLOGICAL Light Touch: within functional limits bilateral LE Heel to [place]: NT Tone: NT BALANCE: Sitting: Static: Good Dynamic: Good Standing: Static: Fair+ Dynamic: Fair RANGE OF MOTION: within functional limits bilateral LE STRENGTH: L LE 4/5, R LE 4-/5 ENDURANCE: Fair+, Room air SKIN INTEGRITY: Refer to nurses notes PROBLEM LIST: Decline in bed mobility, Decline in gait, Decline in transfers, Decreased strength andDecreased endurance ASSESSMENT: Patient is a 84 year old female seen secondary to the above listed diagnosis. Patient would benefit from continued PT to address the above listed deficits to maximize independence and safety with functional mobility. Rehabilitation Potential: good Goals: The following goals are to maximize independence and safety with functional mobility to eventually return to prior living situation and prior functional status. Upon discharge, patient and/or family will demonstrate the followin. Sit to stand: Modified independent using Rolling Walker Stand to sit: Modified independent using Rolling Walker 2. Modified independent with ambulation, Feet: 150 using least assistive device. Treatment Plan: Gait training, Therapeutic exercise, Transfer training and Safety education, patient/caregiver education PATIENT EDUCATION: Patient provided with preferred teaching of verbal information on role of PT, plan of care, and information provided in treatment section. Shows readiness to learn. Verbal instruction teaching provided. Individual is able to read and verbalizes understanding of teaching provided. Total Time Tx Codes in Minutes: 15 min Total Treatment Time in Minutes: 25 min Navya East SPT Supervising PT, Josefina Soriano PT, DPT I was present and participated throughout 100% of the session and agree with the documentation as written by the student therapist on the encounter dated 04/21/20. Josefina Soriano PT, DPT SITE PROPERTY MANAGER Ronel Mena MD - 04/20/2020 2:54 PM CSTAssociated Order(s): CONSULT GENERAL SURGERY Surgery Consultation / History & Physical Note 04/20/2020 Consult ordered by: Marin Polanco MD Reason for Consult / Chief complaint: Pneumobilia seen on imaging History of presenting illness: Kemi Coulter is a 84 year old female with PMH of 2 strokes, HTN, OA, diverticulitis s/p colectomy and cholecystectomy who presented to [facility] 2 days ago for dizziness and weakness. She was transferred here for cardiac evaluation. In her history she had 2 months historyof colitis treated with antibiotis and she had a severe pneumonia back in July with right lower chest pain that got worse the last 2 days. Pain is sharp, worse with deep inspiration and position changes, and radiates from her R upper shoulder. She has no nausea, no vomiting, last bowel movement was yesterday and she is passing gas, no philip abdominal pain, no chills, no fever. She is hemodynamically stable, normal WBC and LFT within normal limits.Surgery was consulted to evaluate a pneumobilia found on CT scan. On exam, hes abdomen is soft, non distended, point tenderness in right upper quadrant on deep palpation. Patient did not have any recent biliary procedure. Past medical history: HTN Stroke OA Past surgical history: Cholecystectomy Hysterectomy Colectomy 3hernia repairs Family history: Non-contributory to this encounter. Social history: Social History Socioeconomic History Marital status: Spouse name: Not on file Number of children: Not on file Years of education: Not on file Highest education level: Not on file Occupational History Not on file Social Needs Financial resource strain: Not on file Food insecurity Worry: Not on file Inability: Not on file Transportation needs Medical: Not on file Non-medical: Not on file Tobacco Use Smoking status: Not on file Substance and Sexual Activity Alcohol use: Not on file Drug use: Not on file Sexual activity: Not on file Lifestyle Physical activity Days per week: Not on file Minutes per session: Not on file Stress: Not on file Relationships Social connections Talks on phone: Not on file Gets together: Not on file Attends hindu service: Not on file Active member of club or organization: Not on file Attends meetings of clubs or organizations: Not on file Relationship status: Not on file Intimate partner violence Fear of current or ex partner: Not on file Emotionally abused: Not on file Physically abused: Not on file Forced sexual activity: Not on file Other Topics Concern Not on file Social History Narrative Not on file Allergies: Allergies Allergen Reactions Levaquin [Levofloxacin] Rash Medications: Current Facility-Administered Medications Medication Dose Route Frequency Last Rate Last Admin aspirin chewable tablet 81 mg 81 mg Oral DAILY 81 mg at 04/20/20 1135 citalopram (CELEXA) tablet 20 mg 20 mg Oral DAILY 20 mg at 04/20/20 1135 levothyroxine (SYNTHROID) tablet 88 mcg 88 mcg Oral QAM-0600 88 mcg at 04/20/20 0625 [START ON 04/21/2020] losartan (COZAAR) tablet 25 mg 25 mg Oral DAILY magnesium sulfate in water 2 gram/50 mL (4 %) infusion 2 g 2 g IV Piggyback ONCE metoprolol tartrate (LOPRESSOR) tablet 25 mg 25 mg Oral Q12H ABX phenytoin Extended (DILANTIN KAPSEAL) capsule 200 mg 200 mg Oral QHS piperacillin-tazobactam (ZOSYN) 3.375 g in NaCl 0.9% (NS) 100 mL MINI-BAG 3.375 g IV Piggyback Q6H ABX 3.375 g at 04/20/20 1301 QUEtiapine (SEROQUEL) tablet 600 mg 600 mg Oral QHS simvastatin (ZOCOR) tablet 20 mg 20 mg Oral QHS temazepam (RESTORIL) capsule 30 mg 30 mg Oral QHSPRN traMADoL (ULTRAM) tablet 50 mg 50 mg Oral BIDPRN sodium chloride (NS) injection 5 mL 5 mL Intravenous PRN Review of Systems: (BOLD if +ve) General / Constitutional: None Skin / Breast: Rash, itching, pigmented lesions; no breast lumps, tenderness, swelling, nipple discharge HEENT: Headaches, changes in vision or hearing, nose bleeding or drainage, neck stiffness or swelling, dysphagia, neck pain, sore throat CV: Chest pain, palpitations, syncope, claudication Respiratory: Cough, wheezing, shortness of breath GI: Changes in appetite, abdominal pain, nausea, vomiting, distention, diarrhea, constipation, hematemesis, hematochezia, melena, jaundice, indigestion/reflux : Urinary urgency, frequency, dysuria, pneumaturia, hematuria Musculoskeletal: Muscle pain, swelling, weakness, limitation of motion Neurologic: Weakness, sensory changes, syncope, seizures, headache, numbness, tingling Hematologic: Bleeding tendency, easy bruising, history of blood clots Endocrine: Polyuria, polydipsia, heat or cold intolerance Physical Exam: BP 123/81 | Pulse 72 | Temp 36.3 C (97.3 F) (Oral) | Resp 18 | Ht 1.626 m (5' 4") | Wt 68.5kg (151 lb) | SpO2 97% | BMI 25.92 kg/m Constitutional: Lying in bed, no acute distress Eyes: Symmetric, no gross deformities Cardiovascular: Normal S1/S2 Respiratory: Breath sounds equal bilaterally GI: Non-distended, normoactive bowel sounds, tender in RUQ mildly Skin: Grossly normal Musculoskeletal: No deformities Vascular: Radial and dorsalis pedis pulses palpable bilaterally Neurologic: Grossly intact Psychiatric: Appropriate mood and affect, no obvious deficits of insight or judgment Hematologic/lymphatic: No gross lymphadenopathy Labs: Hemogram Recent Labs 04/19/202158 WBC 7.56 HGB 11.1* HCT 32.6* PLT 90* Chemistry Recent Labs 04/19/20215804/20/20 0505 NA 136 -- K 3.5 -- CL 104 -- TCO2 23 -- BUN 11 -- CREAT 0.78 -- GLU 107 -- MG -- 1.9 CA 9.2 -- Intake/Output Summary (Last 24 hours) at 04/20/2020 1454 Last data filed at 04/20/2020 0630 Gross per 24 hour Intake 203.5 ml Output Net 203.5 ml Radiology: Xr Chest 1 Vw Result Date: 04/20/2020 No acute cardiopulmonary abnormality. Preliminary Report Dictated by Resident: Charito Garcia MD., have reviewed this study and agree with the above report. Ct Abdomen Pelvis W Contrast Result Date: 04/20/2020 1. A large amount of stool and gas in the colon suggest constipation. 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 2. Pneumobilia, may be due to prior instrumentation/surgery. This could be chronicif there is no recent instrumentation or surgery. Cholecystectomy. Levoscoliosis. Demarco Castro MD., have reviewed this study and agree with the above report. Us Abdomen Limited Result Date: 04/20/2020 Hyperechoic branches extending from the hepatic hilum to the right hepatic lobe may represent air in the biliary system. This may also represent surgical material. Correlate clinically and consider further evaluation with CT. Coarsened hepatic echotexture suggestive of chronic hepatocellular disease.Right renal cyst. Preliminary Report Dictated by Resident: Demarco Weathers MD., have reviewed this study and agree with the above report. Xr Chest 1 Vw Result Date: 04/20/2020 EXAM: XR CHEST 1 VW HISTORY: chest pain COMPARISON: None. TECHNIQUE: Single PA view radiograph of the chest. FINDINGS: The lungs are clear without evidence of focal consolidation, pleural effusion orpneumothorax. The heart size is mildly enlarged. The aorta is slightly tortuous. Bilateral glenohumeral joint osteoarthrosis. No acute osseous abnormality is identified. Calcified right paratracheal lymph nodes noted. No acute cardiopulmonary abnormality. Preliminary Report Dictated by Resident: Charito Garcia MD., have reviewed this study and agree with the above report. Ct Abdomen Pelvis W Contrast Result Date: 04/20/2020 EXAM: CT ABDOMEN/PELVIS WITH CONTRAST HISTORY: 84 years-old Female presenting with Abdominal Pain around RUQ, US completed with possible air in biliary system, please evaluate for intraabdominal infection US RUQ: Hyperechoic branches extending from the hepatic hilum to the right hepatic lobe may repr esent air in the biliary system. This may also represent surgical material. Correlate clinically andconsider further evaluation with CT.no recent surgery or endoscopic procedure. COMPARISON: US abdomen, 04/20/2020. TECHNIQUE AND FINDINGS: Contiguous axial imaging from the level of the lung bases through the proximal thighs was performed after the administration of 100 cc of intravenous Omnipaque contrast. Coronal and sagittal reconstructions were obtained. Auto mA and/or iterative reconstruction were used to reduce radiation dose. FINDINGS: LOWER THORAX: The lungs bases are clear. No cardiomegaly. Mild calcification of the aortic valve. Right coronary artery calcification. Prominent left atrium, measuring 4.8 cm in AP diameter LIVER: No focal hepatic lesions. Normal contour. GALLBLADDER AND BILIARY TREE: No biliary ductal dilation. Cholecystectomy. Pneumobilia. No surrounding fat stranding. Noportal vein gas. SPLEEN: No splenomegaly. PANCREAS: No ductal dilation or masses. ADRENAL GLANDS: Noadrenal nodules. KIDNEYS: No hydronephrosis, stones. Multiple homogeneous thin-walled nonenhancing fluid attenuation lesions in right upper pole, left upper and lower poles, measuring up to 3.4 cm consistent with a simple cyst (Bosniak 1). Scattered subcentimeter hypoattenuating foci in bilateral kidneys, too small to characterize. PERITONEUM AND RETROPERITONEUM: No free air or fluid. LYMPH NODES: Nolymphadenopathy. GI TRACT: No bowel dilation or abnormal wall thickening. Surgical clips are seen along the transverse and descending colon and sigmoid. Appendix is not visualized. PELVIS/BLADDER: Distended bladder. Uterus is not visualized. VESSELS: Mild calcification of the aorta and its branches. BONES AND SOFT TISSUES: No suspicious lytic or sclerotic bony lesions. Levoscoliosis. Lumbar spine facet arthropathy. 1. A large amount of stool and gas in the colon suggest constipation. 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 2. Pneumobilia, may be due to prior instrumentation/surgery. This could be chronicif there is no recent instrumentation or surgery. Cholecystectomy. Levoscoliosis. IDemarco MD., have reviewed this study and agree with the above report. Us Abdomen Limited Result Date: 04/20/2020 RIGHT UPPER QUADRANT ULTRASOUND HISTORY: Elevated INR/thrombocytopenia; r/o cirrhosis TECHNIQUE: Survey ultrasound imaging of the abdomen was performed focused on the liver, biliary system, and spleenincluding color Doppler evaluation of the main portal vein with service center representative images obtained. CHERYL RISON: None. FINDINGS: LIVER: The liver measures 13.7 cm craniocaudally. Coarsened hepatic echotexture. No focal lesions are identified. Normal hepatopetal flow in the main portal vein. Branching hyperechoic regions extending from the hepatic hilum to the right hepatic lobe with areas of shadowing noted. GALLBLADDER: Changes of a cholecystectomy. The common bile duct measures 5 mm in diameter. RIGHT KIDNEY: A right renal cyst is noted measuring 2.5 x 2.9 x 2.5 cm. The remainder of the right kidneyis unremarkable. PANCREAS: The partially visualized pancreas is unremarkable. A majority of the pancreas is obscured by overlying bowel gas. SPLEEN: The spleen is normal in size at 12.0 cm. Hyperechoic branches extending from the hepatic hilum to the right hepatic lobe may represent air in the biliary system. This may also represent surgical material. Correlate clinically and consider further evaluation with CT. Coarsened hepatic echotexture suggestive of chronic hepatocellular disease.Right renal cyst. Preliminary Report Dictated by Resident: Demarco Weathers MD., have reviewed this study and agree with the above report. Patient Active Problem List Diagnosis A-fib Paroxysmal SVT (supraventricular tachycardia) PSVT (paroxysmal supraventricular tachycardia) Assessment and Plan: Kemi Coulter is a 84 year old female on which we were consulted o evaluate pneumobilia found on imaging. The patient complains of RUQ an Right lower chest pain that radiates to her right shoulder but it has been there since she had pneumonia in July, it got worse the last 2 days when she got dizzy. On examination, her abdomen is soft, non distended, mild point tenderness in RUQ on deep palpation. On her CT there is a duodenal diverticulum near the ampulla that might be causing the pneumobilia. No recent history of biliary procedure. Plan/Recs: -No emergent surgical intervention -Can have regular diet -IV Fluids, IV antiemetics, IV PPI, IV pain meds, SCD, DVT prophylaxis -Routine labs/Scans -Serial exams and evaluation Patient was discussed with and seen by faculty, Dr. Perez on 04/20/2020 Ronel Mena MD PGY1 - General Surgery SITE PROPERTY MANAGER Associated attestation - Lawanda Perez MD - 04/20/2020 4:08 PM CSTI reviewed the patient's chart and examined the patient on 04/20/[address] Mena's note as written. I actively participated in the decision- making process. Please see the resident's note for additional details. Pneumobilia of unknown significance: Abdomen nontender, tender to palpation of right 12th rib Labs WNL, incidental finding of pneumobilia on CT Serial exams. Will obtain OSH records. Lawanda Perez MD Trauma and Acute Care Surgerydocumented in this encounter Nursing Notes Altagracia Smith RN - 04/20/2020 4:28 AM CSTReceived [facility] by EMS [facility] - which was information not given viaphone report received at 0042. PAMELA Lulu was contacted regarding bed placement resolution. Patient to be transferred to [facility]. Awaiting clearance to transfer patient. documented in this encounter ED Notes Madison Hannah RN - 04/19/2020 10:49 PM CSTPt's daughter updated on POC with patient permission. Admission or transfer planned per provider. SITE PROPERTY MANAGER Madison Hannah RN - 04/19/2020 9:42 PM CSTCC: Pt has general weakness today and fell CASE MANAGEMENT MANAGER, no loss of consciousness. Pt denies hitting her head. Pt denies sick contacts. Pt reports right sided chest pain when she coughed last night. PMHx: HTN and manic depression, CVA, OA with pain management MEDS:see list on chart Awake, alert, oriented, resp reg unlabored, skin warm, color appropriate for race, moves all ext without difficulty, amb with walker at home Appears in no distress SITE PROPERTY MANAGER documented in this encounter Miscellaneous Notes Nursing Note - Hi Torres RN - 04/21/2020 3:38 PM CSTOrthostatics: 04/21/2020 1530 Lyin/72(98) HR 92 Sittin/98(114) HR 90 Standin/86(101) HR 99 are Plan - Hi Torres RN - 04/20/2020 11:24 AM ON SITE PROPERTY MANAGER Problem: Cardiac Output - Decreased Goal: Cardiac output within specified parameters Outcome: Progressing as expected Goal: Absence of signs and symptoms of decreased cardiac output Outcome: Progressing as expected Problem: Procedure Routine Goal: Absence of post-procedure complications Outcome: Progressing as expected Goal: Knowledge of procedure Outcome: Progressing as expected Problem: Pain Goal: Control of pain at or below patient's documented comfort goal Outcome: Progressing as expected Goal: Reduction in pain sensation Outcome: Progressing as expected Problem: Discharge Planning Goal: Absence of venous thromboembolism Outcome: Progressing as expected Goal: Adequate for discharge Outcome: Progressing as expected Goal: Effective communication Outcome: Progressing as expected Problem: Bleeding, Risk of Goal: Absence of impaired coagulation signs and symptoms Outcome: Progressing as expected Goal: Absence of active bleeding Outcome: Progressing as expected ursing Note - Hi Torres RN - 04/20/2020 10:53 AM CSTPt orthostatic vitals: Lyin/87(111) HR 76 Sittin/106(119) HR 79 Standin/81(95) HR 72 are Wood Quiros RN - 04/20/2020 7:29 AM ON SITE PROPERTY MANAGER Problem: Cardiac Output - Decreased Goal: Cardiac output within specified parameters Outcome: Progressing as expected Goal: Absence of signs and symptoms of decreased cardiac output Outcome: Progressing as expected Problem: Procedure Routine Goal: Absence of post-procedure complications Outcome: Progressing as expected Goal: Knowledge of procedure Outcome: Progressing as expected Problem: Pain Goal: Control of pain at or below patient's documented comfort goal Outcome: Progressing as expected Goal: Reduction in pain sensation Outcome: Progressing as expected Problem: Falls, Risk of Goal: Absence of falls Outcome: Progressing as expected Problem: Discharge Planning Goal: Absence of venous thromboembolism Outcome: Progressing as expected Goal: Adequate for discharge Outcome: Progressing as expected Goal: Effective communication Outcome: Progressing as expected Problem: Bleeding, Risk of Goal: Absence of impaired coagulation signs and symptoms Outcome: Progressing as expected Goal: Absence of active bleeding Outcome: Progressing as expected are Altagracia Acosta RN - 04/20/2020 4:37 AM ON SITE PROPERTY MANAGER Problem: Cardiac Output - Decreased Goal: Cardiac output within specified parameters Outcome: Progressing as expected Goal: Absence of signs and symptoms of decreased cardiac output Outcome: Progressing as expected Problem: Procedure Routine Goal: Absence of post-procedure complications Outcome: Progressing as expected Goal: Knowledge of procedure Outcome: Progressing as expected Problem: Pain Goal: Control of pain at or below patient's documented comfort goal Outcome: Progressing as expected Goal: Reduction in pain sensation Outcome: Progressing as expected Problem: Falls, Risk of Goal: Absence of falls Outcome: Progressing as expected Problem: Discharge Planning Goal: Absence of venous thromboembolism Outcome: Progressing as expected Goal: Adequate for discharge Outcome: Progressing as expected Goal: Effective communication Outcome: Progressing as expected Problem: Bleeding, Risk of Goal: Absence of impaired coagulation signs and symptoms Outcome: Progressing as expected Goal: Absence of active bleeding Outcome: Progressing as expected D Nurse Note - Stormy Olmedo RN - 04/20/2020 1:28 AM CSTCity ambulance at bedside to transport patient to [facility]. D Nurse Note - Ming Bird RN - 04/20/2020 1:27 AM CSTPatient [facility] of [facility]dizziness Patient agrees to transfer/admit plan and verbalized understanding of plan of care, family aware of plan Patient awake alert, oriented, resp reg unlabored, skin w/d PIVs patent, no s/s infiltration noted, No adverse reaction to medications given while in ED. Report given to [facility] personnel D Nurse Note - Stormy Olmedo RN - 04/20/2020 12:46 AM CSTReport called to Altagracia HONG at [facility]. D Nurse Note - Madison Hannah RN - 04/20/2020 12:41 AM CSTProvider witnessed patient stating she is a DNR, has paperwork at home. Pt's daughter notified of [facility] assignment[facility] 20 [facility] D Nurse Note - Stormy Olmedo RN - 04/20/2020 12:40 AM CSTCity ambulance called for transport to [facility] ETA 15-20 minutes. D Nurse Note - Madison Hannah RN - 04/19/2020 11:00 PM CSTProvider informed that every few minutes the patient's heart rate spikes to 150 for approximately 20seconds. Pt reports dizziness during these episodes. D Nurse Note - Madison Hannah RN - 04/19/2020 10:15 PM CSTPt's first EKG read ST rate 151, Dr. Tidwell notified, EKG repeated rate 73. documented in this encounter Plan of Treatment Name Type Priority Associated Diagnoses Date/Ti me LAB ONLY COVID LAB Routine Weakness 04/19/2020 9 :59 PM INTERPRETATION ON SITE PROPERTY MANAGER BLOOD CULTURE SCREEN LAB STAT Weakness 11:21 PM ON SITE PROPERTY MANAGER BLOOD CULTURE SCREEN LAB STAT Weakness 11:04 PM ON SITE PROPERTY MANAGER Name Type Priority Associated Order Schedule Diagnoses LAB ONLY COVID LAB Routine Weakness ONCE for 1 INTERPRETATION Occurrences s tarting 04/19/2020 unti l 04/19/2020 EKG-12 LEAD ROUTINE HEART STATION STAT Dizziness ONCE fo r 1 ONCE Occurrences sta rting 04/20/2020 unti l 04/20/2020 BASIC METABOLIC PANEL LAB Routine EVERY MORNING AT (NA, K, CL, CO2, 0400 for 12 Days GLUCOSE, BUN, starting 04/21 CREATININE, CA) until 2019, 1 completed MAGNESIUM LAB Routine EVERY MORNING A T 0400 for 12 Day s starting 2019 until 0, 1 completed CBC WITH DIFF LAB Routine EVERY MORNING AT 0400 for 12 Day s starting 2019 until 0, 1 completed Health Maintenance Due Date Last Done Comments Depression Screening 1947 DTaP,Tdap,and Td Vaccines (1 - Tdap) 1953 Zoster Recombinant Vaccine (SHINGRIX) (1 of 2) 1984 Medicare Wellness Visit 10/01/1999 Osteoporosis Screening 10/01/1999 PNEUMOCOCCAL VACCINES 65+ (1 of 1 - PPSV23) 10/01/1999 INFLUENZA VACCINE (#1) 2020 documented as of this encounter Procedures Procedure Name Priority Date/Time Associated Diagnosis Comme nts CBC WITH DIFF Routine 04/21/2020 5:24 Results fo r AM ON SITE PROPERTY MANAGER this procedure are in the results section. BASIC METABOLIC PANEL Routine 04/21/2020 5:24 Re sults for (NA, K, CL, CO2, AM ON SITE PROPERTY MANAGER this proced ure GLUCOSE, BUN, are in the CREATININE, CA) results section. MAGNESIUM Routine 04/21/2020 5:24 Results for AM ON SITE PROPERTY MANAGER this procedure are in the results section. LACTIC ACID WHOLE STAT 04/20/2020 1:04 Result s for BLOOD PM ON SITE PROPERTY MANAGER this procedure are in the results section. CT ABDOMEN PELVIS W STAT 04/20/2020 9:47 Weakness Resu lts for CONTRAST AM ON SITE PROPERTY MANAGER this procedure are in the results section. ECHO ROUTINE Routine 04/20/2020 8:48 Weakness W/DOPPLER COLOR AM ON SITE PROPERTY MANAGER US ABDOMEN LIMITED MELISSA 04/20/2020 6:00 Thrombocytopenia R esults for AM ON SITE PROPERTY MANAGER this procedure are in the results section. TROPONIN I STAT 04/20/2020 5:05 Results for AM ON SITE PROPERTY MANAGER this procedure are in the results section. FOLATE Routine 04/20/2020 5:05 Results for AM ON SITE PROPERTY MANAGER this procedure are in the results section. VITAMIN B12, LEVEL Routine 04/20/2020 5:05 Resul ts for AM ON SITE PROPERTY MANAGER this procedure are in the results section. MAGNESIUM Add-on 04/20/2020 5:05 Results for AM ON SITE PROPERTY MANAGER this procedure are in the results section. BLOOD CULTURE SCREEN STAT 04/19/2020 11:21 Weakness PM ON SITE PROPERTY MANAGER BLOOD CULTURE SCREEN STAT 04/19/2020 11:04 Weakness PM ON SITE PROPERTY MANAGER URINE CULTURE STAT 04/19/2020 10:29 Weakness Results fo r PM ON SITE PROPERTY MANAGER this procedure are in the results section. URINALYSIS STAT 04/19/2020 10:29 Weakness Results for PM ON SITE PROPERTY MANAGER this procedure are in the results section. IRON PANEL Add-on 04/19/2020 10:29 Results for PM ON SITE PROPERTY MANAGER this procedure are in the results section. FREE T4 STAT 04/19/2020 10:29 Weakness Results for PM ON SITE PROPERTY MANAGER this procedure are in the results section. XR CHEST 1 VW STAT 04/19/2020 10:28 Weakness Results fo r PM ON SITE PROPERTY MANAGER this procedure are in the results section. EKG-12 LEAD Routine 04/19/2020 10:03 PM ON SITE PROPERTY MANAGER EKG-12 LEAD Routine 04/19/2020 10:03 PM ON SITE PROPERTY MANAGER COVID-19 (ID NOW STAT 04/19/2020 9:59 Weakness Results for RAPID TESTING) PM ON SITE PROPERTY MANAGER this procedur e are in the results section. RETICULOCYTES Add-on 04/19/2020 9:59 Results fo r AUTOMATED PM ON SITE PROPERTY MANAGER this procedure are in the results section. ACTIVATED PARTIAL STAT 04/19/2020 9:59 Weakness Result s for THRMPLAS THERESA PM ON SITE PROPERTY MANAGER this procedure are in the results section. PROTHROMBIN TIME / STAT 04/19/2020 9:59 Weakness Resul ts for INR PM ON SITE PROPERTY MANAGER this procedure are in the results section. GLYCOSYLATED Add-on 04/19/2020 9:59 Results for HEMOGLOBIN (A1C) PM ON SITE PROPERTY MANAGER this proced ure are in the results section. CBC WITH DIFF STAT 04/19/2020 9:59 Weakness Results fo r PM ON SITE PROPERTY MANAGER this procedure are in the results section. LIPID PANEL Add-on 04/19/2020 9:59 Results for (90071)(TOTAL PM ON SITE PROPERTY MANAGER this procedure CHOLESTEROL, are in the TRIGLYCERIDES, HDL) results section. COMP. METABOLIC PANEL STAT 04/19/2020 9:59 Weakness Re sults for (47865) PM ON SITE PROPERTY MANAGER this procedure are in the results section. THYROID STIMULATING STAT Add-On 04/19/2020 9:59 Weakness Resu lts for HORMONE PM ON SITE PROPERTY MANAGER this procedure are in the results section. TROPONIN I STAT 04/19/2020 9:59 Weakness Results for PM ON SITE PROPERTY MANAGER this procedure are in the results section. FERRITIN SERUM Add-on 04/19/2020 9:59 Results f or PM ON SITE PROPERTY MANAGER this procedure are in the results section. LIPASE STAT 04/19/2020 9:59 Weakness Results for PM ON SITE PROPERTY MANAGER this procedure are in the results section. HB ECG ROUTINE & STAT 04/19/2020 9:58 Weakness RHYTHM STRIP PM ON SITE PROPERTY MANAGER EMERGENCY SERVICES Routine 04/19/2020 12:01 AGREEMENTS AND AM ON SITE PROPERTY MANAGER AUTHORIZATIONS EMERGENCY DEPARTMENT Routine 04/19/2020 12:01 DOCUMENTS AM ON SITE PROPERTY MANAGER documented in this encounter Results CBC WITH DIFF (04/21/2020 5:24 AM ON SITE PROPERTY MANAGER) WBC 4.30 4.30 - 11.10 [facility] 10*3/L SERVICES RBC 3.48 (L) 3.93 - 5.25 [facility] 10*6/L SERVICES HGB 10.7 (L) 11.6 - 15.0 [facility] g/dL SERVICES HCT 32.4 (L) 35.7 - 45.2 % [facility] SERVICES MCV 93.1 80.6 - 95.5 [facility] fL SERVICES MCH 30.7 25.9 - 32.8 [facility] pg SERVICES MCHC 33.0 31.6 - 35.1 [facility] g/dL SERVICES RDW-SD 42.7 39.0 - 49.9 [facility] fL SERVICES RDW-CV 12.6 12.0 - 15.5 % [facility] SERVICES PLT 87 (L) 166 - 358 [facility] 10*3/L SERVICES MPV 9.8 9.5 - 12.9 fL [facility] SERVICES IPF % 1.9Comment: Platelet 1.3 - 7.7 % [facility] count measured by SERVICES fluorescence method. NRBC/100 WBC 0.0 0.0 - 10.0 [facility] /100 WBCs SERVICES NRBC x10^3 <0.01 10*3/L [facility] SERVICES GRAN MAT (NEUT) % 35.6 % [facility] IMM GRAN % 0.90 % [facility] LYMPH % 32.6 % [facility] MONO % 28.8 % [facility] EOS % 1.6 % [facility] BASO % 0.5 % [facility] GRAN MAT 1.53 (L) 1.88 - 7.09 [facility] x10^3(ANC) 10*3/uL SERVICES IMM GRAN x10^3 0.04 0.00 - 0.06 [facility] 10*3/uL SERVICES LYMPH x10^3 1.40 1.32 - 3.29 [facility] 10*3/uL SERVICES MONO x10^3 1.24 (H) 0.33 - 0.92 [facility] 10*3/uL SERVICES EOS x10^3 0.07 0.03 - 0.39 [facility] 10*3/uL SERVICES BASO x10^3 <0.03 0.01 - 0.07 [facility] 10*3/uL SERVICES Specimen Blood - ARM, LEFT Performing Organization Address City/State/Zipcode Phone Number [facility] CLIA: [id number] [place] [address] [place] [address] MAGNESIUM (04/21/2020 5:24 AM ON SITE PROPERTY MANAGER) Pathologist Sig nature MAGNESIUM 2.4 1.7 - 2.4 mg/dL [facility] Specimen Blood - ARM, LEFT Performing Organization Address City/State/Zipcode Phone Number [facility] CLIA: [id number] [place] [address] [place] [address] BASIC METABOLIC PANEL (NA, K, CL, CO2, GLUCOSE, BUN, CREATININE, CA) (04/21/2020 5:24 AM ON SITE PROPERTY MANAGER) Pathologist Sig nature NA 136 135 - 145 [facility] mmol/L SERVICES K 4.3 3.5 - 5.0 [facility] mmol/L SERVICES CL 108 98 - 108 mmol/L [facility] SERVICES CO2 TOTAL 23 23 - 31 mmol/L [facility] AGAP 5 2 - 16 [facility] BUN 10 7 - 23 mg/dL [facility] SERVICES GLUCOSE 84 70 - 110 mg/dL [facility] SERVICES CREATININE 0.66 0.50 - 1.04 [facility] mg/dL SERVICES CALCIUM 8.3 (L) 8.6 - 10.6 [facility] mg/dL SERVICES eGFR Calculation 85.1 mL/min/1.73m2 [facility] (Non- SERVICES [place]) eGFR Calculation 103.2 mL/min/1.73m2 [facility] () SERVICES Specimen Blood - ARM, LEFT Narrative Performed At Association of Glomerular Filtration Rate (GFR) and St aging [facility] of Kidney Disease* + + +------- ------ + | GFR (mL/min/1.73 m2) | With Kidney Damage | Wi feroz Kidney Damage + + +------- ------ + | >90 | Stage one | Normal + + +------- ------ + | 60-89 | Stage two | Decreased GFR + + +------- ------ + | 30-59 | Stage three | Stage three + + +------- ------ + | 15-29 | Stage four | Stage four + + +------- ------ + | <15 (or dialysis) | Stage five | Stage five + + +------- ------ + *Each stage assumes the associated GFR level has been in effect for at least three months. Stages 1 to 5, wit h or without kidney disease, indicate chronic kidney disease. Notes: Determination of stages one and two (with eGFR >59mL/min/1.73 m2) requires estimation of kidney damag e for at least three months as defined by structural or func tional abnormalities of the kidney, manifested by either: Pathological abnormalities or Markers of kidney damage (including abnormalities in the composition of the blo od or urine or abnormalities in imaging tests) . Performing Organization Address City/State/Zipcode Phone Number [facility] CLIA: [id number] [place] [address] [place] [address] Lactic Acid Whole Blood (04/20/2020 1:04 PM ON SITE PROPERTY MANAGER) Pathologist Sig nature LACTIC ACID 0.73 mmol/L [facility] Specimen Blood - ARM, LEFT Performing Organization Address [facility]/State/Zipcode Phone Number [facility] CLIA: [id number] [place] [address] [place] [address] CT ABDOMEN PELVIS W CONTRAST (04/20/2020 9:47 AM ON SITE PROPERTY MANAGER) Specimen Impressions Performed At PACS/VR/DOSE 1. A large amount of stool and gas in the colon suggest constipation. 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 2. Pneumobilia, may be due to prior instrumentation/ surgery. This could be chronic if there is no recent instrumentation or surge ry. Cholecystectomy. Levoscoliosis. I, Demarco Page MD., have reviewe d this study and agree with the above report. Narrative Performed At This result has an attachment that is no t available. EXAM: CT ABDOMEN/PELVIS WITH CONTRAST PACS/VR/DOSE HISTORY: 84 years-old Female presenting with Abdomi nal Pain around RUQ, US completed with possible air in biliary system, plea se evaluate for intraabdominal infection US RUQ: Hyperechoic branches extending from the hepatic hilum to the right hepatic lobe may represent air in the biliary system. This may also represent surgical material. Cor relate clinically and consider further evaluation with CT.no recent surgery or endoscopic procedure. COMPARISON: US abdomen, 04/20/2020. TECHNIQUE AND FINDINGS: Contiguous axial imaging from the level of the lung bases through the proximal thighs was performed after the administration of 100 cc of intravenous Omnipaque contrast. Coronal and sagittal reconstructions were obtained. Auto mA and/or iterat rodolfo reconstruction were used to reduce radiation dose. FINDINGS: LOWER THORAX: The lungs bases are clear. No cardiomega ly. Mild calcification of the aortic valve. Right coronary jeremy ry calcification. Prominent left atrium, measuring 4.8 cm in AP diameter LIVER: No focal hepatic lesions. Normal contour. GALLBLADDER AND BILIARY TREE: No biliary ductal dilati on. Cholecystectomy. Pneumobilia. No surrounding fat stranding. No portal v ein gas. SPLEEN: No splenomegaly. PANCREAS: No ductal dilation or masses. ADRENAL GLANDS: No adrenal nodules. KIDNEYS: No hydronephrosis, stones. Multiple homogeneo us thin-walled nonenhancing fluid attenuation lesions in right upper pole, left upper and lower poles, measuring up to 3.4 cm consistent with a simple cyst (Bosniak 1). Scattered subcentimeter hypoattenuating foci in bi lateral kidneys, too small to characterize. PERITONEUM AND RETROPERITONEUM: No free air or fluid. LYMPH NODES: No lymphadenopathy. GI TRACT: No bowel dilation or abnormal wall thickenin g. Surgical clips are seen along the transverse and descending colon and sig moid. Appendix is not visualized. PELVIS/BLADDER: Distended bladder. Uterus is not visua lized. VESSELS: Mild calcification of the aorta and its branc hes. BONES AND SOFT TISSUES: No suspicious lytic or sclero tic bony lesions. Levoscoliosis. Lumbar spine facet arthropathy. Procedure Note [facility], Radiant Results Inft User - 2019 12:09 PM ON SITE PROPERTY MANAGER EXAM: CT ABDOMEN/PELVIS WITH CONTRAST HISTORY: 84 years-old Female presentin g with Abdominal Pain around RUQ, US completed with possible air in biliar y system, please evaluate for intraabdominal infection US RUQ: Hyperec hoic branches extending from the hepatic hilum to the right hepatic lobe may represent air in the biliary system. This may also represent surgical material. Correlate clinically and consider further evaluation with CT.no r ecent surgery or endoscopic procedure. COMPARISON: US abdomen, 04/20/2020. TECHNIQUE AND FINDINGS: Contiguous axial imaging from the level of the lung bases through the proximal thighs was pe rformed after the administration of 100 cc of intravenous Omnipaque contrast . Coronal and sagittal reconstructions were obtained. Auto mA and/or iterative reconstruction were used to reduce radiation dose. FINDINGS: LOWER THORAX: The lungs bases are clear. No cardiomegaly. Mild calcification of the aortic valve. Right coronary artery calcification. Prominent left atrium, measuring 4.8 cm in AP diameter LIVER: No focal hepatic lesions. Normal contour. GALLBLADDER AND BILIARY TREE: No biliary ductal dilation. Cholecystectomy. Pneumobilia. No surrounding fat strandin g. No portal vein gas. SPLEEN: No splenomegaly. PANCREAS: No ductal dilation or masses. ADRENAL GLANDS: No adrenal nodules. KIDNEYS: No hydronephrosis, stones. Mult iple homogeneous thin-walled nonenhancing fluid attenuation lesions i n right upper pole, left upper and lower poles, measuring up to 3.4 cm cons istent with a simple cyst (Bosniak 1). Scattered subcentimeter hypoattenuat ing foci in bilateral kidneys, too small to characterize. PERITONEUM AND RETROPERITONEUM: No free air or fluid. LYMPH NODES: No lymphadenopathy. GI TRACT: No bowel dilation or abnormal wall thickening. Surgical clips are seen along the transverse and descending colon and sigmoid. Appendix is not visualized. PELVIS/BLADDER: Distended bladder. Uteru s is not visualized. VESSELS: Mild calcification of the aorta and its branches. BONES AND SOFT TISSUES: No suspicious l ytic or sclerotic bony lesions. Levoscoliosis. Lumbar spine facet arthro lisa. IMPRESSION 1. A large amount of stool and gas in t he colon suggest constipation. 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 2. Pneumobilia, may be due to prior ins trumentation/surgery. This could be chronic if there is no recent instrument ation or surgery. Cholecystectomy. Levoscoliosis. Demarco Castro MD., have reviewed this study and agree with the above report. Performing Organization Address City/State/Zipcode Phone Number PACS/VR/DOSE US ABDOMEN LIMITED (04/20/2020 6:00 AM ON SITE PROPERTY MANAGER) Specimen Impressions Performed At PACS/VR/DOSE Hyperechoic branches extending from the hepatic hilum to the right hepatic lobe may represent air in the biliary sy stem. This may also represent surgical material. Correlate clinically and consider further evaluation with CT. Coarsened hepatic echotexture suggestive of chronic he patocellular disease. Right renal cyst. Preliminary Report Dictated by Resident: Demarco Weathers MD., have reviewe d this study and agree with the above report. Narrative Performed At This result has an attachment that is no t available. RIGHT UPPER QUADRANT ULTRASOUND PACS/VR/DOSE HISTORY: Elevated INR/thrombocytopenia; r/o cirrhosis TECHNIQUE: Survey ultrasound imaging of the abdomen wa s performed focused on the liver, biliary system, and spleen including col or Doppler evaluation of the main portal vein with service center representative images obt ained. COMPARISON: None. FINDINGS: LIVER: The liver measures 13.7 cm craniocaudally. Coar sened hepatic echotexture. No focal lesions are identified. Normal h epatopetal flow in the main portal vein. Branching hyperechoic regions ex tending from the hepatic hilum to the right hepatic lobe with areas of shadowing noted. GALLBLADDER: Changes of a cholecystectomy. The common bile duct measures 5 mm in diameter. RIGHT KIDNEY: A right renal cyst is noted measuring 2. 5 x 2.9 x 2.5 cm. The remainder of the right kidney is unremarkable. PANCREAS: The partially visualized pancreas is unremar kable. A majority of the pancreas is obscured by overlying bowel gas. SPLEEN: The spleen is normal in size at 12.0 cm. Procedure Note [facility], Radiant Results Inft User - 2019 8:25 AM ON SITE PROPERTY MANAGER RIGHT UPPER QUADRANT ULTRASOUND HISTORY: Elevated INR/thrombocytopenia; r/o cirrhosis TECHNIQUE: Survey ultrasound imaging of the abdomen was performed focused on the liver, biliary system, and spleen including color Doppler evaluation of the main portal vein with representat rodolfo images obtained. COMPARISON: None. FINDINGS: LIVER: The liver measures 13.7 cm cranio caudally. Coarsened hepatic echotexture. No focal lesions are identi fied. Normal hepatopetal flow in the main portal vein. Branching hyperech oic regions extending from the hepatic hilum to the right hepatic lobe with areas of shadowing noted. GALLBLADDER: Changes of a cholecystectom y. The common bile duct measures 5 mm in diameter. RIGHT KIDNEY: A right renal cyst is note d measuring 2.5 x 2.9 x 2.5 cm. The remainder of the right kidney is unremar kable. PANCREAS: The partially visualized pancr eas is unremarkable. A majority of the pancreas is obscured by overlying mely wel gas. SPLEEN: The spleen is normal in size at 12.0 cm. IMPRESSION Hyperechoic branches extending from the hepatic hilum to the right hepatic lobe may represent air in the biliary sy stem. This may also represent surgical material. Correlate clinically and consider further evaluation with CT. Coarsened hepatic echotexture suggestive of chronic hepatocellular disease. Right renal cyst. Preliminary Report Dictated by Resident: Deuce Funes I, Demarco Page MD., have reviewed this study and agree with the above report. Performing Organization Address City/State/Zipcode Phone Number PACS/VR/DOSE FOLATE (04/20/2020 5:05 AM ON SITE PROPERTY MANAGER) Pathologist Sig [facility] FOLATE SER >20.0 (H) 3.0 - 20.0 ng/mL [facility] Specimen Blood - VENOUS Performing Organization Address City/State/Zipcode Phone Number [facility] CLIA: [id number] [place] [address] [place] [address] VITAMIN B12, LEVEL (04/20/2020 5:05 AM ON SITE PROPERTY MANAGER) Pathologist Sig [facility] VIT B12 910 240 - 930 pg/mL [facility] Specimen Blood - VENOUS Narrative Performed At Biotin has been reported to cause a positive bias, int erpret [facility] results relative to patient's use of biotin. Performing Organization Address City/State/Zipcode Phone Number [facility] CLIA: [id number] [place] [address] [place] [address] TROPONIN I (04/20/2020 5:05 AM ON SITE PROPERTY MANAGER) Pathologist Sig [facility] TROPONIN I 0.002 <=0.034 ng/mL [facility] Specimen Blood - VENOUS Narrative Performed At Equal or Less than 0.034 ng/ml---Normal [facility] Note: Cardiac troponin begins to rise 3-4 hours after the onset of ischemia. Repeat in 4-6 hours if the sample w as drawn within 3-4 hours of the onset of the symptom and found normal. Between 0.035 and 0.120 ng/mL--- Borderline. Questiona ble myocardial injury or necrosis Note: Serial measurement may be necessary to confirm o r exclude the diagnosis of myocardial injury or necrosis ; Clinical correlation (symptoms, EKGs, imaging studies, and others) required; Repeat in 4-6 hours if clinically indicated. Equal or Higher than 0.121 ng/mL---Abnormal. Myocardia l Injury or Necrosis Likely Biotin has been reported to cause a negative bias, int erpret results relative to patient's use of biotin. Performing Organization Address [facility] Phone Number [facility] CLIA: [id number] [place] [address] [phone] [address] [facility] MAGNESIUM (04/20/2020 5:05 AM ON SITE PROPERTY MANAGER) Pathologist Sig [facility] MAGNESIUM 1.9 1.7 - 2.4 mg/dL [facility] Specimen Blood - VENOUS Performing Organization Address [facility] Phone Number [facility] CLIA: [id number] [place] [address] [place] [address] IRON PANEL (04/19/2020 10:29 PM ON SITE PROPERTY MANAGER) [facility] IRON 32 (L) 50 - 160 ug/dL [facility] TIBC 243 (L) 250 - 410 ug/dL [facility] % FE SAT 13 (L) 20 - 50 % [facility] Specimen Blood - VENOUS Performing Organization Address [facility] Number [facility] CLIA: [id number] [place] [address] FREE T4 (04/19/2020 10:29 PM ON SITE PROPERTY MANAGER) [facility] FREE T4 1.10 0.78 - 2.20 ng/dL: [facility] Specimen Blood - VENOUS Performing Organization Address [facility] Number [facility] CLIA: [id number] [place] [address] URINE CULTURE (04/19/2020 10:29 PM ON SITE PROPERTY MANAGER) [facility] Signature URINE CULTURE < 10,000 CFU/mL mixed [facility] aerobic organisms - SERVICES suggests endogenous microbial contamination Specimen Urine - URINE, CLEAN CATCH Performing Organization Address [facility] Phone Number [facility] CLIA: [id number] [place] [address] [place] [address] URINALYSIS (04/19/2020 10:29 PM ON SITE PROPERTY MANAGER) Pathologist Sig nature APPEARANCE Hazy (A) Clear [facility] COLOR Yellow Yellow [facility] PH 7.0 4.8 - 8.0 [facility] SP GRAVITY 1.004 1.003 - 1.030 [facility] GLU U QUAL Normal Normal [facility] BLOOD 1+ (A) Negative [facility] KETONES Negative Negative [facility] PROTEIN Negative Negative [facility] UROBILIN Normal Normal [facility] BILIRUBIN Negative Negative [facility] NITRITE Negative Negative [facility] LEUK BENJAMIN Negative Negative [facility] RBC/HPF 9 (H) 0 - 3 HPF [facility] WBC/HPF <1 0 - 5 HPF [facility] BACTERIA Few (A) Negative [facility] SQ EPITH <1 HPF [facility] Specimen Urine - URINE, CLEAN CATCH Performing Organization Address City/State/Zipcode Phone Number [facility] CLIA: [id number] [place] [address] XR CHEST 1 VW (04/19/2020 10:28 PM ON SITE PROPERTY MANAGER) Specimen Impressions Performed At PACS/VR/DOSE No acute cardiopulmonary abnormality. Preliminary Report Dictated by Resident: Charito Garcia MD., have reviewed this stud y and agree with the above report. Narrative Performed At This result has an attachment that is no t available. EXAM: XR CHEST 1 VW PACS/VR/DOSE HISTORY: chest pain COMPARISON: None. TECHNIQUE: Single PA view radiograph of the chest. FINDINGS: The lungs are clear without evidence of focal consolid ation, pleural effusion or pneumothorax. The heart size is mildly enlarged. The aorta is slight ly tortuous. Bilateral glenohumeral joint osteoarthrosis. No acute osseous abnormality is identified. Calcified right paratracheal lymph node s noted. Procedure Note [facility], Radiant Results Inft User - 2019 8:02 AM ON SITE PROPERTY MANAGER EXAM: XR CHEST 1 VW HISTORY: chest pain COMPARISON: None. TECHNIQUE: Single PA view radiograph o f the chest. FINDINGS: The lungs are clear without evidence of focal consolidation, pleural effusion or pneumothorax. The heart size is mildly enlarged. The a felix is slightly tortuous. Bilateral glenohumeral joint osteoarthro sis. No acute osseous abnormality is identified. Calcified right paratrach eal lymph nodes noted. IMPRESSION No acute cardiopulmonary abnormality. Preliminary Report Dictated by Resident: Charito Garcia MD., have revie wed this study and agree with the above report. Performing Organization Address [facility] Phone Number PACS/VR/DOSE GLYCOSYLATED HEMOGLOBIN (A1C) (04/19/2020 9:59 PM ON SITE PROPERTY MANAGER) Pathologist [facility] HGB A1C 4.4 4.0 - 6.0 % [facility] Specimen Blood - VENOUS Narrative Performed At %A1C (NGSP) Interpretation (ADA) [facility] 4.8-5.6 Normal or (Non-Diabetic Ra nge) 5.7-6.4 Increased Risk (Pre-Diabet ic) >6.5 Diabetes Indicated Performing Organization Address [facility] [facility] Phone Number [facility] CLIA: [id number] [place] [address] LIPID PANEL ([id number])(TOTAL CHOLESTEROL, TRIGLYCERIDES, HDL) (04/19/2020 9:59 PM ON SITE PROPERTY MANAGER) [facility] CHOL 186 120 - 200 mg/dL [facility] LABORATORY HDL 49 (L) >50 mg/dL [facility] LAB[facility] HDLC RATIO 3.8 <=4.5 [facility] LABOR[facility] TRIG 62 30 - 170 mg/dL [facility] LDL CHOL 125 <=160 mg/dL [facility] VLDL 12 5 - 60 mg/dL [facility] LABORATORY Specimen Blood - VENOUS Performing Organization Address [facility] Phone Number [facility] CLIA: [id number] [place] [address] RETICULOCYTES AUTOMATED (04/19/2020 9:59 PM ON SITE PROPERTY MANAGER) [facility] RETIC Count 1.20 0.51 - 1.90 % [facility] Automated HOSPITAL LABORATORY RETIC Absolute Count 0.0440 0.0230 - 0.0950 [facility] 10*6/L HOSPITAL LABORATORY IRF % 9.30 2.10 - 12.60 % [facility] LABORATORY RETIC-HE 37.7 (H) 28.1 - 35.8 pg [facility] LABORATORY Specimen Blood - VENOUS Performing Organization Address City/[facility]/Zipcode Phone Number [facility] CLIA: [id number] [place] [address] [place] [address] FERRITIN SERUM (04/19/2020 9:59 PM ON SITE PROPERTY MANAGER) Pathologist Sig nature FERRITIN 121.0 11.0 - 264.0 ng/mL [facility] LABORATORY Specimen Blood - VENOUS Narrative Performed At Biotin has been reported to cause a negative [facility] LABORATORY bias, interpret results relative to patient's use of biotin. Performing Organization Address City/[facility] Phone Number [facility] CLIA: [id number] [place] [address] [place] [address] THYROID STIMULATING HORMONE (04/19/2020 9:59 PM ON SITE PROPERTY MANAGER) Pathologist Sig nature TSH 2.76 0.45 - 4.70 mIU/L [facility] LABORATORY Specimen Blood - VENOUS Performing Organization Address [facility] Phone Number [facility] CLIA: [id number] [place] [address] [place] [address] COVID-19 (ID NOW RAPID TESTING) (04/19/2020 9:59 PM ON SITE PROPERTY MANAGER) SARS-CoV-2 Rapid ID Not Detected Not Detected [facility] LABORATORY Specimen Swab - NASOPHARYNGEAL SWAB Narrative Performed At ID NOW COVID-19 Assay is an isothermal nucleic [facility] LABORATORY acid amplification test intended for the qualitative detection of nucleic acid from SARS-CoV-2 viral RNA in nasopharyngeal ([employer]) specimens. It is used under Emergency Use Authorization (EUA) by FDA. The limit of detection (LOD) of the assay is 125 Genome Equivalents/mL. A positive result is indicative of the presence of SARS-CoV-2 RNA. Clinical correlation with patient history and other diagnostic information is necessary to determine patient infection status. A negative (Not Detected) result does not preclude SARS-CoV-2 infection. In patients with clinical symptoms and other tests that are consistent with SARS-CoV-2 infection, negative results should be treated as presumptive negative and a new specimen should be tested with alternative PCR molecular test. Invalid: Please collect a new specimen for repeat patient testing if clinically indicated. Performing Organization Address City/State/Zipcode Phone Number [facility] CLIA: [id number] [place] [address] CBC WITH DIFF (04/19/2020 9:59 PM ON SITE PROPERTY MANAGER) WBC 7.56 4.30 - 11.10 [facility] 10*3/L [facility] LABORATORY RBC 3.61 (L) 3.93 - 5.25 [facility] 10*6/L [facility] LABORATORY HGB 11.1 (L) 11.6 - 15.0 [facility] g/dL [facility] LABORATORY HCT 32.6 (L) 35.7 - 45.2 % [facility] LABORATORY MCV 90.3 80.6 - 95.5 [facility] LABORATORY MCH 30.7 25.9 - 32.8 [facility] pg [facility] LABORATORY MCHC 34.0 31.6 - 35.1 [facility] g/dL [facility] LABORATORY RDW-SD 39.8 39.0 - 49.9 [facility] LABORATORY RDW-CV 11.9 (L) 12.0 - 15.5 % [facility] LABORATORY PLT 90 (L) 166 - 358 [facility] 10*3/L [facility] LABORATORY MPV 9.8 9.5 - 12.9 fL [facility] LABORATORY IPF % 1.3Comment: Platelet 1.3 - 7.7 % [facility] count measured by HOSPITAL fluorescence method. LABORATORY NRBC/100 WBC 0.0 0.0 - 10.0 [facility] /100 WBCs [facility] LABORATORY NRBC x10^3 <0.01 10*3/L [facility] LABORATORY GRAN MAT (NEUT) % 44.7 % [facility] LABORATORY IMM GRAN % 0.50 % [facility] LABORATORY LYMPH % 17.9 % [facility] LABORATORY MONO % 36.4 % [facility] LABORAT[facility] EOS % 0.4 % [facility] LABORATORY BASO % 0.1 % [facility] LABORATORY GRAN MAT 3.38 1.88 - 7.09 [facility] x10^3(ANC) 10*3/uL HOSPITAL LABORATORY IMM GRAN x10^3 0.04 0.00 - 0.06 [facility] 10*3/uL HOSPITAL LABORATORY LYMPH x10^3 1.35 1.32 - 3.29 [facility] 10*3/uL HOSPITAL LABORATORY MONO x10^3 2.75 (H) 0.33 - 0.92 [facility] 10*3/uL HOSPITAL LABORATORY EOS x10^3 0.03 0.03 - 0.39 [facility] 10*3/uL HOSPITAL LABORATORY BASO x10^3 <0.03 0.01 - 0.07 [facility] 10*3/uL HOSPITAL LABORATORY BANDS Increased (A) [facility] LABORATORY Specimen Blood - VENOUS Performing Organization Address City/[facility]/Zipcode Phone Number [facility] CLIA: [id number] [place] [address] [address] LIPASE, SERUM (04/19/2020 9:59 PM ON SITE PROPERTY MANAGER) Pathologist Sig [place] LIPASE 113 0 - 220 U/L [facility] LABORATORY Specimen Blood - VENOUS Performing Organization Address City/[facility]/Zipcode Phone Number [facility] CLIA: [id number] [place] [address] LABORATORY [address] [facility] COMP. METABOLIC PANEL ([id number]) (04/19/2020 9:59 PM ON SITE PROPERTY MANAGER) Pathologist Sig [place] NA 136 135 - 145 mmol/L [facility] LABORATORY K 3.5 3.5 - 5.0 mmol/L [facility] LABORATORY CL 104 98 - 108 mmol/L [facility] LABORATORY CO2 TOTAL 23 23 - 31 mmol/L [facility] LABORATORY AGAP 9 2 - 16 [facility] LABORATORY BUN 11 7 - 23 mg/dL [facility] LABORATORY GLUCOSE 107 70 - 110 mg/dL [facility] LABORATORY CREATININE 0.78 0.50 - 1.04 [facility] mg/dL [facility] LABORATORY TOTAL BILI 0.6 0.1 - 1.1 mg/dL [facility] LABORATORY CALCIUM 9.2 8.6 - 10.6 mg/dL [facility] LABORAT[facility] T PROTEIN 7.1 6.3 - 8.2 g/dL [facility] LAB[facility] ALBUMIN 3.9 3.5 - 5.0 g/dL [facility] LABORAT[facility] ALK PHOS 65 34 - 122 U/L [facility] LAB[facility] ALTv 16 5 - 35 U/L [facility] LABOR[facility] AST(SGOT) 27 13 - 40 U/L [facility] LABORATORY eGFR Calculation 70.2 mL/min/1.73m2 [facility] (Non-[facility] LABORATOR Y eGFR Calculation 85.1 mL/min/1.73m2 [facility] ([facility] LABORATORY Specimen Blood - VENOUS Narrative Performed At [facility] of Glomerular Filtration Rate (GFR) [facility] LAB[facility]ATORY and Staging of Kidney Disease* + + +- + | GFR (mL/min/1.73 m2) | With Kidney Damage | Without Kidney Damage + + +- + | >90 | Stage one | Normal + + +- + | 60-89 | Stage two | Decreased GFR + + +- + | 30-59 | Stage three | Stage three + + +- + | 15-29 | Stage four | Stage four + + +- + | <15 (or dialysis) | Stage five | Stage five + + +- + *Each stage assumes the associated GFR level has been in effect for at least three months. Stages 1 to 5, with or without kidney disease, indicate chronic kidney disease. Notes: Determination of stages one and two (with eGFR >59mL/min/1.73 m2) requires estimation of kidney damage for at least three months as defined by structural or functional abnormalities of the kidney, manifested by either: Pathological abnormalities or Markers of kidney damage (including abnormalities in the composition of the blood or urine or abnormalities in imaging tests). Performing Organization Address City/[facility] Phone Number [facility] CLIA: [id number] [place] [address] PROTHROMBIN TIME / INR (04/19/2020 9:59 PM ON SITE PROPERTY MANAGER) PROTIME PATIENT 15.8 (H) 12.0 - 14.7 [facility] LABORATORY INR 1.3Comment: Normal [facility] INR <1.1; Warfarin [facility] Therapeutic range LABORATORY 2.0 to 3.0 or 2.5 to 3.5, depending upon the indications. Specimen Blood - VENOUS Performing Organization Address City/[facility]/Zipcode Phone Number [facility] CLIA: [id number] [place] [address] aPTT (04/19/2020 9:59 PM ON SITE PROPERTY MANAGER) Pathologist Sig nature APTT Patient 31 23 - 38 Seconds [facility] LABORATORY Specimen Blood - VENOUS Narrative Performed At The [facility] patient population mean normal value [facility] LABORATORY for aPTT is 30 seconds. Performing Organization Address [facility] Phone Number [facility] CLIA: [id number] [place] [address] TROPONIN I (04/19/2020 9:59 PM ON SITE PROPERTY MANAGER) Pathologist Sig nature TROPONIN I <0.012 <=0.034 ng/mL [facility] LABORATORY Specimen Blood - VENOUS Narrative Performed At Equal or Less than 0.034 ng/ml---Normal [facility] LAB[facility] Note: Cardiac troponin begins to rise 3-4 hours after the onset of ischemia. Repeat in 4-6 hours if the sample was drawn within 3-4 hours of the onset of the symptom and found normal. Between 0.035 and 0.120 ng/mL--- Borderline. Questionable myocardial injury or necros is Note: Serial measurement may be necessary to confirm or exclude the diagnosis of myocardial injury or necrosis; Clinical correlation (symptoms, EKGs, imaging studies, and others) required; Repeat in 4-6 hours if clinically indicated. Equal or Higher than 0.121 ng/mL---Abnormal. Myocardial Injury or Necrosis Likely Biotin has been reported to cause a negative bias, interpret results relative to patient's use of biotin. Performing Organization Address City/[facility] Phone Number [facility] CLIA: [id number] [place] [address] documented in this encounter Visit Diagnoses Diagnosis Weakness - Primary Other malaise and fatigue Dizziness Dizziness and giddiness Paroxysmal A-fib Atrial fibrillation Chest pain, unspecified type Bandemia PSVT (paroxysmal supraventricular tachyc ardia) Paroxysmal supraventricular tachycardia Thrombocytopenia Thrombocytopenia, unspecified A-fib Atrial fibrillation Paroxysmal SVT (supraventricular tachyca rdia) Paroxysmal supraventricular tachycardia documented in this encounter Administered Medications Medication Order MAR Action Action Date Dose Rate Site aspirin chewable tablet 81 mg Given 04/21/2020 9:11 AM ON SITE PROPERTY MANAGER 81 mg 81 mg, Oral, DAILY, First dose on Janey 04/20/20 at 0900, Until Discontinued, Routine Given 04/20/2020 11:35 AM ON SITE PROPERTY MANAGER 81 mg citalopram (CELEXA) tablet 20 mg Given 04/21/2020 9:11 AM ON SITE PROPERTY MANAGER 20 mg 20 mg, Oral, DAILY, First dose on Janey 04/20/20 at 0900, Until Discontinued, Routine Given 04/20/2020 11:35 AM ON SITE PROPERTY MANAGER 20 mg heparin (porcine) injection Given 04/21/2020 9:11 AM ON SITE PROPERTY MANAGER 5,000 Units Abdomen-SC 5,000 Units 5,000 Units, Subcutaneous, Q12H, First dose on Janey 04/20/20 at 2000, Until Discontinued, Routine Given 04/20/2020 8:30 PM ON SITE PROPERTY MANAGER 5,000 Units Abdo men-SC levothyroxine (SYNTHROID) tablet 88 mcg Given 04/21/2020 5:25 AM ON SITE PROPERTY MANAGER 88 mcg 88 mcg, Oral, QAM-0600, First dose on Janey 04/20/20 at 0600, Until Discontinued, Routine Given 04/20/2020 6:25 AM ON SITE PROPERTY MANAGER 88 mcg metoprolol tartrate (LOPRESSOR) tablet 2 5 mg Given 04/21/2020 3:34 PM ON SITE PROPERTY MANAGER 25 mg 25 mg, Oral, Q12H ABX, First dose on Janey 04/20/20 at 1400, Until Discontinued, Routine Given 04/21/2020 5:26 AM ON SITE PROPERTY MANAGER 25 mg Given 04/20/2020 3:30 PM ON SITE PROPERTY MANAGER 25 mg ondansetron (ZOFRAN (PF)) injection 4 mg 4 mg, Slow IV Push, Q6HPRN, Starting Janey 04/20/20 at 1 607, Until Discontinued, Routine, Nausea and Vomiting (N/V) pantoprazole (PROTONIX) EC tablet 40 mg 40 mg, Oral, QHS, First dose on 04/11 at 2100, Until Discontinued, Routine phenytoin Extended (DILANTIN KAPSEAL) Given 04/20/2020 8:30 PM ON SITE PROPERTY MANAGER 200 mg capsule 200 mg 200 mg, Oral, QHS, First dose on Janey 04/20/20 at 2100, Until Discontinued, Routine Polyethylene Glycol 3350 (MIRALAX) powde r 17 g 17 g, Oral, DAILY, First dose on 03/31 at 1230, Until Discontinued, Routine QUEtiapine (SEROQUEL) tablet 600 mg Given 04/20/2020 8:29 PM ON SITE PROPERTY MANAGER 600 mg 600 mg, Oral, QHS, First dose on Janey 04/20/20 at 2100, Until Discontinued, Routine simvastatin (ZOCOR) tablet 20 mg Given 04/20/2020 8:30 PM ON SITE PROPERTY MANAGER 20 mg 20 mg, Oral, QHS, First dose on Janey 04/20/20 at 2100, Until Discontinued, Routine sodium chloride (NS) injection 5 mL 5 mL, Intravenous, PRN, Starting 04/19/20 at 2148, Until Discontinued, Routine, IV line flushing temazepam (RESTORIL) capsule 30 mg Given 04/20/2020 8:29 PM ON SITE PROPERTY MANAGER 30 mg 30 mg, Oral, QHSPRN, Starting Janey 04/20/20 at 0414, Until Discontinued, Routine, Insomnia Medication Order MAR Action Action Date Dose Rate Site amiodarone (CORDARONE) Dose/Rate Verify 04/20/2020 6:30 0.5 mg/min 1 6.67 mL/hr 900 mg in D5W 500 mL AM ON SITE PROPERTY MANAGER infusion 0.5 mg/min (16.6667 mL/hr, rounded to 16.67 mL/hr), IV Infusion, CONTINUOUS, Starting [facility] 04/20/20 at 0130, All amiodarone infusions must be administered using a 0.22 micron in line filter. Administer via central line if available. Amiodarone infusions with concentrations > 2 mg/mL must be administered via central line., New Bag 04/20/2020 12:52 AM ON SITE PROPERTY MANAGER 0.5 mg/min 16.67 mL/hr amiodarone 150 mg/100 mL (NEXTERONE) RTU Given 04/20/2020 12:34 AM ON SITE PROPERTY MANAGER 150 mg infusion 150 mg 150 mg, IV Piggyback, ONCE, 1 dose, Janey 04/20/20 at 0130 iohexol (OMNIPAQUE 350 BULK-100 mL) Given 04/20/2020 9:42 AM CS T 100 mL injection 100 mL 100 mL, Intravenous, ONCE, 1 dose, Janey 04/20/20 at 1000, Routine KCL 20 mEq/15 mL solution 20 mEq Given 04/20/2020 11:35 AM ON SITE PROPERTY MANAGER 20 mEq 20 mEq, Oral, ONCE, 1 dose, [facility] 04/20/20 at 1200, Routine KCL 20 mEq/15 mL solution 40 mEq Given 04/20/2020 5:00 AM ON SITE PROPERTY MANAGER 40 mEq 40 mEq, Oral, ONCE, 1 dose, [facility] 04/20/20 at 0545, Routine LORazepam (ATIVAN) injection 0.25 mg Given 04/19/2020 11:49 PM ON SITE PROPERTY MANAGER 0.25 mg 0.25 mg, Slow IV Push, ONCE, 1 dose, [facility] 04/20/20 at 0045, STAT magnesium sulfate in water 2 gram/50 mL (4 %) New Bag 3:03 PM ON SITE PROPERTY MANAGER 2 g infusion 2 g 2 g, IV Piggyback, ONCE, 1 dose, [facility] 04/20/20 at 0645, Routine metoprolol (LOPRESSOR) injection 5 mg Given 04/19/2020 11:11 PM ON SITE PROPERTY MANAGER 5 mg 5 mg, Slow IV Push, ONCE, 1 dose, [facility] 04/20/20 at 0015, MELISSA metoprolol (LOPRESSOR) injection 5 mg Given 04/19/2020 11:51 PM ON SITE PROPERTY MANAGER 5 mg 5 mg, Slow IV Push, ONCE, 1 dose, [facility] 04/20/20 at 0100, MELISSA NaCl 0.9% (NS) IV infusion 500 mL New Bag 04/20/2020 1:01 PM ON SITE PROPERTY MANAGER 500 mL 75 mL/hr at 75 mL/hr, IV Infusion, ONCE, 1 dose, [facility] 04/20/20 at 0745, Routine NaCl 0.9% (NS) IV infusion 500 mL New Bag 04/21/2020 9:14 AM ON SITE PROPERTY MANAGER 500 mL 75 mL/hr at 75 mL/hr, IV Infusion, ONCE, 1 dose, [facility] 04/21/20 at 0830, Routine pantoprazole (PROTONIX) 40 mg in NaCl 0.9% Given 04/20/2020 8:2 8 PM ON SITE PROPERTY MANAGER 40 mg (NS) 100 mL MINI-BAG 40 mg, IV Piggyback, Q24H, First dose on Janey 04/20/20 at 2000, Until Discontinued, 100 mL phenytoin Extended (DILANTIN KAPSEAL) Given 04/20/2020 12:37 AM ON SITE PROPERTY MANAGER 200 mg capsule 200 mg 200 mg, Oral, ONCE, 1 dose, [facility]y 04/20/20 at 0145, Routine piperacillin-tazobactam (ZOSYN) 3.375 g in Given 04/20 1:01 PM ON SITE PROPERTY MANAGER 3.375 g NaCl 0.9% (NS) 100 mL MINI-BAG 3.375 g, IV Piggyback, Q6H ABX, First dose on Janey 04/20/20 at 0745, Until Discontinued, 100 mL, Reason for Anti-Infective: Empiric Therapy for Suspected Infection, Empiric Therapy Site: Abdominal, Duration of therapy: 72 hours QUEtiapine (SEROQUEL) tablet 600 mg Given 04/20/2020 12:37 AM ON SITE PROPERTY MANAGER 600 mg 600 mg, Oral, ONCE, 1 dose, Janey 04/20/20 at 0115, Routine traZODone (DESYREL) tablet 300 mg Given 04/20/2020 12:40 AM ON SITE PROPERTY MANAGER 300 mg 300 mg, Oral, QHS, First dose on Janey 04/20/20 at 2100, Until Discontinued, Routine documented in this encounter Additional Health Concerns Infection Onset Date Last Indicated Resolved Time COVID-19 Rule Out 04/19/2020 04/19/2020 04/19/2020 10: 42 PM ON SITE PROPERTY MANAGER documented as of this encounter Insurance Payer Benefit Plan Subscriber ID Effective Phone Address Typ e / Group Dates AETNA - AETNA [id number] 2018-Prese [address] Medic are Adv [place]NA[place]ED [place]ICARE [place] [id number] PPO MEDICARE [facility] [place] [address] documented as of this encounter
--- OUTSIDE RECORDS SUMMARY | 2020-04-26 10:30 | XMS REPORT | Summary of Care ---
:1935 [address] [facility] - [facility] Address [address] [place] [id number] Care Team Providers Name Role Phone Luis Herndon Primary Care Provider Reason for Visit Reason Comments Transition Of Care Encounter Details Date Type Department Care Team Description 04/24/2020 Transition of Care [facility] Nadia Ford RN Transition Of Care [address] [id number] Allergies Active Allergy Reactions Severity Noted Date Comments Levofloxacin Rash 04/19/2020 documented as of this encounter (statuses as of 04/24/2020) Medications Medication Sig Dispensed Refills Start Date End Date Status aspirin 81 mg chewable Take 81 mg by 0 Active tablet mouth daily. citalopram 20 mg tablet Take 20 mg by 0 Active mouth daily. phenytoin Extended Take 200 mg by 0 Active (DILANTIN EXTENDED) 100 mouth 3 mg capsule (three) times daily. levothyroxine 100 mcg Take 88 mcg by 0 Active tablet mouth. QUEtiapine (SEROQUEL) Take 600 mg by 0 Active 300 mg tablet mouth at bedtime. temazepam 30 mg capsule Take 30 mg by 0 Active mouth at bedtime as needed. simvastatin 10 mg Take 20 mg by 0 Active tablet mouth at bedtime. metoprolol tartrate 25 Take 1 tablet 180 tablet 3 04/21/2020 1 06/17/2020 Active mg tabletIndications: by mouth every PSVT (paroxysmal 12 (twelve) supraventricular hours for 360 tachycardia) days. Polyethylene Glycol Take 1 Packet 90 Packet 3 04/21/202004/16 Active 3350 17 gram by mouth daily powderIndications: PSVT for 360 days. 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 documented as of this encounter Last Filed Vital Signs Not on filedocumented in this encounter Miscellaneous Notes Telephone Encounter - Nadia Ford RN - 04/24/2020 8:55 AM CST TRANSITIONAL CARE MANAGEMENT ASSESSMENT 04/24/2020 Kemi Coulter [id number] Kemi Coulter is a 84 year old /White female was admitted on 04/19/[address] She was discharged on 04/21/20 with discharge disposition of HR- Routine Discharge. Admitting Physician: Jyoti Shannon Discharge Diagnosis: pSVT and orthostatic hypotension Linked Episodes Type: Episode: Status: Noted: Resolved: Last update: Updated by: TRANSITION OF CARE TCM Active 04/24/2020 04/24/2020 8:48 AM Nadia Ford RN Comments: TCM Izy-mnvv-rr-face outreach documentation: Discharge Assessment Chart Assessed: 04/24/20 TCM Outreach Completed: 04/24/20 Do you have a few minutes to speak with me about how you are doing at home?: Yes(Pt reports doing "pretty good".) Pt report still feeling weak and having an episode of "weakness last night". Pt reports feeling better today, BP 137/68 HR 101. Pt reports taking metoprolol as directed, will continue monitoring BP andwill call PCP today to scheduled appointment. Pt reports daughter is taking care of patient at home.Denies any questions/concerns at this time. Discharge Instructions Do you understand your at-home instructions?: Yes Medications Have you filled your prescriptions and do you have them in your home? : Yes(Pt reports having meds at home and taking as directed. Denies any questions/concerns at this time.) Do you know how to take your medications?: Yes Can you provide me with the names or descriptions of any eswu-glf-zykkqlg or supplements you are currently taking?: Patient declined Supplies Did you receive applicable home medical supplies/equipment?: N/A Follow Up Appointment Has a follow up appointment been scheduled?: No(Pt will call today and schedule.) May I assist with scheduling this appointment?: Patient has outside PCP Do you have any questions about your follow up appointments?: No Are you able to get to your appointment? Who will be taking you?: Yes(Daughter) Home Health Assistance Has the home health nurse contacted you since you've been home?: N/A Survey - Recognition Is there anything you would like to share about your recent hospitalization, or anyone you would like to recognize?: No Do you have any suggestions for improvement?: No Do you have any other questions or concerns at this time?: No JUAN PABLO Mccall, RN-BC, CCRN Transition Food Service Substitute Nurse Clinician IV Transitions of Care Management Team Office: [phone] [email or web address] documented in this encounter Plan of Treatment Health Maintenance Due Date Last Done Comments Depression Screening 1947 DTaP,Tdap,and Td Vaccines (1 - Tdap) 1953 Zoster Recombinant Vaccine (SHINGRIX) (1 of 2) 1984 Medicare Wellness Visit 10/01/1999 Osteoporosis Screening 10/01/1999 PNEUMOCOCCAL VACCINES 65+ (1 of 1 - PPSV23) 10/01/1999 INFLUENZA VACCINE (#1) 2020 documented as of this encounter Results Not on filedocumented in this encounter Insurance Payer Benefit Plan Subscriber ID Effective Phone Address Typ e / Group Dates AETNA - AETNA [id number] 2018-Ever [place] [employer] are Adv MANAGED MEDICARE ADV nt [id number] [place] [address] documented as of this encounter
--- NOTE | 2020-04-26 11:19 | RAD REPORT ---
EXAM DESCRIPTION: CT - Ct Stroke Brain Wo Cont - 04/26/2020 10:37 am CLINICAL HISTORY: DIZZINESS Headache, drowsiness, CVA symptomology COMPARISON: Head Brain Wo Cont dated 06/17/2019; HEAD BRAIN W O CONTRAST dated 10/07/2012 TECHNIQUE: All CT scans are performed using dose optimization technique as appropriate and may inclu de automated exposure control or mA/KV adjustment according to patient size. FINDINGS: No intracranial hemorrhage, hydrocephalus or extra-axial fluid collection.Mild periventric ular and deep white matter chronic microvascular ischemia.No areas of brain edema or evidence of midl ine shift. The paranasal sinuses and mastoids are clear. The calvarium is intact. IMPRESSION: No acute intracranial abnormality. The findings were discussed with Jaci choudhury in the ER on 04/26/2020 at 10:30 a.m. by telephone.
[2020-04-26 11:20] LABS: Absolute Lymphocytes (CBC) 1.2 K/uL (0.7-4.9); Basophils % 0.2 % (0-1.3); Hematocrit 34.6 % (36.0-45.0); Lymphocytes % 23.5 % (15.3-44.8); MPV 8.3 fL (7.6-11.3); RBC Red Blood Cell Count 3.76 M/uL (3.86-4.86)
[2020-04-26 11:23] LABS: Protime INR 1.19
--- NOTE | 2020-04-26 12:01 | RAD REPORT ---
EXAM DESCRIPTION: MRI - Brain W/Wo Cont - 04/26/2020 11:44 am CLINICAL HISTORY: dizziness Headache, drowsiness, CVA symptomology COMPARISON: MRA Head Wo Cont dated 04/26/2020 TECHNIQUE: Multi-sequence, multiplanar MR imaging of the brain was performed with contrast. FINDINGS: No intracranial hemorrhage, hydrocephalus, or extra-axial fluid collection.Mild periventri cular and deep white matter chronic microvascular ischemic changes. No edema or shift of midline stru ctures. No intracranial mass. DWI is negative for acute CVA. The midline structures are normally formed. Mastoid air cells and paranasal sinuses are clear. Post-contrast images show no abnormal enhancement to suggest tumor or infection. IMPRESSION: Negative for acute CVA or other acute intracranial abnormality. No pathologic post-contrast enhancement suspected.
--- NOTE | 2020-04-26 12:05 | RAD REPORT ---
EXAM DESCRIPTION: MRI - MRA Head Wo Cont - 04/26/2020 11:26 am CLINICAL HISTORY: DIZZINESS CVA COMPARISON: Ct Stroke Brain Wo Cont dated 04/26/2020 FINDINGS: 3D noncontrast [id number] MR angiography of the [place] was performed. No aneurysm, flow-limiting stenosis or vascular malformation is seen. Forward flow seen in codominant vertebral arteries. The visualized dural venous sinuses appear patent. IMPRESSION: No significant flow abnormality of the [place] is identified.
--- NOTE | 2020-04-26 12:21 | RAD REPORT ---
EXAM DESCRIPTION: MRI - MRA Neck W/Wo Cont - 04/26/2020 11:45 am CLINICAL HISTORY: dizziness Headache, drowsiness, CVA symptomology COMPARISON: No comparisons FINDINGS: Contrast enhance 2D [id number] MR angiography of the neck vessels was performed. A left aortic arch is noted. Both subclavian arteries and common carotid arteries are widely patent. Narrowing of the right carotid bulb is noted compatible with stenosis, estimated at 70-80% based on N ASCET criteria. Mild narrowing of the left carotid bulb is seen estimated at less than 50%. Antegrade flow is seen in both vertebral arteries. IMPRESSION: Moderate stenosis of the right carotid bulb is seen estimated at 70-80 %.
[2020-04-26 12:36] LABS: Blood Morphology Comment NOT SEEN (NOT SEEN); Platelet Estimate ADEQ
[2020-04-26] MEDS ORDERED: NA CHLORIDE 0.9% 250 ML ONE (12:45)
--- NOTE | 2020-04-26 12:47 | EDPHYS ---
Physician Documentation [facility] Name: Kemi Coulter Age: 84 yrs Sex: Female : 1935 Arrival Date: 04/26/2020 Time: 10:27 Bed 20 Private MD: Kevyn Manzanares HPI: 04/26 10:59 This 84 yrs old Female presents to ER via EMS with complaints of dizziness. snw 10:59 The patient presents with dizziness. Onset: The symptoms/episode began/occurred snw gradually, 2 week(s) ago, and became worse this morning, 0200 when pt was awoken by significant midline chest pain with dizziness. Context: occurred at home, occurred while the patient was at rest. Associated signs and symptoms: Pertinent positives: chest pain. Severity of symptoms: At their worst the symptoms were moderate severe in the emergency department the symptoms have improved mildly. Patient's baseline: Neuro: alert and fully oriented, Motor: no deficits, Ambulation: walks without assistance, Speech: normal, The patient has a previous history of CVA. The patient has experienced a previous episode, approximately 2 weeks ago. The patient has been recently seen by a physician: with similar presenting complaints. Historical: - Allergies: 10:58 Levaquin; zb - Home Meds: 10:58 aspirin 81 mg Oral TbEC 1 tab once daily [Active]; citalopram 20 mg tab 1 tab once zb daily [Active]; levothyroxine 88 mcg tab 1 tab once daily [Active]; Seroquel 300 mg Oral tab 1 tab once daily [Active]; Dilantin 100 mg Oral cap nightly [Active]; metoprolol tartrate 25 mg Oral tab 1 tab 2 times per day [Active]; simvastatin 10 mg oral tab 2 tabs [Active]; temazepam 30 mg Oral cap 1 cap once daily [Active]; - PMHx: 10:58 Arthritis; CVA; Depression; Hypertension; ibs; zb - PSHx: 10:58 hemorrhoids; Hysterectomy; Hernia repair; colon resection; Cholecystectomy; zb - Immunization history:: Adult Immunizations up to date. - Social history:: Smoking status: unknown. ROS: 10:57 Constitutional: Negative for fever, chills, and weight loss, Eyes: Negative for injury, snw pain, redness, and discharge, ENT: Negative for injury, pain, and discharge, Neck: Negative for injury, pain, and swelling, Cardiovascular: Negative for chest pain, palpitations, and edema, Respiratory: Negative for shortness of breath, cough, wheezing, and pleuritic chest pain, Abdomen/GI: Negative for abdominal pain, nausea, vomiting, diarrhea, and constipation, Back: Negative for injury and pain, : Negative for injury, bleeding, discharge, and swelling, MS/Extremity: Negative for injury and deformity, Skin: Negative for injury, rash, and discoloration, Psych: Negative for depression, anxiety, suicide ideation, homicidal ideation, and hallucinations. 10:57 Neuro: Positive for dizziness. Exam: 10:56 Constitutional: This is a well developed, well nourished patient who is awake, alert, snw and in no acute distress. Head/Face: Normocephalic, atraumatic. Eyes: Pupils equal round and reactive to light, extra-ocular motions intact. Lids and lashes normal. Conjunctiva and sclera are non-icteric and not injected. Cornea within normal limits. Periorbital areas with no swelling, redness, or edema. ENT: Nares patent. No nasal discharge, no septal abnormalities noted. Tympanic membranes are normal and external auditory canals are clear. Oropharynx with no redness, swelling, or masses, exudates, or evidence of obstruction, uvula midline. Mucous membranes moist. Neck: Trachea midline, no thyromegaly or masses palpated, and no cervical lymphadenopathy. Supple, full range of motion without nuchal rigidity, or vertebral point tenderness. No Meningismus. Chest/axilla: Normal chest wall appearance and motion. Nontender with no deformity. No lesions are appreciated. Cardiovascular: Regular rate and rhythm with a normal S1 and S2. No gallops, murmurs, or rubs. Normal PMI, no JVD. No pulse deficits. Respiratory: Lungs have equal breath sounds bilaterally, clear to auscultation and percussion. No rales, rhonchi or wheezes noted. No increased work of breathing, no retractions or nasal flaring. Abdomen/GI: Soft, non-tender, with normal bowel sounds. No distension or tympany. No guarding or rebound. No evidence of tenderness throughout. Back: No spinal tenderness. No costovertebral tenderness. Full range of motion. Skin: Warm, dry with normal turgor. Normal color with no rashes, no lesions, and no evidence of cellulitis. MS/ Extremity: Pulses equal, no cyanosis. Neurovascular intact. Full, normal range of motion. Neuro: Awake and alert, GCS 15, oriented to person, place, time, and situation. Cranial nerves II-XII grossly intact. Motor strength 5/5 in all extremities. Sensory grossly intact. Cerebellar exam normal. Normal gait. Vital Signs: 10:48 BP 128 / 109; Pulse 81; Resp 16; Temp 96.9; Pulse Ox 97% on R/A; Pain 0/10; zb 11:30 BP 123 / 78; Pulse 87; Resp 16; Pulse Ox 95% on R/A; zb 12:10 BP 147 / 92; Pulse 84; Resp 18; Pulse Ox 100% on R/A; zb 14:20 BP 158 / 92; Pulse 84; Resp 16; Pulse Ox 100% on R/A; zb 15:40 BP 144 / 98; Pulse 99; Resp 18; Pulse Ox 99% on R/A; zb NIH Stroke Scale Scores: 10:30 NIHSS Score: 0 zb 10:56 NIHSS Score: 0 snw MDM: 10:31 Patient medically screened. snw 10:58 Data reviewed: vital signs, nurses notes. Data interpreted: Pulse oximetry: on room air snw is 97 %. Interpretation: normal. ED course: CT negative per Dr. London.. 12:46 Physician consultation: A Katrina RICO was called at 12:46, was contacted at 12:46, snw regarding admission, to the telemetry unit. 04/26 10:31 Order name: Hepatic Function w 04/26 10:31 Order name: Ckmb snw 04/26 10:31 Order name: Lipase snw 04/26 10:31 Order name: Magnesium snw 04/26 10:31 Order name: Troponin (emerg Dept Use Only); Complete Time: 13:01 snw 04/26 10:31 Order name: Basic Metabolic Panel; Complete Time: 13:01 w 04/26 13:43 Interpretation: K 3.5. snw 04/26 10:31 Order name: CBC with Diff; Complete Time: 12:41 snw 04/26 10:31 Order name: Protime (+inr); Complete Time: 11:34 snw 04/26 10:31 Order name: Ptt, Activated; Complete Time: 11:34 snw 04/26 10:32 Order name: Liver (Hepatic) Function; Complete Time: 13:01 EDMS 04/26 10:32 Order name: CKMB Creatine Kinase MB; Complete Time: 13:01 EDMS 04/26 10:32 Order name: Lipase; Complete Time: 13:01 EDMS 04/26 10:32 Order name: Magnesium; Complete Time: 13:01 EDMS 04/26 10:57 Order name: Glucose, Ancillary Testing; Complete Time: 10:57 EDMS 04/26 10:31 Order name: CT Stroke Brain w/o Contrast; Complete Time: 11:34 snw 04/26 10:31 Order name: Stroke CXR 1 View; Complete Time: 13:43 snw 04/26 11:07 Order name: CREATININE WHOLE BLOOD; Complete Time: 11:10 EDMS 04/26 11:13 Order name: MRA Head Wo Cont; Complete Time: 12:06 EDMS 04/26 11:15 Order name: MRA Neck W/Wo Cont; Complete Time: 12:22 EDMS 04/26 12:36 Order name: Manual Differential; Complete Time: 12:41 EDMS 04/26 14:58 Order name: Basic Metabolic Panel EDMS 04/26 14:58 Order name: Basic Metabolic Panel EDMS 04/26 14:58 Order name: CBC with Automated Diff EDMS 04/26 14:58 Order name: CBC with Automated Diff EDMS 04/26 14:58 Order name: Troponin I EDNC 04/26 14:58 Order name: Troponin I EDMS 04/26 14:58 Order name: Troponin I EDMS 04/26 15:12 Order name: SARS-COV-2 RT PCR; Complete Time: 15:12 EDMS 04/26 10:31 Order name: EKG; Complete Time: 10:32 snw 04/26 10:31 Order name: Accucheck; Complete Time: 10:47 snw 04/26 10:31 Order name: Cardiac monitoring; Complete Time: 10:47 snw 04/26 10:31 Order name: EKG - Nurse/Tech; Complete Time: 10:47 snw 04/26 10:31 Order name: IV Saline Lock; Complete Time: 10:47 snw 04/26 10:31 Order name: Labs collected and sent; Complete Time: 10:47 snw 04/26 10:31 Order name: NPO; Complete Time: 10:47 snw 04/26 10:31 Order name: O2 Per Protocol; Complete Time: 10:47 snw 04/26 10:31 Order name: O2 Sat Monitoring; Complete Time: 10:47 snw 04/26 10:31 Order name: Stroke Swallow Screen; Complete Time: 10:47 snw 04/26 11:15 Order name: Brain W/Wo Cont; Complete Time: 12:05 EDMS 04/26 11:22 Order name: Labs - recollect needed: recollect c7; Complete Time: 12:15 bd 04/26 14:58 Order name: CONS Physician Consult EDMS 04/26 14:58 Order name: Regular EDMS 04/26 14:58 Order name: Echo with Doppler EDMS 04/26 14:58 Order name: EKG Electrocardiogram EDMS 04/26 14:58 Order name: EKG Electrocardiogram EDMS 04/26 14:58 Order name: EKG Electrocardiogram EDMS 04/26 14:58 Order name: EKG Electrocardiogram EDMS Administered Medications: 13:30 Drug: Metoprolol 25 mg Route: PO; zb 14:00 Follow up: Response: No adverse reaction zb 14:47 Drug: Ativan 0.5 mg Route: IVP; Site: left forearm; zb 15:40 Follow up: Response: No adverse reaction zb 14:48 Drug: Eliquis 5 mg Route: PO; zb 15:00 Follow up: Response: No adverse reaction zb Point of Care Testing: Blood Glucose: 10:30 Blood Glucose: 99 mg/dL; jd3 Ranges: Critical Glucose Levels:Adult <50 mg/dl or >400 mg/dl <40 mg/dl or >180 mg/dl Disposition: 04/27 10:07 Co-signature as Attending Physician, Kevyn Miranda MD I agree with the assessment and ean plan of care. Disposition: 04/26/20 12:46 Hospitalization ordered by Karson Herndon for Inpatient Admission. Preliminary diagnosis are Dizziness and giddiness, Right carotid stenosis, Atrial fibrillation and flutter. - Bed requested for Telemetry/MedSurg (Inpatient). - Status is Inpatient Admission. zb - Condition is Stable. - Problem is an acute exacerbation. - Symptoms have worsened. NIH Stroke Scale - NIH Stroke Score Date: 04/26/2020 Time: 10:30 Total Score = 0 1a. Level of Consciousness (LOC) - 0(Alert) 1b. Level of Consciousness (LOC) (Year \T\ Age) - 0(Both) 1c. LOC Commands (Open \T\ Closes Eyes/Gift Basket Packer) - 0(Both) 2. Best Gaze (Lateral Gaze Paresis) - 0(Normal) 3. Visual Field Loss - 0(No visual loss) 4. Facial Palsy - 0(Normal) 5a. Left Arm: Motor (10-second hold) - 0(No drift) 5b. Right Arm: Motor (10-second hold) - 0(No drift) 6a. Left Leg: Motor (5-second hold - always test supine) - 0(No drift) 6b. Right Leg: Motor (5-second hold - always test supine) - 0(No drift) 7. Limb Ataxia (finger/nose \T\ heel/mcneil - test with eyes open) - 0(Absent) 8. Sensory Loss (pinprick arms/legs/face) - 0(Normal) 9. Best Language: Aphasia (description/naming/reading) - 0(No aphasia) 10. Dysarthria (speech clarity - read or repeat words) - 0(Normal) 11. Extinction and Inattention (visual/tactile/auditory/spatial/personal) - 0(No abnormality) Initials: zb NIH Stroke Scale - NIH Stroke Score Date: 04/26/2020 Time: 10:56 Total Score = 0 1a. Level of Consciousness (LOC) - 0(Alert) 1b. Level of Consciousness (LOC) (Year \T\ Age) - 0(Both) 1c. LOC Commands (Open \T\ Closes Eyes/Gift Basket Packer) - 0(Both) 2. Best Gaze (Lateral Gaze Paresis) - 0(Normal) 3. Visual Field Loss - 0(No visual loss) 4. Facial Palsy - 0(Normal) 5a. Left Arm: Motor (10-second hold) - 0(No drift) 5b. Right Arm: Motor (10-second hold) - 0(No drift) 6a. Left Leg: Motor (5-second hold - always test supine) - 0(No drift) 6b. Right Leg: Motor (5-second hold - always test supine) - 0(No drift) 7. Limb Ataxia (finger/nose \T\ heel/mcneil - test with eyes open) - 0(Absent) 8. Sensory Loss (pinprick arms/legs/face) - 0(Normal) 9. Best Language: Aphasia (description/naming/reading) - 0(No aphasia) 10. Dysarthria (speech clarity - read or repeat words) - 0(Normal) 11. Extinction and Inattention (visual/tactile/auditory/spatial/personal) - 0(No abnormality) Initials: snw Signatures: Dispatcher [employer] [facility] Lani Lewis Kimberly, RN Kevyn Chaudhary MD MD cha Waters, Shelly, VERIFICATION REP-C VERIFICATION REP-Csnw Nan Downs RN RN zb Corrections: (The following items were deleted from the chart) 04/26 11:13 10:32 MR STROKE PROTOCOL+MRI.RAD.BRZ ordered. [facility] 14:07 12:46 Hospitalization Ordered by A Katrina RICO for Inpatient Admission. Preliminary snw diagnosis is Dizziness and giddiness; Palpitations; Right carotid stenosis. Bed requested for Telemetry/MedSurg (Inpatient). Status is Inpatient Admission. Condition is Stable. Problem is an acute exacerbation. Symptoms have worsened. [facility] 14:15 13:01 CORONAVIRUS+MR.LAB.BRZ ordered. [facility] EDNC 15:28 14:07 04/26/2020 12:46 Hospitalization Ordered by A Katrina RICO for Inpatient kl Admission. Preliminary diagnosis is Dizziness and giddiness; Right carotid stenosis; Atrial fibrillation and flutter. Bed requested for Telemetry/MedSurg (Inpatient). Status is Inpatient Admission. Condition is Stable. Problem is an acute exacerbation. Symptoms have worsened. snw 17:26 15:28 04/26/2020 12:46 Hospitalization Ordered by A Katrina RICO for Inpatient zb Admission. Preliminary diagnosis is Dizziness and giddiness; Right carotid stenosis; Atrial fibrillation and flutter. Bed requested for Telemetry/MedSurg (Inpatient). Status is Inpatient Admission. Condition is Stable. Problem is an acute exacerbation. Symptoms have worsened. kl
--- NOTE | 2020-04-26 12:47 | ER ---
Nurse's Notes [facility] Name: Kemi Coulter Age: 84 yrs Sex: Female : 1935 Arrival Date: 04/26/2020 Time: 10:27 Bed 20 Private MD: Diagnosis: Dizziness and giddiness;Right carotid stenosis;Atrial fibrillation and flutter Presentation: 04/26 10:48 Chief complaint: EMS states: pt started experiencing dizziness continuously since 2 am zb this morning. EMS states blood pressure was 92 systolic and dropped to 80's systolic when standing. hx of high blood pressure medication, takes HTN medication but was switched due to dizziness. hx of strokes. Van score negative. Coronavirus screen: At this time, the client does not indicate any symptoms associated with coronavirus-19. Ebola Screen: No symptoms or risks identified at this time. No acute neurological deficit is noted. The patients blood glucose was checked before arriving to the hospital and was found to be normal. Initial Sepsis Screen: Does the patient meet any 2 criteria? No. Patient's initial sepsis screen is negative. Does the patient have a suspected source of infection? No. Patient's initial sepsis screen is negative. Risk Assessment: Do you want to hurt yourself or someone else? Patient reports no desire to harm self or others. Onset of symptoms was April 26, 2020. 10:48 Method Of Arrival: EMS: [facility] zb 10:48 Acuity: CORDELL 3 zb Triage Assessment: 10:58 The onset of the patients symptoms was more than six hours ago. General: Appears in no zb apparent distress. comfortable, Behavior is calm, cooperative, appropriate for age. Pain: Denies pain. EENT: No signs and/or symptoms were reported regarding the EENT system. Neuro: Level of Consciousness is awake, alert, obeys commands, Oriented to person, place, time, situation, Prototype Carpenter are equal bilaterally Moves all extremities. Gait is steady, Speech is normal, Facial symmetry appears normal, Pupils are PERRLA, Intact Reports dizziness, since 2 am this morning. Cardiovascular: Patient's skin is warm and dry. Pulses. Respiratory: Airway is patent Respiratory effort is even, unlabored, Respiratory pattern is regular, symmetrical. GI: No signs and/or symptoms were reported involving the gastrointestinal system. : No signs and/or symptoms were reported regarding the genitourinary system. Derm: Skin is intact, is healthy with good turgor, Skin is dry, Skin is normal. Musculoskeletal: Circulation, motion, and sensation intact. Range of motion: intact in all extremities. 17:25 The onset of the patients symptoms was April 26, 2020 at 02:00. zb Stroke Activation: Symptom onset > 6 hours Physician: Stroke Attending; Name: ; Notified At: ; Arrived At: Physician: Chief Stroke Resident; Name: ; Notified At: ; Arrived At: Physician: Stroke Resident; Name: ; Notified At: ; Arrived At: Physician: ED Attending; Name: Dr. Miranda/ Jaci FROG SHAKER; Notified At: 10:19; Arrived At: 10:19 Physician: ED Resident; Name: ; Notified At: ; Arrived At: Historical: - Allergies: 10:58 Levaquin; zb - Home Meds: 10:58 aspirin 81 mg Oral TbEC 1 tab once daily [Active]; citalopram 20 mg tab 1 tab once zb daily [Active]; levothyroxine 88 mcg tab 1 tab once daily [Active]; Seroquel 300 mg Oral tab 1 tab once daily [Active]; Dilantin 100 mg Oral cap nightly [Active]; metoprolol tartrate 25 mg Oral tab 1 tab 2 times per day [Active]; simvastatin 10 mg oral tab 2 tabs [Active]; temazepam 30 mg Oral cap 1 cap once daily [Active]; - PMHx: 10:58 Arthritis; CVA; Depression; Hypertension; ibs; zb - PSHx: 10:58 hemorrhoids; Hysterectomy; Hernia repair; colon resection; Cholecystectomy; zb - Immunization history:: Adult Immunizations up to date. - Social history:: Smoking status: unknown. Screenin:30 Abuse screen: Denies threats or abuse. Denies injuries from another. Nutritional zb screening: No deficits noted. Tuberculosis screening: No symptoms or risk factors identified. Fall Risk Fall in past 12 months (25 points). Secondary diagnosis (15 points) CVA, IV access (20 points). Ambulatory Aid- None/Bed Rest/Nurse Assist (0 pts). Gait- Weak (10 pts.). Mental Status- Oriented to own ability (0 pts). Total Ramachandran Fall Scale indicates High Risk Score (45 or more points). Fall prevention measures have been instituted. Side Rails Up X 2 Placed Close to Nursing Station Frequent Obs/Assessments Occuring Family Present and informed to notify staff if the need to leave the bedside As available patient and family educated on Fall Prevention Program and Strategies. Assessment: 10:30 VAN Scoring: Arm Drift: Patients demonstrates NO arm weakness. Patient is VAN Negative. zb Patient has been NPO before screening. The patient is alert, and able to follow commands. The patient does not exhibit slurred or garbled speech. The patient is not exhibiting difficulty speaking. The patient does not exhibit difficulty understanding words. The patient is able to swallow own secretions with no drooling or need for suction. Patient tolerated one teaspoon of water. No drooling, immediate coughing, gurgling, or clearing of the throat was noted. The patient tolerated 90mL of water. No drooling, immediate coughing, gurgling, or clearing of the throat was noted. The patient passed the bedside swallow screening. Oral medications may be given as ordered. Contact Physician for further diet orders. 10:30 Provider notified of bedside swallow screening results: Jaci Navarro LEAD CARE MANAGER-C. jd3 10:30 T-PA (Activase) Screening: Contraindications: Patient reports onset of signs and jd3 symptoms of stroke greater than 6 hours ago:. 10:45 General: Appears in no apparent distress. uncomfortable, Behavior is calm, cooperative, zb appropriate for age. Pain: Denies pain. Neuro: Level of Consciousness is awake, alert, obeys commands, Oriented to person, place, time, situation, Prototype Carpenter are equal bilaterally Moves all extremities. Gait is unsteady, Speech is normal, Facial symmetry appears normal, Pupils are PERRLA, Intact Reports dizziness. Cardiovascular: Capillary refill < 3 seconds in bilateral fingers Patient's skin is warm and dry. Pulses are all present. Respiratory: Airway is patent Respiratory effort is even, unlabored, Respiratory pattern is regular, symmetrical. GI: Abdomen is round non-distended. : No signs and/or symptoms were reported regarding the genitourinary system. EENT: No signs and/or symptoms were reported regarding the EENT system. Derm: Skin is intact, is thin, Skin is normal. Musculoskeletal: Circulation, motion, and sensation intact. Capillary refill < 3 seconds, in bilateral Range of motion: intact in all extremities. 11:45 Reassessment: Patient appears in no apparent distress at this time. Patient and/or zb family updated on plan of care and expected duration. Pain level reassessed. Patient is alert, oriented x 3, equal unlabored respirations, skin warm/dry/pink. family at bedside. pt c/o of dizzy spells/ heart rated elevates during period of dizziness between 130-160. ECP notified. 12:45 Reassessment: Patient appears in no apparent distress at this time. Patient and/or zb family updated on plan of care and expected duration. Pain level reassessed. Patient is alert, oriented x 3, equal unlabored respirations, skin warm/dry/pink. bedside commode placed in pt room. pt assisted to restroom. family at bedside. 13:45 Reassessment: Patient appears in no apparent distress at this time. Patient and/or zb family updated on plan of care and expected duration. Pain level reassessed. Patient is alert, oriented x 3, equal unlabored respirations, skin warm/dry/pink. pt continues to experience dizzy spells provider aware. pt covid swabbed. 14:45 Reassessment: Patient appears in no apparent distress at this time. Patient and/or zb family updated on plan of care and expected duration. Pain level reassessed. Patient is alert, oriented x 3, equal unlabored respirations, skin warm/dry/pink. pt assisted to bedside commode. family remains at bedside. 15:36 Reassessment: Patient appears in no apparent distress at this time. Patient and/or zb family updated on plan of care and expected duration. Pain level reassessed. Patient is alert, oriented x 3, equal unlabored respirations, skin warm/dry/pink. pt continues to experience dizzy spells. assisted to restroom. family remains at bedside. 17:00 Reassessment: Patient appears in no apparent distress at this time. Patient and/or zb family updated on plan of care and expected duration. Pain level reassessed. Patient is alert, oriented x 3, equal unlabored respirations, skin warm/dry/pink. family at bedside. pt awaiting admission. ECP discussed need for admission. patient verbalized understand. Vital Signs: 10:48 BP 128 / 109; Pulse 81; Resp 16; Temp 96.9; Pulse Ox 97% on R/A; Pain 0/10; zb 11:30 BP 123 / 78; Pulse 87; Resp 16; Pulse Ox 95% on R/A; zb 12:10 BP 147 / 92; Pulse 84; Resp 18; Pulse Ox 100% on R/A; zb 14:20 BP 158 / 92; Pulse 84; Resp 16; Pulse Ox 100% on R/A; zb 15:40 BP 144 / 98; Pulse 99; Resp 18; Pulse Ox 99% on R/A; zb NIH Stroke Scale Scores: 10:30 NIHSS Score: 0 zb 10:56 NIHSS Score: 0 snw ED Course: 10:27 Patient arrived in ED. iw 10:30 Jaci Navarro FNP-C is PHCP. snw 10:30 Kevyn Mrianda MD is Attending Physician. snw 10:30 Maintain EMS IV. Dressing intact. Good blood return noted. Site clean \T\ dry. Gauge \T\ zb site: 20G RFA. 10:37 CT Stroke Brain w/o Contrast In Process Unspecified. EDMS 10:48 Nan Downs, RN is Primary Nurse. zb 10:54 Triage completed. zb 11:00 Arm band placed on. zb 11:25 MRA Head Wo Cont In Process Unspecified. EDMS 11:44 MRA Neck W/Wo Cont In Process Unspecified. EDMS 11:44 Brain W/Wo Cont In Process Unspecified. EDMS 12:10 EKG done, by ED staff. zb 12:44 Stroke CXR 1 View In Process Unspecified. EDMS 12:44 Karson Herndon MD is Hospitalizing Provider. snw 13:10 COVID swab sent to lab. zb 14:11 Patient has correct armband on for positive identification. Bed in low position. Call jd3 light in reach. Side rails up X2. Adult w/ patient. property assessment monitor on. Pulse ox on. NIBP on. 17:21 No provider procedures requiring assistance completed. Patient admitted, IV remains in zb place. Administered Medications: 13:30 Drug: Metoprolol 25 mg Route: PO; zb 14:00 Follow up: Response: No adverse reaction zb 14:47 Drug: Ativan 0.5 mg Route: IVP; Site: left forearm; zb 15:40 Follow up: Response: No adverse reaction zb 14:48 Drug: Eliquis 5 mg Route: PO; zb 15:00 Follow up: Response: No adverse reaction Point of Care Testing: Blood Glucose: 10:30 Blood Glucose: 99 mg/dL; jd3 Ranges: Outcome: 12:46 Decision to Hospitalize by Provider. snw 17:21 Admitted to Med/surg accompanied by tech, family with patient, via wheelchair, room zb 230, with chart, Other EKG Report called to HAL Rodney 17:21 Condition: stable 17:21 Instructed on the need for admit, Demonstrated understanding of follow-up care. 17:26 Patient left the ED. NIH Stroke Scale - NIH Stroke Score Date: 04/26/2020 Time: 10:30 Total Score = 0 1a. Level of Consciousness (LOC) - 0(Alert) 1b. Level of Consciousness (LOC) (Year \T\ Age) - 0(Both) 1c. LOC Commands (Open \T\ Closes Eyes/Design Studio Consultant) - 0(Both) 2. Best Gaze (Lateral Gaze Paresis) - 0(Normal) 3. Visual Field Loss - 0(No visual loss) 4. Facial Palsy - 0(Normal) 5a. Left Arm: Motor (10-second hold) - 0(No drift) 5b. Right Arm: Motor (10-second hold) - 0(No drift) 6a. Left Leg: Motor (5-second hold - always test supine) - 0(No drift) 6b. Right Leg: Motor (5-second hold - always test supine) - 0(No drift) 7. Limb Ataxia (finger/nose \T\ heel/mcneil - test with eyes open) - 0(Absent) 8. Sensory Loss (pinprick arms/legs/face) - 0(Normal) 9. Best Language: Aphasia (description/naming/reading) - 0(No aphasia) 10. Dysarthria (speech clarity - read or repeat words) - 0(Normal) 11. Extinction and Inattention (visual/tactile/auditory/spatial/personal) - 0(No abnormality) Initials: zb NIH Stroke Scale - NIH Stroke Score Date: 04/26/2020 Time: 10:56 Total Score = 0 1a. Level of Consciousness (LOC) - 0(Alert) 1b. Level of Consciousness (LOC) (Year \T\ Age) - 0(Both) 1c. LOC Commands (Open \T\ Closes Eyes/Design Studio Consultant) - 0(Both) 2. Best Gaze (Lateral Gaze Paresis) - 0(Normal) 3. Visual Field Loss - 0(No visual loss) 4. Facial Palsy - 0(Normal) 5a. Left Arm: Motor (10-second hold) - 0(No drift) 5b. Right Arm: Motor (10-second hold) - 0(No drift) 6a. Left Leg: Motor (5-second hold - always test supine) - 0(No drift) 6b. Right Leg: Motor (5-second hold - always test supine) - 0(No drift) 7. Limb Ataxia (finger/nose \T\ heel/mcneil - test with eyes open) - 0(Absent) 8. Sensory Loss (pinprick arms/legs/face) - 0(Normal) 9. Best Language: Aphasia (description/naming/reading) - 0(No aphasia) 10. Dysarthria (speech clarity - read or repeat words) - 0(Normal) 11. Extinction and Inattention (visual/tactile/auditory/spatial/personal) - 0(No abnormality) Initials: snw Signatures: Dispatcher [employer] EDMS Jaci Navarro, LEAD CARE MANAGER-C LEAD CARE MANAGER-Csnw Iesha Trujillo RN RN iw Davies, Jonathon, RN RN jd3 Brown, Zipporah, RN RN zb Corrections: (The following items were deleted from the chart) 15:42 11:45 Reassessment: Patient appears in no apparent distress at this time. zb Patient and/or family updated on plan of care and expected duration. Pain level reassessed. Patient is alert, oriented x 3, equal unlabored respirations, skin warm/dry/pink. family at bedside. pt c/o of dizzy spells. ECP notified. zb
[2020-04-26 12:54] LABS: ALT/SGPT 22 U/L (12-78); AST/SGOT 28 U/L (15-37); Albumin 3.2 g/dL (3.4-5.0); Alkaline Phosphatase 64 U/L (45-117); BUN Blood Urea Nitrogen 15 mg/dL (7-18); Bicarbonate 24 mmol/L (21-32); Bilirubin Direct < 0.1 mg/dL (0-0.2); Bilirubin Total 0.3 mg/dL (0.2-1.0); CKMB Creatine Kinase MB < 1.0 ng/mL (0.3-3.6); Glucose Level 91 mg/dL (74-106); Lipase 191 U/L (73-393); Potassium 3.5 mmol/L (3.5-5.1); Protein, Total 7.1 g/dL (6.4-8.2); Sodium Level 142 mmol/L (136-145); Troponin (Emerg Dept Use Only) < 0.02 ng/mL (0.0-0.045)
--- NOTE | 2020-04-26 13:11 | RAD REPORT ---
EXAM DESCRIPTION: Teresa Single View04/26/2020 12:43 pm CLINICAL HISTORY: Chest pain COMPARISON: September 2019 FINDINGS: The lungs appear clear of acute infiltrate. The heart is normal size IMPRESSION: No acute abnormalities displayed
[2020-04-26] MEDS ORDERED: METOPROLOL TAR 25 MG TAB ONE (13:34)
[2020-04-26] MEDS ORDERED: LORazepam 2 MG/ML VIAL ONE (14:46)
[2020-04-26] MEDS ORDERED: APIXABAN 5 MG TABLET ONE (14:46)
[2020-04-26] MEDS ORDERED: ACETAMINOPHEN 500 MG TAB PO PRN (14:52)
[2020-04-26] MEDS: APIXABAN 5 MG TABLET PO SCH ×2 (17:35→20:28)
[2020-04-26 18:42] VITALS: BMI 25.4
[2020-04-26] MEDS ORDERED: SOTALOL HCL 80 MG TAB PO ONE (20:07)
[2020-04-26] MEDS ORDERED: TEMAZEPAM 30 MG PO SCH (22:00)
[2020-04-26] MEDS ORDERED: SIMVASTATIN 20 MG PO SCH (22:00)
[2020-04-26] MEDS ORDERED: TEMAZEPAM 15 MG CAP PO SCH (22:00)
[2020-04-26] MEDS ORDERED: PHENYTOIN ER 100 MG CAP PO SCH (22:00)
[2020-04-26] MEDS ORDERED: QUETIAPINE FUMARATE 300 MG PO SCH (22:00)
[2020-04-26] MEDS ORDERED: ATORVASTATIN 10 MG TAB PO SCH (22:00)
[2020-04-26] MEDS ORDERED: QUETIAPINE 100MG TAB PO SCH (22:00)
[2020-04-27 04:28] LABS: Absolute Lymphocytes (CBC) 2.2 K/uL (0.7-4.9); Basophils % 0.3 % (0-1.3); Lymphocytes % 39.5 % (15.3-44.8); MPV 8.2 fL (7.6-11.3); RBC Red Blood Cell Count 3.72 M/uL (3.86-4.86)
[2020-04-27 04:55] LABS: Potassium 3.5 mmol/L (3.5-5.1)
[2020-04-27] MEDS: SOTALOL HCL 80 MG TAB PO SCH ×2 (05:04→17:14)
[2020-04-27] MEDS ORDERED: LEVOTHYROXINE SOD 0.1 MG TAB PO SCH (06:00)
--- NOTE | 2020-04-27 08:02 | HP ---
Date of Admission: 04/26/2020 Chief Complaint: Chest pain and headache and dizziness. History Of Present Illness: This is an 84-year-old pleasant female patient, who woke up from her sle ep because of complaints of chest pain in the lower center of her chest and then she felt like she wa s having some headache and felt dizzy at that time. She came into emergency room and she was found t o have atrial fibrillation. This is a new-onset atrial fibrillation. Patient had intermittent atria l fibrillation. While she was in the emergency room, she had episode of atrial fibrillation. She martinez d similar symptoms. After she was evaluated, she was admitted to the hospital, Eliquis was started a nd metoprolol was given. When I saw her, she was in her room. Denied any other complaints. She was asymptomatic when I saw her and was in sinus rhythm at that time. Allergies: LEVAQUIN, CAUSING RASH. Medications: List reviewed. Review of Systems: Cardiovascular: As mentioned above, all other systems reviewed and negative. Past Medical History: Significant for seizure disorder, macular degeneration, hypothyroidism, hypert ension, hyperlipidemia, gastroesophageal reflux disease, diverticulosis, osteoarthritis at multiple s ites, pancytopenia, depression, osteoporosis. Past Surgical History: Significant for appendectomy, cholecystectomy, hemorrhoid surgery, hernia rep air, hysterectomy, and foot surgery. Family History: Father had heart disease and stroke. Mother had Alzheimer disease. Sister had [place] a nd heart disease. Social History: Negative for smoking and alcohol use. Physical Examination: VITAL SIGNS: Temperature 97.2, pulse 91, respiratory rate 19, blood pressure 140/86, height 5 feet 4 inches, weight 148 pounds. General: Awake, alert, oriented, not in distress. HEENT: Head atraumatic, normocephalic. Conjunctivae nonerythematous. Sclerae white. Mouth, no thr ush or edema noted. Ears/Nose, no mass, lesion, discharge noted. Neck: Supple. No JVD, lymph nodes, bruit, thyromegaly noted. Lungs: Bilateral good equal air entry. Clear to auscultation. No rhonchi. No rales. Heart: Normal heart sounds, no murmur or gallop. Abdomen: Soft, bowel sounds normal. No guarding, rigidity, tenderness, mass, hepatosplenomegaly, dis tention, or bruit noted. Extremities: No leg edema. No calf tenderness. Skin: No rash, ulcer, cellulitis. Lymphatics: No lymph node enlargement in neck, supraclavicular, infraclavicular region. Neuro: No focal neurological deficit. Chest: Unremarkable. External Genitalia: Deferred. Rectal: Deferred. Laboratory Data: White count 5.1, hemoglobin 11.8, platelets 148. INR 1.19. Sodium 142, potassium 3.5, chloride 110, bicarb 24, BUN 15, creatinine 0.82, glucose 91. Liver function tests unremarkable . Troponin less than 0.02. TSH 2.130. COVID-19 test negative. Chest x-ray, no acute cardiopulmona ry changes. CAT scan of the head and MRI of the brain was negative for any acute intracranial change s. EKG showing atrial fibrillation. Impression: 1.Atrial fibrillation. 2.Hypokalemia. 3.Hypertension. 4.Hyperlipidemia. 5.Hypothyroidism. 6.Gastroesophageal reflux disease. 7.Diverticulosis. 8.Pancytopenia. 9.Depression. 10.Insomnia. Plan: Admit patient to hospital for further evaluation and management of this problem. Patient is a ppropriate for inpatient and is expected to spend 2 midnights in hospital. We will keep her on telem etry monitor. We will consult Cardiology. We will get echo with Doppler done and details were discu ssed with civil litigation attorney. Eliquis will be continued as anticoagulation therapy, which is 5 mg 2 times a day started and Dr. Lagunas has started her on sotalol 80 mg twice a day and metoprolol was discont inued. We will repeat blood work tomorrow and I will see her tomorrow for followup. Details and kimberly n of treatment discussed with the patient. ANNA/MODL Voice ID: [id number]
[2020-04-27] MEDS: APIXABAN 5 MG TABLET PO SCH ×2 (08:13→20:14)
[2020-04-27] MEDS ORDERED: ASPIRIN EC 81 MG TAB PO SCH (09:00)
[2020-04-27] MEDS ORDERED: CITALOPRAM 40 MG PO SCH (09:00)
[2020-04-27] MEDS: Citalopram 20 MG Tablet PO SCH (14:07)
--- NOTE | 2020-04-27 14:59 | CON ---
Date of Consultation: 04/27/2020 Reason For Consultation: Atrial fibrillation. History Of Present Illness: An 84-year-old female presented to the hospital after she woke up from h er sleep with chest discomfort and being very dizzy. She has been having multiple falls due to signi ficant dizzy attacks and every time that happens, it makes her anxious and feels her heart racing and she gets sweaty and clammy. Denies having any chest pain at the present time. She apparently is on Eliquis and metoprolol. Past Medical History: Hypertension, dyslipidemia, atrial fibrillation. Medications: Refer to reconciliation sheet for detailed list. Allergies: LEVAQUIN. Family History: No premature coronary artery disease or cancer. Social History: Does not smoke or drink. Does not use any drugs. Review of Systems: All systems were reviewed and they were negative except what mentioned in the HPI. Physical Examination: Vital Signs: Temperature is 97.4, pulse 76, breathing 18, blood pressure 132/75, saturating 98%. General: Pleasant elderly female, no apparent distress. Head and neck: Pupils are equal and reactive to light. Intact eye movements. No JVD. No cervical lymphadenopathy. Neck: Supple. Thyroid is not enlarged. Lungs: Clear to auscultation bilaterally. No rhonchi, rales, or crackles. No accessory muscle use. Heart: Regular rate and rhythm. No extra sounds. Abdomen: Soft, nontender. Bowel sounds positive. No organomegaly. No masses or hernia. No rigidi ty or rebound. Extremities: No edema, clubbing, or cyanosis. Intact pulses. Skin: No rash noted. Neurologic: Alert, awake, oriented x3. No acute focal deficits appreciated. Laboratory Data: Troponins are negative. Creatinine 0.87. White blood cell count 5.6, hemoglobin 1 1.6, platelet count is 160. Assessment And Plan: 1.Atrial fibrillation. Now, she is back in sinus rhythm, on sotalol, continue that. Monitor EKG lainey singh for QT interval and the patient is at high risk for stroke due to atrial fibrillation; however, w ith a history of multiple falls, recommend left atrial appendage closure. Meanwhile, she is to be co ntinued on Eliquis until that is set up for the patient. 2.Chest pain. Cardiac enzymes are negative. EKG without acute abnormalities. The patient will nee d an evaluation with stress test, which can be done as an outpatient. I appreciate the courtesy of this consultation. /CORA Voice ID: [id number] Report ID: [id number]
[2020-04-27] MEDS ORDERED: TEMAZEPAM 30 MG PO SCH (21:00)
[2020-04-27] MEDS ORDERED: QUETIAPINE FUMARATE 300 MG PO SCH (21:00)
[2020-04-27] MEDS ORDERED: PHENYTOIN 100 MG PO SCH (21:00)
[2020-04-27] MEDS ORDERED: Simvastatin 20 MG Tablet PO SCH (21:00)
[2020-04-28 00:26] VITALS: O2SAT 99
[2020-04-28] MEDS: SOTALOL HCL 80 MG TAB PO SCH (05:34)
[2020-04-28] MEDS ORDERED: LEVOTHYROXINE 88 MCG PO SCH (06:30)
--- NOTE | 2020-04-28 08:01 | PN ---
Date of Progress Note: 04/27/2020 Subjective: The patient was seen this morning for followup. No new complaints or problems reported by her. She was lying in bed. No chest pain. No palpitation. No shortness of breath, headache, or dizziness. Objective: VITAL SIGNS: Reviewed. HEENT: Examination unremarkable. LUNGS: Clear to auscultation. HEART: Sounds normal. ABDOMEN: Soft. Bowel sounds normal. No guarding, rigidity, tenderness, or distention. EXTREMITIES: No leg edema. Laboratory Data: Reviewed. Impression: 1.Atrial fibrillation. 2.Hypertension. 3.Osteoarthritis, multiple sites. 4.Hypokalemia. Plan: We will go ahead and continue current medications. Continue sotalol. We will follow up with flight operation coordinator. Echo will be done today. We will follow up on results. Continue other current home m edications and we will continue Eliquis. Possible discharge to go home tomorrow. Details were discu ssed with the patient. ANNA/MODL Voice ID: [id number] Report ID: [id number]
[2020-04-28] MEDS: Citalopram 20 MG Tablet PO SCH (08:02)
[2020-04-28] MEDS: APIXABAN 5 MG TABLET PO SCH (08:02)
--- NOTE | 2020-04-28 08:28 | ECHO ---
HEIGHT: 5 ft 4 in WEIGHT: 148 lb 0 oz DATE OF STUDY: 04/27/[address]: Jaci Gabriel RN NEW GRAD-BC 2-DIMENSIONAL: YES M.MODE: YES DOPPLER: YES COLOR FLOW: YES TDS: PORTABLE: DEFINITY: BUBBLE STUDY: DIAGNOSIS: PAROXYSMAL ATRIAL FIBRILLATION, STENOTIC RIGHT CAROTID CARDIAC HISTORY: CATHERIZATION: YES SURGERY: NO PROSTHETIC VALVE: NO PACEMAKER: NO MEASUREMENTS (cm) DIASTOLIC (NORMALS) SYSTOLIC (NORMALS) IVSd 0.9 (0.6-1.2) LA Diam 2.9 (1.9-4.0) LVEF 40% LVIDd 4.7 (3.5-5.7) LVIDs 3.8 (2.0-3.5) %FS 19% LVPWd 1.1 (0.6-1.2) Ao Diam 3.2 (2.0-3.7) 2 DIMENSIONAL ASSESSMENT: RIGHT ATRIUM: NORMAL LEFT ATRIUM: NORMAL RIGHT VENTRICLE: NORMAL LEFT VENTRICLE: DEPRESSED EJECTION FRACTION TRICUSPID VALVE: NORMAL MITRAL VALVE: MILD MITRAL REGURGITATION PULMONIC VALVE: NORMAL AORTIC VALVE: NORMAL PERICARDIAL EFFUSION: NONE AORTIC ROOT: NORMAL LEFT VENTRICULAR WALL MOTION: JOHANN-SEPTAL HYPOKINESIS DOPPLER/COLOR FLOW: SEE BELOW COMMENTS: MILDLY DEPRESSED LEFT VENTRICULAR EJECTION FRACTION OF 40-45%. JOHANN-SEPTAL HYPOKINESIS. MILD MITRAL REGURGITATION. TECHNOLOGIST: SOFIE CARPENTER
[2020-04-28 10:05] VITALS: BP 152/72; TEMP 97.1
--- NOTE | 2020-04-28 11:51 | DS ---
Date of Discharge: 04/28/2020 Disposition: Discharged to go home. Physical Examination: HEENT: Unremarkable. Lungs: Clear to auscultation. Heart: Sounds normal. Abdomen: Soft. Bowel sounds normal. No guarding, rigidity, tenderness, distention. Extremities: No leg edema. Laboratory Data: On 04/26/2020; white count 5.1, hemoglobin 11.8, platelets 148. Yesterday, white c ount 5.6, hemoglobin 11.6, platelets 160. Yesterday, sodium 141, potassium 3.5, chloride 109, bicarb 26, BUN 15, creatinine 0.86, glucose 78. TSH was 2.130. Liver function tests unremarkable. Tropon in less than 0.02. Magnesium level was 2 on 04/26/2020. Discharge Medications And Instructions: 1.Continue all prior home medications except stop metoprolol. 2.Start sotalol 80 mg p.o. 2 times a day and Eliquis 5 mg p.o. 2 times a day. 3.Patient was advised not to take any aspirin, Aleve, or Motrin type of medication while taking Eliq uis. 4.Follow up at my office week after next and follow up with operations research analyst in 1 month per instruction. 5.Patient was given appropriate instruction today when I saw her to avoid any fall especially head i njury and in case of such event of head injury, she should report back to the emergency room for eval uation. Risk and benefit of anticoagulation were explained to her. Risk explained to patient includ ing but not limited to, intracranial hemorrhage, GI bleeding, nosebleed, any hematuria, or any bleedi ng from skin laceration, etc., discussed with her. Patient was advised to take appropriate precautio ns to avoid falls and injuries. Hospital Course: 84-year-old female patient admitted to the hospital with complaints of chest pain, headache and dizziness. Please see dictated H and P for more information. Patient had atrial fibril lation as noted and she was started on sotalol. She did convert to sinus rhythm and remained in sinu s rhythm with this sotalol. Her metoprolol was discontinued. Patient was also started on anticoagul ation therapy with Eliquis 5 mg 2 times a day. She has tolerated that very well. Cardiology consult ation was requested. Echocardiogram was ordered, result is not available today at the time of discha rge and we will follow up on it. The patient overall has felt fine and she was discharged to go home in stable condition with above-mentioned medications and instructions. Final Diagnoses: 1.Atrial fibrillation, paroxysmal. 2.Hypokalemia. 3.Hypertension. 4.Hyperlipidemia. 5.Hypothyroidism. 6.Gastroesophageal reflux disease. 7.Diverticulosis. 8.Pancytopenia. 9.Depression. 10.Insomnia. ANNA/MODL Voice ID: [id number] Report ID: [id number]
--- NOTE | 2020-04-29 14:00 | EKG ---
Test Date: 2020-04-28 Test Time: 08:39:57 Metal Polisher And Buffer Apprentice: LEYLA MEASUREMENT RESULTS: Intervals: Rate: 72 WA: 208 QRSD: 112 QT: 444 QTc: 486 [place]: P: 6 WA: 208 QRS: -34 T: -51 INTERPRETIVE STATEMENTS: Normal sinus rhythm Left axis deviation Incomplete left bundle branch block Voltage criteria for left ventricular hypertrophy Nonspecific T wave abnormality Prolonged QT Abnormal ECG Compared to ECG 04/26/2020 20:12:05 Left bundle-branch block now present T-wave abnormality now present Prolonged QT interval now present Atrial fibrillation no longer present ST (T wave) deviation no longer present Electronically Signed On 04-29-20 13:58:34 QUALITY SYSTEMS SPECIALIST by Vinny Lagunas
--- NOTE | 2020-04-29 14:05 | EKG ---
Test Date: 2020-04-26 Test Time: 20:10:04 Taxicab Starter: RT Ortiz MEASUREMENT RESULTS: Intervals: Rate: 118 [place]: QRSD: 108 QT: 340 QTc: 476 [place]: P: AK: QRS: -34 T: 162 INTERPRETIVE STATEMENTS: Atrial fibrillation with rapid ventricular response Left axis deviation Incomplete left bundle branch block Voltage criteria for left ventricular hypertrophy Nonspecific ST and T wave abnormality, probably digitalis effect Abnormal ECG Compared to ECG 04/26/2020 12:52:04 Left bundle-branch block now present Incomplete right bundle-branch block no longer present Possible ischemia no longer present ST (T wave) deviation still present Electronically Signed On 04-29-20 13:59:20 RECOVERY RN by Vinny Lagunas
== END 2020-04-28 10:30 | disposition home or self-care (01) | DRG 309 ==
LOC: ER 10:22 → ERHOLD 14:50 → 2ND 16:56
PROVIDERS: ADMIT Internal Medicine; ATTEND Internal Medicine
DX: I48.0 Paroxysmal atrial fibrillation (principal); D61.818 Other pancytopenia; I10 Essential (primary) hypertension; E03.9 Hypothyroidism, unspecified; E78.5 Hyperlipidemia, unspecified; E87.6 Hypokalemia; K21.9 Gastro-esophageal reflux disease without esophagitis; K57.90 Diverticulosis of intestine, part unspecified, without perforation or abscess without bleeding; G47.00 Insomnia, unspecified; F32.9 Major depressive disorder, single episode, unspecified; M19.90 Unspecified osteoarthritis, unspecified site; Z86.73 Personal history of transient ischemic attack (TIA), and cerebral infarction without residual deficits; Z79.82 Long term (current) use of aspirin; Z90.49 Acquired absence of other specified parts of digestive tract; Z79.890 Hormone replacement therapy; Z90.710 Acquired absence of both cervix and uterus; Z88.1 Allergy status to other antibiotic agents; Z20.828 Contact with and (suspected) exposure to other viral communicable diseases
CPT/HCPCS: 36415; 70450; 70544; 70549; 70553; 71045; 80048; 80076; 82553; 82565; 82947; 83690; 83735; 84443; 84484; 85025; 85610; 85730; 93005; 93306; 96374; 99285; A9577; J7050; U0003

== ENCOUNTER 2020-06-12 05:04 | Inpatient (IN) | payer OTHER ==
--- OUTSIDE RECORDS SUMMARY | 2020-06-12 05:06 | XMS REPORT | Continuity of Care Document ---
:1935 Author Organization [facility] t Address [address] [place] [address] Care Team Providers Name Role Phone Doctor Unassigned, Name Attending Clinician Unavailable Logan HONG Attending Clinician Unavailable Yaw RICO Attending Clinician Marin RICO Attending Clinician Mirtha RICO Admitting Clinician Payers Payer Name Policy Type Policy Number Effective Date Expiration Date S ource Problems This patient has no known problems. Allergies, Adverse Reactions, Alerts Allergy Allergy Status Severity Reaction(s) Onset Inactive Treating Comm ents Source Name Type Date Date Clinician levoflox DA Active [facility] acin 1- Clear 00:00: [facility] levoflox DA Active [facility] acin - Clear 00:: [facility] No Known DA Active [facility] Drug - Clear Intolera 00:00: Fox nces [facility] No Known DA Active [facility] Contrast 01-25 Clear Allergie 00:00: Ofx s [facility] No Known DA Active [facility] Drug 01-25 Clear Allergie 00:00: Fox s [facility] No Known DA Active [facility] Food 01-25 Clear Allergie 00:00: [facility] No Known DA Active [facility] Other 01-25 Clear Allergie 00:00: [facility] Medications This patient has no known medications. Procedures This patient has no known procedures. Encounters Start End Encounter Admission Attending Care Care Encounter Source Date/Time Date/Time Type Type Clinicians Facility Department ID 2020-05-15 2020-05-15 Orders Doctor DEDRA [id number] 00:00:00 00:00:00 Only Unassigned, NIKOLAS [id number] [place] [facility] [id number] 2020-04-24 2020-04-24 Transition Claudia Ford [id number] 00:00:00 00:00:00 of Care Nadia Hernandez [id number] [place] [id number] 2020-04-19 2020-04-21 [facility] Tomy Tidwell [id number] 21:41:00 18:47:00 Encounter Collin Funes [id number] [place] [id number] Results Test Description Test Time Test Comments Results Result Comments Source CBC W/AUTO DIFF 2020-06-09 09:58:00 Test Item Value Reference Range Interpretation Comme nts WHITE BLOOD CELL (test code = WBC) 3.2 x10 3/uL 4.5-11.0 L RED BLOOD CELL (test code = RBC) 2.91 x10 6/uL 3.54-5.02 L HEMOGLOBIN (test code = HGB) 8.8 g/dL 11.0-15.0 L HEMATOCRIT (test code = HCT) 28.4 % 33.0-45.0 L MEAN CELL VOLUME (test code = MCV) 97.6 fL 81.0-99.0 N MEAN CELL HGB (test code = MCH) 30.2 pg 27.0-33.0 N MEAN CELL HGB CONCETRATION (test code = MCHC) 31.0 g/dL 33.0-37. 0 L RED CELL DISTRIBUTION WIDTH CV (test code = RDW) 12.6 % 11.5- 14.5 N RED CELL DISTRIBUTION WIDTH SD (test code = RDW-SD) 45.1 fL 37 .0-54.0 N PLATELET COUNT (test code = PLT) 67 x10 3/uL 150-400 L MEAN PLATELET VOLUME (test code = MPV) 10.6 fL 7.0-9.0 H MANUAL DIFF REQUIRED (test code = MDIFF) YES WBC [id number] 09:58:00 Test Item Value Reference Range Interpretation Comments SEGMENTED NEUTROPHILS (test 41.8 % 37-69 N code = SEG) BAND NEUTROPHIL (test code = 0.0 % 0.0-10.0 N BAND) LYMPHOCYTE (test code = 33.7 % 23-55 N LYMPH) MONOCYTE (test code = MON) 23.6 % 0-10 H MYELOCYTE (test code = MYELO) 0.9 % 0.0-0.0 H ANISOCYTOSIS (test code = NORMAL ANISO) PLATELET ESTIMATE (test code 56-70 THOUSAND ADEQUATE = PLTEST) PLATELET MORPHOLOGY (test LARGE PLATELETS code = PLTMORPH) CBC W/AUTO [id number] 09:55:00 Test Item Value Reference Range Interpretation Comments WHITE BLOOD CELL (test code = 3.2 x10 3/uL 4.5-11.0 L WBC) RED BLOOD CELL (test code = 2.91 x10 6/uL 3.54-5.02 L RBC) HEMOGLOBIN (test code = HGB) 8.8 g/dL 11.0-15.0 L HEMATOCRIT (test code = HCT) 28.4 % 33.0-45.0 L MEAN CELL VOLUME (test code = 97.6 fL 81.0-99.0 N MCV) MEAN CELL HGB (test code = MCH) 30.2 pg 27.0-33.0 N MEAN CELL HGB CONCETRATION 31.0 g/dL 33.0-37.0 L (test code = MCHC) RED CELL DISTRIBUTION WIDTH CV 12.6 % 11.5-14.5 N (test code = RDW) RED CELL DISTRIBUTION WIDTH SD 45.1 fL 37.0-54.0 N (test code = RDW-SD) PLATELET COUNT (test code = 67 x10 3/uL 150-400 L PLT) MEAN PLATELET VOLUME (test code 10.6 fL 7.0-9.0 H = MPV) MANUAL DIFF REQUIRED (test code YES = MDIFF) WBC [id number] 09:55:00 Test Item Value Reference Range Interpretation Comments BAND NEUTROPHIL (test code = BAND) % 0.0-10.0 ANISOCYTOSIS (test code = ANISO) PLATELET ESTIMATE (test code = THOUSAND ADEQUATE PLTEST) CBC W/AUTO [id number] 09:52:00 Test Item Value Reference Range Interpretation Comments WHITE BLOOD CELL (test code = 3.2 x10 3/uL 4.5-11.0 L WBC) RED BLOOD CELL (test code = 2.91 x10 6/uL 3.54-5.02 L RBC) HEMOGLOBIN (test code = HGB) 8.8 g/dL 11.0-15.0 L HEMATOCRIT (test code = HCT) 28.4 % 33.0-45.0 L MEAN CELL VOLUME (test code = 97.6 fL 81.0-99.0 N MCV) MEAN CELL HGB (test code = MCH) 30.2 pg 27.0-33.0 N MEAN CELL HGB CONCETRATION 31.0 g/dL 33.0-37.0 L (test code = MCHC) RED CELL DISTRIBUTION WIDTH CV 12.6 % 11.5-14.5 N (test code = RDW) RED CELL DISTRIBUTION WIDTH SD 45.1 fL 37.0-54.0 N (test code = RDW-SD) PLATELET COUNT (test code = x10 3/uL 150-400 PLT) MEAN PLATELET VOLUME (test code 10.6 fL 7.0-9.0 H = MPV) MANUAL DIFF REQUIRED (test code YES = MDIFF) WBC [id number] 09:52:00 Test Item Value Reference Range Interpretation Comments BAND NEUTROPHIL (test code = BAND) % 0.0-10.0 ANISOCYTOSIS (test code = ANISO) PLATELET ESTIMATE (test code = THOUSAND ADEQUATE PLTEST) CBC W/AUTO [id number] 09:52:00 Test Item Value Reference Range Interpretation Comments WHITE BLOOD CELL (test code = 3.2 x10 3/uL 4.5-11.0 L WBC) RED BLOOD CELL (test code = 2.91 x10 6/uL 3.54-5.02 L RBC) HEMOGLOBIN (test code = HGB) 8.8 g/dL 11.0-15.0 L HEMATOCRIT (test code = HCT) 28.4 % 33.0-45.0 L MEAN CELL VOLUME (test code = 97.6 fL 81.0-99.0 N MCV) MEAN CELL HGB (test code = MCH) 30.2 pg 27.0-33.0 N MEAN CELL HGB CONCETRATION 31.0 g/dL 33.0-37.0 L (test code = MCHC) RED CELL DISTRIBUTION WIDTH CV 12.6 % 11.5-14.5 N (test code = RDW) RED CELL DISTRIBUTION WIDTH SD 45.1 fL 37.0-54.0 N (test code = RDW-SD) PLATELET COUNT (test code = x10 3/uL 150-400 PLT) MEAN PLATELET VOLUME (test code 10.6 fL 7.0-9.0 H = MPV) MANUAL DIFF REQUIRED (test code YES = MDIFF) WBC [id number] 09:52:00 Test Item Value Reference Range Interpretation Comments BAND NEUTROPHIL (test code = BAND) % 0.0-10.0 ANISOCYTOSIS (test code = ANISO) PLATELET ESTIMATE (test code = THOUSAND ADEQUATE PLTEST) BASIC METABOLIC [id number] 07:55:00 Test Item Value Reference Range Interpretation Comments SODIUM (test code = NA) 141 mEq/L 134-147 N POTASSIUM (test code = 3.4 mEq/L 3.4-5.0 N K) CHLORIDE (test code = 112 mEq/L 100-108 H CL) CARBON DIOXIDE (test 24 mEq/l 21-33 N code = CO2) ANION GAP (test code = 8 0-20 N GAP) GLUCOSE (test code = 75 mg/dL 70-110 N GLU) BLOOD UREA NITROGEN 13 mg/dL 7-18 N (test code = BUN) GLOMERULAR FILTRATION 68.2 70-80 L Units of measure = RATE (test code = GFR) ml/mi n/1.73 m2 CREATININE (test code = 0.8 mg/dL 0.6-1.3 N CREAT) CALCIUM (test code = 8.1 mg/dL 8.0-10.5 N CA) CBC W/AUTO [id number] 07:00:00 Test Item Value Reference Range Interpretation Comments WHITE BLOOD CELL (test code = 3.2 x10 3/uL 4.5-11.0 L WBC) RED BLOOD CELL (test code = 2.91 x10 6/uL 3.54-5.02 L RBC) HEMOGLOBIN (test code = HGB) 8.8 g/dL 11.0-15.0 L HEMATOCRIT (test code = HCT) 28.4 % 33.0-45.0 L MEAN CELL VOLUME (test code = 97.6 fL 81.0-99.0 N MCV) MEAN CELL HGB (test code = MCH) 30.2 pg 27.0-33.0 N MEAN CELL HGB CONCETRATION 31.0 g/dL 33.0-37.0 L (test code = MCHC) RED CELL DISTRIBUTION WIDTH CV 12.6 % 11.5-14.5 N (test code = RDW) RED CELL DISTRIBUTION WIDTH SD 45.1 fL 37.0-54.0 N (test code = RDW-SD) PLATELET COUNT (test code = x10 3/uL 150-400 PLT) MEAN PLATELET VOLUME (test code 10.6 fL 7.0-9.0 H = MPV) NEUTROPHIL % (test code = NT%) % 56.0-77.0 LYMPHOCYTE % (test code = LY%) % 14.0-32.0 NEUTROPHIL # (test code = NT#) x10 3/uL 2.0-7.6 LYMPHOCYTE # (test code = LY#) x10 3/uL 1.0-3.8 MANUAL DIFF REQUIRED (test code = MDIFF) [id number] 14:19:00 Test Item Value Reference Range Interpretation Comments ACT-ISTAT (test code 252 SEC 74-137 H Perform ed by certified = ACTI) concrete batching plant operator at [facility] Novel Coronavirus 2018 [id number] 19:40:00 Test Item Value Reference Range Interpretation Comments Novel Coronavirus Negative Negative Positive r esults are 2019 Inhouse (test indicativ e of the presence code = COVNONPUI) ofSARS-CoV -2 RNA, clinical correlation wit h patient historyand othe r diagnostic info rmation is necessary to determinepatien t infection status. Positiv e results do not rule out bacterial infection or co -infection with other viru ses. Negative result s do not preclude SARS-C oV-2 infection andsh ould not be used as the nidia e basis for patient managementdecis ions. Negative result s must be combined with otherclinical observations, p atient history, and epidemiological information . Detection of SARS-CoV-2 RNA may be affe cted bysample collec tion methods, storag e conditions, and /or stageof infection. Ora l RNA mutations, vacc inations, antiviraltherap eutics, antibiotics, chemotherapeuti c orimmunosuppres shorty drugs have not been e valuated for effectson d etection. Results are for the identification of SARS-CoV-2 RNA usingthe [employer] M2000 Sy stem under the FDA Emergen cy UseAuthorizatio n. The testing is perf ormed by personneljunito d in the procedures for the [employer] M2000 molecular diagnostic SARS-CoV-2 assa y in vitro. CBC W/AUTO [id number] 13:01:00 Test Item Value Reference Range Interpretation Comments WHITE BLOOD CELL 5.2 x10 3/uL 4.5-11.0 N (test code = WBC) RED BLOOD CELL (test 3.90 x10 6/uL 3.54-5.02 N code = RBC) HEMOGLOBIN (test code 12.1 g/dL 11.0-15.0 N = HGB) HEMATOCRIT (test code 37.9 % 33.0-45.0 N = HCT) MEAN CELL VOLUME 97.2 fL 81.0-99.0 N (test code = MCV) MEAN CELL HGB (test 31.0 pg 27.0-33.0 N code = MCH) MEAN CELL HGB 31.9 g/dL 33.0-37.0 L CONCETRATION (test code = MCHC) RED CELL DISTRIBUTION 12.8 % 11.5-14.5 N WIDTH CV (test code = RDW) RED CELL DISTRIBUTION 45.3 fL 37.0-54.0 N WIDTH SD (test code = RDW-SD) PLATELET COUNT (test 125 x10 3/uL 150-400 L code = PLT) MEAN PLATELET VOLUME 10.0 fL 7.0-9.0 H (test code = MPV) NEUTROPHIL % (test 44.9 % 56.0-77.0 L code = NT%) IMMATURE GRANULOCYTE 0.8 % 0.0-2.0 N % (test code = IG%) LYMPHOCYTE % (test 28.5 % 14.0-32.0 N code = LY%) MONOCYTE % (test code 22.5 % 4.8-9.0 H = MO%) EOSINOPHIL % (test 2.7 % 0.3-3.7 N code = EO%) BASOPHIL % (test code 0.6 % 0.0-2.0 N = BA%) NUCLEATED RBC % (test 0.0 % 0-0 N code = NRBC%) NEUTROPHIL # (test 2.34 x10 3/uL 2.0-7.6 N code = NT#) IMMATURE GRANULOCYTE 0.04 x10 3/uL 0.00-0.03 H # (test code = IG#) LYMPHOCYTE # (test 1.48 x10 3/uL 1.0-3.8 N code = LY#) MONOCYTE # (test code 1.17 x10 3/uL 0.1-0.8 H = MO#) EOSINOPHIL # (test 0.14 x10 3/uL 0.0-0.2 N code = EO#) BASOPHIL # (test code 0.03 x10 3/uL 0.0-0.2 N = BA#) NUCLEATED RBC # (test 0.00 x10 3/uL 0.0-0.1 N code = NRBC#) MANUAL DIFF REQUIRED NO SLIDE Leann CONCEPCION, (test code = MDIFF) CONSISTE NT WITH AUTO DIFF. - XR CHEST 2 [id number] 12:59:00 [facility] : 1935 Sex: F FAX: Luis Crouch MD [phone] [place]: St: PRE FAX: Braulio Mirza MD [phone] Name: JUANA COULTER [facility] : 1935 Age/S: 84/F [address] [place] [address] Blvd Unit #: [id number] Loc: [place] [address] Phys: [id number] Dis Date: Status: PRE SDC PHONE #: [phone] Exam Date: 06/06/2020 1257 FAX #: [phone] Reason: PRE-OP WATCHMAN EXAMS: CPT CODE: [id number] XR CHEST 2 V [id number] EXAM:PA and lateral chest. EXAM DATE: June 06, 2020 CLINICAL HISTORY: PRE-OP WATCHMAN COMPARISON: None Heart size is within normal limits. Atherosclerotic calcifications and tortuosity of the intrathoracic aorta is identified. Multiple calcified perihilar lymph nodes are noted.. The lungs appear free of acute disease. Multiple small calcified granulomata are noted scattered throughout both lungs. Osseous structures demonstrate no acute abnormalities. IMPRESSION: No evidence of acute cardiopulmonary disease. at 1989 Reported and signed by: Jessica Cee M.D. CC: Luis Herndon MD; Mustapha Obregon MD Technologist: RT Ronald(R) Trnscrd Date/Time/By: 06/06/2020 (5024) : By: Isaias Orig Print D/T: S: 06/06/2020 (8717) PAGE 1 Signed ReportBASIC METABOLIC [id number] 12:54:00 Test Item Value Reference Range Interpretation Comments SODIUM (test code = NA) 141 mEq/L 134-147 N POTASSIUM (test code = 4.2 mEq/L 3.4-5.0 N K) CHLORIDE (test code = 108 mEq/L 100-108 N CL) CARBON DIOXIDE (test 27 mEq/l 21-33 N code = CO2) ANION GAP (test code = 10 0-20 N GAP) GLUCOSE (test code = 77 mg/dL 70-110 N GLU) BLOOD UREA NITROGEN 15 mg/dL 7-18 N (test code = BUN) GLOMERULAR FILTRATION 68.2 70-80 L Units of measure = RATE (test code = GFR) ml/mi n/1.73 m2 CREATININE (test code = 0.8 mg/dL 0.6-1.3 N CREAT) CALCIUM (test code = 9.6 mg/dL 8.0-10.5 N CA) [id number] 12:54:00 Test Item Value Reference Range Interpretation Comments PREALBUMIN (test code = PREALB) 21.4 mg/dL 16.0-40.0 N PROTHROMBIN [id number] 12:52:00 Test Item Value Reference Range Interpretation Comments PROTHROMBIN TIME 19.0 SECONDS 9.3-12.9 H PATIENT (test code = PTP) INTERNATIONAL NORMAL 1.7 0.8-1.2 H TARGET RATIO (test code = INR BY IN DICATION INR) Indication INR1. Prophyl axis of venous thrombos is 2.0 - 3. 0 (orthopedic olga cristina), Prophylaxis of venous thrombos is (other than hig h-risk surgery), Pavithra tment of Deep Vein Thrombosis/Pulm onary Embolism, Preve ntion of systemic emb olism - Tissue heart va lves, Acute Myocardia l Infarction (to prevent systemic embo lism), Valvular heart disease, Atri al Fibrillation, Bileaflet mecha nical valve in aortic position.2. Mec hanical prosthetic valv es (high risk), 2.5 - 3.5 Presence of Lupus Anticoagu lant or Antiphospholi pid Antibodies, Pre vention of systemic e mbolism - Acute Myocard ial Infarction (t o prevent recurre nt infarct). CBC W/AUTO [id number] 12:40:00 Test Item Value Reference Range Interpretation Comments WHITE BLOOD CELL (test code = 5.2 x10 3/uL 4.5-11.0 N WBC) RED BLOOD CELL (test code = 3.90 x10 6/uL 3.54-5.02 N RBC) HEMOGLOBIN (test code = HGB) 12.1 g/dL 11.0-15.0 N HEMATOCRIT (test code = HCT) 37.9 % 33.0-45.0 N MEAN CELL VOLUME (test code = 97.2 fL 81.0-99.0 N MCV) MEAN CELL HGB (test code = MCH) 31.0 pg 27.0-33.0 N MEAN CELL HGB CONCETRATION 31.9 g/dL 33.0-37.0 L (test code = MCHC) RED CELL DISTRIBUTION WIDTH CV 12.8 % 11.5-14.5 N (test code = RDW) RED CELL DISTRIBUTION WIDTH SD 45.3 fL 37.0-54.0 N (test code = RDW-SD) PLATELET COUNT (test code = 125 x10 3/uL 150-400 L PLT) MEAN PLATELET VOLUME (test code 10.0 fL 7.0-9.0 H = MPV) NEUTROPHIL % (test code = NT%) % 56.0-77.0 LYMPHOCYTE % (test code = LY%) % 14.0-32.0 NEUTROPHIL # (test code = NT#) x10 3/uL 2.0-7.6 LYMPHOCYTE # (test code = LY#) x10 3/uL 1.0-3.8 MANUAL DIFF REQUIRED (test code = MDIFF) CBC W/AUTO [id number] 12:34:00 Test Item Value Reference Range Interpretation Comments WHITE BLOOD CELL (test code = WBC) x10 3/uL 4.5-11.0 RED BLOOD CELL (test code = RBC) x10 6/uL 3.54-5.02 HEMOGLOBIN (test code = HGB) 12.1 g/dL 11.0-15.0 N HEMATOCRIT (test code = HCT) 37.9 % 33.0-45.0 N MEAN CELL VOLUME (test code = MCV) fL 81.0-99.0 MEAN CELL HGB (test code = MCH) pg 27.0-33.0 MEAN CELL HGB CONCETRATION (test g/dL 33.0-37.0 code = MCHC) RED CELL DISTRIBUTION WIDTH CV % 11.5-14.5 (test code = RDW) PLATELET COUNT (test code = PLT) x10 3/uL 150-400 NEUTROPHIL % (test code = NT%) % 56.0-77.0 LYMPHOCYTE % (test code = LY%) % 14.0-32.0 NEUTROPHIL # (test code = NT#) x10 3/uL 2.0-7.6 LYMPHOCYTE # (test code = LY#) x10 3/uL 1.0-3.8 MANUAL DIFF REQUIRED (test code = MDIFF)
--- OUTSIDE RECORDS SUMMARY | 2020-06-12 05:07 | XMS REPORT | Summary of Care ---
:1935 Author Organization [facility] - Health Address [address] [place] [id number] Care Team Providers Name Role Phone Katrina Luis Martinez Primary Care Provider Encounter Details Date Type Department Care Team Description 05/15/2020 Orders Only [facility] Doctor Unassigned, No 301 [facility] [place] [address] [address] [place] [address] Allergies Active Allergy Reactions Severity Noted Date Comments Levofloxacin Rash 04/19/2020 documented as of this encounter (statuses as of 05/15/2020) Medications Medication Sig Dispensed Refills Start Date [...] as of this encounter (statuses as of 05/15/2020) Active Problems Problem Noted Date A-fib 04/20/2020 Paroxysmal SVT (supraventricular tachycardia) 04/20/20 20 PSVT (paroxysmal supraventricular tachycardia) 020 documented as of this encounter (statuses as of 05/15/2020) Social History Tobacco Use Types Packs/Day Years Used Date Never Assessed Sex Assigned at Date Recorded Not on file COVID-19 Exposure Response Date Recorded In the last month, have you been in contact with No / Unsure 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 documented as of this encounter Last Filed Vital Signs Not on filedocumented in this encounter Plan of Treatment Health [...] Name Priority Date/Time Associated Diagnosis Comme nts DNR Routine 05/15/2020 12:01 AM PIPE LINE REPAIRER documented in this encounter Results Not on filedocumented in this encounter Insurance Payer Benefit Plan Subscriber ID Effective Phone Address Typ e / Group Dates AETNA - AET[employer] [id number] 2018-[address] Medic are Adv MANAGED MEDICARE [place] [id number] [place] [address] documented as of this encounter
[2020-06-12 06:17] LABS: SARS-COV-2 RT PCR POSITIVE (NEGATIVE)
[2020-06-12 06:28] LABS: Protime INR 1.61
[2020-06-12 06:29] LABS: Hematocrit 32.1 % (36.0-45.0); MPV 9.2 fL (7.6-11.3); RBC Red Blood Cell Count 3.46 M/uL (3.86-4.86)
[2020-06-12 06:49] LABS: ALT/SGPT 18 U/L (12-78); AST/SGOT 29 U/L (15-37); Albumin 3.1 g/dL (3.4-5.0); Alkaline Phosphatase 56 U/L (45-117); BUN Blood Urea Nitrogen 9 mg/dL (7-18); Bicarbonate 24 mmol/L (21-32); Bilirubin Direct 0.2 mg/dL (0-0.2); Bilirubin Total 0.4 mg/dL (0.2-1.0); Glucose Level 82 mg/dL (74-106); NT PRO-BNP 2289 pg/mL (<450); Potassium 3.4 mmol/L (3.5-5.1); Sodium Level 139 mmol/L (136-145); Troponin (Emerg Dept Use Only) < 0.02 ng/mL (0.0-0.045)
--- NOTE | 2020-06-12 07:12 | RAD REPORT ---
EXAM DESCRIPTION: Teresa Single View06/12/2020 6:10 am CLINICAL HISTORY: Shortness of breath COMPARISON: 2019 FINDINGS: The lungs appear clear of acute infiltrate. The heart is normal size IMPRESSION: No acute abnormalities displayed
[2020-06-12 07:45] LABS: Blood Morphology Comment NOT SEEN (NOT SEEN); Platelet Estimate DECR
--- NOTE | 2020-06-12 08:10 | RAD REPORT ---
EXAM DESCRIPTION: CT - Chest For Pe Angio - 06/12/2020 7:46 am CLINICAL HISTORY: Chest pain COMPARISON: July 2019 TECHNIQUE: Dynamically enhanced axial 3 mm thick images of the chest were obtained during administra tion of <100> mL Isovue 370 IV contrast. Coronal and oblique reconstruction images were generated and reviewed. Exam utilizes a protocol for optimal evaluation of pulmonary arterial tree. Maximum intensity projections 3D imaging was utilized All CT scans are performed using dose optimization technique as appropriate and may include automated exposure control or mA/KV adjustment according to patient size. FINDINGS: A pulmonary embolus is not seen. A thoracic aortic aneurysm is not noted. 2.5 centimeter low-density structure left atrial appendage A pleural effusion is not seen. A pericardial effusion is not seen. Mild bilateral ground-glass opacities within the lungs Chronic pneumobilia IMPRESSION: Negative for a pulmonary embolism. Mild bilateral ground-glass opacities within the lungs indicative of an alveolitis 2.5 centimeter low-density structure left atrial appendage probably thrombus.
--- NOTE | 2020-06-12 08:18 | EKG ---
Test Date: 2020-06-12 Test Time: 05:50:17 [employer]: JOYCELYN MEASUREMENT RESULTS: Intervals: Rate: 77 UT: 190 QRSD: 118 QT: 418 QTc: 473 [place]: P: -6 UT: 190 QRS: -42 T: 49 INTERPRETIVE STATEMENTS: Normal sinus rhythm with sinus arrhythmia Left axis deviation Left ventricular hypertrophy with QRS widening Cannot rule out Septal infarct, age undetermined Abnormal ECG Compared to ECG 04/28/2020 08:39:57 Myocardial infarct finding now present Left bundle-branch block no longer present T-wave abnormality no longer present Prolonged QT interval no longer present Electronically Signed On 06-12-20 08:17:31 [employer] by Vinny Lagunas
[2020-06-12 08:47] LABS: Urine Blood 2+ (NEG); Urine Glucose NEGATIVE (NEG); Urine Protein 1+ (NEG); Urine pH 6.5 (5.0-7.0)
[2020-06-12] MEDS ORDERED: NA CHLORIDE 0.9% 1,000 ML ONE (08:53)
[2020-06-12] MEDS ORDERED: METHYLPREDNISOLONE 125 MG INJ ONE (08:53)
[2020-06-12] MEDS ORDERED: CEFTRIAXONE/SWI 1gm 1 GM/10 ML SYR ONE (08:54)
[2020-06-12] MEDS ORDERED: AZITHROMYCIN IV 500 MG in NA CHLORIDE 0.9% 250 ML IVPB ONE (09:00)
--- NOTE | 2020-06-12 10:04 | EDPHYS ---
Physician Documentation [facility] Name: Kemi Coulter Age: 84 yrs Sex: Female : 1935 Arrival Date: 06/12/2020 Time: 05:05 Bed 5 Private MD: ED Physician Lenin Smith HPI: 06/12 05:16 This 84 yrs old Female presents to ER via EMS with complaints of Fall [facility]. [facility] 05:16 Details of fall: The patient fell from an upright position, while walking. Onset: The [facility] symptoms/episode began/occurred today. Associated injuries: The patient sustained injury to the head, contusion. Severity of symptoms: At their worst the symptoms were moderate, earlier today, in the emergency department the symptoms have improved, moderately. Patient complains of generalized weakness, fatigue, and SOB. She has had COVID exposure from her daughter.. Historical: - Allergies: 05:10 Levaquin; em - Home Meds: 08:51 Phenytoin 100mg Oral 2 capsules every night [Active]; quetiapine 300 mg oral tab 2 tabs aa5 nightly [Active]; citalopram 20 mg tab 1 tab once daily [Active]; aspirin 81 mg Oral chew 1 tab once daily [Active]; levothyroxine 88 mcg oral tab once daily [Active]; Dexilant 60 mg oral CpDB 1 cap once daily [Active]; amlodipine 5 mg tab once daily [Active]; simvastatin 20 mg Oral tab nightly [Active]; cyclobenzaprine 5 mg Oral tab at bedtime [Active]; temazepam 30 mg Oral cap 1 cap once daily [Active]; 08:51 Eliquis 5 mg oral tab 2 times per day [Active]; sotalol 80 mg Oral tab 1 tab 2 times aa5 per day [Active]; - PMHx: 05:10 Arthritis; CVA; Depression; Hypertension; ibs; em 07:30 Atrial Fib; aa5 - PSHx: 05:10 Cholecystectomy; Hysterectomy; hemorrhoids; Hernia repair; colon resection; em 07:30 Watchman device 06/08/20; aa5 - Immunization history:: Adult Immunizations up to date. - Social history:: Smoking status: Patient denies any tobacco usage or history of. - Immunization history: Last tetanus immunization: unknown. ROS: 05:16 Constitutional: Negative for fever, chills, and weight loss, Eyes: Negative for injury, mh7 pain, redness, and discharge, ENT: Negative for injury, pain, and discharge, Neck: Negative for injury, pain, and swelling, Cardiovascular: Negative for chest pain, palpitations, and edema. 05:16 Abdomen/GI: Negative for abdominal pain, nausea, vomiting, diarrhea, and constipation, Back: Negative for injury and pain, : Negative for injury, bleeding, discharge, and swelling, MS/Extremity: Negative for injury and deformity, Skin: Negative for injury, rash, and discoloration. 05:16 Psych: Negative for depression, anxiety, suicide ideation, homicidal ideation, and hallucinations, Allergy/Immunology: Negative for hives, rash, and allergies, Endocrine: Negative for neck swelling, polydipsia, polyuria, polyphagia, and marked weight changes, Hematologic/Lymphatic: Negative for swollen nodes, abnormal bleeding, and unusual bruising. 05:16 Respiratory: Positive for shortness of breath, at rest. Negative for cough, dyspnea on exertion, hemoptysis, orthopnea, pleurisy, sputum production, wheezing. 05:16 Neuro: Positive for weakness, Negative for altered mental status, dizziness, gait disturbance, headache, hearing loss, loss of consciousness, numbness, seizure activity, speech changes, syncope, near syncope, tingling, tinnitus, tremor, visual changes. Exam: 05:16 Constitutional: This is a well developed, well nourished patient who is awake, alert, mh7 and in no acute distress. Head/Face: Normocephalic, atraumatic. Eyes: Pupils equal round and reactive to light, extra-ocular motions intact. Lids and lashes normal. Conjunctiva and sclera are non-icteric and not injected. Cornea within normal limits. Periorbital areas with no swelling, redness, or edema. ENT: Nares patent. No nasal discharge, no septal abnormalities noted. Tympanic membranes are normal and external auditory canals are clear. Oropharynx with no redness, swelling, or masses, exudates, or evidence of obstruction, uvula midline. Mucous membranes moist. Neck: Trachea midline, no thyromegaly or masses palpated, and no cervical lymphadenopathy. Supple, full range of motion without nuchal rigidity, or vertebral point tenderness. No Meningismus. Chest/axilla: Normal chest wall appearance and motion. Nontender with no deformity. No lesions are appreciated. Cardiovascular: Regular rate and rhythm with a normal S1 and S2. No gallops, murmurs, or rubs. Normal PMI, no JVD. No pulse deficits. Respiratory: Lungs have equal breath sounds bilaterally, clear to auscultation and percussion. No rales, rhonchi or wheezes noted. No increased work of breathing, no retractions or nasal flaring. Abdomen/GI: Soft, non-tender, with normal bowel sounds. No distension or tympany. No guarding or rebound. No evidence of tenderness throughout. Back: No spinal tenderness. No costovertebral tenderness. Full range of motion. Skin: Warm, dry with normal turgor. Normal color with no rashes, no lesions, and no evidence of cellulitis. MS/ Extremity: Pulses equal, no cyanosis. Neurovascular intact. Full, normal range of motion. Neuro: Awake and alert, GCS 15, oriented to person, place, time, and situation. Cranial nerves II-XII grossly intact. Motor strength 5/5 in all extremities. Sensory grossly intact. Cerebellar exam normal. Normal gait. Psych: Awake, alert, with orientation to person, place and time. Behavior, mood, and affect are within normal limits. Vital Signs: 05:06 BP 146 / 76; Pulse 80; Resp 18; Temp 99.2(O); Pulse Ox 99% on R/A; Pain 0/10; em 07:06 BP 155 / 65; Pulse 79; Resp 18; Pulse Ox 98% ; ea 07:55 BP 162 / 68; Pulse 84; Resp 16; Pulse Ox 98% ; jl7 08:15 BP 150 / 70; Pulse 84; Resp 16 S; Temp 100.9(O); Pulse Ox 98% on R/A; aa5 [place] Coma Score: 05:13 Eye Response: spontaneous(4). Verbal Response: oriented(5). Motor Response: obeys ea commands(6). Total: 15. 07:06 Eye Response: spontaneous(4). Verbal Response: oriented(5). Motor Response: obeys ea commands(6). Total: 15. 07:55 Eye Response: spontaneous(4). Verbal Response: oriented(5). Motor Response: obeys jl7 commands(6). Total: 15. Trauma Score (Adult): 05:13 Eye Response: spontaneous(1); Verbal Response: oriented(1); Motor Response: obeys ea commands(2); Systolic BP: > 89 mm Hg(4); Respiratory Rate: 10 to 29 per min(4); [place] Score: 15; Trauma Score: 12 08:15 Eye Response: spontaneous(1); Verbal Response: oriented(1); Motor Response: obeys aa5 commands(2); Systolic BP: > 89 mm Hg(4); Respiratory Rate: 10 to 29 per min(4); [place] Score: 15; Trauma Score: 12 MDM: 06:59 Transition of care: After a detail discussion of the patient's case, care is 7 transferred to Lenin Smith MD. 08:51 Differential diagnosis: abrasion, closed head injury, sprain, strain. Data reviewed: nm2 vital signs, nurses notes. Counseling: I had a detailed discussion with the patient and/or guardian regarding: the historical points, exam findings, and any diagnostic results supporting the discharge/admit diagnosis, the presence of at least one elevated blood pressure reading (>120/80) during this emergency department visit, the need for further work-up and treatment in the hospital. Response to treatment: the patient's symptoms have markedly improved after treatment. ED course: . 10:03 Patient medically screened. [facility] 06/12 05:12 Order name: Basic Metabolic Panel; Complete Time: 06:52 mh7 06/12 05:12 Order name: CBC with Diff; Complete Time: 08:08 7 06/12 05:12 Order name: LFT's; Complete Time: 06:52 7 06/12 05:12 Order name: Magnesium; Complete Time: 06:52 mh7 06/12 05:12 Order name: NT PRO-BNP; Complete Time: 06:52 mh7 06/12 05:12 Order name: PT-INR; Complete Time: 06:52 mh7 06/12 05:12 Order name: Troponin (emerg Dept Use Only); Complete Time: 06:52 mh7 06/12 06:18 Order name: COVID-19/FLU A+B; Complete Time: 06:52 EDMS 06/12 07:46 Order name: Manual Differential; Complete Time: 08:08 EDMS 06/12 08:17 Order name: Procalcitonin; Complete Time: 09:42 [facility] 06/12 05:12 Order name: XRAY Chest (1 view); Complete Time: 08:08 [facility] 06/12 05:12 Order name: EKG; Complete Time: 05:13 [facility] 06/12 05:12 Order name: CT Head Brain wo Cont [facility] 06/12 08:11 Order name: Chest For Pe Angio; Complete Time: 08:59 [facility] 06/12 08:17 Order name: Lactate; Complete Time: 08:59 [facility] 06/12 08:21 Order name: Urine Dipstick--Ancillary (enter results); Complete Time: 08:59 bd 06/12 10:10 Order name: Basic Metabolic Panel [facility] 06/12 10:10 Order name: CONS Physician Consult [facility] 06/12 10:10 Order name: Regular [facility] 06/12 10:10 Order name: Troponin I [facility] 06/12 10:10 Order name: Troponin I [facility] 06/12 05:12 Order name: Cardiac monitoring; Complete Time: 07:04 [facility] 06/12 05:12 Order name: EKG - Nurse/Tech; Complete Time: 07:04 [facility] 06/12 05:12 Order name: IV Saline Lock; Complete Time: 07:04 [facility] 06/12 05:12 Order name: Labs collected and sent; Complete Time: 07:04 [facility] 06/12 05:12 Order name: O2 Per Protocol; Complete Time: 07:04 [facility] 06/12 05:12 Order name: O2 Sat Monitoring; Complete Time: 07:04 [facility] 06/12 05:12 Order name: Urine Dipstick-Ancillary (obtain specimen); Complete Time: 09:12 [facility] 06/12 09:11 Order name: Straight Cath - Urine: VO received at 0815; Complete Time: 09:11 [facility] 06/12 10:10 Order name: EKG Electrocardiogram [facility] 06/12 10:10 Order name: EKG Electrocardiogram [facility] Administered Medications: 08:44 Drug: NS 0.9% 1000 ml Route: IV; Rate: 1 bolus; Site: right antecubital; aa5 08:44 Drug: MethylPrednisoLONE 125 mg Route: IVP; Site: right antecubital; aa5 08:45 Drug: Rocephin 1 grams Route: IV; Rate: calculated rate; Site: right antecubital; aa5 09:35 Drug: AZITHromycin 500 mg {Note: received from pharmacy at 0930.} Route: IVPB; Infused aa5 Over: 1 hrs; Site: right antecubital; Disposition: 06/12/20 10:03 Hospitalization ordered by Luis Herndon for Inpatient Admission. Preliminary diagnosis are Syncope and collapse, Coronavirus infection, unspecified, Weakness. - Bed requested for Telemetry/MedSurg (Inpatient). - Status is Inpatient Admission. aa5 - Condition is Stable. - Problem is new. - Symptoms are unchanged. Signatures: Dispatcher [employer] EDMS Lawanda Weinberg RN HAL dw Matt Judge, RN Arlet Johnson RN RN aa5 Jina Krishna RN RN ea Alzahri, Mohammad, MD MD ma2 Brett Mcintosh MD MD mh7 Corrections: (The following items were deleted from the chart) 05:28 05:13 Influenza Screen (A \T\ B)+BA.LAB.BRZ ordered. EDMS EDMS 05:29 05:23 CORONAVIRUS ordered. EDMS EDMS 08:19 08:16 Chest For PE Angio+CT.RAD.BRZ ordered. EDKY EDMS 08:48 08:16 LACTATE+C.LAB.BRZ ordered. EDMS EDMS 08:48 08:16 Procalcitonin+C.LAB.BRZ ordered. EDKY EDMS 14:01 10:03 Hospitalization Ordered by Luis Herndon MD for Inpatient Admission. Preliminary dw diagnosis is Syncope and collapse; Coronavirus infection, unspecified; Weakness. Bed requested for Telemetry/MedSurg (Inpatient). Status is Inpatient Admission. Condition is Stable. Problem is new. Symptoms are unchanged. ma2 15:17 14:01 06/12/2020 10:03 Hospitalization Ordered by Luis Herndon MD for Inpatient aa5 Admission. Preliminary diagnosis is Syncope and collapse; Coronavirus infection, unspecified; Weakness. Bed requested for Telemetry/MedSurg (Inpatient). Status is Inpatient Admission. Condition is Stable. Problem is new. Symptoms are unchanged. dw
--- NOTE | 2020-06-12 10:04 | ER ---
Nurse's Notes [facility] Name: Kemi Coulter Age: 84 yrs Sex: Female : 1935 Arrival Date: 06/12/2020 Time: 05:05 Bed 5 Private MD: Diagnosis: Syncope and collapse;Coronavirus infection, unspecified;Weakness Presentation: 06/12 05:06 Chief complaint: EMS states: fell earlier this morning due to being weak, reports em hitting head, does take eliquis, had a recent cardiac procedure and had a "watchman device" placed in heart, reports daughter tested positive for covid 3 days ago and had been sleeping in the same bed with pt, pt reports low grade fever this morning. Coronavirus screen: Client denies travel out of the [place] in the last 14 days. fever, Client presents with at least one sign or symptom that may indicate coronavirus-19. Standard/surgical mask placed on the client. Provider contacted for isolation considerations. Ebola Screen: Patient negative for fever greater than or equal to 101.5 degrees Fahrenheit, and additional compatible Ebola Virus Disease symptoms Patient denies exposure to infectious person. Patient denies travel to an Ebola-affected area in the 21 days before illness onset. No symptoms or risks identified at this time. Initial Sepsis Screen: Does the patient meet any 2 criteria? No. Patient's initial sepsis screen is negative. Does the patient have a suspected source of infection? No. Patient's initial sepsis screen is negative. Risk Assessment: Do you want to hurt yourself or someone else? Patient reports no desire to harm self or others. Onset of symptoms was June 12, 2020. 05:06 Method Of Arrival: EMS: [facility] em 05:06 Acuity: CORDELL 3 em 05:15 Care prior to arrival: None. Mechanism of Injury: Fall from standing position. Trauma ea event details: Injury occurred in the [facility], Injury occurred: at home. Injury occurred: June 12, 2020. Historical: - Allergies: 05:10 Levaquin; em - Home Meds: 08:51 Phenytoin 100mg Oral 2 capsules every night [Active]; quetiapine 300 mg oral tab 2 tabs aa5 nightly [Active]; citalopram 20 mg tab 1 tab once daily [Active]; aspirin 81 mg Oral chew 1 tab once daily [Active]; levothyroxine 88 mcg oral tab once daily [Active]; Dexilant 60 mg oral CpDB 1 cap once daily [Active]; amlodipine 5 mg tab once daily [Active]; simvastatin 20 mg Oral tab nightly [Active]; cyclobenzaprine 5 mg Oral tab at bedtime [Active]; temazepam 30 mg Oral cap 1 cap once daily [Active]; 08:51 Eliquis 5 mg oral tab 2 times per day [Active]; sotalol 80 mg Oral tab 1 tab 2 times aa5 per day [Active]; - PMHx: 05:10 Arthritis; CVA; Depression; Hypertension; ibs; em 07:30 Atrial Fib; aa5 - PSHx: 05:10 Cholecystectomy; Hysterectomy; hemorrhoids; Hernia repair; colon resection; em 07:30 Watchman device 06/08/20; aa5 - Immunization history:: Adult Immunizations up to date. - Social history:: Smoking status: Patient denies any tobacco usage or history of. - Immunization history: Last tetanus immunization: unknown. Screenin:12 Abuse screen: Denies threats or abuse. Nutritional screening: No deficits noted. ea Tuberculosis screening: No symptoms or risk factors identified. Fall Risk Fall in past 12 months (25 points). Primary Survey: 05:12 NO uncontrolled hemorrhage observed. A: The patient is alert. Airway: patent. ea Breathing/Chest: Respiratory pattern: regular, Respiratory effort: spontaneous, unlabored. Circulation: Skin color: pink, Skin temperature: warm. Disability Alert. Exposure/Environment: A warming method has been applied: A warm blanket has been provided to the patient. 07:05 Reassessment Breathing/Chest Respiratory pattern Regular Respiratory effort Spontaneous ea Unlabored. Assessment: 05:14 General: Appears in no apparent distress. Behavior is appropriate for age. Pain: Denies ea pain. Neuro: Level of Consciousness is awake, alert, obeys commands, Oriented to person, place, time. Cardiovascular: Patient's skin is warm and dry. Respiratory: Airway is patent Respiratory effort is even, unlabored, Respiratory pattern is regular, symmetrical. Derm: Skin is pink, warm \\T\\ dry. 07:06 Reassessment: Patient and/or family updated on plan of care and expected duration. Pain ea level reassessed. Patient is alert, oriented x 3, equal unlabored respirations, skin warm/dry/pink. 07:30 Reassessment: Patient is alert, oriented x 3, equal unlabored respirations, skin aa5 warm/dry/pink. Patient denies pain at this time. Pt only reports generalized weakness. . 07:33 Reassessment: Pt to CT via stretcher . aa5 08:15 Reassessment: Patient is alert, oriented x 3, equal unlabored respirations, skin aa5 warm/dry/pink. Patient denies pain at this time. Vital Signs: 05:06 BP 146 / 76; Pulse 80; Resp 18; Temp 99.2(O); Pulse Ox 99% on R/A; Pain 0/10; em 07:06 BP 155 / 65; Pulse 79; Resp 18; Pulse Ox 98% ; ea 07:55 BP 162 / 68; Pulse 84; Resp 16; Pulse Ox 98% ; jl7 08:15 BP 150 / 70; Pulse 84; Resp 16 S; Temp 100.9(O); Pulse Ox 98% on R/A; aa5 [place] Coma Score: 05:13 Eye Response: spontaneous(4). Verbal Response: oriented(5). Motor Response: obeys ea commands(6). Total: 15. 07:06 Eye Response: spontaneous(4). Verbal Response: oriented(5). Motor Response: obeys ea commands(6). Total: 15. 07:55 Eye Response: spontaneous(4). Verbal Response: oriented(5). Motor Response: obeys jl7 commands(6). Total: 15. Trauma Score (Adult): 05:13 Eye Response: spontaneous(1); Verbal Response: oriented(1); Motor Response: obeys ea commands(2); Systolic BP: > 89 mm Hg(4); Respiratory Rate: 10 to 29 per min(4); [place] Score: 15; Trauma Score: 12 08:15 Eye Response: spontaneous(1); Verbal Response: oriented(1); Motor Response: obeys aa5 commands(2); Systolic BP: > 89 mm Hg(4); Respiratory Rate: 10 to 29 per min(4); [place] Score: 15; Trauma Score: 12 ED Course: 05:05 Patient arrived in ED. em 05:06 Brett Mcintosh MD is Attending Physician. [facility] 05:09 Triage completed. em 05:10 Arm band placed on. em 05:12 Jina Krishna, RN is Primary Nurse. ea 05:13 Patient has correct armband on for positive identification. Bed in low position. Call ea light in reach. Side rails up X2. property assessment monitor on. Pulse ox on. NIBP on. 05:13 Patient maintains SpO2 saturation greater than 95% on room air. Thermoregulation: warm ea blanket given to patient. 05:30 Missed attempt(s): 22 gauge in right forearm. ea 05:43 CT Head Brain wo Cont In Process Unspecified. EDMS 06:10 XRAY Chest (1 view) In Process Unspecified. EDMS 07:00 Inserted saline lock: 20 gauge in right antecubital area, using aseptic technique. aa5 ,using aseptic technique. IV inserted by Shyam Hwang RN. 07:56 Attending Physician role handed off by Brett Mcintosh MD ma2 07:56 Lenin Smith MD is Attending Physician. ma2 08:11 Chest For Pe Angio In Process Unspecified. EDMS 08:17 Primary Nurse role handed off by Jina Krishna, HAL bd 08:18 Straight cath inserted, using sterile technique, 16 Fr. Specimen obtained. Returned aa5 clear yellow urine. Patient tolerated well. 08:22 Arlet Jimenez, HAL is Primary Nurse. aa5 10:03 Luis Herndon MD is Hospitalizing Provider. ma2 10:05 No provider procedures requiring assistance completed. Patient admitted, IV remains in aa5 place. Administered Medications: 08:44 Drug: NS 0.9% 1000 ml Route: IV; Rate: 1 bolus; Site: right antecubital; aa5 08:44 Drug: MethylPrednisoLONE 125 mg Route: IVP; Site: right antecubital; aa5 08:45 Drug: Rocephin 1 grams Route: IV; Rate: calculated rate; Site: right antecubital; aa5 09:35 Drug: AZITHromycin 500 mg {Note: received from pharmacy at 0930.} Route: IVPB; Infused aa5 Over: 1 hrs; Site: right antecubital; Intake: 10:00 Pt voided twice without difficulties, using bed bell. aa5 Outcome: 10:03 Decision to Hospitalize by Provider. ma2 10:03 Patient's length of stay in the Emergency Department was greater than 2 hours. aa5 10:05 Admitted to ER Hold. Please see [facility] for further documentation. aa5 10:05 Condition: stable aa5 10:05 Instructed on the need for admit. 15:17 Patient left the ED. aa5 Signatures: Dispatcher [employer] EDMS Lani Lewis Edgar, RN RN em Calderon, Audri, RN RN aa5 Juan Rogers RN RN jl7 Jina Krishna RN RN ea Alzahri, Mohammad, MD MD ma2 Brett Mcintosh MD MD 7 Corrections: (The following items were deleted from the chart) 05:11 05:06 Chief complaint: EMS states: fell earlier this morning due to being weak, reports em hitting head, had a recent cardiac procedure and had a "watchman device" placed in heart, reports daughter tested positive for covid 3 days ago and had been sleeping in the same bed with pt, pt reports low grade fever this morning em
[2020-06-12] MEDS ORDERED: ALBUTEROL 2.5 MG/3 ML NEB SOL NEB PRN ×2 (10:05→17:00)
[2020-06-12] MEDS ORDERED: IPRATROPIUM BROM 0.5MG/2.5ML NEB PRN ×2 (10:05→17:00)
[2020-06-12] MEDS: METHYLPREDNISOLONE 40 MG INJ IV SCH ×2 (12:00→18:12)
[2020-06-12] MEDS ORDERED: METHYLPRED NA SUC 60 MG in NA CHLORIDE 0.9% 100 ML IV SCH (12:00)
[2020-06-12] MEDS ORDERED: METHYLPREDNISOLONE 40 MG INJ ONE (12:13)
[2020-06-12] MEDS: ACETAMINOPHEN 500 MG TAB PO PRN (16:24)
[2020-06-12] MEDS ORDERED: SOTALOL HCL 80 MG TAB PO ONE (18:00)
[2020-06-12] MEDS: SOTALOL HCL 80 MG TAB PO SCH (21:00)
[2020-06-12] MEDS ORDERED: HOME MED 1 EA UNK (Simvastatin [Simvastatin] 20 MG Tablet) PO SCH (21:00)
[2020-06-12] MEDS ORDERED: HOME MED 1 EA UNK (Quetiapine Fumarate [Seroquel] 300 MG Tablet) PO SCH (21:00)
[2020-06-12] MEDS: CYCLOBENZAPRINE 10 MG TAB PO SCH ×2 (21:00→21:24)
[2020-06-12] MEDS ORDERED: TEMAZEPAM 30 MG PO SCH (21:00)
[2020-06-12] MEDS: APIXABAN 5 MG TABLET PO SCH (21:23)
[2020-06-12] MEDS: PHENYTOIN ER 100 MG CAP PO SCH (21:25)
--- NOTE | 2020-06-12 21:53 | RAD REPORT ---
EXAM DESCRIPTION: CT - Head Brain Wo Cont - 06/12/2020 7:09 am CLINICAL HISTORY: The patient is 84 years old and is Female; TRAUMA follow up after syncope. Negativ e LOC TECHNIQUE: Axial computed tomography images of the head/brain without intravenous contrast. Sagitt al and coronal reformatted images were created and reviewed. This CT exam was performed using one o r more of the following dose reduction techniques: automated exposure control, adjustment of the mA and/or kV according to patient size, and/or use of iterative reconstruction technique. COMPARISON: April 26, 2020. FINDINGS: Brain: Mild age related periventricular white matter microangiopathic changes. No hemorrhage. Ventricles: Within normal limits for age. No ventriculomegaly. Bones/joints: Unremarkable. No acute skull fracture. Soft tissues: Unremarkable. Sinuses: Unremarkable as visualized. No acute sinusitis. Mastoid air cells: No significant mastoid fluid. IMPRESSION: 1. No intracranial hemorrhage. No acute skull fracture. 2. Mild age related periventricular white matter microangiopathic changes. Electronically signed by: Domenica Barahona MD 06/12/2020 5:52 AM FINANCE EFFECTIVENESS MANAGER Due to temporary technical issues with the PACS/Fluency reporting system, reports are being signed by the in house radiologists without review as a courtesy to insure prompt reporting. The interpreting radiologist is fully responsible for the content of the report.
[2020-06-12] MEDS ORDERED: AMLODIPINE 5 MG TAB PO ONE (22:00)
[2020-06-13] MEDS: METHYLPREDNISOLONE 40 MG INJ IV SCH ×5 (00:11→23:52)
[2020-06-13 03:58] LABS: Absolute Lymphocytes (CBC) 0.5 K/uL (0.7-4.9); Basophils % 0.2 % (0-1.3); Hematocrit 30.1 % (36.0-45.0); Lymphocytes % 18.3 % (15.3-44.8); MPV 9.3 fL (7.6-11.3); RBC Red Blood Cell Count 3.31 M/uL (3.86-4.86)
[2020-06-13 04:16] LABS: BUN Blood Urea Nitrogen 12 mg/dL (7-18); Bicarbonate 27 mmol/L (21-32); Ferritin 227.3 ng/mL (8-388); Glucose Level 111 mg/dL (74-106); NT PRO-BNP 5234 pg/mL (<450); Potassium 3.7 mmol/L (3.5-5.1); Sodium Level 140 mmol/L (136-145)
[2020-06-13] MEDS: LEVOTHYROXINE SOD 0.088 MG TAB PO SCH (05:38)
--- NOTE | 2020-06-13 06:21 | HP ---
Date of Admission: 06/12/2020 Chief Complaint: Fall. History Of Present Illness: This is an 84-year-old female patient, who lives at home, felt very weak , tired and fell down at home and had a near syncopal episode. She came into emergency room with the se complaints. After she came into the ER, she started to have fever and further evaluation revealed that patient actually has COVID-19 infection with COVID-19 pneumonia. The patient was admitted to [facility]. I evaluated her tonight via TeleVisit that included audio and video component. The pat tamara informed me that her daughter has been sick with COVID-19 infection and she is in the hospital f or last 2-3 days and this is how she probably got her infection from her daughter. Last week on , Dr. Obregon did procedure on her for placement of Watchman device in her left atrial appendage f or atrial fibrillation problem. Allergies: TO LEVAQUIN. Medications: List reviewed. Review of Systems: Constitutional: As mentioned above. Significant for weakness, tiredness, and fever. All other systems reviewed and negative. Past Medical History: Significant for paroxysmal atrial fibrillation, pancytopenia, seizure disorder , macular degeneration, hypothyroidism, hypertension, hyperlipidemia, gastroesophageal reflux disease , diverticulosis, osteoarthritis at multiple sites, depression, osteoporosis. Past Surgical History: On June 08, 2020, the patient had Watchman device placement for atrial fib rillation by Dr. Obregon. Prior to that in the past she had appendectomy, cholecystectomy, hemorrhoid surgery, hernia repair, hysterectomy, and foot surgery. Family History: Father had heart disease and stroke. Mother had Alzheimer disease. Sister had hear t disease. Social History: Negative for smoking and alcohol use. Physical Examination: Vital Signs: Last vital signs before I evaluated her; temperature 97.7, pulse 77, respiratory rate 1 6, blood pressure 180/84, oxygen saturation 95% on room air. Height 5 feet 4 inches, weight 147 poun ds. General: When I evaluated via TeleVisit, the patient was awake, alert, oriented, answering all the q uestions appropriately, not in any respiratory distress, and not using any supplemental oxygen. Laboratory Data: White count 2.6, hemoglobin 10.6, platelets 54. Sodium 139, potassium 3.4, chlorid e 107, bicarb 24, BUN 9, creatinine 0.61, glucose 82. Liver function tests unremarkable. COVID-19 t est positive. Influenza A and B test negative. Procalcitonin less than 0.05. Lactic acid 0.8. Uri nalysis; 2+ blood, 1+ protein. Chest x-ray, no acute changes noted. CAT scan of the chest per PE pr otocol was negative for pulmonary embolism, but it did reveal presence of bilateral ground-glass opac ity. CAT scan of the head was negative for any acute intracranial changes. Impression: 1.COVID-19 infection. 2.COVID-19 pneumonia. 3.Volume depletion. 4.Hypokalemia. 5.Pancytopenia. 6.Paroxysmal atrial fibrillation. 7.Hypertension. 8.Hyperlipidemia. 9.Hypothyroidism. 10.Seizure disorder. 11.Osteoarthritis, multiple sites. 12.Gastroesophageal reflux disease. 13.Diverticulosis. 14.Depression. Plan: We will admit patient to hospital for further evaluation and management of this problem. The patient is appropriate for inpatient and is expected to spend 2 midnights in hospital. Continue her Eliquis as she needs to continue that for about 6 weeks. The patient has thrombocytopenia with signi ficantly low platelet count, we will continue to monitor. At this point, it is safe to continue her Eliquis and we will monitor her blood work. IV steroid and IV azithromycin were started, we will con tinue that. I will see her tomorrow for followup. Details and plan of treatment discussed with her. ANNA/MODMitul Voice ID: [id number]
--- NOTE | 2020-06-13 08:42 | P.CNS ---
Date of Consult: 06/13/20 Reason for Consult: Landin virus infection Chief Complaint: Weakness and fall History of Present Illness: Patient is a pleasant 84-year-old lady who fell at home he has been feeling very weak, tired near syncopal episode came here to the emergency room was diagnosed with landin virus infection and pancytopenia she is currently doing well denies any shortness of breath apart from weakness recently had watch meant device placed due to atrial fibrillation patient's saturation is satisfactory Allergies levofloxacin [From Levaquin] Adverse Reaction (Severe, Verified 10/08/12 01:23) Rash Home Medications: Aspirin Enteric Coated [Ecotrin*] 81 mg PO DAILY 10/14/12 Citalopram Hydrobromide [Citalopram HBr] 20 mg PO DAILY 10/14/12 Levothyroxine [Synthroid*] 88 mcg PO [id number] 07/20/19 Phenytoin Sodium Extended [Dilantin] 200 mg PO BEDTIME 07/20/19 Quetiapine Fumarate [Seroquel] 300 mg PO BID 07/20/19 Simvastatin 20 mg PO BEDTIME 07/20/19 Temazepam [Restoril] 30 mg PO BEDTIME 07/20/19 Amlodipine [Norvasc] 5 mg PO DAILY 04/27/20 Dexlansoprazole [Dexilant] 60 mg PO DAILY 04/27/20 Apixaban [Eliquis] 5 mg PO BID 30 Days #60 tablet 04/28/20 Sotalol HCl [Betapace*] 80 mg PO BID 30 Days #60 tab 04/28/20 Cyclobenzaprine [Flexeril*] 5 mg PO BEDTIME 06/12/20 - Past Medical/Surgical History Diabetic: No -: hernia -: HTN -: high cholesterol -: Stroke -: A-fib -: Hypothyroid -: Depression -: Appendectomy -: Hysterectomy -: -: Cholecystectomy -: hernia surgery X3 -: toe surgery to laurie feet -: Watchman device 06/08/20 - Social History Smoking Status: Unknown if ever smoked Alcohol use: No CD- Drugs: No Caffeine use: Yes Review of Systems 10-point ROS is otherwise unremarkable General: Weakness Respiratory: Shortness of Breath Physical Examination Temp Pulse Resp BP Pulse Ox 99.7 F 80 16 183/80 H 94 06/13/20 08:00 06/13/20 08:00 06/13/20 08:00 06/13/20 08:00 06/13/20 08:00 General: Alert, In no apparent distress, Oriented x3 Neck: Supple Respiratory: Clear to auscultation bilaterally Cardiovascular: No edema, Regular rate/rhythm, Normal S1 S2 Gastrointestinal: Normal bowel sounds, Soft and benign - Problems (1) Coronavirus infection Current Visit: Yes Status: Acute Plan: Patient is 84 years of age diagnosed with landin virus infection she is feeling weak tired and a fall otherwise she is very alert responsive saturation satisfactory minimal changes on the CT scan patient also has pancytopenia which is new most likely from the landin virus infection continue with steroids multi vitamins vital signs are stable Dc antibiotic patient is on Restoril a at night
[2020-06-13] MEDS: QUETIAPINE 100MG TAB PO SCH ×4 (09:00→21:00)
[2020-06-13] MEDS: ACETAMINOPHEN 500 MG TAB PO PRN ×4 (09:02→20:52)
[2020-06-13] MEDS: CITALOPRAM 10 MG TABLET PO SCH (09:04)
[2020-06-13] MEDS: AMLODIPINE 5 MG TAB PO SCH (09:04)
[2020-06-13] MEDS: SOTALOL HCL 80 MG TAB PO SCH ×2 (09:04→20:49)
[2020-06-13] MEDS: APIXABAN 5 MG TABLET PO SCH ×2 (09:04→20:50)
[2020-06-13] MEDS: AZITHROMYCIN IV 500 MG in NA CHLORIDE 0.9% 250 ML IVPB SCH (12:45)
--- NOTE | 2020-06-13 12:55 | EKG ---
Test Date: 2020-06-12 Test Time: 17:57:17 Radiotelegraph Operator: KELSEY MEASUREMENT RESULTS: Intervals: Rate: 76 MI: 178 QRSD: 110 QT: 430 QTc: 483 Merrill: P: 9 MI: 178 QRS: -33 T: 7 INTERPRETIVE STATEMENTS: Normal sinus rhythm with sinus arrhythmia Left axis deviation Incomplete left bundle branch block Voltage criteria for left ventricular hypertrophy Abnormal ECG Compared to ECG 06/12/2020 05:50:17 Left bundle-branch block now present Myocardial infarct finding no longer present Electronically Signed On 06-13-20 12:53:17 ROD GREASER by Vinny Lagunas
[2020-06-13] MEDS: PHENYTOIN ER 100 MG CAP PO SCH (20:50)
[2020-06-13] MEDS: ATORVASTATIN 10 MG TAB PO SCH (20:50)
[2020-06-13] MEDS: CYCLOBENZAPRINE 10 MG TAB PO SCH ×2 (20:50→21:00)
[2020-06-13] MEDS: TEMAZEPAM 15 MG CAP PO SCH (20:51)
[2020-06-14] MEDS: ACETAMINOPHEN 500 MG TAB PO PRN ×4 (01:00→18:10)
[2020-06-14] MEDS: METHYLPREDNISOLONE 40 MG INJ IV SCH ×3 (05:58→18:11)
[2020-06-14] MEDS: PANTOPRAZOLE 40MG TABLET PO SCH (05:58)
[2020-06-14] MEDS: LEVOTHYROXINE SOD 0.088 MG TAB PO SCH (05:59)
[2020-06-14 07:25] LABS: Absolute Lymphocytes (CBC) 0.3 K/uL (0.7-4.9); Basophils % 0.3 % (0-1.3); Hematocrit 30.7 % (36.0-45.0); Lymphocytes % 13.2 % (15.3-44.8); MPV 9.1 fL (7.6-11.3); RBC Red Blood Cell Count 3.36 M/uL (3.86-4.86)
[2020-06-14 07:50] LABS: Albumin 2.6 g/dL (3.4-5.0); Bilirubin Total 0.3 mg/dL (0.2-1.0); Ferritin 307.6 ng/mL (8-388); Magnesium 2.2 mg/dL (1.8-2.4); Potassium 3.7 mmol/L (3.5-5.1); Protein, Total 6.7 g/dL (6.4-8.2)
[2020-06-14 08:01] LABS: Blood Morphology Comment NOT SEEN (NOT SEEN); Platelet Estimate DECR
[2020-06-14] MEDS: QUETIAPINE 100MG TAB PO SCH (09:00)
[2020-06-14] MEDS ORDERED: IVERMECTIN 3 MG TABLET PO ONE (09:00)
[2020-06-14] MEDS: SOTALOL HCL 80 MG TAB PO SCH ×2 (10:11→20:48)
[2020-06-14] MEDS: CITALOPRAM 10 MG TABLET PO SCH (10:11)
[2020-06-14] MEDS: APIXABAN 5 MG TABLET PO SCH ×2 (10:12→20:48)
[2020-06-14] MEDS: AMLODIPINE 5 MG TAB PO SCH (10:13)
[2020-06-14] MEDS: AZITHROMYCIN IV 500 MG in NA CHLORIDE 0.9% 250 ML IVPB SCH (10:15)
[2020-06-14] MEDS ORDERED: AMLODIPINE 5 MG TAB PO ONE ×2 (13:25→17:00)
[2020-06-14] MEDS ORDERED: Remdesivir 200 MG in NA CHLORIDE 0.9% 250 ML IV ONE (18:00)
[2020-06-14] MEDS: METOPROLOL XL 25 MG TAB PO SCH ×2 (18:11→21:00)
[2020-06-14] MEDS ORDERED: METOPROLOL XL 25 MG TAB PO ONE (18:23)
[2020-06-14] MEDS: ONDANSETRON 4 MG/2 ML VIAL IV PRN (18:33)
[2020-06-14] MEDS: PHENYTOIN ER 100 MG CAP PO SCH (20:46)
[2020-06-14] MEDS: TEMAZEPAM 15 MG CAP PO SCH (20:47)
[2020-06-14] MEDS: CYCLOBENZAPRINE 10 MG TAB PO SCH (20:47)
[2020-06-14] MEDS: ATORVASTATIN 10 MG TAB PO SCH (20:48)
[2020-06-14] MEDS ORDERED: QUETIAPINE 100MG TAB PO SCH (21:00)
[2020-06-15] MEDS: METHYLPREDNISOLONE 40 MG INJ IV SCH ×2 (00:18→06:10)
[2020-06-15] MEDS: ACETAMINOPHEN 500 MG TAB PO PRN ×2 (00:22→16:03)
[2020-06-15 04:33] LABS: Albumin 2.3 g/dL (3.4-5.0); Bilirubin Direct 0.1 mg/dL (0-0.2); Bilirubin Total 0.3 mg/dL (0.2-1.0); Protein, Total 6.3 g/dL (6.4-8.2)
[2020-06-15] MEDS: LEVOTHYROXINE SOD 0.088 MG TAB PO SCH (06:10)
[2020-06-15] MEDS: PANTOPRAZOLE 40MG TABLET PO SCH (06:10)
--- NOTE | 2020-06-15 06:29 | PN ---
Date of Progress Note: 06/14/2020 Subjective: The patient was seen for followup this evening and she was evaluated via TeleVisit that included audio and video component. She has been having fever and today she has not felt good, feels weak and her oxygenation has found out requiring supplemental oxygen today. When I evaluated her, she was lying in bed with nasal cannula oxygen, not using any accessory muscles of respiration. Objective: Vital Signs: Reviewed. Impression: 1. COVID-19 infection. 2. COVID-19 pneumonia. 3. Acute respiratory failure with hypoxia. 4. Hypertension. 5. Atrial fibrillation. Plan: We will go ahead and continue her Eliquis. Continue oxygen supplementation per order and today remdesivir was started because of her now requiring oxygen supplementation. Ivermectin was given this morning and we will repeat another dose day after tomorrow. We will continue IV steroids. Her blood pressure was elevated. We did give her extra dose of amlodipine and after that her blood pressure came down a little bit but was still elevated, so metoprolol was started. The patient remains on sotalol. I will see her tomorrow for followup. ANNA/MODL Voice ID: [id number] Report ID: [id number] SALOMÓN
[2020-06-15] MEDS: CITALOPRAM 10 MG TABLET PO SCH (09:23)
[2020-06-15] MEDS: APIXABAN 5 MG TABLET PO SCH ×2 (09:23→21:16)
[2020-06-15] MEDS: AMLODIPINE 5 MG TAB PO SCH (09:23)
[2020-06-15] MEDS: AZITHROMYCIN IV 500 MG in NA CHLORIDE 0.9% 250 ML IVPB SCH (09:24)
[2020-06-15] MEDS: Remdesivir 100 MG in NA CHLORIDE 0.9% 250 ML IV SCH (09:24)
[2020-06-15] MEDS: SOTALOL HCL 80 MG TAB PO SCH ×2 (09:24→21:17)
[2020-06-15] MEDS: METOPROLOL XL 25 MG TAB PO SCH ×2 (09:25→21:16)
[2020-06-15] MEDS: METHYLPREDNISOLONE 125 MG INJ IV SCH ×2 (11:29→17:09)
[2020-06-15] MEDS: ONDANSETRON 4 MG/2 ML VIAL IV PRN (11:55)
[2020-06-15] MEDS: CYCLOBENZAPRINE 10 MG TAB PO SCH (21:15)
[2020-06-15] MEDS: TEMAZEPAM 15 MG CAP PO SCH (21:15)
[2020-06-15] MEDS: PHENYTOIN ER 100 MG CAP PO SCH (21:16)
[2020-06-15] MEDS: QUETIAPINE 100MG TAB PO SCH (21:17)
[2020-06-15] MEDS: ATORVASTATIN 10 MG TAB PO SCH (21:17)
[2020-06-16] MEDS: METHYLPREDNISOLONE 125 MG INJ IV SCH ×5 (00:59→23:00)
[2020-06-16] MEDS ORDERED: IVERMECTIN 3 MG TABLET PO ONE (06:00)
[2020-06-16] MEDS: PANTOPRAZOLE 40MG TABLET PO SCH (06:15)
[2020-06-16] MEDS: ACETAMINOPHEN 500 MG TAB PO PRN (06:15)
[2020-06-16] MEDS: LEVOTHYROXINE SOD 0.088 MG TAB PO SCH (06:15)
--- NOTE | 2020-06-16 07:15 | RAD REPORT ---
EXAM DESCRIPTION: RAD - Chest Single View - 06/16/2020 5:32 am CLINICAL HISTORY: covid pneumonia COMPARISON: CT chest June 12, portable chest June 12 TECHNIQUE: AP portable chest image was obtained 06/16/2020 5:32 am . FINDINGS: Significant worsening of the right upper lobe airspace consolidation since June 12 imag ing. There is some additional volume loss in the right upper lobe. Right lower lobe perihilar opacifi cation has progressed as well. There is substantial progression of the left lung field opacification as well. Heart size is stable. Trachea is midline. Pulmonary vasculature is stable. No measurable pleural eff usion and no pneumothorax. IMPRESSION: Substantial worsening of the bilateral pneumonia since June 12 imaging.
[2020-06-16 07:51] LABS: Absolute Lymphocytes (CBC) 0.3 K/uL (0.7-4.9); Basophils % 0.1 % (0-1.3); Hematocrit 34.6 % (36.0-45.0); Lymphocytes % 6.6 % (15.3-44.8); MPV 9.2 fL (7.6-11.3); RBC Red Blood Cell Count 3.85 M/uL (3.86-4.86)
[2020-06-16 08:11] LABS: Albumin 2.3 g/dL (3.4-5.0); Bilirubin Direct 0.2 mg/dL (0-0.2); Bilirubin Total 0.4 mg/dL (0.2-1.0); Magnesium 2.1 mg/dL (1.8-2.4); Protein, Total 6.5 g/dL (6.4-8.2)
[2020-06-16] MEDS: METOPROLOL XL 25 MG TAB PO SCH ×2 (09:02→21:10)
[2020-06-16] MEDS: AMLODIPINE 5 MG TAB PO SCH (09:03)
[2020-06-16] MEDS: APIXABAN 5 MG TABLET PO SCH ×2 (09:03→21:11)
[2020-06-16] MEDS: CITALOPRAM 10 MG TABLET PO SCH (09:03)
[2020-06-16] MEDS: SOTALOL HCL 80 MG TAB PO SCH ×2 (09:06→21:11)
[2020-06-16] MEDS: Remdesivir 100 MG in NA CHLORIDE 0.9% 250 ML IV SCH (09:25)
[2020-06-16 09:40] LABS: Blood Morphology Comment NOT SEEN (NOT SEEN); Platelet Estimate DECR; Platelets, Giant FEW; White Blood Cell Scan OK (OK)
--- NOTE | 2020-06-16 11:18 | PN ---
Date of Progress Note: 06/15/2020 Subjective: The patient was seen this morning for followup. No new complaints or problems reported by patient. Objective: GENERAL: She was lying in bed, not in distress. VITAL SIGNS: Reviewed. HEENT: Unremarkable. LUNGS: Clear to auscultation. HEART: Sounds normal. ABDOMEN: Soft. Bowel sounds normal. No guarding, rigidity, tenderness, or distention. EXTREMITIES: No leg edema. Laboratory Data: Creatinine 0.70. Liver function tests shows AST 40, ALT 16, alkaline phosphatase 4 5. Impression: 1.COVID-19 infection. 2.COVID-19 pneumonia. 3.Acute respiratory failure with hypoxia. 4.Hypertension. 5.Anxiety. Plan: We will go ahead and continue remdesivir which was started. The patient is requiring suppleme ntal oxygen. We will continue that. Continue other current medical management including IV steroids . I will see her tomorrow for followup. Continue current anticoagulation therapy. ANNA/MODL Voice ID: [id number] Report ID: [id number]
[2020-06-16] MEDS: TEMAZEPAM 15 MG CAP PO SCH (21:10)
[2020-06-16] MEDS: ATORVASTATIN 10 MG TAB PO SCH (21:11)
[2020-06-16] MEDS: CYCLOBENZAPRINE 10 MG TAB PO SCH (21:11)
[2020-06-16] MEDS: PHENYTOIN ER 100 MG CAP PO SCH (21:12)
[2020-06-16] MEDS: QUETIAPINE 100MG TAB PO SCH (21:13)
[2020-06-17 05:37] LABS: ALT/SGPT 25 U/L (12-78); AST/SGOT 52 U/L (15-37); Albumin 2.3 g/dL (3.4-5.0); Alkaline Phosphatase 48 U/L (45-117); Bilirubin Direct 0.1 mg/dL (0-0.2); Bilirubin Total 0.4 mg/dL (0.2-1.0); Protein, Total 6.5 g/dL (6.4-8.2)
[2020-06-17] MEDS: METHYLPREDNISOLONE 125 MG INJ IV SCH ×4 (05:48→23:33)
[2020-06-17] MEDS: LEVOTHYROXINE SOD 0.088 MG TAB PO SCH (05:48)
[2020-06-17] MEDS: PANTOPRAZOLE 40MG TABLET PO SCH (05:49)
[2020-06-17] MEDS: CITALOPRAM 10 MG TABLET PO SCH (08:22)
[2020-06-17] MEDS: SOTALOL HCL 80 MG TAB PO SCH ×2 (08:22→20:22)
[2020-06-17] MEDS: APIXABAN 5 MG TABLET PO SCH ×2 (08:22→20:22)
[2020-06-17] MEDS: Remdesivir 100 MG in NA CHLORIDE 0.9% 250 ML IV SCH (08:23)
[2020-06-17] MEDS: AMLODIPINE 5 MG TAB PO SCH (08:23)
[2020-06-17] MEDS: METOPROLOL XL 25 MG TAB PO SCH (09:00)
--- NOTE | 2020-06-17 10:22 | RAD REPORT ---
EXAM DESCRIPTION: RAD - Chest Single View - 06/17/2020 10:11 am CLINICAL HISTORY: covid pneumonia COMPARISON: June 16 TECHNIQUE: AP portable chest image was obtained 06/17/2020 10:11 am . FINDINGS: Right upper lobe and perihilar right pneumonia changes are similar to comparison. Mid and lower left lung field pneumonia changes also without substantial change. More shallow inspiration and rotation accentuates the left chest findings. Heart and vasculature are normal. No measurable pleural effusion and no pneumothorax. No acute bony abnormality seen. No acute aortic findings suspected. IMPRESSION: Bilateral pneumonia pattern showing no improvement from June 16.
[2020-06-17] MEDS ORDERED: FUROSEMIDE 20 MG/ 2ML VIAL IV ONE (10:43)
--- NOTE | 2020-06-17 10:44 | P.PN ---
Subjective Date of Service: 06/17/20 Chief Complaint: Respiratory failure Patient was transfer from the floor last night to the ICU due to respiratory distress and hypoxemia as currently on high concentrations of oxygen he is very weak Review of Systems General: Malaise Respiratory: Shortness of Breath Physical Examination - Vital Signs Temperature: 97.9 F Blood Pressure: 154/78 Pulse: 65 Respirations: 19 Pulse Ox (%): 91 Assessment & Plan - Problems (Diagnosis) (1) Acute respiratory failure due to severe acute respiratory syndrome coronavirus 2 (SARS-CoV-2) infection Current Visit: Yes Status: Acute Plan: Patient transferred last night due to worsening hypoxemia she is currently on high-flow 100% inflammatory parameters of worsen agree with 48 hr increase of Solu-Medrol 125 IV Q 6 1 dose of Lasix
--- NOTE | 2020-06-17 12:43 | PN ---
Date of Progress Note: 06/17/2020 Subjective: The patient was seen for followup this morning. Last night, her condition deteriorated with worsening hypoxia even with use of high-flow oxygen at 100%. She was still having hypoxia probl em. Her oxygen saturation continued to drop down, so nursing staff contacted me, at that time we dec ided to put her on a BiPAP and with the BiPAP 100% oxygen. Initially, she was maintaining around 95% oxygen saturation and then subsequently she started deteriorating and it dropped down to 86% to 88%. At that time, we decided to move her to ICU. This morning when I saw her she was lying in bed, in ICU. Before my arrival she was changed to high-flow oxygen at 100% and maintaining oxygenation 88% t o 90%. She is comfortable. Not in any respiratory distress. She has generalized weakness. No othe r specific complaints. Objective: Vital Signs: Reviewed. HEENT: Unremarkable. Lungs: Bilateral good equal air entry. Presence of some scattered rales noted in lower lung doll. Not in any respiratory distress. Heart: Sounds normal. Abdomen: Soft. Bowel sounds normal. No guarding, rigidity, tenderness, distention. Extremities: No leg edema. Laboratory Data: Creatinine 0.58, AST 52, ALT 25, alkaline phosphatase 48. Last chest x-ray was fro m yesterday showed worsening of pneumonia compared to before. Impression: 1.COVID-19 infection. 2.COVID-19 pneumonia. 3.Acute respiratory failure with hypoxia. 4.Hypertension. 5.Atrial fibrillation. 6.Chronic anticoagulation therapy. Plan: I will continue her current Eliquis. Continue current antihypertensive medication. She was s tarted on metoprolol because of blood pressure control probably about 3 days ago and considering toda y's blood pressure with systolic blood pressure around 110 to 120. We will go ahead and discontinue metoprolol at this point. We will continue her sotalol. Continue IV steroid. Yesterday, her steroi d was increased and current dose is 125 mg every 6 hours and this was increased from 80 mg every 6 ho urs. We will go ahead and continue remdesivir. Continue to follow with Dr. Gao. We will repea t chest x-ray and blood work tomorrow. Advanced care planning was discussed with the patient and the patient was made aware of that. Right now her condition is stable, but in the event if she ends up having worsening of her condition with worsening respiratory failure or cardiac arrest, if she would want us to put her on a ventilator or perform CPR or provide any defibrillation. The patient informe d me clearly that she does not want any such heroic measures and in such event, she wants us to keep her comfortable and let the God and nature to take its course. She has also informed by ICU nurse out the same decision this morning. Time spent towards discussion of advanced care planning was 18 m inutes. I will write order for do not resuscitate in her chart. We will monitor her in ICU today. Depending on her condition, we will decide if we can transfer her out of ICU tomorrow or not. Detail s were discussed with her. Her thrombocytopenia had improved on yesterday's blood work, we will repe at another blood work tomorrow to monitor that as well. Repeat chest x-ray tomorrow. ANNA/MODL Voice ID: [id number] Report ID: [id number]
--- NOTE | 2020-06-17 13:12 | PN ---
Date of Progress Note: 06/16/2020 Subjective: The patient was seen this morning for followup. She denies any specific complaints exce pt complaining of feeling weak. Objective: Vital Signs: Reviewed. HEENT: Unremarkable. Lungs: Clear to auscultation. Heart: Sounds normal. Abdomen: Soft. Bowel sounds normal. No guarding, rigidity, tenderness, distention. Extremities: No leg edema. Laboratory Data: Sodium 137, potassium 4, chloride 102, bicarb 29, BUN 18, creatinine 0.68, glucose 119, ferritin 1095. CRP 114, AST 45, ALT 19 Impression: 1.COVID-19 infection. 2.COVID-19 pneumonia. 3.Acute respiratory failure with hypoxia. 4.Anxiety. 5.Hypertension. 6.Atrial fibrillation. Plan: We will continue current Eliquis, continue sotalol and metoprolol. We will continue steroid a s well as oxygen support. The patient has received second dose of ivermectin today and we will princess nue her remdesivir. Continue to follow with Dr. Gao. I will see her tomorrow for followup. ANNA/MODL Voice ID: [id number] Report ID: [id number]
[2020-06-17] MEDS: ONDANSETRON 4 MG/2 ML VIAL IV PRN ×3 (14:55→22:15)
[2020-06-17] MEDS ORDERED: BISACODYL 10 MG RECTAL SUPP PR ONE (15:02)
[2020-06-17] MEDS: PROMETHAZINE INJ 25 MG/ML AMP ONE ×2 (19:10→19:11)
[2020-06-17] MEDS: PROMETHAZINE INJ 25 MG/ML AMP IV PRN (19:12)
--- NOTE | 2020-06-17 19:55 | CON ---
Date of Consultation: 06/13/2020 Reason For Consultation: Fall, syncope, and COVID. History Of Present Illness: The patient is an 84-year-old, who has a history of atrial fibrillation, CVA, depression. On 06/08/2020, approximately 4 days ago, Dr. Obregon, my partner performed a Watchm an procedure on her in the left atrial appendage. She came in with a syncopal episode. Denied any c hest pain. She has had some chills, but no fever. Mrs. Coulter was diagnosed with COVID pneumonia. It was thought that she got her COVID pneumonia from her daughter, who has been sick. Her main complai nt when she came in was weakness, near syncope, and falling spells. Past Medical History: As stated above. Review of Systems: Negative. Social History: Negative. Family History: Positive for heart disease and stroke as well as Alzheimer. Medications: Include sotalol, Eliquis, Synthroid, Dilantin, Zocor, Norvasc. Physical Examination: Vital Signs: Stable. She was afebrile. Her respiratory rate was 25, her blood pressure was 136/77, O2 saturation was 89%. HEENT: Negative. Neck: Supple. No bruit. Chest: Some rales in both bases. Cardiac: Normal rhythm and rate. No murmurs, gallops, or rubs. Abdomen: Benign. Extremities: No clubbing, cyanosis, or edema. Diagnostic Data: Basically, she had COVID pneumonia by x-ray. Hemoglobin was 11. Her ferritin leve l was 1095. C-reactive protein was 114. Troponin was negative. Ejection fraction in April showed an ejection fraction of 45%. Her BNP was 5234. Impression And Plan: 1.I think the patient's symptoms of falling, presyncope are secondary to her COVID infection and pne umonia and volume depletion. 2.Hypokalemia. 3.Pancytopenia. 4.Paroxysmal atrial fibrillation, status post recent Watchman. She should continue her Eliquis for 45 days. 5.Her other problems include hypertension, dyslipidemia, hypothyroidism, seizure disorder, depressio n, gastroesophageal reflux disease, diverticulosis, and arthritis. I personally agree with her present regimen for now. I think she needs to be treated for her COVID p neumonia have her potassium corrected. She needs to be hydrated. I will follow her on an as-needed basis. She will follow up with us in the office after her discharge. DEDRICK Voice ID: [id number] Report ID: [id number]
[2020-06-17] MEDS: PHENYTOIN ER 100 MG CAP PO SCH (20:22)
[2020-06-17] MEDS: CYCLOBENZAPRINE 10 MG TAB PO SCH (20:23)
[2020-06-17] MEDS: ATORVASTATIN 10 MG TAB PO SCH (20:24)
[2020-06-17] MEDS: QUETIAPINE 100MG TAB PO SCH (20:25)
[2020-06-17] MEDS: TEMAZEPAM 15 MG CAP PO SCH (20:25)
[2020-06-18] MEDS: PROMETHAZINE INJ 25 MG/ML AMP IV PRN ×2 (00:50→08:08)
[2020-06-18] MEDS: METHYLPREDNISOLONE 125 MG INJ IV SCH ×3 (05:21→16:19)
[2020-06-18] MEDS: LEVOTHYROXINE SOD 0.088 MG TAB PO SCH (05:21)
[2020-06-18] MEDS: PANTOPRAZOLE 40MG TABLET PO SCH (05:21)
[2020-06-18 06:02] LABS: Absolute Lymphocytes (CBC) 0.4 K/uL (0.7-4.9); Basophils % 0.1 % (0-1.3); Hematocrit 29.7 % (36.0-45.0); Lymphocytes % 4.4 % (15.3-44.8); MPV 9.6 fL (7.6-11.3)
[2020-06-18 06:26] LABS: Bilirubin Direct 0.3 mg/dL (0-0.2); Bilirubin Total 0.5 mg/dL (0.2-1.0); Ferritin 1410.8 ng/mL (8-388); Potassium 3.5 mmol/L (3.5-5.1); Protein, Total 6.1 g/dL (6.4-8.2)
[2020-06-18] MEDS: AMLODIPINE 5 MG TAB PO SCH (07:59)
[2020-06-18] MEDS: CITALOPRAM 10 MG TABLET PO SCH (07:59)
[2020-06-18] MEDS: APIXABAN 5 MG TABLET PO SCH ×2 (07:59→20:48)
[2020-06-18] MEDS: SOTALOL HCL 80 MG TAB PO SCH ×2 (07:59→20:52)
[2020-06-18] MEDS: Remdesivir 100 MG in NA CHLORIDE 0.9% 250 ML IV SCH (08:28)
--- NOTE | 2020-06-18 12:02 | PN ---
Date of Progress Note: 06/18/2020 Subjective: The patient was seen this morning for followup. No new complaints or problems reported by the patient. She was lying in bed in ICU, on BiPAP. She is on 100% oxygen with BiPAP. Objective: Vital Signs: Reviewed. Intake and output records reviewed. HEENT: Unremarkable. Lungs: Clear to auscultation except some scattered rales noted in lower lung field. Heart: Sounds normal. Abdomen: Soft. Bowel sounds normal. No guarding, rigidity, tenderness, or distention. Extremities: No leg edema. Laboratory Data: White count 9.8, hemoglobin 10. Sodium 135, potassium 3.5, chloride 98, bicarb 30, BUN 21, creatinine 0.70. CRP 1410 and C-reactive protein 127. Impression: 1. Acute respiratory failure with hypoxia. 2. COVID-19 infection. 3. COVID-19 pneumonia. 4. Thrombocytopenia. 5. Anemia. 6. Atrial fibrillation. Plan: We will continue current Eliquis that she is taking. Platelet count is improving. Hemoglobin is stable. We will continue current IV steroid that she is currently on. Continue BiPAP with oxygen support. The patient is on 100% oxygen with BiPAP. We will continue remdesivir and continue to follow with Dr. Gao. Chest x-ray was done today, result pending. We will follow up on that. The patient gets very tachypneic and hypoxia gets worse when she has full bladder and has to try to use the bed bell, so we will go ahead and place a Weir catheter at this point. Plan is to transfer her out of ICU to regular room today as she does not need any special care at present time requiring ICU stay and her current care can be managed on the medical floor. Yesterday, she had lot of nausea and Zofran did not help, so she was started on Phenergan and that actually helped her. She remains on pantoprazole. The patient has advanced directive of do not resuscitate. ANNA/MODL Voice ID: [id number] Report ID: [id number] MTDD
[2020-06-18] MEDS: ACETAMINOPHEN 500 MG TAB PO PRN (16:19)
[2020-06-18] MEDS: TEMAZEPAM 15 MG CAP PO SCH (20:48)
[2020-06-18] MEDS: CYCLOBENZAPRINE 10 MG TAB PO SCH (20:49)
[2020-06-18] MEDS: ATORVASTATIN 10 MG TAB PO SCH (20:52)
[2020-06-18] MEDS: PHENYTOIN ER 100 MG CAP PO SCH (20:53)
[2020-06-18] MEDS: QUETIAPINE 100MG TAB PO SCH (20:53)
[2020-06-19] MEDS: METHYLPREDNISOLONE 125 MG INJ IV SCH ×4 (01:02→16:04)
[2020-06-19 05:27] LABS: Absolute Lymphocytes (CBC) 0.3 K/uL (0.7-4.9); Basophils % 0.6 % (0-1.3); Hematocrit 29.2 % (36.0-45.0); Lymphocytes % 3.8 % (15.3-44.8)
[2020-06-19 05:49] LABS: ALT/SGPT 35 U/L (12-78); AST/SGOT 62 U/L (15-37); Albumin 1.8 g/dL (3.4-5.0); Alkaline Phosphatase 52 U/L (45-117); BUN Blood Urea Nitrogen 21 mg/dL (7-18); Bicarbonate 31 mmol/L (21-32); Bilirubin Total 0.5 mg/dL (0.2-1.0); Ferritin 1596.5 ng/mL (8-388); Glucose Level 125 mg/dL (74-106); Magnesium 2.2 mg/dL (1.8-2.4); Potassium 3.7 mmol/L (3.5-5.1); Protein, Total 6.1 g/dL (6.4-8.2); Sodium Level 137 mmol/L (136-145)
[2020-06-19] MEDS: LEVOTHYROXINE SOD 0.088 MG TAB PO SCH (06:11)
[2020-06-19] MEDS: PANTOPRAZOLE 40MG TABLET PO SCH (06:11)
[2020-06-19] MEDS: SOTALOL HCL 80 MG TAB PO SCH ×2 (07:48→21:22)
[2020-06-19] MEDS: CITALOPRAM 10 MG TABLET PO SCH (07:48)
[2020-06-19] MEDS: APIXABAN 5 MG TABLET PO SCH ×2 (07:48→21:23)
[2020-06-19] MEDS: AMLODIPINE 5 MG TAB PO SCH (08:12)
--- NOTE | 2020-06-19 11:26 | RAD REPORT ---
EXAM DESCRIPTION: PICC placement COMPARISON: None. TECHNIQUE: XR CHEST 1 VIEW 06/17/2020 9:39 PM BUSINESS APPLICATIONS DEVELOPER FINDINGS: Cardiac silhouette is normal in size. There is extensive right upper lobe and left mid and lower lung airspace disease. There is no pleural effusion. There is no pneumothorax. There are no ac nikolski osseous findings. Left PICC line tip is in the mid to upper SVC. There is a calcified right parat albaro lymph node. IMPRESSION: Left PICC line in appropriate position. Extensive bilateral pneumonia. Electronically signed by: Petar Interiano MD 06/17/2020 10:33 PM BUSINESS APPLICATIONS DEVELOPER Due to temporary technical issues with the PACS/Fluency reporting system, reports are being signed by the in house radiologist without review as a courtesy to ensure prompt reporting. The interpreting r adiologist is fully responsible for the content of the report.
--- NOTE | 2020-06-19 12:18 | P.PN ---
Subjective Date of Service: 06/19/20 Chief Complaint: Respiratory failure Patient is still feeling very weak requiring high concentrations of oxygen Review of Systems General: Weakness Respiratory: Shortness of Breath Physical Examination - Vital Signs Temperature: 99.1 F Blood Pressure: 146/69 Pulse: 70 Respirations: 24 Pulse Ox (%): 90 Assessment & Plan - Problems (Diagnosis) (1) Acute respiratory failure due to severe acute respiratory syndrome coronavirus 2 (SARS-CoV-2) infection Current Visit: Yes Status: Acute Plan: Respiratory failure from sánchez virus no response to high doses of steroids Solu-Medrol has been reduced to 80 mg IV Q 8 wishes white count elevated may be secondary to steroids patient has been started on IV levofloxacin also I have also added low-dose spironolactone to maintain slight negative fluid balance continues to require high concentrations of oxygen add multi vitamin support blood cultures
[2020-06-19] MEDS: ACETAMINOPHEN 500 MG TAB PO PRN (12:21)
[2020-06-19] MEDS: SPIRONOLACTONE 25 MG TABLET PO SCH (12:30)
[2020-06-19] MEDS: ASCORBIC ACID 500 MG TABLET PO SCH ×2 (13:35→21:25)
[2020-06-19] MEDS: PHENYTOIN ER 100 MG CAP PO SCH (21:22)
[2020-06-19] MEDS: CYCLOBENZAPRINE 10 MG TAB PO SCH (21:23)
[2020-06-19] MEDS: ENSURE ENLIVE 237 ML CAN PO SCH (21:23)
[2020-06-19] MEDS: ATORVASTATIN 10 MG TAB PO SCH (21:24)
[2020-06-19] MEDS: TEMAZEPAM 15 MG CAP PO SCH (21:24)
[2020-06-19] MEDS: THIAMINE HCL 100 MG TABLET PO SCH (21:25)
[2020-06-19] MEDS: QUETIAPINE 100MG TAB PO SCH (21:25)
[2020-06-20] MEDS: METHYLPREDNISOLONE 125 MG INJ IV SCH ×3 (00:13→16:10)
[2020-06-20 05:29] VITALS: BMI 25.9
[2020-06-20 05:50] LABS: Absolute Lymphocytes (CBC) 0.5 K/uL (0.7-4.9); Hematocrit 31.3 % (36.0-45.0); Lymphocytes % 5.1 % (15.3-44.8); MPV 8.6 fL (7.6-11.3); RBC Red Blood Cell Count 3.49 M/uL (3.86-4.86)
[2020-06-20] MEDS: PANTOPRAZOLE 40MG TABLET PO SCH (05:55)
[2020-06-20] MEDS: LEVOTHYROXINE SOD 0.088 MG TAB PO SCH (06:00)
[2020-06-20 06:26] LABS: ALT/SGPT 56 U/L (12-78); AST/SGOT 93 U/L (15-37); Albumin 1.9 g/dL (3.4-5.0); Alkaline Phosphatase 73 U/L (45-117); BUN Blood Urea Nitrogen 18 mg/dL (7-18); Bicarbonate 31 mmol/L (21-32); Bilirubin Total 0.7 mg/dL (0.2-1.0); Ferritin 2363.7 ng/mL (8-388); Glucose Level 76 mg/dL (74-106); Magnesium 1.9 mg/dL (1.8-2.4); Potassium 3.8 mmol/L (3.5-5.1); Protein, Total 6.6 g/dL (6.4-8.2); Sodium Level 136 mmol/L (136-145)
--- NOTE | 2020-06-20 07:44 | RAD REPORT ---
EXAM DESCRIPTION: Teresa Single View06/20/2020 5:34 am CLINICAL HISTORY: Chest pain COMPARISON: June 17 FINDINGS: No significant change in diffuse bilateral pulmonary opacities. The heart is normal size IMPRESSION: No significant change in diffuse bilateral pulmonary opacities likely pneumonia
[2020-06-20] MEDS: ZINC SULFATE 220 MG CAP PO SCH (07:51)
[2020-06-20] MEDS: ASCORBIC ACID 500 MG TABLET PO SCH ×3 (07:51→20:18)
[2020-06-20] MEDS: CITALOPRAM 10 MG TABLET PO SCH (07:52)
[2020-06-20] MEDS: AMLODIPINE 5 MG TAB PO SCH (07:52)
[2020-06-20] MEDS: THIAMINE HCL 100 MG TABLET PO SCH ×2 (07:52→20:18)
[2020-06-20] MEDS: ENSURE ENLIVE 237 ML CAN PO SCH ×2 (07:53→20:19)
[2020-06-20] MEDS: APIXABAN 5 MG TABLET PO SCH ×2 (07:53→20:19)
--- NOTE | 2020-06-20 07:55 | PN ---
Date of Progress Note: 06/19/2020 Subjective: The patient was seen for followup this morning, lying in bed, on BiPAP. No new complain ts or problems reported by her. Objective: Vital Signs: Reviewed. HEENT: Unremarkable. Lungs: Clear to auscultation. Heart: Sounds normal. Abdomen: Soft. Bowel sounds normal. No guarding, rigidity, tenderness, or distention. Extremities: No leg edema. Impression: 1.Acute respiratory failure with hypoxia. 2.COVID-19 infection. 3.COVID-19 pneumonia. 4.Hypertension. Plan: We will continue current medications. Continue oxygen with BiPAP support. We will continue h er current anticoagulation which is Eliquis. Continue other current home medications and I will see her tomorrow for followup. We will continue IV steroid, which is Solu-Medrol at 125 mg every 6 hours . ANNA/MODL Voice ID: [id number] Report ID: [id number]
[2020-06-20] MEDS: SOTALOL HCL 80 MG TAB PO SCH ×2 (08:01→20:18)
[2020-06-20] MEDS: SPIRONOLACTONE 25 MG TABLET PO SCH (08:02)
[2020-06-20] MEDS: ONDANSETRON 4 MG/2 ML VIAL IV PRN ×2 (08:16→20:31)
--- NOTE | 2020-06-20 08:25 | PN ---
Date of Progress Note: 06/19/2020 Addendum: Laboratory Data: Today white count 7.6, hemoglobin 9.6. Sodium 137, potassium 3.7, chloride 101, bicarb 31, BUN 21, creatinine 0.60, glucose 125. CRP 184, which is higher today than yesterday. Ferritin 1595, which is also slightly higher today than yesterday. ANNA/MODL Voice ID: [id number] Report ID: [id number] MTDD
[2020-06-20 09:02] LABS: Blood Morphology Comment NOT SEEN (NOT SEEN); Platelet Estimate ADEQ; Platelets, Giant FEW
[2020-06-20] MEDS: CEFTRIAXONE/SWI 1gm 1 GM/10 ML SYR IV SCH ×2 (09:59→20:19)
[2020-06-20] MEDS ORDERED: CEFTRIAXONE 1 GM/NS 50 ML 1 GM/50 ML BAG IV SCH (10:00)
[2020-06-20] MEDS: ACETAMINOPHEN 500 MG TAB PO PRN (17:01)
[2020-06-20] MEDS: PHENYTOIN ER 100 MG CAP PO SCH (20:17)
[2020-06-20] MEDS: ATORVASTATIN 10 MG TAB PO SCH (20:18)
[2020-06-20] MEDS: QUETIAPINE 100MG TAB PO SCH (20:18)
[2020-06-20] MEDS: TEMAZEPAM 15 MG CAP PO SCH (20:18)
[2020-06-20] MEDS: CYCLOBENZAPRINE 10 MG TAB PO SCH (20:19)
[2020-06-21] MEDS: METHYLPREDNISOLONE 125 MG INJ IV SCH ×3 (01:46→18:00)
[2020-06-21] MEDS: LEVOTHYROXINE SOD 0.088 MG TAB PO SCH (05:42)
[2020-06-21] MEDS: PANTOPRAZOLE 40MG TABLET PO SCH (05:42)
[2020-06-21] MEDS: CITALOPRAM 10 MG TABLET PO SCH (09:03)
[2020-06-21] MEDS: ASCORBIC ACID 500 MG TABLET PO SCH ×3 (09:03→20:56)
[2020-06-21] MEDS: ZINC SULFATE 220 MG CAP PO SCH (09:03)
[2020-06-21] MEDS: AMLODIPINE 5 MG TAB PO SCH (09:04)
[2020-06-21] MEDS: APIXABAN 5 MG TABLET PO SCH ×2 (09:04→20:56)
[2020-06-21] MEDS: SOTALOL HCL 80 MG TAB PO SCH ×2 (09:04→20:56)
[2020-06-21] MEDS: THIAMINE HCL 100 MG TABLET PO SCH ×2 (09:04→20:55)
[2020-06-21] MEDS: SPIRONOLACTONE 25 MG TABLET PO SCH (09:05)
[2020-06-21] MEDS: ENSURE ENLIVE 237 ML CAN PO SCH ×2 (09:07→20:57)
[2020-06-21] MEDS: CEFTRIAXONE/SWI 1gm 1 GM/10 ML SYR IV SCH ×2 (09:08→20:56)
--- NOTE | 2020-06-21 09:12 | PN ---
Date of Progress Note: 06/20/2020 Subjective: The patient was seen for followup this morning. No new complaints or problems reported by the patient. Lying in bed, on BiPAP. Appears very weak. Objective: Vital Signs: Reviewed. HEENT: Unremarkable. Lungs: Bilateral equal entry. Heart: Sounds normal. Abdomen: Soft. Bowel sounds normal. No guarding, rigidity, tenderness, or distention. Extremities: No leg edema. Laboratory Data: White count 10.4, hemoglobin 10.9, platelets 150. Sodium 136, potassium 3.8, chlor ronal 99, bicarb 31, BUN 18, creatinine 0.59, glucose 76, ferritin 2363, and CRP 131. Impression: 1.COVID-19 infection. 2.COVID-19 pneumonia. 3.Acute respiratory failure with hypoxia. 4.Pancytopenia. 5.Hypertension. Plan: We will go ahead and continue current oxygen supplement therapy along with BiPAP. Continue IV steroid. The patient is on Eliquis and we will continue that. We will see her tomorrow for followu jc CASTILLO/MODL Voice ID: [id number] Report ID: [id number]
[2020-06-21] MEDS: ACETAMINOPHEN 500 MG TAB PO PRN ×2 (09:30→17:59)
[2020-06-21] MEDS: CYCLOBENZAPRINE 10 MG TAB PO SCH (20:54)
[2020-06-21] MEDS: ATORVASTATIN 10 MG TAB PO SCH (20:55)
[2020-06-21] MEDS: cloNIDine HCL 0.1 MG TAB PO PRN (20:55)
[2020-06-21] MEDS: PHENYTOIN ER 100 MG CAP PO SCH (20:55)
[2020-06-21] MEDS: QUETIAPINE 100MG TAB PO SCH (20:56)
[2020-06-21] MEDS: TEMAZEPAM 15 MG CAP PO SCH (20:56)
[2020-06-22] MEDS: METHYLPREDNISOLONE 125 MG INJ IV SCH ×4 (00:01→23:57)
[2020-06-22 04:39] LABS: Absolute Lymphocytes (CBC) 0.2 K/uL (0.7-4.9); Basophils % 0.4 % (0-1.3); Hematocrit 30.2 % (36.0-45.0); Lymphocytes % 1.1 % (15.3-44.8); MPV 8.6 fL (7.6-11.3); RBC Red Blood Cell Count 3.37 M/uL (3.86-4.86)
[2020-06-22] MEDS: cloNIDine HCL 0.1 MG TAB PO PRN (04:45)
[2020-06-22 05:09] LABS: Ferritin 2343.3 ng/mL (8-388); Magnesium 2.1 mg/dL (1.8-2.4); Potassium 4.4 mmol/L (3.5-5.1)
[2020-06-22] MEDS: LEVOTHYROXINE SOD 0.088 MG TAB PO SCH (05:41)
[2020-06-22] MEDS: PANTOPRAZOLE 40MG TABLET PO SCH (05:41)
[2020-06-22 07:57] LABS: Blood Morphology Comment NOT SEEN (NOT SEEN); Platelet Estimate ADEQ
--- NOTE | 2020-06-22 08:16 | PN ---
Date of Progress Note: 06/21/2020 Subjective: The patient was seen for followup in the morning. No new complaints or problems reported by patient. Lying in bed, on BiPAP. No new complaints or problems reported. Objective: Vital Signs: Reviewed. HEENT: Unremarkable. Lungs: Clear to auscultation. Heart: Sounds normal. Abdomen: Soft. Bowel sounds normal. No guarding, rigidity, tenderness, or distention. Extremities: No leg edema. Impression: 1. Acute respiratory failure with hypoxia. 2. COVID-19 infection. 3. COVID-19 pneumonia. 4. Hypertension. Plan: We will continue current medications including anticoagulation therapy, Eliquis. Continue current steroid, BiPAP, oxygen replacement therapy. She remains on IV ceftriaxone which we will continue that. Tomorrow, we will get blood work and chest x-ray. During the course of day today she had high blood pressure and p.r.n. clonidine was ordered. I will see her tomorrow for followup. ANNA/MODL Voice ID: [id number] Report ID: [id number] SALOMÓN
[2020-06-22] MEDS: CEFTRIAXONE/SWI 1gm 1 GM/10 ML SYR IV SCH ×2 (08:24→20:01)
[2020-06-22] MEDS ORDERED: IPRATROPIUM BROM 0.5MG/2.5ML NEB PRN (08:43)
[2020-06-22] MEDS ORDERED: ALBUTEROL 2.5 MG/3 ML NEB SOL NEB PRN (08:44)
[2020-06-22] MEDS: SOTALOL HCL 80 MG TAB PO SCH ×2 (08:55→21:00)
[2020-06-22] MEDS: CITALOPRAM 10 MG TABLET PO SCH (08:55)
[2020-06-22] MEDS: ASCORBIC ACID 500 MG TABLET PO SCH ×3 (08:56→21:00)
[2020-06-22] MEDS: ENSURE ENLIVE 237 ML CAN PO SCH ×2 (08:56→21:00)
[2020-06-22] MEDS: APIXABAN 5 MG TABLET PO SCH ×2 (08:56→21:00)
[2020-06-22] MEDS: THIAMINE HCL 100 MG TABLET PO SCH ×2 (08:56→21:00)
[2020-06-22] MEDS: ZINC SULFATE 220 MG CAP PO SCH (08:56)
[2020-06-22] MEDS: SPIRONOLACTONE 25 MG TABLET PO SCH (08:56)
[2020-06-22] MEDS: AMLODIPINE 5 MG TAB PO SCH (08:56)
[2020-06-22] MEDS: ENSURE HIGH PROTEIN 237 ML CAN PO SCH ×3 (08:56→21:00)
--- NOTE | 2020-06-22 09:04 | RAD REPORT ---
EXAM DESCRIPTION: RAD - Chest Single View - 06/22/2020 4:42 am CLINICAL HISTORY: covid pneumonia Chest pain. COMPARISON: Chest Single View dated 06/20/2020; Chest Single View dated 06/17/2020; Chest Single View da on[place] 06/17/2020; Chest Single View dated 06/16/2020 FINDINGS: Portable technique limits examination quality. Since 06/20/2020, right lung base aeration has moderately worsened. The heart is mildly enlarged in s ize. Left PICC line is in place. IMPRESSION: Moderate worsening in right lung base aeration since comparative study.
[2020-06-22] MEDS: LORazepam 2 MG/ML VIAL IV PRN ×2 (14:57→20:01)
[2020-06-22] MEDS: ATORVASTATIN 10 MG TAB PO SCH (21:00)
[2020-06-22] MEDS: QUETIAPINE 100MG TAB PO SCH (21:00)
[2020-06-22] MEDS: CYCLOBENZAPRINE 10 MG TAB PO SCH (21:00)
[2020-06-22] MEDS: PHENYTOIN ER 100 MG CAP PO SCH (21:00)
[2020-06-22] MEDS: TEMAZEPAM 15 MG CAP PO SCH (21:00)
[2020-06-23] MEDS: ONDANSETRON 4 MG/2 ML VIAL IV PRN (00:13)
[2020-06-23] MEDS: LORazepam 2 MG/ML VIAL IV PRN ×2 (01:13→06:14)
[2020-06-23] MEDS: PROMETHAZINE INJ 25 MG/ML AMP IV PRN (02:02)
[2020-06-23] MEDS: PANTOPRAZOLE 40MG TABLET PO SCH (04:39)
[2020-06-23] MEDS: LEVOTHYROXINE SOD 0.088 MG TAB PO SCH (04:39)
--- NOTE | 2020-06-23 06:32 | PN ---
Date of Progress Note: 06/22/2020 Subjective: The patient was seen for followup this morning. She was on BiPAP, appearing very weak a nd does not answer any questions. She is opening her eyes when we tried to talk to her, but not able to communicate. Her condition has deteriorated since yesterday. Objective: Vital Signs: Reviewed. HEENT: Unremarkable. Lungs: Bilateral equal air entry. No rales. No wheezing. Heart: Sounds normal. Abdomen: Soft. Bowel sounds normal. No guarding, rigidity, tenderness, or distention. Extremities: No leg edema. Laboratory Data: White count 19.5, hemoglobin 10.2, platelets 151. Sodium 137, potassium 4.4, chlor ronal 97, bicarb 31, BUN 21, creatinine 0.67, glucose 77. Ferritin 2343. CRP 181. Chest x-ray result s reviewed. Impression: 1.Acute respiratory failure with hypoxia. 2.COVID-19 infection. 3.COVID-19 pneumonia. 4.Paroxysmal atrial fibrillation. 5.Hypertension. Plan: We will go ahead and continue current oxygen replacement therapy with BiPAP. The patient is o n Eliquis and starting tomorrow we will probably start her on Lovenox injection as she is not able to take medications by mouth considering her significant deterioration in condition. She is not going to tolerate even placement of Dobbhoff tube because every time nurse tries to take the BiPAP off just to take it off for short time to better have her medications by mouth. Her oxygen saturation droppe d down significantly low in range of 50% to 60%. So, there is no possibility of her able to tolerate Dobhoff tube placement at this time. Visibly, her condition has significantly deteriorated compared to yesterday. She is very weak and has shallow breathing. The patient's family was contacted by [facility] staff per my request early this morning and we have given them opportunity to visit the patient considering her condition has deteriorated now and it is my belief that the patient will not survive this hospitalization and her prognosis is very poor. She has advanced directive of do not resuscita te. The patient's son did come by to hospital after I evaluated her this morning and I did talk to h im on the phone and details were discussed with him as well. All of his questions were answered. We will continue current IV steroid, IV antibiotics and if disease continues to progress as expected, t he patient will not be able to survive for more than another 2-3 days or so. ANNA/MODL Voice ID: [id number] Report ID: [id number]
[2020-06-23] MEDS: CEFTRIAXONE/SWI 1gm 1 GM/10 ML SYR IV SCH ×2 (08:53→21:08)
[2020-06-23] MEDS: ENOXAPARIN 80 MG/0.8 ML SQ SCH (08:54)
[2020-06-23] MEDS: METHYLPREDNISOLONE 125 MG INJ IV SCH ×2 (08:54→16:30)
[2020-06-23] MEDS: SPIRONOLACTONE 25 MG TABLET PO SCH (08:54)
[2020-06-23] MEDS: ENSURE ENLIVE 237 ML CAN PO SCH ×2 (08:55→21:00)
[2020-06-23] MEDS: CITALOPRAM 10 MG TABLET PO SCH (08:55)
[2020-06-23] MEDS: SOTALOL HCL 80 MG TAB PO SCH ×2 (08:55→21:00)
[2020-06-23] MEDS: ENSURE HIGH PROTEIN 237 ML CAN PO SCH ×3 (08:55→21:00)
[2020-06-23] MEDS: THIAMINE HCL 100 MG TABLET PO SCH ×2 (08:56→21:00)
[2020-06-23] MEDS: ASCORBIC ACID 500 MG TABLET PO SCH ×3 (08:56→21:00)
[2020-06-23] MEDS: ZINC SULFATE 220 MG CAP PO SCH (08:56)
[2020-06-23] MEDS: AMLODIPINE 5 MG TAB PO SCH (08:56)
--- NOTE | 2020-06-23 13:28 | PN ---
Date of Progress Note: 06/23/2020 Subjective: The patient was seen this morning for followup. She was lying in bed, on BiPAP with 100 % oxygen, remains very weak, lethargic with shallow breathing, does not follow any commands. Objective: Vital Signs: Reviewed. HEENT: Unremarkable. Lungs: Bilateral shallow air entry. No wheezing, no rales. Heart: Sounds normal. Abdomen: Soft, bowel sounds normal. No guarding, rigidity, tenderness, or distention. Extremities: No leg edema. Impression: 1.Acute respiratory failure with hypoxia. 2.COVID-19 infection. 3.COVID-19 pneumonia. 4.Paroxysmal atrial fibrillation. Plan: The patient is not able to take any oral medication. We will start her on Lovenox injection 8 0 mg subcutaneous daily. Continue current BiPAP with oxygen replacement therapy. IV steroid, IV ant ibiotic. Overall, prognosis is very poor and the patient is not expected to survive this hospitaliza tion and family is aware of. ANNA/MODL Voice ID: [id number] Report ID: [id number]
--- NOTE | 2020-06-23 16:27 | P.PN ---
Subjective Date of Service: 06/23/20 Chief Complaint: Respiratory failure Patient is not doing well currently unresponsive on a BiPAP will requiring high concentrations of oxygen Review of Systems is unable to be obtained Physical Examination - Vital Signs Temperature: 98 F Blood Pressure: 144/92 Pulse: 102 Respirations: 36 Pulse Ox (%): 90 - Physical Exam General: Unresponsive Respiratory: Clear to auscultation bilaterally, Diminished Assessment & Plan - Problems (Diagnosis) (1) Acute respiratory failure due to severe acute respiratory syndrome coronavirus 2 (SARS-CoV-2) infection Current Visit: Yes Status: Acute Plan: Respiratory failure patient is not improving prognosis very poor still on 100% oxygen and BiPAP chemistries reviewed white count elevated cultures negative not eating and drinking prognosis very poor on likely to survive
[2020-06-23] MEDS: QUETIAPINE 100MG TAB PO SCH (21:00)
[2020-06-23] MEDS: CYCLOBENZAPRINE 10 MG TAB PO SCH (21:00)
[2020-06-23] MEDS: PHENYTOIN ER 100 MG CAP PO SCH (21:00)
[2020-06-23] MEDS: TEMAZEPAM 15 MG CAP PO SCH (21:00)
[2020-06-23] MEDS: ATORVASTATIN 10 MG TAB PO SCH (21:00)
[2020-06-23] MEDS: NITROGLYCERIN 1 GM PKT TD SCH (21:07)
[2020-06-23] MEDS: METOPROLOL TARTRATE 5 MG/5 ML INJ IV PRN (21:08)
[2020-06-24] MEDS: METHYLPREDNISOLONE 125 MG INJ IV SCH ×3 (00:34→17:45)
[2020-06-24] MEDS: LORazepam 2 MG/ML VIAL IV PRN ×4 (01:10→20:07)
[2020-06-24] MEDS: METOPROLOL TARTRATE 5 MG/5 ML INJ IV PRN ×3 (05:25→20:06)
[2020-06-24] MEDS: NITROGLYCERIN 1 GM PKT TD SCH ×3 (05:26→17:45)
[2020-06-24] MEDS: PANTOPRAZOLE 40MG TABLET PO SCH (05:43)
[2020-06-24] MEDS: LEVOTHYROXINE SOD 0.088 MG TAB PO SCH (05:43)
[2020-06-24] MEDS: CEFTRIAXONE/SWI 1gm 1 GM/10 ML SYR IV SCH ×2 (08:49→20:07)
[2020-06-24] MEDS: ENOXAPARIN 80 MG/0.8 ML SQ SCH (08:49)
[2020-06-24] MEDS: SPIRONOLACTONE 25 MG TABLET PO SCH (08:58)
[2020-06-24] MEDS: SOTALOL HCL 80 MG TAB PO SCH ×2 (08:58→21:00)
[2020-06-24] MEDS: ENSURE ENLIVE 237 ML CAN PO SCH ×2 (08:58→21:00)
[2020-06-24] MEDS: CITALOPRAM 10 MG TABLET PO SCH (08:58)
[2020-06-24] MEDS: ZINC SULFATE 220 MG CAP PO SCH (08:59)
[2020-06-24] MEDS: THIAMINE HCL 100 MG TABLET PO SCH ×2 (08:59→21:00)
[2020-06-24] MEDS: ENSURE HIGH PROTEIN 237 ML CAN PO SCH ×3 (08:59→21:00)
[2020-06-24] MEDS: ASCORBIC ACID 500 MG TABLET PO SCH ×3 (08:59→21:00)
[2020-06-24] MEDS: AMLODIPINE 5 MG TAB PO SCH (08:59)
[2020-06-24] MEDS: PROMETHAZINE INJ 25 MG/ML AMP IV PRN (11:43)
[2020-06-24] MEDS ORDERED: D5 0.9 NS 1,000 ML IV SCH (16:00)
--- NOTE | 2020-06-24 16:20 | RAD REPORT ---
EXAM DESCRIPTION: RAD - Chest Single View - 06/24/2020 4:15 pm CLINICAL HISTORY: covid pneumonia Chest pain. COMPARISON: Chest Single View dated 06/22/2020; Chest Single View dated 06/20/2020; Chest Single View d ated 06/17/2020; Chest Single View dated 06/17/2020 FINDINGS: Portable technique limits examination quality. Moderate worsening in lung aeration is seen, particularly on the right since preceding study. The hea rt is normal in size. Left PICC line has tip in the SVC. IMPRESSION: Moderate worsening in right lung aeration seen since comparative study.
[2020-06-24 16:52] LABS: Absolute Lymphocytes (CBC) 0.3 K/uL (0.7-4.9); Basophils % 1.5 % (0-1.3); Hematocrit 30.6 % (36.0-45.0); Lymphocytes % 2.1 % (15.3-44.8); MPV 8.6 fL (7.6-11.3); RBC Red Blood Cell Count 3.35 M/uL (3.86-4.86)
[2020-06-24 17:25] LABS: Ferritin 2197.4 ng/mL (8-388)
[2020-06-24 17:30] LABS: Potassium 5.5 mmol/L (3.5-5.1)
[2020-06-24 18:57] LABS: Blood Morphology Comment NOT SEEN (NOT SEEN); Platelet Estimate ADEQ
--- NOTE | 2020-06-24 19:06 | PN ---
Date of Progress Note: 06/24/2020 Subjective: The patient was seen this morning for followup. No new complaints or problems reported by nursing staff. She remains very weak, lethargic, on BiPAP all the time with 100% oxygen. She is not able to take any oral medication, not able to eat or drink anything. Objective: Vital Signs: Reviewed. HEENT: Unremarkable. Lungs: Bilateral shallow air entry. Heart: Sounds normal. Abdomen: Soft. Bowel sounds normal. No guarding, rigidity, tenderness, distention. Extremities: No leg edema. Impression: 1.COVID-19 infection. 2.COVID-19 pneumonia. 3.Acute respiratory failure with hypoxia. 4.Hypertension. Plan: We will go ahead and start her on IV fluid D5 normal saline. Get a chest x-ray and blood work per order. We will follow up on results. I did call the patient's son and details were discussed w ith him today. The patient's prognosis is very poor and she is not going to likely survive this hosp ital admission and is expected in next few days. Family understands that very well. She remai ns on oxygen, BiPAP therapy. We will continue that. We will also go ahead and continue IV steroids and blood pressure medications per order. The patient is receiving Lovenox and we will continue that . ANNA/MODL Voice ID: [id number] Report ID: [id number]
[2020-06-24] MEDS: CYCLOBENZAPRINE 10 MG TAB PO SCH (21:00)
[2020-06-24] MEDS: TEMAZEPAM 15 MG CAP PO SCH (21:00)
[2020-06-24] MEDS: QUETIAPINE 100MG TAB PO SCH (21:00)
[2020-06-24] MEDS: PHENYTOIN ER 100 MG CAP PO SCH (21:00)
[2020-06-24] MEDS: ATORVASTATIN 10 MG TAB PO SCH (21:00)
[2020-06-25] MEDS: NITROGLYCERIN 1 GM PKT TD SCH ×4 (00:05→17:46)
[2020-06-25] MEDS: METHYLPREDNISOLONE 125 MG INJ IV SCH ×3 (00:05→17:10)
[2020-06-25] MEDS: HALOPERIDOL LACT 5 MG/ML INJ IV PRN ×3 (00:06→13:07)
[2020-06-25] MEDS: METOPROLOL TARTRATE 5 MG/5 ML INJ IV PRN ×3 (04:54→17:10)
[2020-06-25] MEDS: LORazepam 2 MG/ML VIAL IV PRN ×3 (05:29→19:43)
[2020-06-25] MEDS: LEVOTHYROXINE SOD 0.088 MG TAB PO SCH (06:00)
[2020-06-25] MEDS: PANTOPRAZOLE 40MG TABLET PO SCH (06:13)
[2020-06-25] MEDS: PROMETHAZINE INJ 25 MG/ML AMP IV PRN ×2 (07:13→14:54)
[2020-06-25] MEDS: CEFTRIAXONE/SWI 1gm 1 GM/10 ML SYR IV SCH ×2 (08:10→19:43)
[2020-06-25] MEDS: ENOXAPARIN 80 MG/0.8 ML SQ SCH (08:10)
[2020-06-25] MEDS: THIAMINE HCL 100 MG TABLET PO SCH ×2 (08:11→20:58)
[2020-06-25] MEDS: ENSURE HIGH PROTEIN 237 ML CAN PO SCH ×3 (08:11→20:57)
[2020-06-25] MEDS: SPIRONOLACTONE 25 MG TABLET PO SCH (08:11)
[2020-06-25] MEDS: ASCORBIC ACID 500 MG TABLET PO SCH ×3 (08:11→20:58)
[2020-06-25] MEDS: ENSURE ENLIVE 237 ML CAN PO SCH ×2 (08:11→20:57)
[2020-06-25] MEDS: CITALOPRAM 10 MG TABLET PO SCH (08:11)
[2020-06-25] MEDS: AMLODIPINE 5 MG TAB PO SCH (08:11)
[2020-06-25] MEDS: SOTALOL HCL 80 MG TAB PO SCH ×2 (08:11→20:57)
[2020-06-25] MEDS: ZINC SULFATE 220 MG CAP PO SCH (08:11)
[2020-06-25 10:20] LABS: BUN Blood Urea Nitrogen 30 mg/dL (7-18); Bicarbonate 30 mmol/L (21-32); Glucose Level 124 mg/dL (74-106); Potassium 3.8 mmol/L (3.5-5.1); Sodium Level 149 mmol/L (136-145)
[2020-06-25] MEDS ORDERED: CLONIDINE 0.3 MG/PATCH TD SCH (11:00)
[2020-06-25] MEDS: D5 0.45 NS 1,000 ML IV SCH (11:02)
--- NOTE | 2020-06-25 12:16 | PN ---
Date of Progress Note: 06/25/2020 Subjective: The patient was seen this morning for followup. No new complaints or problems reported by her or nursing staff, except it was noted that the patient frequently tries to take the BiPAP off. I tried to talk to her, explained her importance of keeping BiPAP on, and not to remove BiPAP or no t to try to pull out any IVs. She actually looks better today than yesterday. She is more awake, mo re alert, tries to communicate, so this is overall improvement that we have seen today compared to . Objective: Vital Signs: Reviewed. HEENT: Unremarkable. Lungs: Bilateral air entry. Not in any respiratory distress with BiPAP at 100% oxygen. Heart: Sounds normal. Abdomen: Soft. Bowel sounds normal. No guarding, rigidity, tenderness, distention. Extremities: No leg edema. Laboratory Data: Today, sodium 149, potassium 3.8, chloride 111, bicarb 30, BUN 30, creatinine 0.48, glucose 124. Last chest x-ray had shown moderate worsening in the right lung opacity compared to pr evious and chest x-ray was done yesterday. Impression: 1.COVID-19 infection. 2.COVID-19 pneumonia. 3.Acute respiratory failure with hypoxia. 4.Hypertension. 5.Anemia. 6.Thrombocytopenia. Plan: We will go ahead and change IV fluid. Yesterday, we started her on IV fluid and D5 normal eula ine today. We will change it to D5 half-normal saline at 75 cc/hour. The patient remains on IV anti biotic, which is ceftriaxone. We will continue that along with IV steroid which is Solu-Medrol at 80 mg every 8 hours. She also remains on Lovenox, we will continue that. The patient is not able to s wallow and considering improvement that we have seen today, we will see if she can keep the BiPAP off for a long enough time where nursing staff can insert the Dobhoff tube quickly and during that time they should use 100% oxygen per face mask. If oxygen saturation remains more than 80%, then they marbin uld go ahead and try to place the Dobhoff tube, and appropriate instruction and order given to the [facility] and I explained it to the nurse as well. If we are able to get the Dobhoff tube, then we can address her nutritional status and medications through the Dobhoff tube. I will see her tomorro w for followup. ANNA/MODL Voice ID: [id number] Report ID: [id number]
[2020-06-25] MEDS: CYCLOBENZAPRINE 10 MG TAB PO SCH (20:57)
[2020-06-25] MEDS: PHENYTOIN ER 100 MG CAP PO SCH (20:57)
[2020-06-25] MEDS: QUETIAPINE 100MG TAB PO SCH (20:58)
[2020-06-25] MEDS: ATORVASTATIN 10 MG TAB PO SCH (20:58)
[2020-06-26] MEDS: NITROGLYCERIN 1 GM PKT TD SCH ×4 (00:28→17:34)
[2020-06-26] MEDS: D5 0.45 NS 1,000 ML IV SCH ×2 (00:28→12:22)
[2020-06-26] MEDS: METHYLPREDNISOLONE 125 MG INJ IV SCH ×3 (00:29→20:52)
[2020-06-26] MEDS: METOPROLOL TARTRATE 5 MG/5 ML INJ IV PRN ×4 (00:39→18:37)
[2020-06-26] MEDS: LEVOTHYROXINE SOD 0.088 MG TAB PO SCH (05:44)
[2020-06-26] MEDS: PANTOPRAZOLE 40MG TABLET PO SCH (05:44)
[2020-06-26] MEDS: LORazepam 2 MG/ML VIAL IV PRN ×2 (07:48→16:11)
[2020-06-26] MEDS: ENOXAPARIN 80 MG/0.8 ML SQ SCH (08:08)
[2020-06-26] MEDS: ENSURE HIGH PROTEIN 237 ML CAN PO SCH ×3 (08:09→20:54)
[2020-06-26] MEDS: SOTALOL HCL 80 MG TAB PO SCH ×2 (08:09→20:53)
[2020-06-26] MEDS: SPIRONOLACTONE 25 MG TABLET PO SCH (08:09)
[2020-06-26] MEDS: ENSURE ENLIVE 237 ML CAN PO SCH ×2 (08:09→20:54)
[2020-06-26] MEDS: CEFTRIAXONE/SWI 1gm 1 GM/10 ML SYR IV SCH ×2 (08:09→20:51)
[2020-06-26] MEDS: CITALOPRAM 10 MG TABLET PO SCH (08:09)
[2020-06-26] MEDS: ZINC SULFATE 220 MG CAP PO SCH (08:10)
[2020-06-26] MEDS: THIAMINE HCL 100 MG TABLET PO SCH ×2 (08:10→20:55)
[2020-06-26] MEDS: AMLODIPINE 5 MG TAB PO SCH (08:10)
[2020-06-26] MEDS: ASCORBIC ACID 500 MG TABLET PO SCH ×3 (08:10→20:55)
[2020-06-26] MEDS: HALOPERIDOL LACT 5 MG/ML INJ IV PRN ×2 (09:12→21:10)
[2020-06-26] MEDS: PHENYTOIN ER 100 MG CAP PO SCH (20:53)
[2020-06-26] MEDS: CYCLOBENZAPRINE 10 MG TAB PO SCH (20:54)
[2020-06-26] MEDS: ATORVASTATIN 10 MG TAB PO SCH (20:54)
[2020-06-26] MEDS: QUETIAPINE 100MG TAB PO SCH (20:55)
[2020-06-27] MEDS: METOPROLOL TARTRATE 5 MG/5 ML INJ IV PRN ×2 (01:00→09:35)
[2020-06-27] MEDS: LORazepam 2 MG/ML VIAL IV PRN ×3 (01:01→15:37)
[2020-06-27] MEDS: NITROGLYCERIN 1 GM PKT TD SCH ×5 (01:01→23:55)
[2020-06-27] MEDS: D5 0.45 NS 1,000 ML IV SCH ×2 (03:13→17:20)
[2020-06-27] MEDS: HALOPERIDOL LACT 5 MG/ML INJ IV PRN (04:12)
[2020-06-27 04:21] LABS: Absolute Lymphocytes (CBC) 0.4 K/uL (0.7-4.9); Basophils % 0.6 % (0-1.3); Hematocrit 28.4 % (36.0-45.0); Lymphocytes % 3.5 % (15.3-44.8); MPV 8.4 fL (7.6-11.3); RBC Red Blood Cell Count 3.12 M/uL (3.86-4.86)
[2020-06-27 04:28] LABS: BUN Blood Urea Nitrogen 21 mg/dL (7-18); Bicarbonate 29 mmol/L (21-32); Glucose Level 114 mg/dL (74-106); Magnesium 2.1 mg/dL (1.8-2.4); Potassium 3.3 mmol/L (3.5-5.1); Sodium Level 153 mmol/L (136-145)
[2020-06-27] MEDS: LEVOTHYROXINE SOD 0.088 MG TAB PO SCH (06:00)
[2020-06-27] MEDS: PANTOPRAZOLE 40MG TABLET PO SCH (06:30)
[2020-06-27] MEDS: CITALOPRAM 10 MG TABLET PO SCH (09:00)
[2020-06-27] MEDS: ZINC SULFATE 220 MG CAP PO SCH (09:00)
[2020-06-27] MEDS: SPIRONOLACTONE 25 MG TABLET PO SCH (09:00)
[2020-06-27] MEDS: ENSURE HIGH PROTEIN 237 ML CAN PO SCH ×3 (09:00→21:00)
[2020-06-27] MEDS: ENSURE ENLIVE 237 ML CAN PO SCH ×2 (09:00→21:00)
[2020-06-27] MEDS: THIAMINE HCL 100 MG TABLET PO SCH ×2 (09:00→21:00)
[2020-06-27] MEDS: SOTALOL HCL 80 MG TAB PO SCH ×2 (09:00→21:00)
[2020-06-27] MEDS: ASCORBIC ACID 500 MG TABLET PO SCH ×3 (09:00→21:00)
[2020-06-27] MEDS: AMLODIPINE 10 MG TAB PO SCH (09:00)
[2020-06-27] MEDS: ENOXAPARIN 80 MG/0.8 ML SQ SCH (09:34)
[2020-06-27] MEDS: METHYLPREDNISOLONE 125 MG INJ IV SCH ×2 (09:34→19:44)
[2020-06-27] MEDS: CEFTRIAXONE/SWI 1gm 1 GM/10 ML SYR IV SCH ×2 (09:34→19:44)
[2020-06-27] MEDS ORDERED: KCL 20 MEQ/100 mL IVPB 20 MEQ/100 ML BAG IV SCH (14:00)
[2020-06-27] MEDS: CYCLOBENZAPRINE 10 MG TAB PO SCH (21:00)
[2020-06-27] MEDS: QUETIAPINE 100MG TAB PO SCH (21:00)
[2020-06-27] MEDS: PHENYTOIN ER 100 MG CAP PO SCH (21:00)
[2020-06-27] MEDS: ATORVASTATIN 10 MG TAB PO SCH (21:00)
--- NOTE | 2020-06-27 22:43 | PN ---
Date of Progress Note: 06/26/2020 Subjective: The patient was evaluated today via tele visit that included audio component only as audio and video visit were not possible because of technical difficulty. No new complaints or problems reported by nursing staff. The patient remains more less unresponsive on BiPAP, 100% FiO2. Objective: Vital signs reviewed. Impression: 1. COVID-19 infection. 2. COVID-19 pneumonia. 3. Acute respiratory failure with hypoxia. Plan: We will continue current medications. Continue current oxygen and IV steroids. Overall, prognosis is poor. I will see her tomorrow for followup. We will repeat blood work tomorrow. ANNA/MODL Voice ID: [id number] Report ID: [id number] MTDAngel
[2020-06-28] MEDS: HALOPERIDOL LACT 5 MG/ML INJ IV PRN
[2020-06-28] MEDS: LORazepam 2 MG/ML VIAL IV PRN ×2 (02:40→09:29)
[2020-06-28] MEDS: METOPROLOL TARTRATE 5 MG/5 ML INJ IV PRN (04:44)
[2020-06-28] MEDS: D5 0.45 NS 1,000 ML IV SCH (05:36)
[2020-06-28] MEDS: LEVOTHYROXINE SOD 0.088 MG TAB PO SCH (06:00)
[2020-06-28] MEDS: PANTOPRAZOLE 40MG TABLET PO SCH (06:30)
[2020-06-28] MEDS: NITROGLYCERIN 1 GM PKT TD SCH (06:40)
[2020-06-28 08:02] VITALS: BP 156/97; TEMP 97.5
[2020-06-28] MEDS: SOTALOL HCL 80 MG TAB PO SCH (09:00)
[2020-06-28] MEDS: THIAMINE HCL 100 MG TABLET PO SCH (09:00)
[2020-06-28] MEDS: ENSURE HIGH PROTEIN 237 ML CAN PO SCH (09:00)
[2020-06-28] MEDS: ASCORBIC ACID 500 MG TABLET PO SCH (09:00)
[2020-06-28] MEDS: ENSURE ENLIVE 237 ML CAN PO SCH (09:00)
[2020-06-28] MEDS: ZINC SULFATE 220 MG CAP PO SCH (09:00)
[2020-06-28] MEDS: AMLODIPINE 10 MG TAB PO SCH (09:00)
[2020-06-28] MEDS: CITALOPRAM 10 MG TABLET PO SCH (09:00)
[2020-06-28] MEDS: SPIRONOLACTONE 25 MG TABLET PO SCH (09:00)
[2020-06-28] MEDS: METHYLPREDNISOLONE 125 MG INJ IV SCH (09:29)
[2020-06-28] MEDS: ENOXAPARIN 80 MG/0.8 ML SQ SCH (09:29)
[2020-06-28] MEDS: CEFTRIAXONE/SWI 1gm 1 GM/10 ML SYR IV SCH (09:29)
[2020-06-28 09:44] VITALS: O2SAT 98
--- NOTE | 2020-06-28 14:13 | DS ---
Date of Discharge: 06/28/2020 Disposition: The patient today. Physical Examination: HEENT: Unremarkable. Lungs: Bilateral shallow air entry. Heart: Sounds normal. Abdomen: Soft. Bowel sounds normal. No guarding, rigidity, tenderness. Extremities: No leg edema. Hospital Course: An 84-year-old very pleasant female patient, who came down to emergency room with fall and feeling weak. Please see dictated H and P for more information. The patient was evaluated in the emergency room and she was admitted to the hospital with COVID-19 infection. Over this hospitalization initially, she did not require any oxygen and without any supplemental oxygen she was maintaining normal oxygen saturation. Her CT scan of chest showed bilateral ground-glass opacities. The patient was started on IV steroid, IV antibiotics. She was taking Eliquis as anticoagulation therapy at home, which was continued. During this hospitalization, her condition subsequently started to deteriorate as she became hypoxic requiring oxygen replacement therapy. Initially, it was nasal cannula and then her oxygen requirement kept on going up and she required oxygen per high-flow and subsequently BiPAP. At one point, we transferred her to ICU and she clearly informed me that she does not want any heroic measures like CPR, defibrillation, or ventilator support in case of cardiopulmonary arrest. So, we transferred her out of ICU to regular medical floor again and isolation room as she did not require any ICU level of services. As her condition deteriorated over a period of this hospitalization, she continued to stay on BiPAP. Later on, she was not able to eat or drink anything, not able to swallow any medications and we started her on Lovenox injection instead of Eliquis. We gave parenteral medications and transdermal patch for control of her blood pressure. Her condition continued to decline. Her hypoxia was so significant that we were not even able to put any Dobbhoff tube because the moment we will BiPAP off, she would have significant hypoxia. DNR order was in place. The patient also received ivermectin and remdesivir during this hospitalization. Condition continued to decline. Family was made aware of her worsening condition and poor prognosis and yesterday the patient's daughter informed me that she has medical power of attorney recruiter along with her brother and they all have decided to withdraw treatment and lead the guarded nature to take its course. Today, she brought her medical power of attorney recruiter and the patient has 2 sons and 1 daughter and they all are in agreement for withdrawal of care and nurse was present during my discussion with the patient's son and daughter today, and they were made aware that in my opinion as soon as we discontinue oxygen, her condition will in all likelihood deteriorate very rapidly and will result in her and they understand and after appropriate form was signed, her care was withdrawn and within few minutes, the patient . Final Diagnoses: 1. COVID-19 infection. 2. COVID-19 pneumonia. 3. Acute respiratory failure with hypoxia. 4. Volume depletion. 5. Hypokalemia. 6. Pancytopenia. 7. Paroxysmal atrial fibrillation. 8. Hypertension. 9. Hyperlipidemia. 10. Hypothyroidism. 11. Seizure disorder. 12. Osteoarthritis, multiple sites. 13. Gastroesophageal reflux disease. 14. Diverticulosis. 15. Depression. Laboratory Data: Initial white count 2.6, hemoglobin 10.6, platelets 54. Last white count yesterday 10.4, hemoglobin 9.5. Initial chemistry; sodium 139, potassium 3.4, chloride 107, bicarb 24, BUN 9, creatinine 0.61, glucose 82. Liver function tests unremarkable. Last chemistry yesterday; sodium 153, potassium 3.3, chloride 116, bicarb 29, BUN 21, creatinine 0.50, glucose 114, magnesium 2.1. ANNA/MODL Voice ID: [id number] Report ID: [id number] MTDD
--- NOTE | 2020-06-28 14:34 | PN ---
Date of Progress Note: 06/27/2020 Subjective: The patient was seen for followup today. Her daughter was present with her at bedside. No new complaints or problems reported by nursing staff, except the patient is not improving and in fact she remains on Bipap with 100% FiO2 and remains unresponsive. Her condition has deteriorated in the last couple of days again. The patient's daughter was at the bedside. Details were discussed with her. Objective: Vital Signs: Reviewed. HEENT: Unremarkable. Lungs: Clear to auscultation. Heart: Sounds normal. Abdomen: Soft. Bowel sounds normal. No guarding, rigidity, tenderness, distention. Extremities: No leg edema. Laboratory Data: White count 10.7, hemoglobin 9.5. Sodium 153, potassium 3.3, chloride 116, bicarb 29, BUN 21, creatinine 0.50, glucose 114. Impression: 1. Acute respiratory failure with hypoxia. 2. COVID-19 infection. 3. COVID-19 pneumonia. 4. Volume depletion. 5. Anemia. 6. Thrombocytopenia. 7. Hypertension. Plan: The patient's condition is deteriorating. She remains unresponsive on 100% FiO2. The patient is on IV antibiotics, ceftriaxone. We will continue that. She is also on IV steroid. We will continue current blood pressure medications. We are not able to put Dobhoff tube as every time any attempts made to put any Dobhoff tube as soon as we take the BiPAP mask off, she desaturated significantly so we were not able to put any Dobhoff tube so far. The patient's daughter informed me today that she has medical power of compliance attorney for the patient along with her brother. They both have medical power of compliance attorney. There is another brother, who is not on this medical power of compliance attorney. daughter informs me that Ady and herself, they both have discussed the patient's worsening condition and they both now have decided to go ahead and withdraw all current care and requesting measures to keep her comfortable. In this case, I have also asked if she has discussed with another brother, who is not on medical power of compliance attorney and so far she has not, but she will discuss with him today and she will bring medical power of compliance attorney paperwork to the hospital and I have informed her that we should consider to put her on hospice care once we have all the appropriate paperwork in place and maybe tomorrow we can follow up care once she is on hospice care as per family's request. Nursing staff was present with me during this discussion in the patient's room. The patient's condition is expected to deteriorate very rapidly and she is not expected to survive for any length of time once we withdraw care. All the details were discussed with family and the patient's daughter today. I will see her tomorrow for followup. Consultation was requested from Social Service to assist with inpatient hospice care using [facility] hospice if possible starting tomorrow. ANNA/MODL Voice ID: [id number] Report ID: [id number] MTDD
--- NOTE | 2020-06-30 18:42 | PN ---
Date of Progress Note: 06/13/2020 Subjective: The patient was seen for followup in the morning. No new complaints or problems reporte d. She was lying in bed, not in distress, not using any oxygen and maintaining adequate oxygenation. Denies any chest pain. She was lying in bed. Objective: Vital Signs: Reviewed. HEENT: Unremarkable. Lungs: Clear to auscultation. Heart: Sounds normal. Abdomen: Soft. Bowel sounds normal. No guarding, rigidity, tenderness, or distention. Extremities: No leg edema. Laboratory Data: White count 2.7, hemoglobin 10.4, platelets 55. Sodium 140, potassium 3.7, chlorid e 108, bicarb 27, BUN 12, creatinine 0.55, glucose 111. CRP 96.6, ferritin 227. Impression: 1.COVID-19 infection. 2.COVID-19 pneumonia. 3.Hypertension. 4.Atrial fibrillation. Plan: We will go ahead and continue current medication. We will continue to follow up with pulmonol ogist. The patient has not required any supplemental oxygen so far. We will go ahead and monitor he r pancytopenia. Continue anticoagulation medication with Eliquis and we will continue IV steroid and azithromycin per order. Her other home medications will be continued per order. ANNA/MODL Voice ID: [id number] Report ID: [id number]
== END 2020-06-28 11:12 | disposition expired | DRG 177 ==
LOC: ER 05:04 → ERHOLD 10:07 → 4TH 14:42 → 3RD-ICU 06-17 05:10 → 4TH 06-18 12:13
PROVIDERS: ADMIT Internal Medicine; ATTEND Internal Medicine
PROC: XW033E5 Introduction of Remdesivir Anti-infective into Peripheral Vein, Percutaneous Approach, New Technology Group 5 (ICD-10-PCS; principal; 2020-06-14)
PROC: 02HV33Z Insertion of Infusion Device into Superior Vena Cava, Percutaneous Approach (ICD-10-PCS; 2020-06-17)
PROC: 5A09557 Assistance with Respiratory Ventilation, Greater than 96 Consecutive Hours, Continuous Positive Airway Pressure (ICD-10-PCS; 2020-06-17)
DX: U07.1 COVID-19 (principal); J12.82 Pneumonia due to coronavirus disease 2019; J96.01 Acute respiratory failure with hypoxia; D61.818 Other pancytopenia; K21.9 Gastro-esophageal reflux disease without esophagitis; E78.5 Hyperlipidemia, unspecified; F41.9 Anxiety disorder, unspecified; E86.9 Volume depletion, unspecified; I48.0 Paroxysmal atrial fibrillation; F32.9 Major depressive disorder, single episode, unspecified; E87.6 Hypokalemia; K57.90 Diverticulosis of intestine, part unspecified, without perforation or abscess without bleeding; M19.90 Unspecified osteoarthritis, unspecified site; E03.9 Hypothyroidism, unspecified; I10 Essential (primary) hypertension; Z66 Do not resuscitate; Z79.899 Other long term (current) drug therapy; Z79.82 Long term (current) use of aspirin; Z79.890 Hormone replacement therapy; Z79.01 Long term (current) use of anticoagulants; Z88.1 Allergy status to other antibiotic agents; Z90.49 Acquired absence of other specified parts of digestive tract; Z90.710 Acquired absence of both cervix and uterus; Z95.818 Presence of other cardiac implants and grafts
CPT/HCPCS: 0240U; 36415; 36569; 51702; 70450; 71045; 71275; 80048; 80053; 80076; 81003; 82565; 82728; 82947; 83605; 83735; 83880; 84145; 84484; 85025; 85610; 86140; 87040; 93005; 94003; 94660; 94760; 96374; 96375; 99285; J0456; J0696; J1630; J1940; J2405; J2550; J2920; J2930; J3480; J7030; J7042; J7050; J7799; Q9967